=== PATIENT | male | born 1940 | race Caucasian/White ===

== ENCOUNTER → 2023-08-17 14:04 | Outpatient (REF) | payer MEDICARE, SELFPAY | LOC: RAD 14:04 | PROVIDERS: ATTENDING PHYSICIAN Nurse Practitioner Family | DX: R60.0 Localized edema (principal) | CPT/HCPCS: 93971 ==

== ENCOUNTER 2024-07-27 05:15 | Inpatient (IN) | payer MEDICARE, SELFPAY ==
[2024-07-27] VITALS (29 sets, daily range): BP systolic 94–149; BP diastolic 38–102; BMI 34.9; BMI 33.9
--- NOTE | 2024-07-27 02:33 | ED.GENMED ---
History of Present Illness
<LISA Alatorre Jr. Last Filed: 07/27/24 05:01>
General
Chief Complaint: Heart Rate Problem
Source: patient and ambulance crew
Exam Limitations: none
Time Seen by Provider: 07/27/24 02:12
Nursing documentation reviewed up to this point in time: agreed with
History of Present Illness
History of Present Illness:
84-year-old male with past medical history of hypertension and CAD presenting to the emergency department today with concerns of an episode where he felt very warm at home lowered self to the floor for comfort. Unable to get up for roughly 4 hours
family was home but they were unaware of this. Has felt shortness of breath since. Otherwise felt well earlier in the day. Denies chest pain or palpitations. Denies any recent trauma surgery mobilization of blood clots.
Past History
<Good Da Silva Jr., PA-C - Last Filed: 07/27/24 05:01>
Past History
ED Past Medical History: HTN, Hypercholesterolemia and Other (BPH)
ED Past Surgical History: Orthopedic (right knee replacement)
Social History
Tobacco: Non-smoker
Alcohol: None
Drug: None
Personal:
Living: with family
Employment: Retired
Family History
Family History: Other (Noncontributory)
Review of Systems
<LISA Alatorre Jr. Last Filed: 07/27/24 05:01>
Review of Systems
Allergies reviewed?: Yes
All Other Systems: ROS reviewed and negative except as documented in HPI and ROS
Phy Exam
<Good Da Silva Jr., PA-C - Last Filed: 07/27/24 05:01>
Physical Exam
Physical Exam:
GENERAL: Alert , in no apparent distress
EYE: pupils equal and reactive
NECK: Supple, no significant adenopathy.
ENT: o/p clr, mmm.
CARDIAC: Regular rate and rhythm .
LUNGS: Clear breath sounds bilaterally, no acute respiratory distress, no wheezes/rales/rhonchi
ABDOMEN: Soft, without focal tenderness, no r/g, no cvat
NEUROLOGICAL: Alert and oriented, no focal neuro deficits
SKIN: Warm and dry, skin intact.
MUSCULOSKELETAL: No edema, well perfused.
PSYCH: Normal and appropriate interaction.
Course
<Good Da Silva Jr., PA-C - Last Filed: 07/27/24 05:01>
Orders/Labs/Results
Orders:
Orders
07/27/24 02:14
EKG [Electrocardiogram (*1)] Urgent
Reason for Study: Tachycardia
EKG- Treatment ONCE
07/27/24 02:25
CT Chest PE Study Urgent
Comment:
Reason For Exam: sob, tachy, limited physical activity leg swelling
Complete Blood Count/With Diff Urgent
Comprehensive Metabolic Panel Urgent
Creatine [Creatine Phosphokinase] Urgent
Pro-BNP [NT-proBNP] Urgent
Troponin I Urgent
Chest X-ray Portable [CR Chest Portable - 1 View] Urgent
Comment:
Reason For Exam: sob
Reason Study Needs to be Portable: Patient Unstable
07/27/24 04:30
Heparin 8,600 units IV NOW STA
Heparin 03884 Units/250 ml 25,000 units in 250 ml IV PER PROTOCOL
Weight to be used for heparin protocol in kilograms (kg):: 107
Protocol:: DVT/PE
PTT Goal Range to be used:: PTT 73 to 111 seconds
Order type:: Initial
INITIAL Infusion Dose (UNITS/KG/hr) & then follow protocol:: 18 units/kg/hr
Infusion Dose in UNITS/hr & then follow protocol (UNITS/hr):: 1,900
INFUSION RATE in mL/hr & then follow protocol (mL/hr):: 19
For DVT/PE algorithm, re-bolus for low PTT?: Yes
PTT less than or equal to 64 seconds:: Re-bolus 80 units/kg (max 10,000units). Increase by 400 units/hr
(+ 4mL/hr)
PTT 64.1 to 72.9 seconds:: Re-bolus 40 units/kg (max 5,000 units). Increase by 200 units/hr
(+ 2mL/hr)
PTT 73 to 111 seconds:: Target Range. No change in rate.
PTT 111.1 to 130.9 seconds:: Decrease rate by 200 units/hr (- 2 mL/hr)
PTT 131 to 199.9 seconds:: HOLD for 1 hr. Then decrease by 300 units/hr (- 3mL/hr)
PTT greater than or equal to 200 seconds:: HOLD for 2 hrs & Notify Provider. Then decrease by 400 units/hr
(- 4mL/hr)
Lab follow-up:: Each change, PTT q6h until 2 consecutive are therapeutic. Then
PTT daily.
Heparin Protocol- PTT Orders As Directed
PTT per Heparin protocol: -Obtain CBC and baseline PTT - if not already collected.
-Obtain PTT 6 hours from start of infusion. Then, every 6 hours until 2 consecutive
PTT's are therapeutic. Then, PTT Daily.
-With each rate change, obtain PTT every 6 hours until 2 consecutive PTT's are
therapeutic. Then, PTT Daily.
Nursing to Place Non Medication Order As Directed
Physician Order: PTT 6 hours after initial start of Heparin infusion
07/27/24 04:33
COVID-19 Antigen Stat
Source: Nasal Swab
PTT Urgent
Comment: Obtain baseline before beginning heparin infusion if not already collected
07/27/24 04:52
Heparin 8,600 units IV PRN PRN
07/27/24 04:53
Admit/Transfer Patient As Directed
Co-Sign Provider:
Level of Care: Inpatient admission
Assign to:: IMU- Intermediate Care
Physician / Group: hospitalist
Diagnosis: pulmonary embolism, pericardial effusion
Reason for Hospitalization: hypoxia, pulmonary embolism
Expected length of stay greater than two midnights?: Yes
ELOS- Estimated Length of Stay in days: 2
I certify the patient meets the requirements for IP care: Yes
Heparin 4,300 units IV PRN PRN
PRN Pain Medication Management As Directed
May give lesser potent ordered pain med per pt: Yes
preference::
Protocol:: Medication orders for pain may be administered in a
manner that supports deferring to patient preference
when the pt is:
- Requesting an ordered lesser potent pain medication.
Least to most potent pain medications are defined
as: acetaminophen < NSAID < tramadol < opioids
(morphine, oxycodone, hydromorphone).
- Requesting a lesser dose of the same medication IF
ORDERED.
- Requesting a less intrusive route of administration
if both routes are prescribed by the provider (PO <
IV).
07/27/24 04:54
Code Status As Directed
Resuscitation Status: Do not resuscitate
Reached after discussion with pt or family/Healthcare POA: Yes
DNR Bracelet Application ONCE
07/27/24 05:00
Flush (0.9% Sodium Chloride) [Flush (Nss)] See Dose Instructions IV PER PROTOCOL
07/27/24 06:00
Echo 2D MMode Color/Doppler IN AM
Reason for Study: pericardial effusion
07/29/24 06:00
Complete Blood Count/No Diff Q2D
Comment: notify provider: Platelet count < 130,000 or decrease by 50% from baseline
07/31/24 06:00
Complete Blood Count/No Diff Q2D
Comment: notify provider: Platelet count < 130,000 or decrease by 50% from baseline
08/02/24 06:00
Complete Blood Count/No Diff Q2D
Comment: notify provider: Platelet count < 130,000 or decrease by 50% from baseline
08/04/24 06:00
Complete Blood Count/No Diff Q2D
Comment: notify provider: Platelet count < 130,000 or decrease by 50% from baseline
08/06/24 06:00
Complete Blood Count/No Diff Q2D
Comment: notify provider: Platelet count < 130,000 or decrease by 50% from baseline
08/08/24 06:00
Complete Blood Count/No Diff Q2D
Comment: notify provider: Platelet count < 130,000 or decrease by 50% from baseline
08/10/24 06:00
Complete Blood Count/No Diff Q2D
Comment: notify provider: Platelet count < 130,000 or decrease by 50% from baseline
08/12/24 06:00
Complete Blood Count/No Diff Q2D
Comment: notify provider: Platelet count < 130,000 or decrease by 50% from baseline
Abnormal Lab Results
07/27/24
02:25
WBC 28.4 H 10^3/uL
(4.8-10.8)
RBC 4.61 L 10^6/uL
(4.70-6.10)
Plt Count 495 H 10^3/uL
(130-400)
Abs Immat Gran (auto) 0.3 H 10^3/uL
(0-0.05)
Absolute Neuts (auto) 25.5 H 10^3/uL
(1.4-6.5)
Absolute Lymphs (auto) 1.0 L 10^3/uL
(1.2-3.4)
Absolute Monos (auto) 1.6 H 10^3/uL
(0.1-0.6)
Immature Gran % 1.0 H %
(0-0.5)
Neutrophils % 89.9 H %
(42.2-75.2)
Lymphocytes % 3.4 L %
(20.5-51.1)
Carbon Dioxide 18 L mmol/L
(22-30)
BUN 35 H mg/dl
(9-20)
Glucose 257 H mg/dl
(70-99)
Total Bilirubin 2.0 H mg/dl
(0.2-1.3)
AST 117 H U/L
(17-59)
ALT 191 H U/L
(0-50)
Total Protein 5.8 L g/dl
(6.3-8.2)
Albumin 3.0 L g/dl
(3.5-5.0)
07/27/24 02:25
07/27/24 02:25
Vital Signs
Initial and Last Documented VS:
Initial Vital Signs
Temp Pulse Resp BP Pulse Ox
97.6 F 119 26 108/74 92
07/27/24 02:12 07/27/24 02:12 07/27/24 02:12 07/27/24 02:12 07/27/24 02:12
Last Documented Vital Signs
Temp Pulse Resp BP Pulse Ox
97.6 F 113 31 112/48 93
07/27/24 02:12 07/27/24 04:00 07/27/24 04:00 07/27/24 04:00 07/27/24 04:00
<Micah Ramsay, DO - Last Filed: 07/27/24 04:29>
Orders/Labs/Results
Orders:
Orders
07/27/24 02:14
EKG [Electrocardiogram (*1)] Urgent
Reason for Study: Tachycardia
EKG- Treatment ONCE
07/27/24 02:25
CT Chest PE Study Urgent
Comment:
Reason For Exam: sob, tachy, limited physical activity leg swelling
Complete Blood Count/With Diff Urgent
Comprehensive Metabolic Panel Urgent
Creatine [Creatine Phosphokinase] Urgent
Pro-BNP [NT-proBNP] Urgent
Troponin I Urgent
Chest X-ray Portable [CR Chest Portable - 1 View] Urgent
Comment:
Reason For Exam: sob
Reason Study Needs to be Portable: Patient Unstable
07/27/24 04:30
Heparin 8,600 units IV NOW STA
Heparin 61661 Units/250 ml 25,000 units in 250 ml IV PER PROTOCOL
Weight to be used for heparin protocol in kilograms (kg):: 107
Protocol:: DVT/PE
PTT Goal Range to be used:: PTT 73 to 111 seconds
Order type:: Initial
INITIAL Infusion Dose (UNITS/KG/hr) & then follow protocol:: 18 units/kg/hr
Infusion Dose in UNITS/hr & then follow protocol (UNITS/hr):: 1,900
INFUSION RATE in mL/hr & then follow protocol (mL/hr):: 19
For DVT/PE algorithm, re-bolus for low PTT?: Yes
PTT less than or equal to 64 seconds:: Re-bolus 80 units/kg (max 10,000units). Increase by 400 units/hr
(+ 4mL/hr)
PTT 64.1 to 72.9 seconds:: Re-bolus 40 units/kg (max 5,000 units). Increase by 200 units/hr
(+ 2mL/hr)
PTT 73 to 111 seconds:: Target Range. No change in rate.
PTT 111.1 to 130.9 seconds:: Decrease rate by 200 units/hr (- 2 mL/hr)
PTT 131 to 199.9 seconds:: HOLD for 1 hr. Then decrease by 300 units/hr (- 3mL/hr)
PTT greater than or equal to 200 seconds:: HOLD for 2 hrs & Notify Provider. Then decrease by 400 units/hr
(- 4mL/hr)
Lab follow-up:: Each change, PTT q6h until 2 consecutive are therapeutic. Then
PTT daily.
Heparin Protocol- PTT Orders As Directed
PTT per Heparin protocol: -Obtain CBC and baseline PTT - if not already collected.
-Obtain PTT 6 hours from start of infusion. Then, every 6 hours until 2 consecutive
PTT's are therapeutic. Then, PTT Daily.
-With each rate change, obtain PTT every 6 hours until 2 consecutive PTT's are
therapeutic. Then, PTT Daily.
Nursing to Place Non Medication Order As Directed
Physician Order: PTT 6 hours after initial start of Heparin infusion
07/27/24 04:33
COVID-19 Antigen Stat
Source: Nasal Swab
PTT Urgent
Comment: Obtain baseline before beginning heparin infusion if not already collected
07/27/24 04:52
Heparin 8,600 units IV PRN PRN
07/27/24 04:53
Admit/Transfer Patient As Directed
Co-Sign Provider:
Level of Care: Inpatient admission
Assign to:: IMU- Intermediate Care
Physician / Group: hospitalist
Diagnosis: pulmonary embolism, pericardial effusion
Reason for Hospitalization: hypoxia, pulmonary embolism
Expected length of stay greater than two midnights?: Yes
ELOS- Estimated Length of Stay in days: 2
I certify the patient meets the requirements for IP care: Yes
Heparin 4,300 units IV PRN PRN
PRN Pain Medication Management As Directed
May give lesser potent ordered pain med per pt: Yes
preference::
Protocol:: Medication orders for pain may be administered in a
manner that supports deferring to patient preference
when the pt is:
- Requesting an ordered lesser potent pain medication.
Least to most potent pain medications are defined
as: acetaminophen < NSAID < tramadol < opioids
(morphine, oxycodone, hydromorphone).
- Requesting a lesser dose of the same medication IF
ORDERED.
- Requesting a less intrusive route of administration
if both routes are prescribed by the provider (PO <
IV).
07/27/24 04:54
Code Status As Directed
Resuscitation Status: Do not resuscitate
Reached after discussion with pt or family/Healthcare POA: Yes
DNR Bracelet Application ONCE
07/27/24 05:00
Flush (0.9% Sodium Chloride) [Flush (Nss)] See Dose Instructions IV PER PROTOCOL
07/27/24 06:00
Echo 2D MMode Color/Doppler IN AM
Reason for Study: pericardial effusion
07/29/24 06:00
Complete Blood Count/No Diff Q2D
Comment: notify provider: Platelet count < 130,000 or decrease by 50% from baseline
07/31/24 06:00
Complete Blood Count/No Diff Q2D
Comment: notify provider: Platelet count < 130,000 or decrease by 50% from baseline
08/02/24 06:00
Complete Blood Count/No Diff Q2D
Comment: notify provider: Platelet count < 130,000 or decrease by 50% from baseline
08/04/24 06:00
Complete Blood Count/No Diff Q2D
Comment: notify provider: Platelet count < 130,000 or decrease by 50% from baseline
08/06/24 06:00
Complete Blood Count/No Diff Q2D
Comment: notify provider: Platelet count < 130,000 or decrease by 50% from baseline
08/08/24 06:00
Complete Blood Count/No Diff Q2D
Comment: notify provider: Platelet count < 130,000 or decrease by 50% from baseline
08/10/24 06:00
Complete Blood Count/No Diff Q2D
Comment: notify provider: Platelet count < 130,000 or decrease by 50% from baseline
08/12/24 06:00
Complete Blood Count/No Diff Q2D
Comment: notify provider: Platelet count < 130,000 or decrease by 50% from baseline
Abnormal Lab Results
07/27/24
02:25
WBC 28.4 H 10^3/uL
(4.8-10.8)
RBC 4.61 L 10^6/uL
(4.70-6.10)
Plt Count 495 H 10^3/uL
(130-400)
Abs Immat Gran (auto) 0.3 H 10^3/uL
(0-0.05)
Absolute Neuts (auto) 25.5 H 10^3/uL
(1.4-6.5)
Absolute Lymphs (auto) 1.0 L 10^3/uL
(1.2-3.4)
Absolute Monos (auto) 1.6 H 10^3/uL
(0.1-0.6)
Immature Gran % 1.0 H %
(0-0.5)
Neutrophils % 89.9 H %
(42.2-75.2)
Lymphocytes % 3.4 L %
(20.5-51.1)
Carbon Dioxide 18 L mmol/L
(22-30)
BUN 35 H mg/dl
(9-20)
Glucose 257 H mg/dl
(70-99)
Total Bilirubin 2.0 H mg/dl
(0.2-1.3)
AST 117 H U/L
(17-59)
ALT 191 H U/L
(0-50)
Total Protein 5.8 L g/dl
(6.3-8.2)
Albumin 3.0 L g/dl
(3.5-5.0)
07/27/24 02:25
07/27/24 02:25
Vital Signs
Initial and Last Documented VS:
Initial Vital Signs
Temp Pulse Resp BP Pulse Ox
97.6 F 119 26 108/74 92
07/27/24 02:12 07/27/24 02:12 07/27/24 02:12 07/27/24 02:12 07/27/24 02:12
Last Documented Vital Signs
Temp Pulse Resp BP Pulse Ox
97.6 F 113 31 112/48 93
07/27/24 02:12 07/27/24 04:00 07/27/24 04:00 07/27/24 04:00 07/27/24 04:00
<Good Da Silva Jr., PA-C - Last Filed: 07/27/24 05:01>
MDM/Problems Addressed
MDM/Problems Addressed:
84-year-old male presenting to the emergency department today with concerns of shortness of breath. Also unable to get up off the floor after he purposely lowered himself to the floor getting warm. Was on the floor for roughly 4 hours. Adamantly
denies any significant injuries or trauma. He claims that going to the floor was intentional. On arrival he is tachycardic tachypneic and pulse ox is in the 80s on room air improving to 9392 on 3 L nasal cannula. Does not typically use oxygen.
White count 28, elevated bili as well as LFTs. CT scan was ordered concerning the patient's tachycardia hypoxia. This showed segmental PEs as well as pericardial effusion. PERT alert was called heparin started Case discussed with ICU doc.
Additionally cardiology was messaged. Echo was ordered as well for further assessment. Stable while in the ER.
<Good Da Silva Jr., PA-C - Last Filed: 07/27/24 05:01>
*Critical Care Note
Total Time (30-74mins, 75-104mins- exclusive of procedures): Critical care statement:
ED Attending Note
<Good Da Silva Jr., PA-C - Last Filed: 07/27/24 05:01>
-
Portions of this chart may have been created with voice recognition software.� Occasional wrong word or��sound alike� substitutions may have occurred due to the inherent limitations of voice recognition software.
<Micah Ramsay, DO - Last Filed: 07/27/24 04:29>
ED Attending Note
Patient seen and examined by attending physician: Yes
ED Attending Note:
84-year-old male presents with shortness of breath. Patient presented to the emergency department hypoxic. Patient was seen in conjunction with the [facility]. I have reviewed and agree with his history and treatment plan. CT results showed PEs and
mild right heart strain. There is also a pericardial effusion. On my independent physical exam, patient is in mild to moderate distress. He is speaking in 1-2 word sentences. He is working at breathing even with nasal cannula present. Patient
to be admitted to the hospitalist service. At this time pulmonology was consulted. Given the right heart strain and the multiple PEs, PERT alert was called.
Discharge Plan
Departure
Patient Disposition: Admit
Date of Disposition: 07/27/24
Time of Disposition: 05:01
Admit to: ICU
Admit to doctor: Jasmeet
Presentation/result/management discussed w/ accepting MD/DO: Hospitalist
Patient with high blood pressure during this ER visit?: No
Condition: Fair
Covid-19: Not Applicable
Discharge Problem:
Pulmonary embolism, Pericardial effusion
Prescriptions:
No Action
tamsulosin 0.4 MG capsule
0.4 mg PO DAILY
hydrochlorothiazide 12.5 MG tablet
12.5 mg PO DAILY
biotin 5,000 MCG tablet,disintegrating
10,000 mcg PO DAILY
finasteride 5 MG tablet
5 mg PO DAILY
acetaminophen [Tylenol Extra Strength] 500 MG tablet
500 mg PO Q4HPRN PRN (Reason: pain) Qty: 1 0RF
ascorbic acid (vitamin C) 500 MG capsule
500 mg PO DAILY
losartan 50 MG tablet
50 mg PO DAILY 0RF
atorvastatin 40 MG tablet
40 mg PO QPM Qty: 90 3RF
metoprolol succinate 50 MG tablet extended release 24 hr
50 mg PO BID Qty: 180 3RF
Rx Instructions:
Please take twice a day, note lower dose
aspirin 81 MG tablet,chewable
81 mg PO DAILY Qty: 90 3RF
nitroglycerin 0.4 MG tablet, sublingual
0.4 mg sublingual [id number] PRN (Reason: chest pain) Qty: 25 2RF
amlodipine 5 mg Tablet
5 mg PO DAILY
cholecalciferol (vitamin D3) [Vitamin D3] 50 mcg (2,000 unit) Capsule
50 mcg PO DAILY
coQ10 (ubiquinol) 200 mg Capsule
200 mg PO DAILY
Referrals:
Daniel Morgan CRNP [Family Provider] -
Interventions
Interventions:
*Risk Screen - Suicide Last Done: 07/27/24 02:12
*General Assessment Last Done: 07/27/24 02:12
*Neglect/Abuse Screening Last Done: 07/27/24 02:12
*ED- Fall Risk Assessment Last Done: 07/27/24 02:12
*ED COVID-19 Vaccine History Last Done: 07/27/24 02:12
ED- Cardiac Assessment Last Done: 07/27/24 02:18
ED- Pulmonary Assessment Last Done: 07/27/24 02:19
Discharge Date and Time
Print Language: BENGALI
[2024-07-27 02:36] LABS: Hematocrit 40.6 % (39.0-52.0); Hemoglobin 13.7 g/dL (13.0-18.0); Mean Corp Hgb Conc. 33.7 g/dL (33.0-37.0); Mean Corpuscular Hgb 29.7 pg (27.0-31.0); Mean Corpuscular Volume 88.1 fL (80.0-94.0); Mean Platelet Volume 9.3 fL (7.4-10.4); Platelet Count 495 10^3/uL (130-400); Red Blood Cell Count 4.61 10^6/uL (4.70-6.10); Red Cell Dist. Width 13.9 % (11.5-14.5); White Blood Cell Count 28.4 10^3/uL (4.8-10.8)
[2024-07-27 02:56] LABS: AST (SGOT) 117 U/L (17-59); Alkaline Phosphatase 122 U/L (38-126); Blood Urea Nitrogen 35 mg/dl (9-20); Calcium 8.5 mg/dl (8.4-10.2); Carbon Dioxide 18 mmol/L (22-30); Chloride 107 mmol/L (98-107); Creatine Phosphokinase 122 U/L (55-170); Estimated Creatinine Clearance 52 ml/min; Glucose 257 mg/dl (70-99); Potassium 4.4 mmol/L (3.5-5.1); Sodium 141 mmol/L (135-145); Total Protein 5.8 g/dl (6.3-8.2); eGFR 54.51
[2024-07-27 03:05] LABS: ALT (SGPT) 191 U/L (0-50)
[2024-07-27 03:07] LABS: NT-proBNP 1410 pg/ml
[2024-07-27 03:43] LABS: % Basophils 0.2 % (0-2); % Lymphocytes 3.4 % (20.5-51.1); % Monocytes 5.5 % (1.7-9.3); % Neutrophils 89.9 % (42.2-75.2); Absolute Basophils 0.1 10^3/uL (0-0.2); Absolute Immature Granulocytes 0.3 10^3/uL (0-0.05); Absolute Monocytes 1.6 10^3/uL (0.1-0.6); Absolute Neutrophils 25.5 10^3/uL (1.4-6.5); Nucleated Red Blood Cells % 0 % (-)
--- NOTE | 2024-07-27 04:34 | HPS.HSE ---
Family Physician
-
Family Physician: MARK ANTHONY Sinclair
Chief Complaint
-
Weakness
History of Present Illness
This is a 84-year-old with past medical history of CAD status post NSTEMI, status post stenting 3 years ago, hypertension, hyperlipidemia, BPH, presents to the emergency department with sudden weakness at home.
According to daughter who sees him regularly, patient had been in usual state of health up until the day of admission. She frequently has confronted they have was feeling and patient stated that he was doing well although he appeared to be having
increased work of breathing and not his usual self. He had no fevers or chills. She is unsure if he had any sick contacts but believes he has not been isolated. Patient became so weak that he lowered himself to the floor. He was unable to get up
on his own and EMS was called. He denied having any chest pain. He denies any worsening lower extremity swelling. He denies any calf tenderness. Found to have PE in the emergency department. With respect to the PE patient denies any recent
cough cold flulike symptoms. He denies any recent travel. He had surgery in for hip replacement. He has been immobile since then using a walker. He did stop going to PT. He denies any prior history of PEs. He denies history of
congestive heart failure.
In the emergency department the patient was afebrile, he was requiring 2 L of oxygen to maintain a sat of 93, he was tachypneic to the high 30s. Was tachycardic to the 113. Blood pressure was 110/50. ECG shows sinus tachycardia at rate of 118.
No acute ST or T wave changes. Troponin was 0.03. BNP was elevated at 1400. He has mild elevations in AST to 117 ALT to 191. Total bilirubin was also elevated at 2.0. White count of 28.4, hemoglobin and platelets were normal. Electrolytes were
normal. Creatinine was 1.3 with a glucose of 257.
He had a CT PE study which showed despite artifact limited assessment that there was acute pulmonary emboli involving right lower lobe segmental and subsegmental branches, additional emboli within the left upper lobe segmental and subsegmental
branches. There is straightening of the IV septum which could reflect mild degree of right heart strain with a moderate to large pericardial effusion.
Medical History
Past Medical History
Past Medical History: Reports CAD, HTN, Hypercholesterolemia and Other (BPH)
Past Surgical History: Reports Orthopedic (Right knee replacement 2004, hip replacement 2024, Right L2 TFESI 05/04/2022 NDS, RT L3-4 ILESI NO SED DOS 05.25.2022 NDS, RT L4 TFESI NO SED 06/15/22 ) and Tonsilectomy
Social History
Tobacco: Non-smoker
Alcohol: None
Drug: None
Personal:
Living: With Family
Employment: Retired
Family History
Family History: Not pertinent
Allergies / Home Medications
Allergies reflects when Allergies were last updated in [employer].
Home Medications with original date entered in [employer]
Allergy/Medication List:
Allergies
Allergy/AdvReac Type Severity Reaction Status Date / Time
No Known Allergies Allergy Verified 07/19/20 19:43
Home Medications
biotin 5,000 mcg disintegrating tablet 10,000 mcg PO DAILY Supplement 04/06/19
finasteride 5 mg tablet 5 mg PO DAILY Urinary issue 04/06/19
hydrochlorothiazide 12.5 mg tablet 12.5 mg PO DAILY Blood pressure 04/06/19
tamsulosin 0.4 mg capsule 0.4 mg PO DAILY Urinary issue 04/06/19
acetaminophen 500 mg tablet (Tylenol Extra Strength) 500 mg PO Q4HPRN PRN pain #1 tab 04/12/19
ascorbic acid (vitamin C) 500 mg capsule 500 mg PO DAILY Supplement 07/19/20
aspirin 81 mg chewable tablet 81 mg PO DAILY #90 tabs 07/23/20
atorvastatin 40 mg tablet 40 mg PO QPM #90 tabs 07/23/20
losartan 50 mg tablet 50 mg PO DAILY 07/23/20
metoprolol succinate 50 mg tablet,extended release 24 hr 50 mg PO BID #180 tabs 07/23/20
nitroglycerin 0.4 mg sublingual tablet 0.4 mg sublingual [id number] PRN chest pain #25 tabs 07/23/20
amlodipine 5 mg tablet 5 mg PO DAILY 07/27/24
cholecalciferol (vitamin D3) 50 mcg (2,000 unit) capsule (Vitamin D3) 50 mcg PO DAILY 07/27/24
coQ10 (ubiquinol) 200 mg capsule 200 mg PO DAILY 07/27/24
Review of Systems
-
History Source: Patient and Family
Constitutional: Reports No Symptoms; Denies Fever or Chills
EENT: Reports No Symptoms
Respiratory: Reports Trouble Breathing
Cardiac: Reports No Symptoms
Abdomen/GI: Reports No Symptoms
: Reports No Symptoms
Musculoskeletal: Reports No Symptoms
Skin: Reports No Symptoms
Neurological: Reports Weakness
Endocrine: Reports No Symptoms
Hematologic/Lymphatic: Reports No Symptoms
Psych: Reports No Symptoms
Physical Exam
Vital Signs
Vital Signs
Temp Pulse Resp BP Pulse Ox
97.6 F 113 31 112/48 93
07/27/24 02:12 07/27/24 04:00 07/27/24 04:00 07/27/24 04:00 07/27/24 04:00
Physical Exam
General: Respiratory Distress
HEENT: NormoCephalic, Anicteric, Moist mucous membranes, Atraumatic, PERRLA and Oxygen
Respiratory: Clear; No Wheezes, Rales or Rhonchi
Cardiac: S1/S2, Regular Rhythm and Tachycardia
Breast: Deferred by me
GI: Soft, Non Tender, Non Distended and Normal Bowel Sounds
Rectal: Deferred by Provider
Genito-urinary: Deferred by me
Musculoskeletal: No Clubbing, No Cyanosis, Edema, Left Lower Extremity and Edema, Right Lower Extremity
Skin: Warm
Neuro: AO x 3 and Nonfocal/grossly intact
Hematologic/Lymphatic: No Lymphadenopathy
Psych: Calm
Laboratory Results
-
07/27/24 02:25
07/27/24 02:25
Laboratory Results
Total Bilirubin 2.0 mg/dl (0.2-1.3) H 07/27/24 02:25
AST 117 U/L (17-59) H 07/27/24 02:25
ALT 191 U/L (0-50) H 07/27/24 02:25
Alkaline Phosphatase 122 U/L (38-126) 07/27/24 02:25
Troponin I 0.030 ng/ml 07/27/24 02:25
Data Reviewed
-
CT Scan: Report Reviewed by me
Medical Tests (Nuc Med, Echo, EKG etc): Image Personally Visualized and interpreted
Lab Data: Labs Reviewed by me
Old Records: Reviewed
Impression/Plan
-
IMPRESSION:
84 y.o male with h/o CAD s/p NSTEMI, s/p PCI 3 yrs ago, HTN, HLD presenting with weakness and SOB. Has bilateral PE w/o saddle emboli. There is evidence of mild heart strain with septal straining. BNP is elevated at 1400. Troponin is 0.03 and
ECG shows no changes. He is tachycardic, tachypneic and hypoxic. There is pericardial effusion (moderate to large) and moderate amount of peripheral edema. He is normotensive so far. No tamponade.
PLAN:
1. PE - Bilateral PE possible in setting of ongoing pericardial effusion. Surgery in April (hip replacement) but no other known provoking factors.
- admit to IMU for now.
- NPO except meds and sips
- IV heparin gtt
- echo to eval strain further
- check covid 19
- bonita LE u/s
- holding losartan and amlodipine, continue metoprolol
- supportive measures, keep sat > 95% to reduce wob
- pulmonary consultation, PERT alert called, awaiting recs from [facility]
2. Pericardial effusion - Pericardial effusion with some total body volume overload. Possible CHF versus infectious inflammatory process. Moderate to large volume but no alternans on ECG and no tamponade
- no fevers, no cough,no pna, hold off on cultures
- check viral panel
- check inflammatory panel
- echo as above, may need diagnostic tap
- will hold off on diuretics for now
- cardiology consultation
3. Leukocytosis - infectious, inflammatory vs proliferative. Has some prior elevations 4 years ago. Other lineages presered.
- infectious w/u to include u/a
- cultures if spike fever
- abx if febrile otherwise hold off for now
4. CAD - Trop negative
- continue aspirin, statin
- on heparin gtt for PE
Code Status - DNR
[2024-07-27] MEDS: HEPARIN 8600 UNITS IV (05:00)
[2024-07-27] MEDS: HEPARIN 25000 UNITS/250 ML IV (05:01)
[2024-07-27 05:54] LABS: COVID-19 Antigen Negative (Negative)
--- NOTE | 2024-07-27 06:10 | PTCARENOTE ---
Patient arrived from the ED via stretcher accompanied by RN. Patient is [place] but awake, alert and oriented. Afebrile, BP stable. ST 110s on CM. Complete CHG cloth bath given with complete linen change. Oral care. S1S2 tachy. Positive pulses x 4
extremities, BLE edema 2+. Abdomen softly distended and nontender with good bowel sounds. BBS clear, diminished in the bases. Patient denies CP but does have tachypnea. Feels SOB with HOB flat. HOB up 45-60 degrees for patient comfort. Right AC #20
with Heparin gtt infusing at 1900units/hr. Left AC #20 SL. Sats 92% on 3L, increased to 4L/nc per order. Right posterior back with scaly area secondary to skin biopsy for skin cancer, area dry without drainage. CLIFFORD. Bed in low and locked position,
bed alarm on, call negro in reach. Urinal at bedside. Patient daughter Jud at bedside. Oriented to unit.
--- NOTE | 2024-07-27 07:06 | PTCARENOTE ---
Report given verbally to RN assuming careCiro. Questions answered.
--- NOTE | 2024-07-27 07:45 | PTCARENOTE ---
Assumed care of pt. approx 0700.
On heparin gtt.
Bedside US completed w. motorcycle repairer, leandro ordered. cards csx.
--- NOTE | 2024-07-27 07:47 | CON.INTV ---
Addendum entered and electronically signed by Pat Delaney MD 07/27/24 16:59:
-Discussed with Cardiology attending. Bedside POCUS suggestive of early RA/RV collapse. Interventional cardiology service was consulted and patient was taken to [facility] for Pericardiocentesis.
-Patient was examined again after Pericardiocentesis and was noted to be in A fib with RVR. Cardizem was started and maxed quickly. Lopressor 2.5 mg IV push. Depending on clinical response and blood pressure, might need Amiodarone infusion.
-Transfer to ICU
Total 81 min of critical care time spent.
Original Note:
Consultation
Consultation Request
Date/Time Consultation Requested: 07/27/2024
Date/Time Consultation Performed: 07/27/2024
Requesting Provider: Cecilio Alamo
Performing Provider: Pat Delaney
Reason for Consultation: newly detected PE
Medical History
-
Chief Complaint: Shortness of breath
History of Present Illness:
Patient is a very pleasant 84-year-old gentleman with history of coronary artery disease, NSTEMI and status post PCI about 3 years ago, hypertension, hyperlipidemia, prostatic hypertrophy who presented to the emergency room with sudden onset
weakness and shortness of breath. Patient reports that he had been in his usual state of health up until the day of admission except for some increasing pedal edema noted over the last 2 weeks which was initially felt to be related to a side effect
of a certain medication. Patient states that he was sitting in chair where he felt uneasy but denies feeling near syncopal but felt mildly short of breath and he had himself lie down on the floor. Patient says that he felt weak and was not able to
pick himself back up. EMS was called and patient was evaluated. He denied any chest pain and workup in the emergency room showed normal troponin but pulmonary embolism and right lower lobe as well as left upper lobe segmental and subsegmental. A
PERT team was activated and I reviewed patient's CAT scan. Clot burden overall seemed small and central arteries were not involved. Patient however was noted to have moderate pericardial effusion and also with trace pleural effusions. Patient was
not hypotensive and had normal troponin with minimal if any right heart strain on CT scan hence catheter directed therapies were not pursued. Another concern with using thrombolytic was the moderate pleural effusion noted on the imaging. Patient's
BNP was noted to be elevated at 1400. Patient was then started on IV heparin and was admitted to IMU and pulmonary consultation was requested for further input.
No reported recent long travel, no recent hospitalizations or surgeries. Patient reports he had a screening colonoscopy about 20 years ago, does not smoke and no prior known history of malignancy. No family history of blood clots either.
Patient's father of lung cancer, he had a history of smoking.
Past Medical History: Reports CAD, HTN, Hypercholesterolemia and Other (BPH)
Past Surgical History: Reports Orthopedic (Right knee replacement 2004, hip replacement 2024, Right L2 TFESI 05/04/2022 NDS, RT L3-4 ILESI NO SED DOS 05.25.2022 NDS, RT L4 TFESI NO SED 06/15/22 ) and Tonsilectomy
Social History
Tobacco: Non-smoker
Alcohol: None
Drug: None
Personal:
Living: With Family
Employment: Retired
Family History
Family History: Not pertinent
Allergies / Home Medications
Allergies
Allergy/AdvReac Type Severity Reaction Status Date / Time
No Known Allergies Allergy Verified 07/19/20 19:43
Home Medications
�Medication �Instructions �Recorded �Confirmed �Last Taken �Type
biotin 5,000 mcg disintegrating 10,000 mcg PO DAILY Supplement 04/06/19 07/27/24 Unknown History
tablet
finasteride 5 mg tablet 5 mg PO DAILY Urinary issue 04/06/19 07/27/24 Unknown History
hydrochlorothiazide 12.5 mg tablet 12.5 mg PO DAILY Blood pressure 04/06/19 07/27/24 Unknown History
tamsulosin 0.4 mg capsule 0.4 mg PO DAILY Urinary issue 04/06/19 07/27/24 Unknown History
acetaminophen 500 mg tablet 500 mg PO Q4HPRN PRN pain #1 tab 04/12/19 07/27/24 Unknown Rx
(Tylenol Extra Strength)
ascorbic acid (vitamin C) 500 mg 500 mg PO DAILY Supplement 07/19/20 07/27/24 Unknown History
capsule
aspirin 81 mg chewable tablet 81 mg PO DAILY #90 tabs 07/23/20 07/27/24 Unknown Rx
atorvastatin 40 mg tablet 40 mg PO QPM #90 tabs 07/23/20 07/27/24 Unknown Rx
losartan 50 mg tablet 50 mg PO DAILY 07/23/20 07/27/24 Unknown Rx
metoprolol succinate 50 mg 50 mg PO BID #180 tabs 07/23/20 07/27/24 Unknown Rx
tablet,extended release 24 hr
nitroglycerin 0.4 mg sublingual 0.4 mg sublingual [id number] PRN 07/23/20 07/27/24 Unknown Rx
tablet chest pain #25 tabs
amlodipine 5 mg tablet 5 mg PO DAILY 07/27/24 07/27/24 Unknown History
cholecalciferol (vitamin D3) 50 50 mcg PO DAILY 07/27/24 07/27/24 Unknown History
mcg (2,000 unit) capsule (Vitamin
D3)
coQ10 (ubiquinol) 200 mg capsule 200 mg PO DAILY 07/27/24 07/27/24 Unknown History
Review of Systems
-
Respiratory: Trouble Breathing
Musculoskeletal: Edema
Hematologic/Lymphatic: Other (Pertinent positives are shortness of breath, bilateral pedal edema. No reported chest pain or cough. No hemoptysis.)
Vitals / Labs / Diagnostic Testing
Vital Signs
Temp Pulse Resp BP Pulse Ox
98.5 F 112 31 118/71 93
07/27/24 06:10 07/27/24 07:00 07/27/24 07:00 07/27/24 07:00 07/27/24 07:00
Lab Data
07/27/24 02:25
07/27/24 02:25
Laboratory Results
07/27/24
04:33
APTT 34.0
Microbiology
07/27/24 05:12 Nasal Swab Influenza Types A & B (MJ) - Final
Negative for Influenza A & B, NAAT
Negative results must be combined with clinical observations
and patient history.
Nucleic Acid Amplification test (NAAT)performed on the
[employer] platform.
Diagnostic Testing:
Physical Exam
-
HEENT: Normocephalic
Cardiovascular: S1/S2 (Patient is tachycardic) and Peripheral Edema (2+ pitting edema bilaterally)
Respiratory: Clear, Non-Labored Respirations and Other (Patient is somewhat tachypneic breathing in high 20s to low 30s, requiring 4 L supplemental oxygen)
GI: Soft
Neurology: Awake, Alert and AO x 3
General: Comfortable
Assessment
-
#1. Acute pulmonary embolism, suspect unprovoked. CT scan reviewed, patient has right lower lobe and left upper lobe segmental and subsegmental pulmonary embolism. PERT team was activated from emergency room, in view of lack of central PE,
hemodynamic stability, normal troponin and minimal if any right heart strain noted on CT, IV heparin drip was recommended. Patient also noted to have moderate pericardial effusion which was another concern hence decision was made against
thrombolytic therapy.
- Patient's overall clot burden is low however he is dyspneic with increased respiratory rate and heart rate, requiring about 3 to 4 L of supplemental oxygen
- Continue heparin drip
- Transthoracic echocardiogram to evaluate further. Suspect volume overload, CHF and pericardial effusion are contributing to his symptoms.
- No prior history of malignancy. Patient reports screening colonoscopy 20 years ago was unremarkable. Underlying malignancy is certainly a concern with unprovoked pulmonary embolism
#2. Acute on suspect chronic congestive heart failure with bilateral pleural effusions, mild pulmonary edema. Patient noted to have elevated BNP, bilateral pitting edema on exam. Small bilateral pleural effusions noted as well as moderate
pericardial effusion.
- Check echocardiogram to evaluate further
- Hold metoprolol
- Lasix 20 mg IV stat, monitor response before additional diuresis
- Continue O2 support to keep saturation above 90 to 92%
#3. Pericardial effusion. Patient's shortness of breath appears to be out of proportion to clot burden and RV changes noted on CT scan. I suspect congestive heart failure and possibly moderate to large pericardial effusions also contributing to
symptoms. I performed bedside POCUS, RV does not appear to be dilated and's concern for symptomatic pericardial effusion.
- Cardiology consultation
- Echocardiogram to evaluate further
- Hold metoprolol
- Continue to monitor in IMU closely
- Lasix 20 mg IV stat
- Keep NPO in case patient needs pericardiocentesis.
#4. History of coronary artery disease, PCI of RCA in 2020. No chest pain reported. Troponin negative in the emergency room. No acute ST changes noted.
- Hold Metoprolol
- Continue Statins, has been on ASA 81 mg daily.
Total time spent on this consultation/encounter __81__ minutes which includes review of history, physical exam, medications, laboratory data, personal review of imaging, extensive review of outpatient records, discussion with care team and
respiratory therapy.
Updated patient.
Data:
CXR 07/2024: 1. Low inspiratory volumes.
2. Haziness of each hemidiaphragm, which may represent bibasilar airspace disease and/or small bilateral pleural effusions
CT-PE 07/2024: 1. Positive for segmental and subsegmental pulmonary emboli on each side.
2. Moderate pericardial effusion, measuring 2.1 cm in greatest thickness.
3. Small cavity size of both the RV and LV. Consider echocardiogram to evaluate for tamponade relating to pericardial effusion.
4. RV: LV ratio measures greater than 1. This finding, combined with the relatively small overall burden of embolus and peripheral position of emboli argues against significant right heart strain, however evaluation is complicated by moderate
pericardial effusion.
5. Small bilateral pericardial effusions. Bibasilar airspace consolidation, likely representing compressive atelectasis.
Cardiac Cath 07/2020: 1. Hazy, ulcerated 75-80% culprit lesion in the proximal RCA, status post PCI (Xience Chloe 4.0 x 23 GEORGE, postdilated with 5.0 NC balloon) with reduction in stenosis to 0%, maintaining CHUCK 3 flow.
2. Mildly elevated filling pressures.
[2024-07-27] MEDS: LASIX 20 MG IV (07:55)
[2024-07-27] MEDS: MIRALAX 17 GRAMS PO (07:56)
[2024-07-27] MEDS: LOW STRENGTH ASPIRIN 81 MG PO (07:56)
[2024-07-27] MEDS: PROTONIX 40 MG PO (07:56)
[2024-07-27] MEDS: PROSCAR 5 MG PO (07:56)
[2024-07-27] MEDS: FLOMAX 0.4 MG PO (07:57)
--- NOTE | 2024-07-27 08:56 | W.PN.HOSP.TC ---
Today's Communication/Plan
-
Pericardiocentesis
Hold heparin.
Continue ICU monitoring
Total Critical Care Time__45___ minutes. I was immediately available to the patient and staff. I personally examined, reviewed labs, diagnostic images/reports, interpretations, treatment plans, discussed patient care with other providers and
family or caregivers (if patient is unable to make decisions), entered orders as appropriate and documented the medical record.
Assessment / Plan
Assessment / Plan
Impression
Acute hypoxic respiratory failure
Bilateral pulmonary embolism, provoked (immobility, status post right MICAH 04/28)
Bilateral/bibasilar airspace consolidation
Large paracardial effusion on CT imaging.
Leukocytosis.
INDIA (creatinine 1.3)
Increased anion gap metabolic acidosis
Elevated LFT, mixed pattern
Other conditions
CAD with history of STEMI�angioplasty to the right coronary artery 07/23
Nonsustained V. tach post OK.
Essential hypertension.
Dyslipidemia.
BPH
Plan:
CT chest:
1. Positive for segmental and subsegmental pulmonary emboli on each side.
2. Moderate pericardial effusion, measuring 2.1 cm in greatest thickness.
3. Small cavity size of both the RV and LV. Consider echocardiogram to evaluate for tamponade relating to pericardial effusion.
4. RV: LV ratio measures greater than 1. This finding, combined with the relatively small overall burden of embolus and peripheral position of emboli argues against significant right heart strain, however evaluation is complicated by moderate
pericardial effusion.
5. Small bilateral pericardial effusions. Bibasilar airspace consolidation, likely representing compressive atelectasis.
Bilateral pulmonary embolism provoked by fairly recent right total hip arthroplasty 04/28 and ongoing immobility.
No evidence for saddle emboli.
Hypoxic, tachycardic, although hemodynamically stable upon presentation.
CT with concern of RV strain and increased RV to LV ratio
Lower extremity Doppler pending.
Echo preliminary report confirm large pericardial effusion
Initiated on IV heparin drip. Plan is to hold for urgent pericardiocentesis. Depends on further workup in terms of cause for pericardial effusion, may require IVC filter.
Holding antihypertensive medications to avoid hypotension including losartan, amlodipine, HCTZ. Continue metoprolol with caution
Pericardial effusion
Urgent echocardiogram confirms
Differential diagnosis viral, versus inflammatory, versus malignant.
Cardiology input appreciated
Plan is for urgent pericardiocentesis.
Follow WALTER, inflammatory markers
Leukocytosis.
Afebrile with no complaints suggestive of infection.
Blood cultures pending
Urinalysis/urine cultures pending.
Monitor temperature curve.
Will have low threshold for empiric antibiotics if febrile.
INDIA baseline creatinine of 1.3.
Noted mild increased anion gap metabolic acidosis.
Hold diuretics. Off HCTZ. Status post single dose of Lasix 20 mg on 07/27
Monitor for retention.
Follow BMP
Elevated LFTs, mixed pattern.
No gastrointestinal complaints.
Suspect hepatic congestion
Follow trend
Consider additional imaging if uptrending
CAD with history of STEMI and revascularization to RCA 07/23.
Essential hypertension
Dyslipidemia
Updated echocardiogram pending.
ECG sinus tachycardia.
Preadmission regimen including metoprolol, losartan, hydrochlorothiazide, amlodipine, atorvastatin, aspirin
BPH.
Monitor for retention.
Continue tamsulosin
Anticipated Discharge: > 48 hours
Subjective/Interval History
-
Date of Service: July 27, 2024
Objective Data
-
Labs:
Laboratory Results
07/27/24 07/27/24 07/27/24
02: 04:33 11:01
WBC 28.4 H
Hgb 13.7
Hct 40.6
Plt Count 495 H
APTT 34.0 Pending
Sodium 141
Potassium 4.4
Chloride 107
Carbon Dioxide 18 L
BUN 35 H
Creatinine 1.3
Glucose 257 H
Calcium 8.5
Total Bilirubin 2.0 H
AST 117 H
ALT 191 H
Alkaline Phosphatase 122
Vital Signs:
Vital Signs
Temp Pulse Resp BP Pulse Ox
98 F 107 31 118/71 93
07/27/24 08:15 07/27/24 07:55 07/27/24 07:00 07/27/24 07:55 07/27/24 07:46
Physical Exam
-
General: Well Developed and No Apparent Distress
HEENT: Normocephalic, Atraumatic and Moist Mucous Membranes
Respiratory: Clear to Auscultation
Cardiac: Regular Rhythm and S1/S2; Negative Murmur, Rub or Gallop
GI: Soft, Nontender, Nondistended and Normal Bowel Sounds; Negative Organomegaly
Rectal: Deferred by Provider
Musculoskeletal: No Clubbing, No Cyanosis and Other (Bilateral right greater than left lower extremity edema)
Skin: Negative Rash
Neuro: Nonfocal/Grossly Intact
--- NOTE | 2024-07-27 08:57 | PTCARENOTE ---
Heparin on hold due to potential pericardial centesis
--- NOTE | 2024-07-27 09:09 | PTCARENOTE ---
Cardiology bedside, decision made for Pericardicentesis.
--- NOTE | 2024-07-27 09:40 | CON.CAR ---
Consultation
Consultation Request
Date/Time Consultation Requested: July 27, 2024 8 AM
Date/Time Consultation Performed: July 27, 2024 9 AM
Requesting Provider: ICU and hospitalist
Performing Provider: Niko Villanueva
Reason for Consultation: Pericardial effusion.
Medical History
-
Chief Complaint: Shortness of breath
History of Present Illness:
84-year-old male with past medical history of NSTEMI status post RCA stenting, hypertension, hyperlipidemia, mild AI and BPH who is here because of shortness of breath. He tells me that he had been previously doing well up until maybe a day or 2
ago. He has had progressive shortness of breath since then. This was noticed by his daughter at the time he became so short of breath and weak that he had to lower himself to the floor and he was unable to get up. Additionally, he has noticed he
had some mild lower extremity swelling as well over the last few weeks.
He was then sent to the emergency room. In the emergency room he was found to have pulmonary emboli as well as a pericardial effusion on CT. Bedside ultrasound was done and it appears that there is a moderate to large size pericardial effusion
with diastolic collapse of the right ventricle impeding RV filling. Interventional cardiology and myself reviewed the images and it is concerning for tamponade given hx, tachycardia, and images demonstrating RV diastolic restricted filling.
Past Medical History
Past Medical History: Other (NSTEMI status post RCA stenting, hypertension, hyperlipidemia, mild AI and BPH)
Past Surgical History: Other (Orthopedic (Right knee replacement 2004, hip replacement 2024, Right L2 TFESI 05/04/2022 NDS, RT L3-4 ILESI NO SED DOS 05.25.2022 NDS, RT L4 TFESI NO SED 06/15/22 ) and Tonsilectomy)
Social History
Tobacco: Non-Smoker
Alcohol: None
Drug: None
Personal:
Living: With Family
Employment: Retired
Family History
Family History: Reviewed & Not Pertinent
Allergies / Home Medications
Allergy/AdvReac Type Severity Reaction Status Date / Time
No Known Allergies Allergy Verified 07/19/20 19:43
�Medication �Instructions �Recorded �Confirmed �Type
biotin 5,000 mcg disintegrating 10,000 mcg PO DAILY Supplement 04/06/19 07/27/24 History
tablet
finasteride 5 mg tablet 5 mg PO DAILY Urinary issue 04/06/19 07/27/24 History
hydrochlorothiazide 12.5 mg tablet 12.5 mg PO DAILY Blood pressure 04/06/19 07/27/24 History
tamsulosin 0.4 mg capsule 0.4 mg PO DAILY Urinary issue 04/06/19 07/27/24 History
acetaminophen 500 mg tablet 500 mg PO Q4HPRN PRN pain #1 tab 04/12/19 07/27/24 Rx
(Tylenol Extra Strength)
ascorbic acid (vitamin C) 500 mg 500 mg PO DAILY Supplement 07/19/20 07/27/24 History
capsule
aspirin 81 mg chewable tablet 81 mg PO DAILY #90 tabs 07/23/20 07/27/24 Rx
atorvastatin 40 mg tablet 40 mg PO QPM #90 tabs 07/23/20 07/27/24 Rx
losartan 50 mg tablet 50 mg PO DAILY 07/23/20 07/27/24 Rx
metoprolol succinate 50 mg 50 mg PO BID #180 tabs 07/23/20 07/27/24 Rx
tablet,extended release 24 hr
nitroglycerin 0.4 mg sublingual 0.4 mg sublingual [id number] PRN 07/23/20 07/27/24 Rx
tablet chest pain #25 tabs
amlodipine 5 mg tablet 5 mg PO DAILY 07/27/24 07/27/24 History
cholecalciferol (vitamin D3) 50 50 mcg PO DAILY 07/27/24 07/27/24 History
mcg (2,000 unit) capsule (Vitamin
D3)
coQ10 (ubiquinol) 200 mg capsule 200 mg PO DAILY 07/27/24 07/27/24 History
Review of Systems
-
All other systems: Negative unless noted
Physical Exam
Vital Signs
Temp Pulse Resp BP Pulse Ox
98 F 107 31 118/71 93
07/27/24 08:15 07/27/24 07:55 07/27/24 07:00 07/27/24 07:55 07/27/24 07:46
Lab Results
07/27/24 02:25
07/27/24 02:25
Troponin I 0.030 ng/ml 07/27/24 02:25
Ltn-V-Xdtaujkddjy Pept 1410 pg/ml 07/27/24 02:25
Physical Exam
General: Well Developed, Well Nourished and Other (uncomfortable appearing)
HEENT: Normocephalic
Respiratory: Other (mild crackles )
Cardiac: Regular Rhythm
GI: Soft
Musculoskeletal: Edema
Skin: Warm and Dry
Neuro: AO x 3
Psych: Calm
Impression / Plan
-
A/P: 84-year-old male with past medical history of NSTEMI status post RCA stenting, hypertension, hyperlipidemia, mild AI and BPH who is here because of shortness of breath. He appears to have tamponade physiology on echocardiogram with impaired
diastolic filling of the RV.
Pericardial effusion with tamponade
- IC reviewed will go for drain
- echo pending
PE
- hold heparin gtt until after drain
CAD s/p RCA stenting
- aspirin statin
HTN
- hold until pericardial drain placement
HLD
- cont statin
AI
- echo pending
Data Reviewed
-
EKG: Tracing Personally Visualized and interpreted (sinus tach )
CT Scan: Report Reviewed by me
Ultrasound: Image Personally Visualized and interpreted, Discussed with Physician, Discussed with Nurse and Discussed with Patient
Labs: Labs Reviewed by me
[2024-07-27 11:38] LABS: Glucose - Point of Care 203 mg/dl (70-99)
--- NOTE | 2024-07-27 11:41 | PTCARENOTE ---
Pt. taken to labor economist for centesis.
--- NOTE | 2024-07-27 13:08 | PTCARENOTE ---
Addendum entered by Ciro Meadows RN 07/27/24 13:33:
Cardiology notified of rapid afib, orders for dilt gtt starting at 5.
Original Note:
Pt. arrived back from [facility] with pericardial drain.
AFIB RVR on monitor, hospitalist notified. Normotensive.
--- NOTE | 2024-07-27 13:22 | CM ---
CM following re: discharge planning.
Reviewed pt's chart, met with pt and pt's daughter at bedside.
Pt is an 84 year old male, admitted with primary dx of PE - Bilateral PE possible in setting of ongoing pericardial effusion. PMH includes: CAD s/p NSTEMI, s/p PCI 3 yrs ago, HTN, HLD.
Pt reports he lives with spouse in a 2SH townhouse, 2 steps to enter, has 2 supportive children. 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 Per daughter, pt will never accept SNF level of care even
recommended and she is requested VN services. VN choices provided. [facility] is chosen. A referral to [facility] made.
PCP: Willard Morgan
Pharmacy> [facility]
D/C plan: home with [facility] and family support.
CM will follow with discharge plan updaters hospitalization progresses
[2024-07-27 13:35] LABS: Body Fluid Glucose 109 mg/dl; Body Fluid LDH > 1000 U/L
[2024-07-27] MEDS: CARDIZEM 125 IV (13:36)
--- NOTE | 2024-07-27 13:45 | ITS.CL.PN ---
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
Procedure
Procedure Note:
CARDIAC CATHETERIZATION REPORT
Date of Procedure: 07/27/2024
Referring: Dr. Niko Villanueva MD
Indication: cardiac tamponade
PROCEDURE: pericardiocentesis via subxiphoid access
ACCESS: 6F subcostal (sewn in place)
CATHETER: 6F pigtail
MODERATE SEDATION: 30 minutes of moderate sedation was utilized. An independent medical coding auditor was present to assist with and help manage the patient's level of consciousness and physiologic status.
HEMODYNAMIC DATA
starting pericardial pressure: 20 mmHg
PERICARDIOCENTESIS
With ultrasound guidance and using micropuncture needle, access to the pericardial space was obtained and a 0.014 wire demonstrated to cross the midline without ectopy noted on telemetry. The micropuncture sheath was inserted over the wire and
serosanguineous fluid noted. 50 cc was removed and sent for laboratory analysis. An 0.035 wire was used to exchange the micro puncture sheath for a pigtail catheter which was hooked up to a Vacutainer and 350 cc of serosanguineous fluid was
evacuated. A fresh Vacutainer was attached and the catheter secured with Tegaderm. The patient had improved dyspnea at the end of the procedure and tachycardia improved.
CONCLUSION: Successful pericardiocentesis via subxiphoid access with 350 cc of serosanguineous fluid removed
RECOMMENDATION: Monitor output. Once less than 50 cc/day can remove drain. Obtain TTE before discharge.
Signed: Chetan Garcia MD, PhD
[2024-07-27 14:01] LABS: Body Fluid Hematocrit < 1.0 %; Body Fluid WBC 17369 /CUMM
[2024-07-27 14:03] LABS: Body Fluid Lymphocytes 2 %
[2024-07-27 14:05] LABS: Body Fluid Granulocytes 86 %; Body Fluid Macrophages 12 %; Body Fluid Second Tech EF
[2024-07-27] MEDS: NOVOLOG FLEXPEN-LOW RESISTANCE 2 UNITS SC (15:41)
[2024-07-27 16:58] LABS: Glucose - Point of Care 161 mg/dl (70-99)
[2024-07-27] MEDS: LIPITOR 40 MG PO (17:10)
[2024-07-27] MEDS: LOPRESSOR 2.5 MG IV (17:10)
[2024-07-27] MEDS: NOVOLOG FLEXPEN-LOW RESISTANCE 1 UNITS SC (17:11)
--- NOTE | 2024-07-27 17:38 | PTCARENOTE ---
Lopressor broke rapid afib, Dilt gtt titrated down.
--- NOTE | 2024-07-27 18:06 | W.PN.UPDATE ---
Update Note
Progress Note Update
Status post pericardiocentesis with mildly hemorrhagic pericardial effusion. Drain left in place.
Patient back in the room with tachycardia
ECG and telemetry consistent with new onset of atrial fibrillation. Possibly triggered by drain irritation.
Initiated on IV Cardizem and titrated up to 50 mg an hour.
Remains hemodynamically stable otherwise.
To be reinstated back on IV heparin later tonight.
--- NOTE | 2024-07-27 19:30 | PTCARENOTE ---
Patient received lying in bed, awake and alert. He is oriented to self, , year, but he is forgetful of place. Reoriented as needed. Heparin gtt restarted at 1900 per order. Patient is incontinent of moderate amount of urine. CHG cloth bath with
complete linen change. #25 Condom cath donned. Skin color is sallow. Bilateral hands and feet are pale and cool. Positive pulses x 4 extremities, pedal pulses weak. BLE edema 2+ with stasis dermatitis discoloration. S1S2 regular with positive
murmur. Bilateral UL clear and bilateral bases diminished with fine crackles. Abdomen rounded/obese with positive bowel sounds. Patient denies pain when asked. Pericardial drain exits below xyphoid process with guaze and tegaderm dressing CDI. To
hemovac collection system with sanguinous drainage. SR with first degree AVB on CM. Patient noted on nasal cannula at 10L--respiratory therapist notified and midflow oxygen tubing at 10L donned. Bed in low and locked position, call negro within
reach.
--- NOTE | 2024-07-27 23:15 | PTCARENOTE ---
Patient is confused, trying to climb OOB. His conversation is nonsensical. Attempts to reorient difficult. RN at bedside to maintain patient safety. Angelica ORTEGA notified. New orders received. Patient repositioned for comfort. Fell asleep temporarily.
At 0030, patient noted with legs over siderail, again trying to climb OOB. Very dyspneic and tachypneic. Sats 86-87% on 10L midflow. Upper airway wheezes audible. Otherwise BBS unchanged. Again repositioned, HOB up. Patient did not recover his sats,
oxygen increased to 12L/midflow. 2mg Haldol IV given per order for agitation. Rest of physical assessment unchanged.
[2024-07-28] VITALS (28 sets, daily range): BP systolic 111–172; BP diastolic 58–107; PULSE 95; O2SAT 96; BMI 33.6
[2024-07-28] MEDS: HALDOL 2 MG IV (00:29)
[2024-07-28] MEDS: NOVOLOG FLEXPEN-LOW RESISTANCE SC (00:33)
[2024-07-28 00:43] LABS: Glucose - Point of Care 146 mg/dl (70-99)
[2024-07-28 01:41] LABS: APTT 131.4 Sec (23.4-35.0)
--- NOTE | 2024-07-28 01:50 | PTCARENOTE ---
Patient calmed temporarily with Haldol. However, Discovered patient pulling on hemovac cannister that is connected to his pericardial drain twice. He is also removing monitor leads and pulse ox. Unable to reorient. Angelica ORTEGA notified. Bilateral
mitts placed for patient safety.
--- NOTE | 2024-07-28 04:30 | PTCARENOTE ---
Physical assessment essentially unchanged. Patient continues with marked SWANSON as well as upper airway wheezes with exertion. BBS with UL clear and bilateral bases diminished. Confusion continues. Bilateral mitts in place. Sacrum/coccyx reddened but
blanchable. Protective foam donned.
[2024-07-28 04:57] LABS: Erythrocyte Sed Rate 38 mm/hour (0-20)
[2024-07-28 05:14] LABS: ALT (SGPT) 134 U/L (0-50); AST (SGOT) 49 U/L (17-59); Albumin 3.2 g/dl (3.5-5.0); Alkaline Phosphatase 123 U/L (38-126); Blood Urea Nitrogen 36 mg/dl (9-20); Calcium 8.4 mg/dl (8.4-10.2); Carbon Dioxide 26 mmol/L (22-30); Chloride 106 mmol/L (98-107); Estimated Creatinine Clearance 60 ml/min; Glucose 170 mg/dl (70-99); Potassium 4.1 mmol/L (3.5-5.1); Sodium 143 mmol/L (135-145); Total Bilirubin 1.6 mg/dl (0.2-1.3); Total Protein 6.3 g/dl (6.3-8.2); eGFR > 60.00
[2024-07-28 05:18] LABS: % Basophils 0.2 % (0-2); % Eosinophils 0.3 % (0-6); % Lymphocytes 4.5 % (20.5-51.1); % Monocytes 3.9 % (1.7-9.3); % Neutrophils 90.1 % (42.2-75.2); Absolute Basophils 0.1 10^3/uL (0-0.2); Absolute Eosinophils 0.1 10^3/uL (0-0.7); Absolute Immature Granulocytes 0.3 10^3/uL (0-0.05); Absolute Lymphocytes 1.2 10^3/uL (1.2-3.4); Absolute Monocytes 1.1 10^3/uL (0.1-0.6); Absolute Neutrophils 24.4 10^3/uL (1.4-6.5); Hematocrit 45.2 % (39.0-52.0); Hemoglobin 15.2 g/dL (13.0-18.0); Mean Corp Hgb Conc. 33.6 g/dL (33.0-37.0); Mean Corpuscular Hgb 29.4 pg (27.0-31.0); Mean Corpuscular Volume 87.4 fL (80.0-94.0); Mean Platelet Volume 9.3 fL (7.4-10.4); Nucleated Red Blood Cells % 0 % (-); Platelet Count 493 10^3/uL (130-400); Red Blood Cell Count 5.17 10^6/uL (4.70-6.10); Red Cell Dist. Width 14.1 % (11.5-14.5)
[2024-07-28 05:23] LABS: Troponin I 0.036 ng/ml
[2024-07-28 05:27] LABS: C-Reactive Protein > 270.00 mg/L (0.0-10.00)
[2024-07-28] MEDS: NOVOLOG FLEXPEN-LOW RESISTANCE 1 UNITS SC ×2 (05:55→11:57)
--- NOTE | 2024-07-28 06:58 | PTCARENOTE ---
Report given verbally to oncShital vivar RN. Questions answered.
--- NOTE | 2024-07-28 07:12 | W.PN.INTV ---
Today's Communication / Plan
Recommendations
- Start metoprolol 50 mg p.o. twice daily
- Wean Cardizem off
- Start Lasix 40 mg IV twice daily
- Follow-up chest x-ray and labs in a.m.
Assessment
-
Patient is a very pleasant 84-year-old gentleman with history of coronary artery disease, NSTEMI and status post PCI about 3 years ago, hypertension, hyperlipidemia, prostatic hypertrophy who presented to the emergency room with sudden onset
weakness and shortness of breath. Patient reports that he had been in his usual state of health up until the day of admission except for some increasing pedal edema noted over the last 2 weeks which was initially felt to be related to a side effect
of a certain medication. Patient states that he was sitting in chair where he felt uneasy but denies feeling near syncopal but felt mildly short of breath and he had himself lie down on the floor. Patient says that he felt weak and was not able to
pick himself back up. EMS was called and patient was evaluated. He denied any chest pain and workup in the emergency room showed normal troponin but pulmonary embolism and right lower lobe as well as left upper lobe segmental and subsegmental. A
PERT team was activated and I reviewed patient's CAT scan. Clot burden overall seemed small and central arteries were not involved. Patient however was noted to have moderate pericardial effusion and also with trace pleural effusions. Patient was
not hypotensive and had normal troponin with minimal if any right heart strain on CT scan hence catheter directed therapies were not pursued. Another concern with using thrombolytic was the moderate pleural effusion noted on the imaging. Patient's
BNP was noted to be elevated at 1400. Patient was then started on IV heparin and was admitted to IMU and pulmonary consultation was requested for further input.
#1. Acute pulmonary embolism, suspect unprovoked. CT scan reviewed, patient has right lower lobe and left upper lobe segmental and subsegmental pulmonary embolism. PERT team was activated from emergency room, in view of lack of central PE,
hemodynamic stability, normal troponin and minimal if any right heart strain noted on CT, IV heparin drip was recommended. Patient also noted to have moderate pericardial effusion which was another concern hence decision was made against
thrombolytic therapy.
- Continue heparin drip, anticipate transition to Eliquis once pericardial drain has been removed
- No prior history of malignancy. Patient reports screening colonoscopy 20 years ago was unremarkable. Underlying malignancy is certainly a concern with unprovoked pulmonary embolism
#2. Pericardial effusion with early tamponade. Cardiology and interventional cardiology service on the case
-S/p pericardiocentesis with 350 cc serosanguineous fluid removed on 07/27. Additional 50 cc in the drain since initial placement yesterday.
-Pleural fluid WBC 17,369 with 86% granulocytes, LDH elevated at more than 1000. Total fluid protein 5.0. Cultures are pending. Gram stain negative so far.
ESR and CRP both elevated. CRP more than 270
-Postprocedure echocardiogram did not show any residual fluid, drain in place.
#3. Acute on suspect chronic congestive heart failure with bilateral pleural effusions, mild pulmonary edema. EF preserved, 55%. Patient noted to have elevated BNP, bilateral pitting edema on exam. Small bilateral pleural effusions noted as well
as moderate pericardial effusion.
- This could be related to is related to pericardial effusion with early tamponade
- Limited echo showed normal EF, will proceed with follow-up echocardiogram Tuesday
- Start IV Lasix 40 mg, twice daily
#4. History of coronary artery disease, PCI of RCA in 2020. No chest pain reported. Troponin negative in the emergency room. No acute ST changes noted.
- Continue Statins, has been on ASA 81 mg daily.
#5. Paroxysmal atrial fibrillation with rapid ventricular rate. Patient went into A-fib with RVR after pericardiocentesis.
- S/p Cardizem infusion, additional as needed metoprolol with conversion to normal sinus rhythm on 07/27
- Continue heparin drip eventually transition to Eliquis
- Start metoprolol 50 mg p.o. twice daily, taper Cardizem infusion
Total time spent on this consultation/encounter __45__ minutes which includes review of history, physical exam, medications, laboratory data, personal review of imaging, extensive review of outpatient records, discussion with care team and
respiratory therapy.
Updated patient.
Data:
Limited ECHO 07/27: Limited TTE for pericardial effusion.
In limited views. Normal-appearing LV size and function with no regional wall
motion abnormalities.
LVEF approximate 55% by visual estimation. No obvious LVH.
Normal right ventricular size and function.
Valvular interrogation was not obtained.
Moderate pericardial effusion at beginning of study; by end of procedure
effusion was minimal.
No comparison for this study given limited amount of views for review.
CXR 07/2024: 1. Low inspiratory volumes.
2. Haziness of each hemidiaphragm, which may represent bibasilar airspace disease and/or small bilateral pleural effusions
CT-PE 07/2024: 1. Positive for segmental and subsegmental pulmonary emboli on each side.
2. Moderate pericardial effusion, measuring 2.1 cm in greatest thickness.
3. Small cavity size of both the RV and LV. Consider echocardiogram to evaluate for tamponade relating to pericardial effusion.
4. RV: LV ratio measures greater than 1. This finding, combined with the relatively small overall burden of embolus and peripheral position of emboli argues against significant right heart strain, however evaluation is complicated by moderate
pericardial effusion.
5. Small bilateral pericardial effusions. Bibasilar airspace consolidation, likely representing compressive atelectasis.
Cardiac Cath 07/2020: 1. Hazy, ulcerated 75-80% culprit lesion in the proximal RCA, status post PCI (Xience Chloe 4.0 x 23 GEORGE, postdilated with 5.0 NC balloon) with reduction in stenosis to 0%, maintaining CHUCK 3 flow.
2. Mildly elevated filling pressures.
Subjective Dataa
Subjective Data
Date of Service:
Date of Service: July 28, 2024
Subjective:
Patient lying in bed, mildly short of breath, overall improved than yesterday.
Review of Systems
Genitourinary: Other (All 14 systems reviewed and negative except as stated above in the history of present illness.)
Objective Data
Data Reviewed
Vital Signs / I&O / Oxygen:
Vital Signs
Temp Pulse Resp BP Pulse Ox
97.5 F 100 30 156/66 96
07/28/24 03:37 07/28/24 06:00 07/28/24 06:00 07/28/24 06:00 07/28/24 06:00
Intake and Output
07/27/24 07/28/24 07/29/24
06:59 06:59 06:59
Intake Total 367 / 367
Output Total 475 / 475
Balance -108 / -108
SaO2 96
Nasal Cannula flow liters per 10
minute
Physical Exam
HEENT: Normocephalic
Cardiovascular: S1-S2, Irregular Rhythm and Peripheral Edema
Respiratory: Crackles and Non-Labored Respirations
GI: Soft and Non Distended
Neurology: Awake and Alert
Skin: Warm
Labs/Micro/Reports
Lab Data
07/28/24 04:36
07/28/24 04:36
Laboratory Results
07/27/24 07/28/24
11:01 01:19
APTT Cancelled 131.4 H
Microbiology
07/27/24 12:05 Pericardial Fluid Gram Stain - Preliminary
07/27/24 05:12 Nasal Swab Influenza Types A & B (MJ) - Final
Negative for Influenza A & B, NAAT
Negative results must be combined with clinical observations
and patient history.
Nucleic Acid Amplification test (NAAT)performed on the
[employer] platform.
[2024-07-28] MEDS: FLOMAX 0.4 MG PO (08:06)
[2024-07-28] MEDS: LOW STRENGTH ASPIRIN 81 MG PO (08:06)
[2024-07-28] MEDS: PROTONIX 40 MG PO (08:06)
[2024-07-28] MEDS: MIRALAX 17 GRAMS PO (08:07)
[2024-07-28] MEDS: PROSCAR 5 MG PO (08:07)
[2024-07-28 08:41] LABS: Urine Albumin 2+ (Neg - Trace); Urine Bilirubin Negative (Negative); Urine Character Clear (Clear); Urine Color Yellow; Urine Glucose Negative (Negative); Urine Ketone 1+ (Negative); Urine Leukocyte Negative (Negative); Urine Nitrite Negative (Negative); Urine Occult Blood 3+ (Negative); Urine Urobilinogen Negative (Neg - 1+)
[2024-07-28 08:50] LABS: APTT 88.6 Sec (23.4-35.0)
[2024-07-28] MEDS: LOPRESSOR 50 MG PO ×2 (08:50→20:01)
[2024-07-28] MEDS: LASIX 40 MG IV ×2 (08:51→15:46)
[2024-07-28 08:55] LABS: Urine Squamous Cell 0-2 /LPF (Few)
[2024-07-28 08:56] LABS: Urine Bacteria Few (Negative); Urine White Cell 0-2 /HPF (0-5)
--- NOTE | 2024-07-28 09:00 | PTCARENOTE ---
Pt received from night warehouse manager RN. Ox3 and somewhat forgetful. As the day goes on, forgetfulness is improving. Mitts removed. NSR on tele, HR 88, diltiazem gtt tapered to off. Pericardial drain in place put out 50 mls overnight, drainage appears
serous. Tachypneic with SWANSON, currently on midflow 12L with a 95% sat. He complains of R sided pain on deep inspiration. #[address] draining clear yellow urine. IV sites intact, heparin infusing at 1600/hr, next PTT at 1500. Call negro
within reach, pt makes needs known.
--- NOTE | 2024-07-28 10:56 | W.PN.HOSP.TC ---
Today's Communication/Plan
-
Afebrile
If patient has risks of aspiration or spikes a fever low threshold to start antibiotics
Speech therapy evaluation to rule out aspiration
Heparin gtt
Follow trop
Await fluid cytology
Assessment / Plan
Assessment / Plan
84-year-old man with coronary artery disease admitted with sudden onset of shortness of breath he also had a near syncopal event
07/27/24-ECHO- Limited TTE for pericardial effusion. Normal-appearing LV size and function with no regional WMA,LVEF 55% . No obvious LVH. Normal right ventricular size and function.Moderate pericardial effusion at beginning of study; by end of
procedure effusion was minimal.
CVS: S1-S2 irregular
Chest: CTA B/L, pericardial drain
Abdomen: Soft, NT Bowel sounds present
Extremities: No edema
# Acute PE unprovoked
CT right lower lobe and left upper lobe segmental and subsegmental PE
PERT alert was called-conservative management with anticoagulation was recommended secondary to many reasons including pericardial effusion
Continue heparin drip
No DVT per ultrasound
# TME-received a dose of Haldol last night
Check urine analysis rule out infection
Blood cultures ordered
COVID and influenza were negative
With bilateral consolidation start antibiotics-
# Bilateral consolidation on CT chest.
If patient has risks of aspiration or spikes a fever low threshold to start antibiotics
Speech therapy evaluation to rule out aspiration
# Pericardial effusion
Differentials include viral infection, malignancy versus other inflammation
Drained 07/27/24--350 mL of serosanguineous fluid
Fluid appears to be exudate
Status post pericardiocentesis with drain in place
Cytology pending
WALTER screening ordered
CRP over 270
# New onset atrial fibrillation possibly triggered by pericardial drainage
IV Cardizem
Continue Lopressor
Heparin drip resumed
# Leukocytosis-repeat chest x-ray and urinalysis.
Afebrile
If patient has risks of aspiration or spikes a fever low threshold to start antibiotics
Speech therapy evaluation to rule out aspiration
Blood cultures
# Mild elevation in troponin-follow
# Mildly elevated LFTs-likely secondary to CHF-trending down
# Acute on chronic CHF-continue Lasix
# History of coronary disease with RCA PCI in 2020
# Hypertension-hold amlodipine , losartan . Continue Lopressor
# Hyperlipidemia-continue Lipitor
# Enlarged prostate-continue Flomax, finasteride
# DNR
D/W RN
drips renewed, diet ordered
Total Critical Care Time 32 minutes. I was immediately available to the patient and staff. I personally examined, reviewed labs, diagnostic images/reports, interpretations, treatment plans, discussed patient care with other providers entered
orders as appropriate and documented the medical record.
Anticipated Discharge: > 48 hours
Subjective/Interval History
-
Date of Service: July 28, 2024
Objective Data
-
Labs:
Laboratory Results
07/28/24 07/28/24 07/28/24
01:19 04:36 08:25
WBC 27.0 H
Hgb 15.2
Hct 45.2
Plt Count 493 H
APTT 131.4 H 88.6 H
Sodium 143
Potassium 4.1
Chloride 106
Carbon Dioxide 26
BUN 36 H
Creatinine 1.1
Glucose 170 H
Calcium 8.4
Total Bilirubin 1.6 H
AST 49
ALT 134 H
Alkaline Phosphatase 123
07/28/24
15:00
WBC
Hgb
Hct
Plt Count
APTT Pending
Sodium
Potassium
Chloride
Carbon Dioxide
BUN
Creatinine
Glucose
Calcium
Total Bilirubin
AST
ALT
Alkaline Phosphatase
Vital Signs:
Vital Signs
Temp Pulse Resp BP Pulse Ox
97.2 F 103 30 160/66 98
07/28/24 07:24 07/28/24 08:50 07/28/24 06:00 07/28/24 08:50 07/28/24 10:25
I&O
07/27/24 07/28/24 07/29/24
06:59 06:59 06:59
Intake Total 367 / 388 74 / 74
Output Total 475 / 475 550 / 550
Balance -108 / -87 -476 / -476
--- NOTE | 2024-07-28 12:03 | PTCARENOTE ---
Pt reassessed. Pericardial drain removed by cardiology. Tapering O2, currently down to 8L MFNC. Otherwise unchanged. Pt has diet ordered but has no appetite.
[2024-07-28 12:07] LABS: Glucose - Point of Care 162 mg/dl (70-99)
[2024-07-28 12:25] LABS: Troponin I 0.035 ng/ml
--- NOTE | 2024-07-28 13:21 | W.PN.CD ---
Today's Communication / Plan
-
Pericardial drain has been removed
IV diuresis today
Cont metop
HR is SR
Impression / Plan
-
A/P: 84-year-old male with past medical history of NSTEMI status post RCA stenting, hypertension, hyperlipidemia, mild AI and BPH who is here because of shortness of breath. He appears to have tamponade physiology on echocardiogram with impaired
diastolic filling of the RV.
Pericardial effusion with tamponade
- Pericardial drain with ~ 75 cc --> pulled
- F/u echo on Tuesday
PE
- Heparin gtt --> OAC tomorrow to start
- per pulmonary
Paroxysmal AF
- likely 2/2 pericardial drain causing irritation and PE
- will need AC for PE; consider long-term AC vs monitor after
Leukocytosis
- Monitor per primary
CAD s/p RCA stenting
- aspirin statin
HTN
- hold until pericardial drain placement
HLD
- cont statin
AI
- echo pending
Subjective: Feels much improved
Physical Exam
Vital Signs/Labs
Vital Signs
Temp Pulse Resp BP Pulse Ox
98.1 F 103 30 160/66 96
07/28/24 11:50 07/28/24 08:50 07/28/24 06:00 07/28/24 08:50 07/28/24 12:12
07/27/24 07/28/24 07/29/24
06:59 06:59 06:59
Actual Weight 229 lb 8.019 oz 227 lb 4.745 oz
07/28/24 04:36
07/28/24 04:36
APTT 88.6 Sec (23.4-35.0) H 07/28/24 08:25
07/27/24
02:25
Apz-M-Hcgopyhkmdt Pept 1410
LAB Results
07/27/24 07/28/24 07/28/24
02:25 04:36 11:49
Troponin I 0.030 0.036 H* 0.035 H*
Physical Exam
Constitutional: No acute distress and Comfortable
EENT: Anicteric
Cardiovascular: Rhythm & rate is regular and Pedal edema present
Respiratory: Respiratory effort normal and Crackles Present
GI: Soft
Neuro/Psych: AO x 3
Data Reviewed
-
Date of Service: July 28, 2024
EKG: Tracing Personally Visualized and interpreted (sr)
Echo: Tracing Personally Visualized and interpreted and Report Reviewed by me
Labs: Labs Reviewed by me
[2024-07-28 16:20] LABS: APTT 108.5 Sec (23.4-35.0)
--- NOTE | 2024-07-28 16:25 | PTCARENOTE ---
Pt reassessed. Sleeping more with more confusion. Pt assisted oob into the chair and currently eating dinner. Weaning O2 , currently on 2L with 94% sat.
[2024-07-28 16:34] LABS: Troponin I 0.028 ng/ml
[2024-07-28] MEDS: LIPITOR 40 MG PO (17:57)
[2024-07-28] MEDS: HEPARIN 25000 UNITS/250 ML IV (18:00)
--- NOTE | 2024-07-28 20:00 | PTCARENOTE ---
Received pt sitting up in chair. Awake and alert, oriented to self and time, not sure which hospital we are at but knew it was a hospital. Forgetful at times but very pleasant and easily redirectable. Assisted back to bed with rolling walker. Bed
alarm on for safety. SR/ST on tele, HR 90-110. Scheduled lopressor given. BP 172/79. +1 ankle edema. + pulses. AFebrile. Pericardial drain out this AM - dsg c/d/i. On heparin gtt - PTT due in AM. Received on 2L NC, turned up to 3L for some dyspnea
while repositioning in bed. Spo2 94%. + orthopnea. Lungs dim at bases. Round abd. + bowel sounds. Incontinent small amt brown liquid stool x2- cleaned. 2g Na diet. Condom cath in place with yellow UO. Bathed with CHG. Call negro in reach.
[2024-07-29] VITALS (26 sets, daily range): BP systolic 86–183; BP diastolic 50–96; BMI 33.6
--- NOTE | 2024-07-29 00:24 | PTCARENOTE ---
Over past 2 hours, pt. increasingly confused, trying to pull gown and tele leads off. He states he wants to go home for the night and come back to the hospital later. He keeps asking where the closest door and parking lot is. Explained situation to
pt. and that he is safe here. He is more difficult to redirect than prior. Bed alarm on, support given to pt. Monitoring closely.
[2024-07-29 04:31] LABS: Hematocrit 43.1 % (39.0-52.0); Hemoglobin 14.3 g/dL (13.0-18.0); Mean Corp Hgb Conc. 33.2 g/dL (33.0-37.0); Mean Corpuscular Hgb 29.4 pg (27.0-31.0); Mean Corpuscular Volume 88.7 fL (80.0-94.0); Mean Platelet Volume 9.6 fL (7.4-10.4); Platelet Count 536 10^3/uL (130-400); Red Blood Cell Count 4.86 10^6/uL (4.70-6.10); Red Cell Dist. Width 13.9 % (11.5-14.5)
[2024-07-29 04:49] LABS: APTT 124.7 Sec (23.4-35.0)
[2024-07-29 04:57] LABS: ALT (SGPT) 113 U/L (0-50); AST (SGOT) 49 U/L (17-59); Alkaline Phosphatase 119 U/L (38-126); Blood Urea Nitrogen 38 mg/dl (9-20); Calcium 8.5 mg/dl (8.4-10.2); Carbon Dioxide 28 mmol/L (22-30); Chloride 104 mmol/L (98-107); Estimated Creatinine Clearance 60 ml/min; Glucose 171 mg/dl (70-99); Magnesium 2.3 mg/dl (1.6-2.3); Potassium 4.1 mmol/L (3.5-5.1); Sodium 142 mmol/L (135-145); Total Bilirubin 1.7 mg/dl (0.2-1.3); Total Protein 6.1 g/dl (6.3-8.2); eGFR > 60.00
[2024-07-29 05:05] LABS: NT-proBNP 3290 pg/ml
--- NOTE | 2024-07-29 05:25 | PTCARENOTE ---
Pt. has slid down in bed, trying to get OOB, swinging legs over rails multiple times overnight. Redirected and repositioned each time. When he does this, HR increases to 110s, spo2 will drop to 88% but will recover once repositioned. Had audible
wheezing after most recent episode, appeared in mild distress. Increased to 5L NC. ASSOCIATE PROFESSOR OF KINESIOLOGY to bedside. Ordered chest xray for this AM. After a few min, pt seemed to recover. Monitoring.
--- NOTE | 2024-07-29 07:00 | W.PN.INTV ---
Addendum entered and electronically signed by Pat Delaney MD 07/29/24 16:33:
-Patient noted to have levated WBC count. Afebrile, no cough. CT changes are more suggestive of compressive atelectasis rather than consolidation. Procalcitonin checked and elevated. Patient started on Zosyn per hospitalist service.
Original Note:
Today's Communication / Plan
Recommendations
- Increase Lasix to 80 mg IV twice daily
- Echocardiogram in a.m
- Increase metoprolol to 50 mg p.o. 3 times daily
- Add Seroquel 25 mg p.o. nightly for delirium
- Continue to monitor closely in the ICU in view of increasing oxygen requirement and tachypnea
Assessment
-
Patient is a very pleasant 84-year-old gentleman with history of coronary artery disease, NSTEMI and status post PCI about 3 years ago, hypertension, hyperlipidemia, prostatic hypertrophy who presented to the emergency room with sudden onset
weakness and shortness of breath. Patient reports that he had been in his usual state of health up until the day of admission except for some increasing pedal edema noted over the last 2 weeks which was initially felt to be related to a side effect
of a certain medication. Patient states that he was sitting in chair where he felt uneasy but denies feeling near syncopal but felt mildly short of breath and he had himself lie down on the floor. Patient says that he felt weak and was not able to
pick himself back up. EMS was called and patient was evaluated. He denied any chest pain and workup in the emergency room showed normal troponin but pulmonary embolism and right lower lobe as well as left upper lobe segmental and subsegmental. A
PERT team was activated and I reviewed patient's CAT scan. Clot burden overall seemed small and central arteries were not involved. Patient however was noted to have moderate pericardial effusion and also with trace pleural effusions. Patient was
not hypotensive and had normal troponin with minimal if any right heart strain on CT scan hence catheter directed therapies were not pursued. Another concern with using thrombolytic was the moderate pleural effusion noted on the imaging. Patient's
BNP was noted to be elevated at 1400. Patient was then started on IV heparin and was admitted to IMU and pulmonary consultation was requested for further input.
#1. Acute pulmonary embolism, suspect unprovoked. CT scan reviewed, patient has right lower lobe and left upper lobe segmental and subsegmental pulmonary embolism. PERT team was activated from emergency room, in view of lack of central PE,
hemodynamic stability, normal troponin and minimal if any right heart strain noted on CT, IV heparin drip was recommended. Patient also noted to have moderate pericardial effusion which was another concern hence decision was made against
thrombolytic therapy.
- Has been on heparin drip, will continue heparin for now pending repeat echocardiogram on Tuesday. If no additional intervention needed, will transition to Eliquis
- No prior history of malignancy. Patient reports screening colonoscopy 20 years ago was unremarkable. Underlying malignancy is certainly a concern with unprovoked pulmonary embolism
#2. Pericardial effusion with early tamponade. Cardiology and interventional cardiology service on the case
-S/p pericardiocentesis with 350 cc serosanguineous fluid removed on 07/27. Additional 50 cc in the drain since initial placement.
-Pericardial fluid WBC 17,369 with 86% granulocytes, LDH elevated at more than 1000. Total fluid protein 5.0. Cultures are pending. Gram stain negative so far.
-ESR (38) and CRP both elevated. CRP more than 270
-Postprocedure echocardiogram did not show any residual fluid. Drain removed 07/28
-Plan for f/u ECHO Tuesday
#3. Acute on suspect chronic congestive heart failure with bilateral pleural effusions, mild pulmonary edema. EF preserved, 55%. Patient noted to have elevated BNP, bilateral pitting edema on exam. Small bilateral pleural effusions noted as well
as moderate pericardial effusion.
- Patient more tachypneic, oxygen requirement up to 5 L, BNP more than 3000 today
- Increase Lasix to 80 mg IV twice daily
- Limited echo showed normal EF, will proceed with follow-up echocardiogram Tuesday
- Continue to monitor in the ICU
#4. History of coronary artery disease, PCI of RCA in 2020. No chest pain reported. Troponin negative in the emergency room. No acute ST changes noted.
- Continue Statins, has been on ASA 81 mg daily.
#5. Paroxysmal atrial fibrillation with rapid ventricular rate. Patient went into A-fib with RVR after pericardiocentesis.
- S/p Cardizem infusion, additional as needed metoprolol with conversion to normal sinus rhythm on 07/27
- Continue heparin drip eventually transition to Eliquis
- In view of hypertension, increase metoprolol 50 mg 3 times daily
#6. Delirium with intermittent agitation
- Add nightly Seroquel 25 mg nightly.
Total time spent on this consultation/encounter __52__ minutes which includes review of history, physical exam, medications, laboratory data, personal review of imaging, extensive review of outpatient records, discussion with care team and
respiratory therapy.
Updated patient.
Data:
Limited ECHO 07/27: Limited TTE for pericardial effusion.
In limited views. Normal-appearing LV size and function with no regional wall
motion abnormalities.
LVEF approximate 55% by visual estimation. No obvious LVH.
Normal right ventricular size and function.
Valvular interrogation was not obtained.
Moderate pericardial effusion at beginning of study; by end of procedure
effusion was minimal.
No comparison for this study given limited amount of views for review.
CXR 07/2024: 1. Low inspiratory volumes.
2. Haziness of each hemidiaphragm, which may represent bibasilar airspace disease and/or small bilateral pleural effusions
CT-PE 07/2024: 1. Positive for segmental and subsegmental pulmonary emboli on each side.
2. Moderate pericardial effusion, measuring 2.1 cm in greatest thickness.
3. Small cavity size of both the RV and LV. Consider echocardiogram to evaluate for tamponade relating to pericardial effusion.
4. RV: LV ratio measures greater than 1. This finding, combined with the relatively small overall burden of embolus and peripheral position of emboli argues against significant right heart strain, however evaluation is complicated by moderate
pericardial effusion.
5. Small bilateral pericardial effusions. Bibasilar airspace consolidation, likely representing compressive atelectasis.
Cardiac Cath 07/2020: 1. Hazy, ulcerated 75-80% culprit lesion in the proximal RCA, status post PCI (Xience Chloe 4.0 x 23 GEORGE, postdilated with 5.0 NC balloon) with reduction in stenosis to 0%, maintaining CHUCK 3 flow.
2. Mildly elevated filling pressures.
Subjective Dataa
Subjective Data
Date of Service:
Date of Service: July 29, 2024
Subjective:
Patient appears a bit tachypneic and mildly short of breath. Also confused.
Review of Systems
Genitourinary: Other (Denies any chest pain, increased confusion overnight. Not in any respiratory distress.)
Objective Data
Data Reviewed
Vital Signs / I&O / Oxygen:
Vital Signs
Temp Pulse Resp BP Pulse Ox
98.0 F 106 33 156/81 94
07/29/24 04:47 07/29/24 06:00 07/29/24 06:00 07/29/24 06:00 07/29/24 06:00
Intake and Output
07/28/24 07/29/24 07/30/24
06:59 06:59 06:59
Intake Total 367 / 388 870 / 870
Output Total 475 / 475 1850 / 1850
Balance -108 / -87 -980 / -980
SaO2 94
Nasal Cannula flow liters per 5
minute
Physical Exam
HEENT: Normocephalic
Cardiovascular: S1-S2, Irregular Rhythm and Peripheral Edema
Respiratory: Crackles and Non-Labored Respirations
GI: Soft and Non Distended
Neurology: Awake and Alert
Skin: Warm
Labs/Micro/Reports
Lab Data
07/29/24 04:00
07/29/24 04:00
Laboratory Results
07/28/24 07/28/24 07/29/24
15:53 04:00
APTT 88.6 H 108.5 H 124.7 H
Microbiology
07/27/24 15:30 Blood/Venous Blood Culture - Preliminary
No Growth in 24 hours- Final report to follow
07/27/24 15:30 Blood/Venous Blood Culture - Preliminary
No Growth in 24 hours- Final report to follow
07/27/24 12:05 Pericardial Fluid Body Fluid Culture - Preliminary
No Growth After 18-24 Hours
07/27/24 12:05 Pericardial Fluid Gram Stain - Preliminary
07/27/24 05:12 Nasal Swab Influenza Types A & B (MJ) - Final
Negative for Influenza A & B, NAAT
Negative results must be combined with clinical observations
and patient history.
Nucleic Acid Amplification test (NAAT)performed on the
[employer] platform.
[2024-07-29] MEDS: PROTONIX 40 MG PO (07:43)
[2024-07-29] MEDS: MIRALAX 17 GRAMS PO (07:43)
[2024-07-29] MEDS: LASIX 80 MG IV ×2 (07:44→16:01)
[2024-07-29] MEDS: FLOMAX 0.4 MG PO (07:44)
[2024-07-29] MEDS: PROSCAR 5 MG PO (07:44)
[2024-07-29] MEDS: LOPRESSOR 50 MG PO ×3 (07:44→21:21)
[2024-07-29] MEDS: LOW STRENGTH ASPIRIN 81 MG PO (07:44)
[2024-07-29 09:24] LABS: Glucose - Point of Care 172 mg/dl (70-99)
[2024-07-29] MEDS: NOVOLOG FLEXPEN-LOW RESISTANCE 1 UNITS SC ×3 (10:09→17:17)
[2024-07-29] MEDS: HEPARIN 25000 UNITS/250 ML IV (11:15)
--- NOTE | 2024-07-29 11:34 | W.PN.HOSP.TC ---
Today's Communication/Plan
-
CT head
Ct A/P
Procal
Assessment / Plan
Assessment / Plan
84-year-old man with coronary artery disease admitted with sudden onset of shortness of breath he also had a near syncopal event
07/27/24-ECHO- Limited TTE for pericardial effusion. Normal-appearing LV size and function with no regional WMA,LVEF 55% . No obvious LVH. Normal right ventricular size and function.Moderate pericardial effusion at beginning of study; by end of
procedure effusion was minimal.
CVS: S1-S2 irregular
Chest: CTA B/L, pericardial drain
Abdomen: Soft, NT Bowel sounds present
Extremities: No edema
Seated in a chair drowsy answers questions. Daughter states that his speech is not the same , and patient appears to be confused.
# Acute PE unprovoked
CT right lower lobe and left upper lobe segmental and subsegmental PE
PERT alert was called-conservative management with anticoagulation was recommended secondary to many reasons including pericardial effusion
Continue heparin drip
No DVT per ultrasound
# TME-unclear cause
Appears to be drowsy with very low tone of speech
urine analysis rule out infection
Blood cultures ordered
COVID and influenza were negative
Head CT
# Bilateral consolidation on CT chest.
If patient has risks of aspiration or spikes a fever low threshold to start antibiotics
Speech therapy evaluation to rule out aspiration
# Pericardial effusion
Differentials include viral infection, malignancy versus other inflammation
Drained 07/27/24--350 mL of serosanguineous fluid
Fluid appears to be exudate
Status post pericardiocentesis with drain in place
Cytology pending
WALTER screening ordered
CRP over 270
# New onset atrial fibrillation possibly triggered by pericardial drainage
IV Cardizem
Continue Lopressor
Heparin drip
# Leukocytosis-repeat chest x-ray and urinalysis. No clear evidence of infection
Afebrile
If patient has risks of aspiration or spikes a fever low threshold to start antibiotics
Speech therapy evaluation to rule out aspiration
Blood cultures negative
Check CT of the abdomen and pelvis-ordered
# Mild elevation in troponin-follow
# Mildly elevated LFTs-likely secondary to CHF-trending down
# Acute on chronic CHF-continue Lasix
# History of coronary disease with RCA PCI in 2020
# Hypertension-hold amlodipine , losartan . Continue Lopressor
# Hyperlipidemia-continue Lipitor
# Enlarged prostate-continue Flomax, finasteride
# DNR
D/W RN at bedside
Discussed with patient's daughter at bedside
Discussed with cardiology and hydroelectric machinery mechanic
Total Critical Care Time 33 minutes. I was immediately available to the patient and staff. I personally examined, reviewed labs, diagnostic images/reports, interpretations, treatment plans, discussed patient care with other providers entered
orders as appropriate and documented the medical record.
Anticipated Discharge: > 48 hours
Subjective/Interval History
-
Date of Service: July 29, 2024
Objective Data
-
Labs:
Laboratory Results
07/29/24 07/29/24
04:00 11:00
WBC 30.0 H
Hgb 14.3
Hct 43.1
Plt Count 536 H
APTT 124.7 H Pending
Sodium 142
Potassium 4.1
Chloride 104
Carbon Dioxide 28
BUN 38 H
Creatinine 1.1
Glucose 171 H
Calcium 8.5
Total Bilirubin 1.7 H
AST 49
ALT 113 H
Alkaline Phosphatase 119
Vital Signs:
Vital Signs
Temp Pulse Resp BP Pulse Ox
97.4 F 110 20 183/89 96
07/29/24 07:09 07/29/24 07:44 07/29/24 07:00 07/29/24 07:44 07/29/24 08:13
I&O
07/28/24 07/29/24 07/30/24
06:59 06:59 06:59
Intake Total 367 / 388 870 / 884 56 / 56
Output Total 475 / 475 1850 / 1850 850 / 850
Balance -108 / -87 -980 / -966 -794 / -794
[2024-07-29] MEDS: OMNIPAQUE 50 ML PO (11:57)
[2024-07-29 12:04] LABS: APTT 72.6 Sec (23.4-35.0)
--- NOTE | 2024-07-29 12:04 | PTCARENOTE ---
Pt remains confused and forgetful, with some patience he is oriented x3 but upon initial assessment he's unclear of where he is. Per nightshift, pt did not sleep, tonight will try some seroquel before bed. Sinus tach on tele, rate in the 110's,
toprol increased to TID. Ankle swelling looks better. Tachypneic in the 30's, some SWANSON, crackles heard 1/2 up, 80 IV Lasix given. Currently on 2L NC with a sat of 95%. Round, obese ABD. #[address] draining clear, yellow urine. Diuresed
850mls after Lasix. IV sites intact. Heparin gtt continues at 1400units/hr. Pt assisted OOB into the chair, he sat up for a little over 3 hours.
--- NOTE | 2024-07-29 12:06 | W.PN.CD ---
Today's Communication / Plan
-
Bedsidse u/s showed small pericardial effusion
Worsening leukocytosis --> Infection?
Impression / Plan
-
A/P: 84-year-old male with past medical history of NSTEMI status post RCA stenting, hypertension, hyperlipidemia, mild AI and BPH who is here because of shortness of breath. He appears to have tamponade physiology on echocardiogram with impaired
diastolic filling of the RV.
Pericardial effusion with tamponade
- s/p pericardial drain
- F/u echo on Tuesday
PE
- Heparin gtt
- per pulmonary
HFpEF acute
- IV Diuresis agree with increase
Paroxysmal AF
- likely 2/2 pericardial drain causing irritation and PE
- will need AC for PE; consider long-term AC vs monitor after
Leukocytosis worsening
- consider blood cx's
- Monitor per primary
CAD s/p RCA stenting
- aspirin statin
HTN
- agree with metop
HLD
- cont statin
AI
- echo pending
Subjective: tired appearing today confused overnight
Physical Exam
Vital Signs/Labs
Vital Signs
Temp Pulse Resp BP Pulse Ox
97.4 F 110 20 183/89 96
07/29/24 07:09 07/29/24 07:44 07/29/24 07:00 07/29/24 07:44 07/29/24 08:13
07/28/24 07/29/24 07/30/24
06:59 06:59 06:59
Actual Weight 227 lb 4.745 oz 227 lb 1.218 oz
07/29/24 04:00
07/29/24 04:00
APTT 124.7 Sec (23.4-35.0) H 07/29/24 04:00
Magnesium 2.3 mg/dl (1.6-2.3) 07/29/24 04:00
07/27/24 07/29/24
02: 04:00
Ugq-X-Yyukpqarbys Pept 1410 3290
LAB Results
07/27/24 07/28/24 07/28/24
02: 04:36 11:49
Troponin I 0.030 0.036 H* 0.035 H*
07/28/24
15:53
Troponin I 0.028
Physical Exam
Constitutional: Other (tired appearing)
Cardiovascular: Rhythm & rate is regular and Pedal edema present
Respiratory: Other (poor b/s b/l )
GI: Soft
Neuro/Psych: Alert and Oriented
Data Reviewed
-
Date of Service: July 29, 2024
Medical Decision Making: Reviewed Test Results
EKG: Tracing Personally Visualized and interpreted (sinus tach)
Echo: Tracing Personally Visualized and interpreted and Report Reviewed by me
Labs: Labs Reviewed by me
[2024-07-29 12:10] LABS: Glucose - Point of Care 168 mg/dl (70-99)
--- NOTE | 2024-07-29 16:17 | PTOTSP ---
SPEECH THERAPY SWALLOWING EVALUATION:
Patient exhibits clinical signs of oropharyngeal dysphagia, likely acutely related to TME with possible chronic component of unknown etiology. Patient remains at risk for aspiration and related complications given confusion and tenuous
respiratory/pulmonary status. Recommend Videofluoroscopic Swallowing Study to further assess swallow physiology. Recommend diet downgrade to IDDSI Level 6 Soft and bite size diet, thin liquids until VSE. Medications whole in puree. Aspiration
precautions: Upright positioning; Small single sips/bites; Slow rate; 1:1 assistance and 100% supervision; Ensure patient swallows prior to next bite; only feed when awake/alert; Do not eat if SOB. Monitor for signs of aspiration and d/c oral diet
if any decline in mental/respiratory status. ST to follow, assess diet tolerance and modify as appropriate, and provide additional recommendations following VSE results.
RECOMMEND:
1) Videofluoroscopic Swallowing Study
2) IDDSI Level 6 Soft and bite size diet, thin liquids
3) Medications whole in puree
4) Aspiration precautions: Upright positioning; Small single sips/bites; Slow rate; 1:1 assistance and 100% supervision; Ensure patient swallows prior to next bite; only feed when awake/alert; Do not eat if SOB. Monitor for signs of aspiration and
d/c oral diet if any decline in mental/respiratory status
5) Oral care 3x/day
6) ST to follow, provide additional recommendations following VSE results
--- NOTE | 2024-07-29 16:27 | W.PN.UPDATE ---
Update Note
Progress Note Update
Zosyn started. Slightly elevated procalcitonin and also patient is at risk for aspiration per speech evaluation suspect pneumonia
CT head reviewed no acute changes.
CT abdomen and pelvis still pending
--- NOTE | 2024-07-29 16:47 | PTCARENOTE ---
Pt more awake after having speech eval completed. Assisted pt back up to the chair with a one person assist. While sitting up, pulse ox is 97% on 2L, crackles 1/2 up, diminished at bases. Currently NSR with HR 85, BP 124/71. Call negro within reach
but bc pt is somewhat impulsive, bed alarm is in place.
[2024-07-29] MEDS: ZOSYN 50 IV ×2 (17:05→23:52)
[2024-07-29] MEDS: LIPITOR 40 MG PO (17:05)
[2024-07-29 17:27] LABS: Glucose - Point of Care 187 mg/dl (70-99)
[2024-07-29 18:55] LABS: APTT 88.3 Sec (23.4-35.0)
--- NOTE | 2024-07-29 19:00 | PTCARENOTE ---
Received patient sitting up in the chair, dozing intermittently. He is without apparent signs of distress or discomfort but respirations are tachypneic. Sats 89% on RA, placed on 2L/nc humidified oxygen and his sats improved to 96%. Patient is
confused to time and place, oriented to self and event. BUL clear anteriorly, bilateral bases diminished Right base 2/3 way up and left base 1/2 way up, bilateral bases with fine crackles. Abdomen rounded, soft and nontender. Positive bowel sounds,
passing flatus. S1S2 distant. SR on CM with 1st degree AVB and frequent pac's. Positive pulses x 4 extrem, pedal pulses weak. BLE edema 1+. Condom cath in place draining roxana urine. Chair alarm on, air chair cushion in place. Chair locked, feet up,
call negro within reach.
--- NOTE | 2024-07-29 20:00 | PTCARENOTE ---
Assisted back to bed with assist x 2 and walker. Gait very unsteady, BLE weak. Bed in low and locked position. Bed alarm on. Patient dozing intermittently.
--- NOTE | 2024-07-29 21:15 | PTCARENOTE ---
Patient is quite confused. restless. Trying to climb OOB and states he needs to go home. Attempts made to reorient and explained to patient why he is in the hospital. Unable to reason with him and he is not understanding. Repositioned for comfort,
Tylenol given po prn. Bedtime meds given with HOB up and aspiration precautions. Swallows medications without difficulty with sips of water. Refuses oral care. Room quieted for sleep. Lowered lights on. Call negro within reach, patient is in view of
this nurse.
[2024-07-29] MEDS: SEROQUEL 25 MG PO (21:22)
[2024-07-29] MEDS: TYLENOL 650 MG PO (21:22)
--- NOTE | 2024-07-29 22:00 | PTCARENOTE ---
Patient appears to be sleeping comfortably with eyes closed, lying still, respirations tachypneic but nonlabored. SBP 89 but MAP 65.
--- NOTE | 2024-07-29 23:45 | PTCARENOTE ---
Addendum entered by Melonie Ferrari RN 07/30/24 00:17:
Patient more lethargic vs groggy, difficulty staying awake. Bilateral pupils equal 2mm and reactive. Responsive.
Original Note:
Patient continues to appear asleep, resps tachypneic but nonlabored with HOB 30degrees. No apparent distress or discomfort. Afebrile. BP stable with MAP > 65. Repositioned, groggy but cooperative. Otherwise, no change in patient's physical
assessment.
[2024-07-30] VITALS (40 sets, daily range): BP systolic 85–160; BP diastolic 44–79; PULSE 81–95; O2SAT 94–98; BMI 33.3
[2024-07-30 02:12] LABS: APTT 157.3 Sec (23.4-35.0)
--- NOTE | 2024-07-30 04:00 | PTCARENOTE ---
Patient has been sleeping well t/o night. Turned every 2 hours and repositioned prn. VSS. No change on CM. Axillary temp 96.9. Phenix donned and room temperature warmed slightly. Rouses easily but still lethargic. Otherwise no change in physical
assessment. Sats 93% on 2L/nc, patient is mouth breathing. Am labs drawn.
[2024-07-30 04:33] LABS: Hematocrit 39.8 % (39.0-52.0); Mean Corp Hgb Conc. 32.7 g/dL (33.0-37.0); Mean Corpuscular Hgb 29.2 pg (27.0-31.0); Mean Corpuscular Volume 89.4 fL (80.0-94.0); Mean Platelet Volume 9.5 fL (7.4-10.4); Platelet Count 444 10^3/uL (130-400); Red Blood Cell Count 4.45 10^6/uL (4.70-6.10); Red Cell Dist. Width 13.9 % (11.5-14.5); White Blood Cell Count 24.8 10^3/uL (4.8-10.8)
[2024-07-30 04:55] LABS: ALT (SGPT) 96 U/L (0-50); AST (SGOT) 47 U/L (17-59); Albumin 2.5 g/dl (3.5-5.0); Alkaline Phosphatase 115 U/L (38-126); Blood Urea Nitrogen 40 mg/dl (9-20); Calcium 7.8 mg/dl (8.4-10.2); Carbon Dioxide 31 mmol/L (22-30); Chloride 101 mmol/L (98-107); Estimated Creatinine Clearance 51 ml/min; Glucose 149 mg/dl (70-99); Potassium 3.6 mmol/L (3.5-5.1); Sodium 142 mmol/L (135-145); Total Bilirubin 1.6 mg/dl (0.2-1.3); Total Protein 5.5 g/dl (6.3-8.2); eGFR 54.51
[2024-07-30] MEDS: ZOSYN 50 IV ×4 (05:35→23:58)
[2024-07-30] MEDS: HEPARIN 25000 UNITS/250 ML IV (07:12)
--- NOTE | 2024-07-30 07:12 | PTCARENOTE ---
Report given verbally to oncoming Komal pastor RN. Questions answered.
--- NOTE | 2024-07-30 07:32 | W.PN.INTV ---
Today's Communication / Plan
Recommendations
Heparin drip
Echocardiogram
If no reaccumulation of pericardial fluid then consider converting to oral anticoagulant and transferring to telemetry
Assessment
-
Patient is a very pleasant 84-year-old gentleman with history of coronary artery disease, NSTEMI and status post PCI about 3 years ago, hypertension, hyperlipidemia, prostatic hypertrophy who presented to the emergency room with sudden onset
weakness and shortness of breath. Patient reports that he had been in his usual state of health up until the day of admission except for some increasing pedal edema noted over the last 2 weeks which was initially felt to be related to a side effect
of a certain medication. Patient states that he was sitting in chair where he felt uneasy but denies feeling near syncopal but felt mildly short of breath and he had himself lie down on the floor. Patient says that he felt weak and was not able to
pick himself back up. EMS was called and patient was evaluated. He denied any chest pain and workup in the emergency room showed normal troponin but pulmonary embolism and right lower lobe as well as left upper lobe segmental and subsegmental. A
PERT team was activated and I reviewed patient's CAT scan. Clot burden overall seemed small and central arteries were not involved. Patient however was noted to have moderate pericardial effusion and also with trace pleural effusions. Patient was
not hypotensive and had normal troponin with minimal if any right heart strain on CT scan hence catheter directed therapies were not pursued. Another concern with using thrombolytic was the moderate pleural effusion noted on the imaging. Patient's
BNP was noted to be elevated at 1400. Patient was then started on IV heparin and was admitted to IMU and pulmonary consultation was requested for further input.
#1. Acute pulmonary embolism, suspect unprovoked. CT scan reviewed, patient has right lower lobe and left upper lobe segmental and subsegmental pulmonary embolism. PERT team was activated from emergency room, in view of lack of central PE,
hemodynamic stability, normal troponin and minimal if any right heart strain noted on CT, IV heparin drip was recommended. Patient also noted to have moderate pericardial effusion which was another concern hence decision was made against
thrombolytic therapy.
- Has been on heparin drip, will continue heparin for now pending repeat echocardiogram 07/30/24. If no additional intervention needed, will transition to Eliquis
- No prior history of malignancy. Patient reports screening colonoscopy 20 years ago was unremarkable. Underlying malignancy is certainly a concern with unprovoked pulmonary embolism
#2. Pericardial effusion with early tamponade. Cardiology and interventional cardiology service on the case
-S/p pericardiocentesis with 350 cc serosanguineous fluid removed on 07/27/24. Additional 50 cc in the drain since initial placement.
-Pericardial fluid WBC 17,369 with 86% granulocytes, LDH elevated at more than 1000. Total fluid protein 5.0. Cultures are pending. Gram stain negative so far.
-ESR (38) and CRP both elevated. CRP more than 270
-Postprocedure echocardiogram did not show any residual fluid. Drain removed 07/28/24
-Plan for f/u ECHO 07/30/24
#3. Acute on suspect chronic congestive heart failure with bilateral pleural effusions, mild pulmonary edema. EF preserved, 55%. Patient noted to have elevated BNP, bilateral pitting edema on exam. Small bilateral pleural effusions noted as well
as moderate pericardial effusion.
- Patient more tachypneic, oxygen requirement up to 5 L, BNP more than 3000 today
- Increase Lasix to 80 mg IV twice daily
- Limited echo showed normal EF, will proceed with follow-up echocardiogram - Consider downgrading to telemetry
#4. History of coronary artery disease, PCI of RCA in 2020. No chest pain reported. Troponin negative in the emergency room. No acute ST changes noted.
- Continue Statins, has been on ASA 81 mg daily.
#5. Paroxysmal atrial fibrillation with rapid ventricular rate. Patient went into A-fib with RVR after pericardiocentesis.
- S/p Cardizem infusion, additional as needed metoprolol with conversion to normal sinus rhythm on 07/27
- Continue heparin drip eventually transition to Eliquis
- In view of hypertension, increase metoprolol 50 mg 3 times daily
#6. Delirium with intermittent agitation
- Add nightly Seroquel 25 mg nightly.
Eventual outpatient pulmonary [id number], reimaging, anticoagulation, sleep apnea workup
Critical care statement: A total of 40 minutes of critical care time was provided for this patient today. This includes management of unstable vital signs, evaluation of the patient at bedside, reviewing the patient's pertinent medical records
including radiographs, microbiology, laboratory evaluations, and discussion with primary team, consultants, pharmacy, nutrition, physical therapy, case management, charge nurse, critical care nursing, and respiratory therapy.
Data:
Limited ECHO 07/27: Limited TTE for pericardial effusion.
In limited views. Normal-appearing LV size and function with no regional wall
motion abnormalities.
LVEF approximate 55% by visual estimation. No obvious LVH.
Normal right ventricular size and function.
Valvular interrogation was not obtained.
Moderate pericardial effusion at beginning of study; by end of procedure
effusion was minimal.
No comparison for this study given limited amount of views for review.
CXR 07/2024: 1. Low inspiratory volumes.
2. Haziness of each hemidiaphragm, which may represent bibasilar airspace disease and/or small bilateral pleural effusions
CT-PE 07/2024: 1. Positive for segmental and subsegmental pulmonary emboli on each side.
2. Moderate pericardial effusion, measuring 2.1 cm in greatest thickness.
3. Small cavity size of both the RV and LV. Consider echocardiogram to evaluate for tamponade relating to pericardial effusion.
4. RV: LV ratio measures greater than 1. This finding, combined with the relatively small overall burden of embolus and peripheral position of emboli argues against significant right heart strain, however evaluation is complicated by moderate
pericardial effusion.
5. Small bilateral pericardial effusions. Bibasilar airspace consolidation, likely representing compressive atelectasis.
Cardiac Cath 07/2020: 1. Hazy, ulcerated 75-80% culprit lesion in the proximal RCA, status post PCI (Xience Chloe 4.0 x 23 GEORGE, postdilated with 5.0 NC balloon) with reduction in stenosis to 0%, maintaining CHUCK 3 flow.
2. Mildly elevated filling pressures.
Subjective Dataa
Subjective Data
Date of Service:
Date of Service: July 30, 2024
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
Subjective:
Follow chest x-ray
Chest tube with persistent leak
Probable removal of chest tube B today
Follow radiographically closely
Analgesia as needed
Review of Systems
General: Other (Per HPI)
Objective Data
Data Reviewed
Vital Signs / I&O / Oxygen:
Vital Signs
Temp Pulse Resp BP Pulse Ox
97.4 F 85 32 139/66 93
07/30/24 05:33 07/30/24 06:00 07/30/24 06:00 07/30/24 06:00 07/30/24 06:00
Intake and Output
07/29/24 07/30/24 07/31/24
06:59 06:59 06:59
Intake Total 870 / 884 1497.5 / 1509.5
Output Total 1850 / 1850 2400 / 2400
Balance -980 / -966 -902.5 / -890.5
SaO2 93
Nasal Cannula flow liters per 2
minute
Physical Exam
General: Respiratory Distress (n) and Comfortable
HEENT: Normocephalic and Anicteric
Cardiovascular: Irregular Rhythm and Peripheral Edema
Respiratory: Crackles and Non-Labored Respirations
GI: Soft, Non Distended and Non Tender
Neurology: Awake, Alert and No Motor Deficits
Skin: Warm, Good Color (n), Cyanosis (n) and Jaundice (n)
Labs/Micro/Reports
Lab Data
07/30/24 04:17
07/30/24 04:17
Laboratory Results
04/07/29/24 07/30/24
11:45 18:31 01:37
APTT 72.6 H 88.3 H 157.3 H*
Microbiology
07/27/24 12:05 Pericardial Fluid Acid Fast Bacilli Smear - Preliminary
07/27/24 12:05 Pericardial Fluid Acid Fast Bacilli Culture - Preliminary
07/27/24 15:30 Blood/Venous Blood Culture - Preliminary
No Growth in 48 hours- Final report to follow
07/27/24 15:30 Blood/Venous Blood Culture - Preliminary
No Growth in 48 hours- Final report to follow
07/27/24 12:05 Pericardial Fluid Body Fluid Culture - Preliminary
No Growth After 48 Hours
07/27/24 12:05 Pericardial Fluid Gram Stain - Preliminary
07/27/24 05:12 Nasal Swab Influenza Types A & B (MJ) - Final
Negative for Influenza A & B, NAAT
Negative results must be combined with clinical observations
and patient history.
Nucleic Acid Amplification test (NAAT)performed on the
[employer] platform.
[2024-07-30] MEDS: NOVOLOG FLEXPEN-LOW RESISTANCE SC ×2 (08:30→17:05)
[2024-07-30 08:39] LABS: Glucose - Point of Care 135 mg/dl (70-99)
[2024-07-30] MEDS: FLOMAX 0.4 MG PO (08:51)
[2024-07-30] MEDS: SENOKOT 17.2 MG PO (08:51)
[2024-07-30] MEDS: PROTONIX 40 MG PO (08:51)
[2024-07-30] MEDS: MIRALAX 17 GRAMS PO (08:51)
[2024-07-30] MEDS: LASIX 80 MG IV ×2 (08:52→16:06)
[2024-07-30] MEDS: PROSCAR 5 MG PO (08:52)
[2024-07-30] MEDS: LOW STRENGTH ASPIRIN 81 MG PO (08:52)
[2024-07-30] MEDS: LOPRESSOR 50 MG PO ×2 (08:52→16:07)
--- NOTE | 2024-07-30 09:12 | W.PN.HOSP.TC ---
Today's Communication/Plan
-
Echocardiogram
VSE baseline IV heparin
IV diuresis
Attempt to wean off oxygen as tolerates
Empiric antibiotics following temperature curve and WBC trend
Total Critical Care Time__45___ minutes. I was immediately available to the patient and staff. I personally examined, reviewed labs, diagnostic images/reports, interpretations, treatment plans, discussed patient care with other providers and
family or caregivers (if patient is unable to make decisions), entered orders as appropriate and documented the medical record.
Patient's daughter updated over the phone.
Assessment / Plan
Assessment / Plan
Impression
Acute hypoxic respiratory failure
Bilateral pulmonary embolism, provoked (immobility, status post right MICAH 04/28)
Acute CHF preserved EF suspected
Atrial fibrillation with rapid trickle response new following pericardiocentesis
Bilateral/bibasilar airspace consolidation
Large paracardial effusion on CT imaging.
Leukocytosis.
INDIA (creatinine 1.3)
Increased anion gap metabolic acidosis
Elevated LFT, mixed pattern
Toxic metabolic encephalopathy
Other conditions
CAD with history of STEMI�angioplasty to the right coronary artery 07/23
Nonsustained V. tach post NH.
Essential hypertension.
Dyslipidemia.
BPH
Plan:
Bilateral pulmonary embolism possibly provoked by fairly recent right total hip arthroplasty and low mobility state.
No evidence of saddle emboli upon presentation.
Lower extremity Doppler negative for DVT.
Initiated on IV heparin drip
Pericardial effusion with early tamponade upon presentation.
Status post pericardial drain placed on 07/27 and removed on 07/28 with reported sufficient drain.
Initial echocardiogram with LVEF of 55%, moderate pericardial effusion with normal RV function and no significant valvular abnormalities
Follow-up echocardiogram on 07/29 pending
Pericardial fluid pathology pending
Noted with elevated inflammatory markers/nonspecific
Acute CHF preserved EF (hypoxia, peripheral edema)
Repeat echocardiogram pending
Continue IV diuresis, currently Lasix 80 mg IV twice daily. Follow renal function
CAD with history of STEMI and revascularization to RCA 07/23.
Essential hypertension
Dyslipidemia
Updated echocardiogram pending.
ECG sinus tachycardia.
Preadmission regimen including metoprolol, losartan, hydrochlorothiazide, amlodipine, atorvastatin, aspirin
Atrial fibrillation with right ventricular response. New onset following pericardial drain placement.
Required IV diltiazem.
Back to sinus
Continue oral metoprolol.
Long-term anticoagulation to be determined
Bibasilar/bilateral consolidation.
Differential diagnosis atelectasis versus pneumonia (has significant leukocytosis).
Aspiration risk.
Speech and swallow evaluation with recommendation for VSE
Aspiration precautions
Empiric antibiotics/Zosyn initiated on 07/28 covering aspiration pathogens
Acute hypoxic respiratory failure multifactorial due to pulmonary embolism, bibasilar atelectasis/consolidation, CHF
Oxygen requirement remains high currently on 6 L nasal cannula with increased work of breathing
Monitor closely
Toxic metabolic encephalopathy suspect multifactorial due to acute illness, hypoxia.
CT head with no acute abnormalities.
Leukocytosis.
Remains afebrile.
Imaging with bibasilar consolidations and concern for pneumonia, possible aspiration pneumonia.
CT of the abdomen with gallbladder sludge and constipation otherwise unremarkable for acute abnormalities.
Blood culture, urine cultures negative to date.
Monitor temperature curve.
On empiric Zosyn
Follow CBC
Acute kidney injury
Mild increased anion gap metabolic acidosis.
Monitor closely while on IV diuretics.
On HCTZ prior to presentation/hold.
Losartan/hold
Elevated LFTs, mixed pattern.
Fatty liver and gallbladder sludge by imaging
Suspect hepatic congestion.
Follow trend
BPH.
Monitor for retention.
Continue tamsulosin
Anticipated Discharge: > 48 hours
Subjective/Interval History
-
Date of Service: July 30, 2024
Objective Data
-
Labs:
Laboratory Results
07/30/24 07/30/24 07/30/24
01:37 04:17 09:01
WBC 24.8 H
Hgb 13.0
Hct 39.8
Plt Count 444 H
APTT 157.3 H* Pending
Sodium 142
Potassium 3.6
Chloride 101
Carbon Dioxide 31 H
BUN 40 H
Creatinine 1.3
Glucose 149 H
Calcium 7.8 L
Total Bilirubin 1.6 H
AST 47
ALT 96 H
Alkaline Phosphatase 115
Vital Signs:
Vital Signs
Temp Pulse Resp BP Pulse Ox
97.4 F 96 27 160/73 92
07/30/24 05:33 07/30/24 09:00 07/30/24 09:00 07/30/24 09:00 07/30/24 09:00
I&O
07/29/24 07/30/24 07/31/24
06:59 06:59 06:59
Intake Total 870 / 884 1497.5 / 1509.5
Output Total 1850 / 1850 2400 / 2400
Balance -980 / -966 -902.5 / -890.5
Physical Exam
-
General: Well Developed and No Apparent Distress
HEENT: Normocephalic, Atraumatic and Moist Mucous Membranes
Respiratory: Accessory Resp Muscle Use and Decreased Breath Sounds (Bibasilar at the bases)
Cardiac: Regular Rhythm and S1/S2; Negative Murmur, Rub or Gallop
GI: Soft, Nontender, Nondistended and Normal Bowel Sounds; Negative Organomegaly
Rectal: Deferred by Provider
Musculoskeletal: No Clubbing, No Cyanosis and No Edema
Skin: Negative Rash
Neuro: Awake, Alert, Oriented and Nonfocal/Grossly Intact
--- NOTE | 2024-07-30 09:22 | W.PN.CD ---
Today's Communication / Plan
-
IV diuresis today
ON abx for presumed PNA
f/u echo
Impression / Plan
-
A/P: 84-year-old male with past medical history of NSTEMI status post RCA stenting, hypertension, hyperlipidemia, mild AI and BPH who is here because of shortness of breath. He appears to have tamponade physiology on echocardiogram with impaired
diastolic filling of the RV.
Pericardial effusion with tamponade
- s/p pericardial drain
- F/u echo today
- per POCUS small mainly anterior
Large Dense b/l lower lobe and R middle lobe consolidations likely PNA
- hypoxic respiratory failure requiring 02
- On IV zosyn;
- per primary
- consider thora if needed?
PE
- Heparin gtt
- per pulmonary/hospitalist
HFpEF acute
- IV Diuresis continues today
Paroxysmal AF
- likely 2/2 pericardial drain causing irritation and PE
- will need AC for PE; consider long-term AC vs monitor after
Leukocytosis worsening
- improved from 30 07/29 now 24
CAD s/p RCA stenting
- aspirin statin
HTN
- agree with metop
HLD
- cont statin
AI
- echo pending
Subjective: remains confused, slept better but still appears to be tired
CT A/P: IMPRESSION:
1. LARGE DENSE BILATERAL LOWER LOBE and RIGHT MIDDLE LOBE AIRSPACE CONSOLIDATIONS. Diagnostic possibilities are (1) severe pneumonia or (2) compressive atelectasis.
2. Moderate-sized bilateral pleural effusions.
3. Moderate-sized pericardial effusion.
4. Severe calcific atherosclerotic plaque in the coronary arteries.
5. 1.1 cm enlarged lymph node in the right pericardial fat pad.
6. Moderate diffuse hepatic steatosis and mild hepatomegaly.
7. Cholelithiasis and sludge in the gallbladder.
8. Severe diverticulosis in the descending and sigmoid colon.
9. Large amount of fecal material in the rectum (possibly fecal impaction).
10. Severe diffuse urinary bladder wall thickening. Diagnostic possibilities are (1) chronic urinary bladder outlet obstruction or (2) cystitis.
11. Previous TURP.
12. 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
Physical Exam
Vital Signs/Labs
Vital Signs
Temp Pulse Resp BP Pulse Ox
97.4 F 96 27 160/73 92
07/30/24 05:33 07/30/24 09:00 07/30/24 09:00 07/30/24 09:00 07/30/24 09:00
07/29/24 07/30/24 07/31/24
06:59 06:59 06:59
Actual Weight 227 lb 1.218 oz 225 lb 4.999 oz
07/30/24 04:17
07/30/24 04:17
APTT 157.3 Sec (23.4-35.0) H* 07/30/24 01:37
Magnesium 2.3 mg/dl (1.6-2.3) 07/29/24 04:00
07/27/24 07/29/24
02:25 04:00
Vjs-I-Potpjthxfen Pept 1410 3290
LAB Results
07/28/24 07/28/24 07/28/24
04:36 11:49 15:53
Troponin I 0.036 H* 0.035 H* 0.028
Physical Exam
Constitutional: Confusion
EENT: Anicteric
Cardiovascular: Rhythm & rate is regular and Pedal edema present
Respiratory: Crackles Present, Rhonchi Present and Other (diminished b/s b/l)
GI: Soft
Neuro/Psych: Alert and Oriented
Data Reviewed
-
Date of Service: July 30, 2024
Medical Decision Making: Reviewed Test Results
EKG: Tracing Personally Visualized and interpreted (sr)
Echo: Report Reviewed by me
Labs: Labs Reviewed by me
--- NOTE | 2024-07-30 10:45 | W.PN.INTV ---
Documented by User: Maame Levy DO, Resident 07/30/24 11:18
Today's Communication / Plan
Recommendations
- echo today
- wean O2 as able
- heparin drip
- if no reaccumulation of pericardial fluid, consider converting to OAC
Assessment
-
Assessment:
84yo M pmh CAD, NSTEMI s/p PCI, HTN, HLD, BPH who presented to ED with sudden onset weakness and dyspnea. Troponins wnl, CTA chest positive for PE in the RLL and DANIS both segmental and subsegmental. A PERT team was activated. Pt noted to have
moderate pericardial effusion w trace pleural effusions. Pt started on IV heparin. Pt transferred to ICU for cardiac tamponade. S/p pericardiocentesis 07/27.
Plan:
Acute pulmonary embolism, suspect unprovoked
- no prior hx of malignancy, screening colonoscopy 20 yrs ago unremarkable
- CTA chest: RLL and DANIS segmental and subsegmental PE
- IV heparin drip
- repeat echo - if no intervention --> transition from heparin to eliquis
- recommend further hypercoagulability workup in outpt setting
Pericardial effusion w early tamponade
- s/p pericardiocentesis w 350mL serosanguineous fluid removed 07/27, drain removed 07/28
- pericardial fluid leukocytosis w 86% granulocytes and elevated LDH. Cx pending
- ESR and CRP elevated
- f/u echo 07/30
Acute on suspect chronic HFpEF (EF 55%) w b/l pleural effusions, mild pulmonary edema
- elevated BNP and rising
- lasix
- f/u echo
CAD s/p PCI RCA in 2020
- cont home statins, ASA 81mg daily
PAF w RVR
- occurred after pericardiocentesis
- s/p cardizem infusion, as needed metoprolol, converted to SR on 07/27
- cont heparin
- cont metoprolol
Delirium w intermittent agitation
- seroquel nightly
Diet: 2 gram sodium
DVT ppx: heparin
Code status: DNR
Subjective Dataa
Subjective Data
Date of Service:
Date of Service: July 30, 2024
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
Subjective:
Pt confused and restless overnight.
Review of Systems
Cardiopulmonary: Dyspnea
Genitourinary: Millan
Objective Data
Data Reviewed
Vital Signs / I&O / Oxygen:
Vital Signs
Temp Pulse Resp BP Pulse Ox
97.4 F 96 27 160/73 92
07/30/24 05:33 07/30/24 09:00 07/30/24 09:00 07/30/24 09:00 07/30/24 09:00
Intake and Output
07/29/24 07/30/24 07/31/24
06:59 06:59 06:59
Intake Total 870 / 884 1497.5 / 1509.5
Output Total 1850 / 1850 2400 / 2400
Balance -980 / -966 -902.5 / -890.5
SaO2 92
Nasal Cannula flow liters per 2
minute
Physical Exam
General: Respiratory Distress (n) and Comfortable
HEENT: Normocephalic and Anicteric
Cardiovascular: S1-S2, Irregular Rhythm and Peripheral Edema
Respiratory: Crackles and Non-Labored Respirations
GI: Soft, Non Distended, Non Tender and Normal Bowel Sounds
Neurology: Awake, Alert and No Motor Deficits
Skin: Warm, Good Color (n), Cyanosis (n) and Jaundice (n)
Labs/Micro/Reports
Lab Data
07/30/24 04:17
07/30/24 04:17
Laboratory Results
0407/29/24 07/30/24
11:45 18:31 01:37
APTT 72.6 H 88.3 H 157.3 H*
07/30/24
09:01
APTT 61.0 H
Microbiology
07/27/24 12:05 Pericardial Fluid Acid Fast Bacilli Smear - Preliminary
07/27/24 12:05 Pericardial Fluid Acid Fast Bacilli Culture - Preliminary
07/27/24 15:30 Blood/Venous Blood Culture - Preliminary
No Growth in 48 hours- Final report to follow
07/27/24 15:30 Blood/Venous Blood Culture - Preliminary
No Growth in 48 hours- Final report to follow
07/27/24 12:05 Pericardial Fluid Body Fluid Culture - Preliminary
No Growth After 48 Hours
07/27/24 12:05 Pericardial Fluid Gram Stain - Preliminary

Documented by User: Christiano Turner MD 07/30/24 15:33
Assessment
-
Assessment:
84yo M pmh CAD, NSTEMI s/p PCI, HTN, HLD, BPH who presented to ED with sudden onset weakness and dyspnea. Troponins wnl, CTA chest positive for PE in the RLL and DANIS both segmental and subsegmental. A PERT team was activated. Pt noted to have
moderate pericardial effusion w trace pleural effusions. Pt started on IV heparin. Pt transferred to ICU for cardiac tamponade. S/p pericardiocentesis 07/27.
Plan:
Acute pulmonary embolism, suspect unprovoked
- no prior hx of malignancy, screening colonoscopy 20 yrs ago unremarkable
- CTA chest: RLL and DANIS segmental and subsegmental PE
- IV heparin drip
- repeat echo - if no intervention --> transition from heparin to eliquis
- recommend further hypercoagulability workup in outpt setting
Pericardial effusion w early tamponade
- s/p pericardiocentesis w 350mL serosanguineous fluid removed 07/27, drain removed 07/28
- pericardial fluid leukocytosis w 86% granulocytes and elevated LDH. Cx pending
- ESR and CRP elevated
- f/u echo 07/30
Acute on suspect chronic HFpEF (EF 55%) w b/l pleural effusions, mild pulmonary edema
- elevated BNP and rising
- lasix
- f/u echo
CAD s/p PCI RCA in 2020
- cont home statins, ASA 81mg daily
PAF w RVR
- occurred after pericardiocentesis
- s/p cardizem infusion, as needed metoprolol, converted to SR on 07/27
- cont heparin
- cont metoprolol
Delirium w intermittent agitation
- seroquel nightly
Diet: 2 gram sodium
DVT ppx: heparin
Code status: DNR
I reviewed this patients case independently and in conjunction with the resident. I personally examined the patient. Patient's complex medical history, laboratory evaluations, events over the last 24 hours, radiographs, microbiological data were
all personally reviewed.
Agree with documented assessment and plan
Christiano Turner MD, FCCP, DABDARIA
[2024-07-30] MEDS: KCL ELIXIR 40 MEQ PO (10:55)
[2024-07-30] MEDS: HEPARIN 4100 UNITS IV (11:07)
--- NOTE | 2024-07-30 12:00 | PTCARENOTE ---
Pt drowsy. Sleeping on and off.
O2 increased to 6L NC this am. Pt orthopneic and SWANSON. Lungs diminished on left and course throughout.
Sinus rhythm with PACs. Remains on Heparin gtt.
Poor appetite. Multiple soft brown stools this shift.
All other assessments unchanged.
[2024-07-30] MEDS: NOVOLOG FLEXPEN-LOW RESISTANCE 1 UNITS SC (12:30)
[2024-07-30 12:40] LABS: Glucose - Point of Care 153 mg/dl (70-99)
--- NOTE | 2024-07-30 13:40 | PTCARENOTE ---
Received pt back from IR s/p left thoracentesis, 700 ml off per report.
Slightly hypotensive post procedure. at this time.
Weaning O2. 95-96% on 4L
--- NOTE | 2024-07-30 16:00 | PTCARENOTE ---
Assessment unchanged.
Condom cath came off several times this shift. Pt incontinent of large amount of urine therefore documented urine output not accurate.
--- NOTE | 2024-07-30 16:16 | CM ---
Patient seen at bedside with daughter present in ICU. Patient stated that he was feeling better. Patient daughter indicated that they did not understand why patient was needing O2 as he has never needed Oxygen in the past. Patient plan is to go home
with [facility]. CM will continue to follow for discharge planning needs.
Plan; home with [facility]; watch for home O2 needs.
[2024-07-30 17:16] LABS: Glucose - Point of Care 145 mg/dl (70-99)
[2024-07-30 17:47] LABS: APTT 91.4 Sec (23.4-35.0)
[2024-07-30] MEDS: LIPITOR 40 MG PO (17:59)
[2024-07-30] MEDS: SENOKOT PO (19:42)
--- NOTE | 2024-07-30 19:45 | PTCARENOTE ---
Addendum entered by Melonie Ferrari RN 07/30/24 22:09:
Heparin gtt infusing at 1400U/hr. Left FA IV sites x 2 WDL.
Original Note:
Received patient lying in bed. He appears to be sleeping comfortably with eyes closed, lying still, respirations tachypneic but nonlabored. Oxygen saturation is 88% on 2L/nc. Initially increased to 4L and then to 6L to improve sats to 93%. Patient
is lethargic but rouseable. Minimally conversational but he is answering questions. Denies pain when asked. BBS with UL clear. RML and RLL very diminished. Left base diminished with fine crackles. Abdomen obese with hyperactive bowel sounds, soft
and nontender abdomen. S1S2 regular, distant with soft murmur. Pulse palpable x 4 extremities, pedal pulses weak. BLE ankle/pedal/pretib edema 1+. BLE stasis dermatitis discoloration. SR on CM with 1st degree AVB. Condom catheter in place, patent
draining clear yellow urine. Patient turned every 2 hours, repositioned prn. Heels elevated off of bed. HOB up 30 degrees. Bed in low and locked position, call negro within reach. Bed alarm on.
[2024-07-30 21:28] LABS: Glucose - Point of Care 190 mg/dl (70-99)
[2024-07-30] MEDS: LOPRESSOR PO (21:44)
[2024-07-30] MEDS: SEROQUEL PO (21:45)
--- NOTE | 2024-07-30 21:45 | PTCARENOTE ---
Patient is too lethargic to give po medications. He opens eyes and responds briefly to verbal and tactile stimuli but then falls back asleep. Notified Fam ORTEGA, aware. Patient did not sleep , Tuesday and Tuesday nights. He was given po
Seroquel per order last pm and has been sleeping and groggy/lethargic since. VSS. Respirations nonlabored. Pupils 2mm, equal, round and briskly reactive.
[2024-07-31] VITALS (23 sets, daily range): BP systolic 84–149; BP diastolic 50–74; BMI 32.4
--- NOTE | 2024-07-31 | PTCARENOTE ---
Essentially no change in patient's physical assessment. He rouses easily to verbal stimuli but falls asleep easily. PTT drawn. Repositioned. Oral care rendered. VSS.
[2024-07-31] MEDS: HEPARIN 25000 UNITS/250 ML IV ×2 (00:01→16:20)
[2024-07-31 00:40] LABS: APTT 92.9 Sec (23.4-35.0)
--- NOTE | 2024-07-31 00:52 | PTCARENOTE ---
Essentially no change in patient's physical assessment. He rouses easily to verbal stimuli but falls asleep easily. PTT drawn. Repositioned. Oral care rendered. VSS.
[2024-07-31 02:11] LABS: ANA, IgG Reflex to HEp-2 Detected (None Detected)
--- NOTE | 2024-07-31 03:30 | PTCARENOTE ---
Complete cares given, G cloth bath, face shaven, hair brushed, maria alejandra care, sacral foam changed. Complete linen change. Patient is more awake than previous. Cooperative. Forgetful but oriented to place and person. Rest of physical assessment
essentially unchanged. VSS.
[2024-07-31 05:16] LABS: Hematocrit 40.9 % (39.0-52.0); Hemoglobin 13.9 g/dL (13.0-18.0); Mean Corpuscular Hgb 30.1 pg (27.0-31.0); Mean Corpuscular Volume 88.5 fL (80.0-94.0); Mean Platelet Volume 9.7 fL (7.4-10.4); Platelet Count 476 10^3/uL (130-400); Red Blood Cell Count 4.62 10^6/uL (4.70-6.10); Red Cell Dist. Width 14.1 % (11.5-14.5); White Blood Cell Count 17.2 10^3/uL (4.8-10.8)
[2024-07-31 05:34] LABS: Blood Urea Nitrogen 42 mg/dl (9-20); Calcium 7.7 mg/dl (8.4-10.2); Carbon Dioxide 28 mmol/L (22-30); Chloride 106 mmol/L (98-107); Estimated Creatinine Clearance 59 ml/min; Glucose 150 mg/dl (70-99); Potassium 3.7 mmol/L (3.5-5.1); Sodium 145 mmol/L (135-145); eGFR > 60.00
[2024-07-31] MEDS: ZOSYN 50 IV ×4 (06:08→23:25)
--- NOTE | 2024-07-31 07:14 | W.PN.INTV ---
Today's Communication / Plan
Recommendations
convert anticoagulation to oral and treat for minimum of 3-6 months from a pulmonary embolism perspective and possibly indefinitely with atrial fibrillation
Wean FiO2
Right thoracentesis
Empiric antibiotics
If remains stable then transfer out of ICU-pulmonary will continue to follow
Assessment
-
Patient is a very pleasant 84-year-old gentleman with history of coronary artery disease, NSTEMI and status post PCI about 3 years ago, hypertension, hyperlipidemia, prostatic hypertrophy who presented to the emergency room with sudden onset
weakness and shortness of breath. Patient reports that he had been in his usual state of health up until the day of admission except for some increasing pedal edema noted over the last 2 weeks which was initially felt to be related to a side effect
of a certain medication. Patient states that he was sitting in chair where he felt uneasy but denies feeling near syncopal but felt mildly short of breath and he had himself lie down on the floor. Patient says that he felt weak and was not able to
pick himself back up. EMS was called and patient was evaluated. He denied any chest pain and workup in the emergency room showed normal troponin but pulmonary embolism and right lower lobe as well as left upper lobe segmental and subsegmental. A
PERT team was activated and I reviewed patient's CAT scan. Clot burden overall seemed small and central arteries were not involved. Patient however was noted to have moderate pericardial effusion and also with trace pleural effusions. Patient was
not hypotensive and had normal troponin with minimal if any right heart strain on CT scan hence catheter directed therapies were not pursued. Another concern with using thrombolytic was the moderate pleural effusion noted on the imaging. Patient's
BNP was noted to be elevated at 1400. Patient was then started on IV heparin and was admitted to IMU and pulmonary consultation was requested for further input.
Pulmonary embolism-suspect unprovoked
Pericardial effusion with early tamponade
CHF-acute on top of chronic preserved EF
CAD
Rapid atrial fibrillation
Toxic metabolic encephalopathy
Plan
Respiratory status slowly improving especially after thoracentesis
Supplemental oxygen as needed
Nebulizers if needed
Status post left thoracentesis/--700 mL of cloudy exudative pleural fluid-cultures and cytology not performed
Right thoracentesis recommended/-send for pH, cell count with differential, total protein, LDH, glucose, microbiology as well as cytology-reviewed with primary team
Follow chest x-ray
Anticoagulation-heparin drip continues-convert to oral anticoagulant and treat for minimum of 3-6 months
Echocardiogram without evidence for pericardial fluid reaccumulation/tamponade
Cardiology following-correspondence reviewed
Diuresis as tolerated
Monitor renal function, electrolytes, intake/output, lower extremity edema and weight
Replace electrolytes as needed
Atrial fibrillation rate control
Cultures reviewed
Empiric antibiotics-finish finite course-ie 5 days of Zosyn
DVT prophylaxis-on anticoagulation
Nutrition
Early mobilization
If continues to remain stable then transfer out of ICU to telemetry-pulmonary will continue to follow briefly
Outpatient pulmonary follow-up
Critical care statement: A total of 44 minutes of critical care time was provided for this patient today. This includes management of unstable vital signs, evaluation of the patient at bedside, reviewing the patient's pertinent medical records
including radiographs, microbiology, laboratory evaluations, and discussion with primary team, consultants, pharmacy, nutrition, physical therapy, case management, charge nurse, critical care nursing, and respiratory therapy.
Data:
Limited ECHO 07/27: Limited TTE for pericardial effusion.
In limited views. Normal-appearing LV size and function with no regional wall
motion abnormalities.
LVEF approximate 55% by visual estimation. No obvious LVH.
Normal right ventricular size and function.
Valvular interrogation was not obtained.
Moderate pericardial effusion at beginning of study; by end of procedure
effusion was minimal.
No comparison for this study given limited amount of views for review.
CXR 07/2024: 1. Low inspiratory volumes.
2. Haziness of each hemidiaphragm, which may represent bibasilar airspace disease and/or small bilateral pleural effusions
CT-PE 07/2024: 1. Positive for segmental and subsegmental pulmonary emboli on each side.
2. Moderate pericardial effusion, measuring 2.1 cm in greatest thickness.
3. Small cavity size of both the RV and LV. Consider echocardiogram to evaluate for tamponade relating to pericardial effusion.
4. RV: LV ratio measures greater than 1. This finding, combined with the relatively small overall burden of embolus and peripheral position of emboli argues against significant right heart strain, however evaluation is complicated by moderate
pericardial effusion.
5. Small bilateral pericardial effusions. Bibasilar airspace consolidation, likely representing compressive atelectasis.
Cardiac Cath 07/2020: 1. Hazy, ulcerated 75-80% culprit lesion in the proximal RCA, status post PCI (Xience Chloe 4.0 x 23 GEORGE, postdilated with 5.0 NC balloon) with reduction in stenosis to 0%, maintaining CHUCK 3 flow.
2. Mildly elevated filling pressures.
Subjective Dataa
Subjective Data
Date of Service:
Date of Service: July 31, 2024
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
Subjective:
Somewhat improved, less short of breath, FiO2 weaned, no complaints of chest pain or abdominal pain
Review of Systems
General: Other (Per HPI)
Objective Data
Data Reviewed
Vital Signs / I&O / Oxygen:
Vital Signs
Temp Pulse Resp BP Pulse Ox
98.4 F 89 25 144/53 95
07/31/24 03:36 07/31/24 06:00 07/31/24 06:00 07/31/24 06:00 07/31/24 06:00
Intake and Output
07/30/24 07/31/24 08/01/24
06:59 06:59 06:59
Intake Total 1497.5 / 1509.5 946 / 946
Output Total 2400 / 2400 1850 / 1850
Balance -902.5 / -890.5 -904 / -904
SaO2 95
Nasal Cannula flow liters per 4
minute
Physical Exam
General: Respiratory Distress (n) and Comfortable
HEENT: Normocephalic and Anicteric
Cardiovascular: Irregular Rhythm and Peripheral Edema
Respiratory: Crackles and Non-Labored Respirations
GI: Soft, Non Distended, Non Tender and Normal Bowel Sounds
Neurology: Awake, Alert and No Motor Deficits
Skin: Warm, Good Color (n), Cyanosis (n) and Jaundice (n)
Labs/Micro/Reports
Lab Data
07/31/24 04:48
07/31/24 04:48
Laboratory Results
07/30/24 07/30/24 07/31/24
09:01 17:12 00:17
APTT 61.0 H 91.4 H 92.9 H
Microbiology
07/27/24 15:30 Blood/Venous Blood Culture - Preliminary
No Growth in 72 hours- Final report to follow
07/27/24 15:30 Blood/Venous Blood Culture - Preliminary
No Growth in 72 hours- Final report to follow
07/27/24 12:05 Pericardial Fluid Fungal Culture - Preliminary
Culture in progress.
Positive cultures are reported as soon as detected.
Final report to follow in four to five weeks.
07/27/24 12:05 Pericardial Fluid Body Fluid Culture - Final
No Growth After 72 Hours
07/27/24 12:05 Pericardial Fluid Gram Stain - Final
07/27/24 12:05 Pericardial Fluid Acid Fast Bacilli Smear - Preliminary
07/27/24 12:05 Pericardial Fluid Acid Fast Bacilli Culture - Preliminary
--- NOTE | 2024-07-31 07:33 | PTCARENOTE ---
Report given verbally to oncoming Niurka pastor RN. Questions answered.
[2024-07-31] MEDS: LASIX 80 MG IV ×2 (07:58→16:40)
[2024-07-31] MEDS: MIRALAX 17 GRAMS PO (07:58)
[2024-07-31] MEDS: LOPRESSOR 50 MG PO (07:58)
[2024-07-31] MEDS: SENOKOT 17.2 MG PO (07:58)
[2024-07-31] MEDS: PROSCAR 5 MG PO (07:59)
[2024-07-31] MEDS: LOW STRENGTH ASPIRIN 81 MG PO (07:59)
[2024-07-31] MEDS: FLOMAX 0.4 MG PO (07:59)
--- NOTE | 2024-07-31 08:00 | PTCARENOTE ---
Received pt awake and alert.Oriented x 3.Speech is appropriate.Pt is occasionally forgetful of situation.+CLIFFORD.Denies pain.SR noted.Heparin infusing as ordered.O2 2l NS.Bibasilar crackles and decreased breath sounds throughout noted.Pt encouraged to
cough and deep breath.Appetite good.Incontinent of soft brown stool.Incontinent of yellow urine.Open are on sacrum noted r/t MASD.Calzyme applied.Plan of care discussed with pt.Pt's daughter Jud called unit and was updated as requested.
[2024-07-31 08:06] LABS: APTT 105.7 Sec (23.4-35.0)
[2024-07-31 08:07] LABS: Glucose - Point of Care 128 mg/dl (70-99)
--- NOTE | 2024-07-31 08:33 | W.PN.INTV ---
Documented by User: Maame Levy DO, Resident 07/31/24 10:42
Today's Communication / Plan
Recommendations
- R thoracentesis
- cont diuresis
- DVT ppx: heparin, transition to eliquis s/p R thoracentesis
Assessment
-
Assessment:
84yo M pmh CAD, NSTEMI s/p PCI, HTN, HLD, BPH who presented to ED with sudden onset weakness and dyspnea. Troponins wnl, CTA chest positive for PE in the RLL and DANIS both segmental and subsegmental. A PERT team was activated. Pt noted to have
moderate pericardial effusion w trace pleural effusions. Pt started on IV heparin. Pt transferred to ICU for cardiac tamponade. S/p pericardiocentesis 07/27.
Plan:
Acute pulmonary embolism, suspect unprovoked
- no prior hx of malignancy, screening colonoscopy 20 yrs ago unremarkable
- CTA chest: RLL and DANIS segmental and subsegmental PE
- IV heparin drip
- repeat echo: LVEF 55%, pericardial effusion has decreased in size and is now trivial
- recommend further hypercoagulability workup in outpt setting
Pericardial effusion w early tamponade
- s/p pericardiocentesis w 350mL serosanguineous fluid removed 07/27, drain removed 07/28
- pericardial fluid leukocytosis w 86% granulocytes and elevated LDH. Cx pending
- ESR and CRP elevated
- repeat echo: LVEF 55%, pericardial effusion has decreased in size and is now trivial
Acute on suspect chronic HFpEF (EF 55%) w b/l pleural effusions, mild pulmonary edema
- elevated BNP and rising
- lasix
- repeat echo: LVEF 55%, pericardial effusion has decreased in size and is now trivial
- L thoracentesis: 700 cc of cloudy roxana pleural fluid
- R thoracentesis today w cx and cytology
CAD s/p PCI RCA in 2020
- cont home statins, ASA 81mg daily
PAF w RVR
- occurred after pericardiocentesis
- s/p cardizem infusion, as needed metoprolol, converted to SR on 07/27
- cont heparin
- cont metoprolol
Delirium w intermittent agitation
- seroquel nightly
Leukocytosis
- improving
Diet: 2 gram sodium
DVT ppx: heparin, transition to eliquis s/p R thoracentesis
Code status: DNR
Subjective Dataa
Subjective Data
Date of Service:
Date of Service: July 31, 2024
Chief Complaint: [employer]er Follow Up and Pulmonary Follow Up
Subjective:
Pt underwent thoracentesis yesterday, tolerated procedure well.
Review of Systems
Cardiopulmonary: Dyspnea
Objective Data
Data Reviewed
Vital Signs / I&O / Oxygen:
Vital Signs
Temp Pulse Resp BP Pulse Ox
98.3 F 89 25 127/59 95
07/31/24 08:19 07/31/24 06:00 07/31/24 06:00 07/31/24 07:58 07/31/24 06:00
Intake and Output
07/30/24 07/31/24 08/01/24
06:59 06:59 06:59
Intake Total 1497.5 / 1509.5 946 / 946
Output Total 2400 / 2400 1850 / 1850
Balance -902.5 / -890.5 -904 / -904
SaO2 95
Nasal Cannula flow liters per 4
minute
Physical Exam
General: Comfortable
HEENT: Normocephalic and Anicteric
Cardiovascular: S1-S2, Irregular Rhythm and Peripheral Edema
Respiratory: Crackles and Non-Labored Respirations
GI: Soft, Non Distended, Non Tender and Normal Bowel Sounds
Neurology: Awake, Alert and No Motor Deficits
Skin: Warm
Labs/Micro/Reports
Lab Data
07/31/24 04:48
07/31/24 04:48
Laboratory Results
07/30/24 07/30/24 07/31/24
09:01 17:12 00:17
APTT 61.0 H 91.4 H 92.9 H
07/31/24
07:13
APTT 105.7 H
Microbiology
07/27/24 15:30 Blood/Venous Blood Culture - Preliminary
No Growth in 72 hours- Final report to follow
07/27/24 15:30 Blood/Venous Blood Culture - Preliminary
No Growth in 72 hours- Final report to follow
07/27/24 12:05 Pericardial Fluid Fungal Culture - Preliminary
Culture in progress.
Positive cultures are reported as soon as detected.
Final report to follow in four to five weeks.
07/27/24 12:05 Pericardial Fluid Body Fluid Culture - Final
No Growth After 72 Hours
07/27/24 12:05 Pericardial Fluid Gram Stain - Final
07/27/24 12:05 Pericardial Fluid Acid Fast Bacilli Smear - Preliminary
07/27/24 12:05 Pericardial Fluid Acid Fast Bacilli Culture - Preliminary

Documented by User: Christiano Turner MD 07/31/24 11:06
Assessment
-
Assessment:
84yo M pmh CAD, NSTEMI s/p PCI, HTN, HLD, BPH who presented to ED with sudden onset weakness and dyspnea. Troponins wnl, CTA chest positive for PE in the RLL and DANIS both segmental and subsegmental. A PERT team was activated. Pt noted to have
moderate pericardial effusion w trace pleural effusions. Pt started on IV heparin. Pt transferred to ICU for cardiac tamponade. S/p pericardiocentesis 07/27.
Plan:
Acute pulmonary embolism, suspect unprovoked
- no prior hx of malignancy, screening colonoscopy 20 yrs ago unremarkable
- CTA chest: RLL and DANIS segmental and subsegmental PE
- IV heparin drip
- repeat echo: LVEF 55%, pericardial effusion has decreased in size and is now trivial
- recommend further hypercoagulability workup in outpt setting
Pericardial effusion w early tamponade
- s/p pericardiocentesis w 350mL serosanguineous fluid removed 07/27, drain removed 07/28
- pericardial fluid leukocytosis w 86% granulocytes and elevated LDH. Cx pending
- ESR and CRP elevated
- repeat echo: LVEF 55%, pericardial effusion has decreased in size and is now trivial
Acute on suspect chronic HFpEF (EF 55%) w b/l pleural effusions, mild pulmonary edema
- elevated BNP and rising
- lasix
- repeat echo: LVEF 55%, pericardial effusion has decreased in size and is now trivial
- L thoracentesis: 700 cc of cloudy roxana pleural fluid
- R thoracentesis today w cx and cytology
CAD s/p PCI RCA in 2020
- cont home statins, ASA 81mg daily
PAF w RVR
- occurred after pericardiocentesis
- s/p cardizem infusion, as needed metoprolol, converted to SR on 07/27
- cont heparin
- cont metoprolol
Delirium w intermittent agitation
- seroquel nightly
Leukocytosis
- improving
Diet: 2 gram sodium
DVT ppx: heparin, transition to eliquis s/p R thoracentesis
Code status: DNR
I reviewed this patients case independently and in conjunction with the resident. I personally examined the patient. Patient's complex medical history, laboratory evaluations, events over the last 24 hours, radiographs, microbiological data were
all personally reviewed.
Agree with documented assessment and plan
Christiano Turner MD, FCCP, [facility]
[2024-07-31] MEDS: NOVOLOG FLEXPEN-LOW RESISTANCE SC (08:40)
--- NOTE | 2024-07-31 10:16 | W.PN.HOSP.TC ---
Today's Communication/Plan
-
[facility] consultation for right thoracentesis, consult in place.
IV diuresis monitor renal function closely.
IV antibiotics.
IV heparin with plan to transition to oral anticoagulant after thoracentesis.
Wean off O2 as tolerates.
Assessment / Plan
Assessment / Plan
Impression
Acute hypoxic respiratory failure
Bilateral pulmonary embolism, provoked (immobility, status post right MICAH 04/28)
Acute CHF preserved EF suspected
Atrial fibrillation with rapid trickle response new following pericardiocentesis
Bilateral/bibasilar airspace consolidation
Large paracardial effusion on CT imaging.
Bilateral pleural effusions
Leukocytosis.
INDIA (creatinine 1.3)
Increased anion gap metabolic acidosis
Elevated LFT, mixed pattern
Toxic metabolic encephalopathy
Other conditions
CAD with history of STEMI�angioplasty to the right coronary artery 07/23
Nonsustained V. tach post CA.
Essential hypertension.
Dyslipidemia.
BPH
Plan:
Bilateral pulmonary embolism possibly provoked by fairly recent right total hip arthroplasty and low mobility state.
No evidence of saddle emboli upon presentation.
Lower extremity Doppler negative for DVT.
Initiated on IV heparin drip
Pericardial effusion with early tamponade upon presentation.
Status post pericardial drain placed on 07/27 and removed on 07/28 with reported sufficient drain.
Initial echocardiogram with LVEF of 55%, moderate pericardial effusion with normal RV function and no significant valvular abnormalities
Follow-up echocardiogram on 07/29 pending
Pericardial fluid pathology negative for malignant cells
Noted with elevated inflammatory markers/nonspecific
Follow-up echocardiogram 07/30 with minimal pericardial effusion.
Bilateral pleural effusion.
-Status post left thoracentesis on 07/30 700 cc exudate (increased white cell count) pH had not been submitted, cultures had not been submitted
- IR consultation for right diagnostic and therapeutic thoracentesis on 07/31
Leukocytosis.
Remains afebrile.
Imaging with bibasilar consolidations and concern for pneumonia, possible aspiration pneumonia.
CT of the abdomen with gallbladder sludge and constipation otherwise unremarkable for acute abnormalities.
Blood culture, urine cultures negative to date.
Monitor temperature curve.
On empiric Zosyn
Follow CBC
Acute CHF preserved EF (hypoxia, peripheral edema)
Repeat echocardiogram pending
Continue IV diuresis, currently Lasix 80 mg IV twice daily. Follow renal function
CAD with history of STEMI and revascularization to RCA 07/23.
Essential hypertension
Dyslipidemia
Updated echocardiogram pending.
ECG sinus tachycardia.
Preadmission regimen including metoprolol, losartan, hydrochlorothiazide, amlodipine, atorvastatin, aspirin
Atrial fibrillation with right ventricular response. New onset following pericardial drain placement.
Required IV diltiazem.
Back to sinus
Continue oral metoprolol.
Long-term anticoagulation to be determined
Bibasilar/bilateral consolidation.
Differential diagnosis atelectasis versus pneumonia (has significant leukocytosis).
Aspiration risk.
Speech and swallow evaluation with recommendation for VSE
Aspiration precautions
Empiric antibiotics/Zosyn initiated on 07/28 covering aspiration pathogens
Acute hypoxic respiratory failure multifactorial due to pulmonary embolism, bibasilar atelectasis/consolidation, CHF
Oxygen requirement remains high currently on 6 L nasal cannula with increased work of breathing
Monitor closely
Toxic metabolic encephalopathy suspect multifactorial due to acute illness, hypoxia.
CT head with no acute abnormalities.
Acute kidney injury
Mild increased anion gap metabolic acidosis.
Monitor closely while on IV diuretics.
On HCTZ prior to presentation/hold.
Losartan/hold
Elevated LFTs, mixed pattern.
Fatty liver and gallbladder sludge by imaging
Suspect hepatic congestion.
Follow trend
BPH.
Monitor for retention.
Continue tamsulosin
Anticipated Discharge: > 48 hours
Subjective/Interval History
-
Date of Service: July 31, 2024
Objective Data
-
Labs:
Laboratory Results
07/31/24 07/31/24 07/31/24
00:17 04:48 07:13
WBC 17.2 H
Hgb 13.9
Hct 40.9
Plt Count 476 H
APTT 92.9 H 105.7 H
Sodium 145
Potassium 3.7
Chloride 106
Carbon Dioxide 28
BUN 42 H
Creatinine 1.1
Glucose 150 H
Calcium 7.7 L
Vital Signs:
Vital Signs
Temp Pulse Resp BP Pulse Ox
98.3 F 89 25 127/59 95
07/31/24 08:19 07/31/24 06:00 07/31/24 06:00 07/31/24 07:58 07/31/24 06:00
I&O
07/30/24 07/31/24 08/01/24
06:59 06:59 06:59
Intake Total 1497.5 / 1509.5 946 / 946
Output Total 2400 / 2400 1850 / 1850
Balance -902.5 / -890.5 -904 / -904
Physical Exam
-
General: Well Developed and No Apparent Distress
HEENT: Normocephalic, Atraumatic and Moist Mucous Membranes
Respiratory: Accessory Resp Muscle Use and Decreased Breath Sounds (Bibasilar at the bases)
Cardiac: Regular Rhythm and S1/S2; Negative Murmur, Rub or Gallop
GI: Soft, Nontender, Nondistended and Normal Bowel Sounds; Negative Organomegaly
Rectal: Deferred by Provider
Musculoskeletal: No Clubbing, No Cyanosis and No Edema
Skin: Negative Rash
Neuro: Awake, Alert, Oriented and Nonfocal/Grossly Intact
[2024-07-31] MEDS: KCL 40 MEQ PO (10:41)
--- NOTE | 2024-07-31 11:07 | W.PN.CD ---
Today's Communication / Plan
-
IV diuresis
Abx
OAC at some point
Impression / Plan
-
A/P: 84-year-old male with past medical history of NSTEMI status post RCA stenting, hypertension, hyperlipidemia, mild AI and BPH who is here because of shortness of breath. He appears to have tamponade physiology on echocardiogram with impaired
diastolic filling of the RV.
Pericardial effusion with tamponade
- s/p pericardial drain
- Echo below
Large Dense b/l lower lobe and R middle lobe consolidations likely PNA
- hypoxic respiratory failure requiring 02 --> weaning as tolerated
- On IV zosyn;
- per primary
PE
- Heparin gtt
- per pulmonary/hospitalist
HFpEF acute
- IV Diuresis continues today
- SGLT2i pricing
Paroxysmal AF
- likely 2/2 pericardial drain causing irritation and PE
- will need AC for PE; consider long-term AC vs monitor after
Leukocytosis improving
- per primary
CAD s/p RCA stenting
- aspirin statin
HTN
- agree with metop
HLD
- cont statin
AI
Subjective: confused but feeling improved
Echo July 30, 2024: CONCLUSIONS
Normal biventricular size and systolic function. LVEF 55%.
Aortic sclerosis.
Ectatic ascending aorta (3.9 cm).
Trivial pericardial effusion.
Compared to prior echocardiogram on 07/27/2024, pericardial effusion has
decreased in size and is now trivial.
CT A/P: IMPRESSION:
1. LARGE DENSE BILATERAL LOWER LOBE and RIGHT MIDDLE LOBE AIRSPACE CONSOLIDATIONS. Diagnostic possibilities are (1) severe pneumonia or (2) compressive atelectasis.
2. Moderate-sized bilateral pleural effusions.
3. Moderate-sized pericardial effusion.
4. Severe calcific atherosclerotic plaque in the coronary arteries.
5. 1.1 cm enlarged lymph node in the right pericardial fat pad.
6. Moderate diffuse hepatic steatosis and mild hepatomegaly.
7. Cholelithiasis and sludge in the gallbladder.
8. Severe diverticulosis in the descending and sigmoid colon.
9. Large amount of fecal material in the rectum (possibly fecal impaction).
10. Severe diffuse urinary bladder wall thickening. Diagnostic possibilities are (1) chronic urinary bladder outlet obstruction or (2) cystitis.
11. Previous TURP.
12. 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
Physical Exam
Vital Signs/Labs
Vital Signs
Temp Pulse Resp BP Pulse Ox
98.3 F 89 25 127/59 95
07/31/24 08:19 07/31/24 06:00 07/31/24 06:00 07/31/24 07:58 07/31/24 06:00
07/30/24 07/31/24 08/01/24
06:59 06:59 06:59
Actual Weight 225 lb 4.999 oz 219 lb 5.759 oz
07/31/24 04:48
07/31/24 04:48
APTT 105.7 Sec (23.4-35.0) H 07/31/24 07:13
Magnesium 2.3 mg/dl (1.6-2.3) 07/29/24 04:00
07/27/24 07/29/24
02:25 04:00
[id number]-Y-[id number] Pept 1410 3290
LAB Results
07/28/24 07/28/24
11:49 15:53
Troponin I 0.035 H* 0.028
Physical Exam
Constitutional: No acute distress and Confusion
EENT: Anicteric
Cardiovascular: Rhythm & rate is regular and Pedal edema present
Respiratory: Other (poor inspiratory effort with decreased b/s b/l )
GI: Soft
Neuro/Psych: Other (oriented to person place and time but confused on situation)
Data Reviewed
-
Date of Service: July 31, 2024
Medical Decision Making: Reviewed Test Results
EKG: Tracing Personally Visualized and interpreted (sr)
Echo: Tracing Personally Visualized and interpreted and Report Reviewed by me
Labs: Labs Reviewed by me
[2024-07-31 12:03] LABS: LDH 316 U/L (120-246)
[2024-07-31 12:21] LABS: Glucose - Point of Care 263 mg/dl (70-99)
--- NOTE | 2024-07-31 12:36 | PTCARENOTE ---
Pt assessed.No change in assessment noted.Pt transported to IR as ordered and returned to ICU.Pt assisted OOB to chair with 2 person minimal assistance.
[2024-07-31] MEDS: NOVOLOG FLEXPEN-LOW RESISTANCE 3 UNITS SC (13:18)
--- NOTE | 2024-07-31 13:20 | CM ---
Addendum entered by Molly Palomo 07/31/24 13:33:
CM updated patient daughter regarding costs.
Original Note:
Patient seen at bedside in ICU. Patient cost for Jardiance is 300.$ month, and 47$ for the farxiga. CM will update patient and physician. CM requested Physician to update patient daughter. CM will continue to follow for discharge planning needs.
Plan; home with [facility]N and watch for home O2 needs.
--- NOTE | 2024-07-31 16:00 | PTCARENOTE ---
Pt assessed.No change in assessment noted.
[2024-07-31] MEDS: LOPRESSOR PO ×2 (16:42→22:21)
[2024-07-31 16:48] LABS: Glucose - Point of Care 212 mg/dl (70-99)
[2024-07-31] MEDS: NOVOLOG FLEXPEN-LOW RESISTANCE 2 UNITS SC (17:40)
[2024-07-31] MEDS: LIPITOR 40 MG PO (17:41)
--- NOTE | 2024-07-31 19:00 | PTCARENOTE ---
prev shift vitals pulled over into flowsheet, can only verify accuracy of vitals starting at this time for shift.
--- NOTE | 2024-07-31 19:20 | PTCARENOTE ---
supervisor data processing, pt oriented x 3, LA IV x 3 WNL- heparin gtt infusing per work list. Sat 92% on 2LNC. POC discussed, call negro with pt. bed alarm on.
[2024-07-31] MEDS: SENOKOT PO (19:24)
[2024-07-31 22:33] LABS: Glucose - Point of Care 127 mg/dl (70-99)
[2024-07-31] MEDS: SEROQUEL 25 MG PO (23:07)
[2024-08-01] VITALS (12 sets, daily range): BP systolic 101–159; BP diastolic 54–78; PULSE 93; O2SAT 96; BMI 32.3
[2024-08-01] MEDS: ZOSYN 50 IV ×4 (05:11→23:11)
[2024-08-01 05:52] LABS: % Basophils 0.2 % (0-2); % Eosinophils 1.1 % (0-6); % Immature Granulocytes 2.9 % (0-0.5); % Lymphocytes 7.5 % (20.5-51.1); % Monocytes 3.8 % (1.7-9.3); % Neutrophils 84.5 % (42.2-75.2); Absolute Eosinophils 0.2 10^3/uL (0-0.7); Absolute Immature Granulocytes 0.5 10^3/uL (0-0.05); Absolute Lymphocytes 1.3 10^3/uL (1.2-3.4); Absolute Monocytes 0.6 10^3/uL (0.1-0.6); Absolute Neutrophils 14.1 10^3/uL (1.4-6.5); Hematocrit 39.6 % (39.0-52.0); Hemoglobin 12.8 g/dL (13.0-18.0); Mean Corp Hgb Conc. 32.3 g/dL (33.0-37.0); Mean Corpuscular Hgb 29.2 pg (27.0-31.0); Mean Corpuscular Volume 90.2 fL (80.0-94.0); Mean Platelet Volume 9.8 fL (7.4-10.4); Nucleated Red Blood Cells % 0 % (-); Platelet Count 488 10^3/uL (130-400); Red Blood Cell Count 4.39 10^6/uL (4.70-6.10); Red Cell Dist. Width 14.1 % (11.5-14.5); White Blood Cell Count 16.7 10^3/uL (4.8-10.8)
--- NOTE | 2024-08-01 07:19 | W.PN.PUL.V3 ---
Today's Communication / Plan
-
Wean FiO2
Diuresis as tolerated
Not enough fluid for right thoracentesis
Convert heparin to oral anticoagulant
Assessment
-
Patient is a very pleasant 84-year-old gentleman with history of coronary artery disease, NSTEMI and status post PCI about 3 years ago, hypertension, hyperlipidemia, prostatic hypertrophy who presented to the emergency room with sudden onset
weakness and shortness of breath. Patient reports that he had been in his usual state of health up until the day of admission except for some increasing pedal edema noted over the last 2 weeks which was initially felt to be related to a side effect
of a certain medication. Patient states that he was sitting in chair where he felt uneasy but denies feeling near syncopal but felt mildly short of breath and he had himself lie down on the floor. Patient says that he felt weak and was not able to
pick himself back up. EMS was called and patient was evaluated. He denied any chest pain and workup in the emergency room showed normal troponin but pulmonary embolism and right lower lobe as well as left upper lobe segmental and subsegmental. A
PERT team was activated and I reviewed patient's CAT scan. Clot burden overall seemed small and central arteries were not involved. Patient however was noted to have moderate pericardial effusion and also with trace pleural effusions. Patient was
not hypotensive and had normal troponin with minimal if any right heart strain on CT scan hence catheter directed therapies were not pursued. Another concern with using thrombolytic was the moderate pleural effusion noted on the imaging. Patient's
BNP was noted to be elevated at 1400. Patient was then started on IV heparin and was admitted to IMU and pulmonary consultation was requested for further input.
Pulmonary embolism-suspect unprovoked
Pericardial effusion with early tamponade
CHF-acute on top of chronic preserved EF
CAD
Rapid atrial fibrillation
Toxic metabolic encephalopathy
Plan
Respiratory status continues to slowly improve
Supplemental oxygen as needed-currently on
Nebulizers if needed-currently not bronchospastic
Status post left thoracentesis 07/30/24--700 mL of cloudy exudative pleural fluid-cultures and cytology not performed
Right thoracentesis recommended 07/31/24--not enough fluid for tap
Chest -small right pleural effusion-if not sufficient for safe thoracentesis
Monitor chest x-ray
Anticoagulation-heparin drip continues-convert to oral anticoagulant and treat for minimum of 3-6 months
Echocardiogram 07/30/24-EF 55%, aortic sclerosis, trivial pericardial effusion-without evidence for pericardial fluid reaccumulation/tamponade
Cardiology following-correspondence reviewed
Diuresis as tolerated
Monitor renal function, electrolytes, intake/output, lower extremity edema and weight
Replace electrolytes as needed
Atrial fibrillation rate control
Cultures reviewed
Empiric antibiotics-finish finite course-ie 5 days of Zosyn
DVT prophylaxis-on anticoagulation
Nutrition
Physical therapy
Outpatient pulmonary follow-up
Reviewed the patient's pertinent medical records including radiographs, microbiology, laboratory evaluations, and discussion with primary team, consultants, pharmacy, nutrition, physical therapy, case management, charge nurse, critical care
nursing, and respiratory therapy.
Data:
Limited ECHO 07/27: Limited TTE for pericardial effusion.
In limited views. Normal-appearing LV size and function with no regional wall
motion abnormalities.
LVEF approximate 55% by visual estimation. No obvious LVH.
Normal right ventricular size and function.
Valvular interrogation was not obtained.
Moderate pericardial effusion at beginning of study; by end of procedure
effusion was minimal.
No comparison for this study given limited amount of views for review.
CXR 07/2024: 1. Low inspiratory volumes.
2. Haziness of each hemidiaphragm, which may represent bibasilar airspace disease and/or small bilateral pleural effusions
CT-PE 07/2024: 1. Positive for segmental and subsegmental pulmonary emboli on each side.
2. Moderate pericardial effusion, measuring 2.1 cm in greatest thickness.
3. Small cavity size of both the RV and LV. Consider echocardiogram to evaluate for tamponade relating to pericardial effusion.
4. RV: LV ratio measures greater than 1. This finding, combined with the relatively small overall burden of embolus and peripheral position of emboli argues against significant right heart strain, however evaluation is complicated by moderate
pericardial effusion.
5. Small bilateral pericardial effusions. Bibasilar airspace consolidation, likely representing compressive atelectasis.
Cardiac Cath 07/2020: 1. Hazy, ulcerated 75-80% culprit lesion in the proximal RCA, status post PCI (Xience Chloe 4.0 x 23 GEORGE, postdilated with 5.0 NC balloon) with reduction in stenosis to 0%, maintaining CHUCK 3 flow.
2. Mildly elevated filling pressures.
Subjective Data
-
Date of Service:
Date of Service: August 01, 2024
Chief Complaint: Pulmonary Follow Up and Dyspnea Follow Up
Subjective:
feels better, less short of breath, no chest pain or abdominal pain
Review of Systems
General: Other ( Per HPI)
Objective Data
Data Reviewed
Vital Signs / I&O:
Vital Signs
Temp Pulse Resp BP Pulse Ox
97.2 F 86 18 101/65 94
08/01/24 04:00 08/01/24 06:00 08/01/24 06:00 08/01/24 06:00 08/01/24 06:00
Intake and Output
07/31/24 08/01/24 08/02/24
06:59 06:59 06:59
Intake Total 946 / 960 1106 / 1106
Output Total 1850 / 1850 1200 / 1200
Balance -904 / -890 -94 / -94
SaO2: 94
Nasal Cannula flow liters per minute: 2
Physical Exam
General: Respiratory Distress (n) and Comfortable
HEENT: Normocephalic, Anicteric and Moist Mucous Membranes
Cardiovascular: Regular Rhythm and Murmur
Respiratory: Crackles ( basilar), Rhonchi (n), Non-Labored Respirations, Accessory Resp Muscle Use (n) and Stridor (n)
GI: Soft, Non Distended and Non Tender
Neurology: Awake, Alert and No Motor Deficits
Skin: Warm, Good Color, Cyanosis (n), Jaundice (n) and Rash (n)
Labs/Micro/Reports
Lab Data
08/01/24 05:29
Laboratory Results
07/31/24 08/01/24
07:13 05:29
APTT 105.7 H 98.0 H
Microbiology
07/27/24 15:30 Blood/Venous Blood Culture - Preliminary
No Growth in 4 days- Final report to follow
07/27/24 15:30 Blood/Venous Blood Culture - Preliminary
No Growth in 4 days- Final report to follow
07/27/24 12:05 Pericardial Fluid Fungal Culture - Preliminary
Culture in progress.
Positive cultures are reported as soon as detected.
Final report to follow in four to five weeks.
07/27/24 12:05 Pericardial Fluid Body Fluid Culture - Final
No Growth After 72 Hours
07/27/24 12:05 Pericardial Fluid Gram Stain - Final
07/27/24 12:05 Pericardial Fluid Acid Fast Bacilli Smear - Preliminary
07/27/24 12:05 Pericardial Fluid Acid Fast Bacilli Culture - Preliminary
[2024-08-01 07:35] LABS: Blood Urea Nitrogen 40 mg/dl (9-20); Calcium 7.8 mg/dl (8.4-10.2); Carbon Dioxide 33 mmol/L (22-30); Chloride 104 mmol/L (98-107); Estimated Creatinine Clearance 54 ml/min; Glucose 157 mg/dl (70-99); Potassium 3.7 mmol/L (3.5-5.1); Sodium 144 mmol/L (135-145); eGFR > 60.00
[2024-08-01 08:01] LABS: Glucose - Point of Care 164 mg/dl (70-99)
[2024-08-01] MEDS: MIRALAX 17 GRAMS PO (08:19)
[2024-08-01] MEDS: PROSCAR 5 MG PO (08:19)
[2024-08-01] MEDS: LOW STRENGTH ASPIRIN 81 MG PO (08:19)
[2024-08-01] MEDS: FLOMAX 0.4 MG PO (08:22)
[2024-08-01] MEDS: LOPRESSOR PO ×2 (08:22→19:55)
[2024-08-01] MEDS: SENOKOT 17.2 MG PO (08:22)
[2024-08-01] MEDS: LASIX 80 MG IV (08:22)
[2024-08-01] MEDS: NOVOLOG FLEXPEN-LOW RESISTANCE 1 UNITS SC (08:23)
--- NOTE | 2024-08-01 08:49 | W.PN.CD ---
Today's Communication / Plan
-
- Continue antibiotics and respiratory treatments as per primary team for pneumonia.
- Continue heparin gtt; transition to oral anticoagulation prior to discharge.
- Will transition to Lasix 40 mg PO BID.
- Will change metoprolol tartrate to 50 mg BID for standard dosing (from TID).
- Will need lifelong anticoagulation for paroxysmal atrial fibrillation.
- Cardiology will remain available on an as-needed basis.
Impression / Plan
-
A/P: 84-year-old male with past medical history of NSTEMI status post RCA stenting, hypertension, hyperlipidemia, mild AI and BPH who is here because of shortness of breath. He appears to have tamponade physiology on echocardiogram with impaired
diastolic filling of the RV.
Pericardial effusion with tamponade
- s/p pericardial drain
- Echo below; stable/resolved.
Large Dense b/l lower lobe and R middle lobe consolidations likely PNA
- hypoxic respiratory failure requiring 02 --> weaning as tolerated
- Continue antibiotics and respiratory treatments as per primary team for pneumonia.
PE
- Continue heparin gtt; transition to oral anticoagulation prior to discharge.
- per pulmonary/hospitalist
HFpEF acute
- Volume status improved.
- Will transition to Lasix 40 mg PO BID.
- Consider SGLT2i as outpatient once crisis resolves.
Paroxysmal AF
- New diagnosis; transition to NOAC prior to discharge.
- Will change metoprolol tartrate to 50 mg BID for standard dosing (from TID).
- Will need lifelong anticoagulation for paroxysmal atrial fibrillation.
Leukocytosis improving
- per primary
CAD s/p RCA stenting
- aspirin statin
HTN
- Continue metoprolol and Lasix; dosing adjustments as above.
HLD
- cont statin
Subjective: No major events overnight.
Echo July 30, 2024: CONCLUSIONS
Normal biventricular size and systolic function. LVEF 55%.
Aortic sclerosis.
Ectatic ascending aorta (3.9 cm).
Trivial pericardial effusion.
Compared to prior echocardiogram on 07/27/2024, pericardial effusion has
decreased in size and is now trivial.
CT A/P: IMPRESSION:
1. LARGE DENSE BILATERAL LOWER LOBE and RIGHT MIDDLE LOBE AIRSPACE CONSOLIDATIONS. Diagnostic possibilities are (1) severe pneumonia or (2) compressive atelectasis.
2. Moderate-sized bilateral pleural effusions.
3. Moderate-sized pericardial effusion.
4. Severe calcific atherosclerotic plaque in the coronary arteries.
5. 1.1 cm enlarged lymph node in the right pericardial fat pad.
6. Moderate diffuse hepatic steatosis and mild hepatomegaly.
7. Cholelithiasis and sludge in the gallbladder.
8. Severe diverticulosis in the descending and sigmoid colon.
9. Large amount of fecal material in the rectum (possibly fecal impaction).
10. Severe diffuse urinary bladder wall thickening. Diagnostic possibilities are (1) chronic urinary bladder outlet obstruction or (2) cystitis.
11. Previous TURP.
12. 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
Physical Exam
Vital Signs/Labs
Vital Signs
Temp Pulse Resp BP Pulse Ox
97.5 F 86 18 107/60 94
08/01/24 07:33 08/01/24 08:22 08/01/24 06:00 08/01/24 08:22 08/01/24 07:19
07/31/24 08/01/24 08/02/24
06:59 06:59 06:59
Actual Weight 99.5 kg 99.2 kg
08/01/24 05:29
08/01/24 06:36
APTT 98.0 Sec (23.4-35.0) H 08/01/24 05:29
Magnesium 2.3 mg/dl (1.6-2.3) 07/29/24 04:00
07/27/24 07/29/24
02:25 04:00
Igy-K-Ymmnedpwjfs Pept 1410 3290
Physical Exam
Constitutional: No acute distress
EENT: Anicteric
Cardiovascular: Rhythm & rate is regular, Systolic murmur absent, Pedal edema present (Trace) and S1S2 is normal
Respiratory: Respiratory effort normal and Rhonchi Present (Left side)
GI: Soft
Neuro/Psych: Alert and Oriented
Other: Skin (Warm, dry, intact)
Data Reviewed
-
Date of Service: August 01, 2024
EKG: Tracing Personally Visualized and interpreted (Telemetry: Sinus rhythm)
Echo: Report Reviewed by me (Trivial pericardial effusion)
Labs: Labs Reviewed by me
Critical Care Time (in minutes): 38
--- NOTE | 2024-08-01 09:20 | PTCARENOTE ---
pt drowsy , forgetful , NSR on monitor , lungs diminished with sats of 95% on 2L , tolerating diet , incontinent of urine condom cath in use, Metoprolol held for low SBP 106 , medications were readjusted from cardiology
[2024-08-01 09:21] LABS: ANA, HEp-2, IgG <1:80 (<1:80)
--- NOTE | 2024-08-01 10:02 | W.PN.HOSP.TC ---
Today's Communication/Plan
-
Telemetry monitoring.
Adjust cardiovascular regimen with decreased dose of beta-zahra
Transition to oral Lasix
Transition off IV heparin to Eliquis.
Increase activity and wean off O2 as tolerates.
Physical therapy assessment.
Discharge planning
Assessment / Plan
Assessment / Plan
Impression
Acute hypoxic respiratory failure
Bilateral pulmonary embolism, provoked (immobility, status post right MICAH 04/28)
Acute CHF preserved EF suspected
Atrial fibrillation with rapid trickle response new following pericardiocentesis
Bilateral/bibasilar airspace consolidation
Large paracardial effusion on CT imaging.
Bilateral pleural effusions
Leukocytosis.
INDIA (creatinine 1.3)
Increased anion gap metabolic acidosis
Elevated LFT, mixed pattern
Toxic metabolic encephalopathy
Other conditions
CAD with history of STEMI�angioplasty to the right coronary artery 07/23
Nonsustained V. tach post FL.
Essential hypertension.
Dyslipidemia.
BPH
Plan:
Acute hypoxic respiratory failure multifactorial due to pulmonary embolism, bibasilar atelectasis/consolidation, CHF
Oxygen requirements improved. Attempt to wean off to room air today. Increase activity.
Bilateral pulmonary embolism possibly provoked by fairly recent right total hip arthroplasty and low mobility state.
No evidence of saddle emboli upon presentation.
Lower extremity Doppler negative for DVT.
Transition off IV heparin to Eliquis on 08/01
Pericardial effusion with early tamponade upon presentation.
Status post pericardial drain placed on 07/27 and removed on 07/28 with reported sufficient drain.
Initial echocardiogram with LVEF of 55%, moderate pericardial effusion with normal RV function and no significant valvular abnormalities
Follow-up echocardiogram on 07/29 pending
Pericardial fluid pathology negative for malignant cells
Noted with elevated inflammatory markers/nonspecific
Follow-up echocardiogram 07/30 with minimal pericardial effusion.
Left pleural effusion
-Status post left thoracentesis on 07/30 700 cc exudate (increased white cell count) pH had not been submitted, cultures had not been submitted
- Not enough fluid in the right to top
Leukocytosis.
Remains afebrile.
Imaging with bibasilar consolidations and concern for pneumonia, possible aspiration pneumonia.
Suspected bibasilar pneumonia: Aspiration, versus community-acquired
CT of the abdomen with gallbladder sludge and constipation otherwise unremarkable for acute abnormalities.
Blood culture, urine cultures negative to date.
Monitor temperature curve.
On empiric Zosyn. Given bilateral/bibasilar infiltrate would complete 5-7 days of antibiotics.
Follow CBC
Diet has been advanced with aspiration precautions with no overt symptoms of aspiration. Continue clinical indication for VSE.
Acute CHF preserved EF (hypoxia, peripheral edema)
Repeat echocardiogram pending
Responding to IV diuresis. Lasix transition to p.o. on 08/01
CAD with history of STEMI and revascularization to RCA 07/23.
Essential hypertension
Dyslipidemia
Updated echocardiogram pending.
ECG sinus tachycardia.
Preadmission regimen including metoprolol, losartan, hydrochlorothiazide, amlodipine, atorvastatin, aspirin
Atrial fibrillation with right ventricular response. New onset following pericardial drain placement.
Required IV diltiazem.
Back to sinus
Continue oral metoprolol.
Long-term anticoagulation to be determined
Toxic metabolic encephalopathy suspect multifactorial due to acute illness, hypoxia.
CT head with no acute abnormalities.
Mental/cognitive status improved and back to baseline
Acute kidney injury, improved
Mild increased anion gap metabolic acidosis.
Monitor closely while on loop diuretics.
On HCTZ prior to presentation/hold.
Losartan/hold
Elevated LFTs, mixed pattern.
Fatty liver and gallbladder sludge by imaging
Suspect hepatic congestion.
Follow trend
BPH.
Monitor for retention.
Continue tamsulosin
Anticipated Discharge: 24 - 48 hours
Subjective/Interval History
-
Date of Service: August 01, 2024
Objective Data
-
Labs:
Laboratory Results
08/01/24 08/01/24
05:29 06:36
WBC 16.7 H
Hgb 12.8 L
Hct 39.6
Plt Count 488 H
APTT 98.0 H
Sodium Cancelled 144
Potassium Cancelled 3.7
Chloride Cancelled 104
Carbon Dioxide Cancelled 33 H
BUN Cancelled 40 H
Creatinine Cancelled 1.2
Glucose Cancelled 157 H
Calcium Cancelled 7.8 L
Vital Signs:
Vital Signs
Temp Pulse Resp BP Pulse Ox
97.5 F 89 19 107/60 96
08/01/24 07:33 08/01/24 09:00 08/01/24 09:00 08/01/24 08:22 08/01/24 09:00
I&O
07/31/24 08/01/24 08/02/24
06:59 06:59 06:59
Intake Total 946 / 960 1106 / 1120 167 / 167
Output Total 1850 / 1850 1200 / 1200
Balance -904 / -890 -94 / -80 167 / 167
Physical Exam
-
General: Well Developed and No Apparent Distress
HEENT: Normocephalic, Atraumatic and Moist Mucous Membranes
Respiratory: Accessory Resp Muscle Use and Decreased Breath Sounds (Bibasilar at the bases)
Cardiac: Regular Rhythm and S1/S2; Negative Murmur, Rub or Gallop
GI: Soft, Nontender, Nondistended and Normal Bowel Sounds; Negative Organomegaly
Rectal: Deferred by Provider
Musculoskeletal: No Clubbing, No Cyanosis and No Edema
Skin: Negative Rash
Neuro: Awake, Alert, Oriented and Nonfocal/Grossly Intact
--- NOTE | 2024-08-01 10:52 | CM ---
Addendum entered by Molly Palomo 08/01/24 14:16:
Patient moved to [facility] and patient daughter at bedside. Patient daughter stating that she wants patient to go to SNF at this time due to weakness. She and patient have discussed change in plan and now request referrals to [facility]
and [facility] in that order of preference. CM will send referrals to SNF options.
Plan; Change to SNF; Patient will need [facility].
Original Note:
Patient seen at bedside, patient with no concerns at this time. Patient remains on O2. Patient confirmed his plan is home with family and he does not want to go to SNF. [facility] to follow. CM will continue to follow for discharge planning needs.
Plan; home with [facility]; watch for O2 needs.
[2024-08-01 11:30] LABS: Glucose - Point of Care 286 mg/dl (70-99)
[2024-08-01] MEDS: ELIQUIS 10 MG PO ×2 (11:30→23:10)
[2024-08-01] MEDS: NOVOLOG FLEXPEN-LOW RESISTANCE 3 UNITS SC (11:31)
--- NOTE | 2024-08-01 11:58 | PTCARENOTE ---
pt to transfer to room 337-2 , report given to receiving RN
--- NOTE | 2024-08-01 13:43 | VNURNOTE ---
[facility] liaison met with patient and daughter Jud at bedside. They are familiar [facility] and agreeable. Daughter Jud stated she works outside the home daily and is not available to assist. She concerned that patient is not strong
enough to go home. Per therapy recs- they rec'ed SNF but pt refused earlier. Now patient agreeable, 'I'll do whatever.' Daughter requesting that CM speak w/her regarding DC planning, SNFs. She stated they live near [facility] and pt has been to
a SNF before. CM notified.
[2024-08-01 16:42] LABS: Glucose - Point of Care 135 mg/dl (70-99)
[2024-08-01] MEDS: LIPITOR 40 MG PO (17:21)
[2024-08-01] MEDS: NOVOLOG FLEXPEN-LOW RESISTANCE SC (17:21)
[2024-08-01] MEDS: LASIX 40 MG PO (17:21)
[2024-08-01] MEDS: SENOKOT PO (19:56)
[2024-08-01 21:42] LABS: Glucose - Point of Care 164 mg/dl (70-99)
[2024-08-02] VITALS (7 sets, daily range): BP systolic 106–166; BP diastolic 53–78; PULSE 86; O2SAT 94
[2024-08-02] MEDS: ZOSYN 50 IV ×4 (05:10→23:19)
[2024-08-02 07:55] LABS: Glucose - Point of Care 176 mg/dl (70-99)
[2024-08-02 08:06] LABS: % Basophils 0.4 % (0-2); % Immature Granulocytes 2.8 % (0-0.5); % Monocytes 4.3 % (1.7-9.3); % Neutrophils 84.5 % (42.2-75.2); Absolute Basophils 0.1 10^3/uL (0-0.2); Absolute Eosinophils 0.2 10^3/uL (0-0.7); Absolute Immature Granulocytes 0.5 10^3/uL (0-0.05); Absolute Lymphocytes 1.3 10^3/uL (1.2-3.4); Absolute Monocytes 0.8 10^3/uL (0.1-0.6); Absolute Neutrophils 15.9 10^3/uL (1.4-6.5); Hematocrit 43.6 % (39.0-52.0); Hemoglobin 14.3 g/dL (13.0-18.0); Mean Corp Hgb Conc. 32.8 g/dL (33.0-37.0); Mean Corpuscular Hgb 29.9 pg (27.0-31.0); Mean Platelet Volume 9.6 fL (7.4-10.4); Nucleated Red Blood Cells % 0 % (-); Platelet Count 535 10^3/uL (130-400); Red Blood Cell Count 4.79 10^6/uL (4.70-6.10); Red Cell Dist. Width 14.1 % (11.5-14.5); White Blood Cell Count 18.8 10^3/uL (4.8-10.8)
[2024-08-02] MEDS: PROSCAR 5 MG PO (08:23)
[2024-08-02] MEDS: FLOMAX 0.4 MG PO (08:23)
[2024-08-02] MEDS: LOW STRENGTH ASPIRIN 81 MG PO (08:23)
[2024-08-02] MEDS: LOPRESSOR 50 MG PO ×2 (08:24→20:19)
[2024-08-02] MEDS: ELIQUIS 10 MG PO ×2 (08:24→20:18)
[2024-08-02] MEDS: MIRALAX PO (08:24)
[2024-08-02] MEDS: LASIX 40 MG PO ×2 (08:24→16:15)
[2024-08-02] MEDS: SENOKOT PO ×2 (08:25→20:19)
[2024-08-02 08:43] LABS: Blood Urea Nitrogen 33 mg/dl (9-20); Calcium 8.2 mg/dl (8.4-10.2); Carbon Dioxide 35 mmol/L (22-30); Chloride 97 mmol/L (98-107); Estimated Creatinine Clearance 50 ml/min; Glucose 160 mg/dl (70-99); Potassium 3.7 mmol/L (3.5-5.1); Sodium 143 mmol/L (135-145); eGFR 54.51
--- NOTE | 2024-08-02 08:50 | W.PN.PUL3 ---
Today's Communication / Plan
-
Ambulatory pulse oximetry prior to discharge
Up OOB as tolerated
Encourage incentive spirometer use
Repeat CXR tomorrow
PT/OT � recommend skilled rehab
Antibiotics for 7 days total
Eliquis
Check A1c tomorrow
Goal BG >100 and <180; continue with ISS in interim
Outpatient pulmonary follow-up will be arranged
Pulmonary service will continue to follow along
Assessment
-
Patient is a very pleasant 84-year-old gentleman with history of coronary artery disease, NSTEMI and status post PCI about 3 years ago, hypertension, hyperlipidemia, prostatic hypertrophy who presented to the emergency room with sudden onset
weakness and shortness of breath. Patient reports that he had been in his usual state of health up until the day of admission except for some increasing pedal edema noted over the last 2 weeks which was initially felt to be related to a side effect
of a certain medication. Patient states that he was sitting in chair where he felt uneasy but denies feeling near syncopal but felt mildly short of breath and he had himself lie down on the floor. Patient says that he felt weak and was not able to
pick himself back up. EMS was called and patient was evaluated. He denied any chest pain and workup in the emergency room showed normal troponin but pulmonary embolism and right lower lobe as well as left upper lobe segmental and subsegmental. A
PERT team was activated and I reviewed patient's CAT scan. Clot burden overall seemed small and central arteries were not involved. Patient however was noted to have moderate pericardial effusion and also with trace pleural effusions. Patient was
not hypotensive and had normal troponin with minimal if any right heart strain on CT scan hence catheter directed therapies were not pursued. Another concern with using thrombolytic was the moderate pleural effusion noted on the imaging. Patient's
BNP was noted to be elevated at 1400. Patient was then started on IV heparin and was admitted to IMU and pulmonary consultation was requested for further input.
Bilateral submassive pulmonary embolism-suspect unprovoked
Pericardial effusion with early tamponade s/p pericardiocentesis (07/27/2024)
Bilateral pneumonia
Acute on chronic HFpEF s/p left-sided thoracentesis (07/30, removing 700 cc of cloudy/roxana-colored fluid)
CAD/history of NSTEMI s/p stent to RCA
Paroxysmal A-fib currently in NSR
Toxic metabolic encephalopathy
Plan
Respiratory status continues to improve
He has been on room air as of today (08/02), previously was on 2 L/min last few days, and previous was on as much as 10 - 12 L/min on 07/27 - 07/28/2024
He's saturating 95% on room air today � would still check an ambulatory pulse oximetry prior to discharge
Nebulizers if needed-currently not bronchospastic
Status post left thoracentesis 07/30/24--700 mL of cloudy exudative pleural fluid-cultures and cytology not performed
Right thoracentesis recommended 07/31/24--not enough fluid for tap
Chest ultrasound 07/31/24-small right pleural effusion- not sufficient for safe thoracentesis
Monitor chest x-ray as I suspect majority of right lower lobe opacification is due to atelectasis; encourage incentive spirometer use 10 x per hour for least 4 hours a day; PT/OT
Anticoagulation with Eliquis s/p heparin drip - treat for minimum of 3-6 months
Recommend outpatient hematology evaluation for hypercoagulable workup and to assist in AC duration
Echocardiogram 07/30/24-EF 55%, aortic sclerosis, trivial pericardial effusion-without evidence for pericardial fluid reaccumulation/tamponade
Cardiology following-correspondence reviewed
Diuresis as tolerated � currently on 40 mg PO Lasix BID
Monitor renal function, electrolytes, intake/output, lower extremity edema and weight
Replace electrolytes as needed
Heart rate control (in NSR as of 08/02); continue PO lopressor 50mg BID
Cultures reviewed
Empiric antibiotics-finish 7 day course assuming he continues to clinically improve and remains afebrile x 48 hrs prior to stopping antibiotics
DVT prophylaxis-on anticoagulation
Nutrition
PT/OT - rec'd skilled rehab
Outpatient pulmonary follow-up
Reviewed the patient's pertinent medical records including radiographs, microbiology, laboratory evaluations, and discussion with primary team, consultants, pharmacy, nutrition, physical therapy, case management, charge nurse, critical care
nursing, and respiratory therapy.
Pulmonary service will continue to follow along
Data:
Limited ECHO 07/27: Limited TTE for pericardial effusion.
In limited views. Normal-appearing LV size and function with no regional wall
motion abnormalities.
LVEF approximate 55% by visual estimation. No obvious LVH.
Normal right ventricular size and function.
Valvular interrogation was not obtained.
Moderate pericardial effusion at beginning of study; by end of procedure
effusion was minimal.
No comparison for this study given limited amount of views for review.
CXR 07/2024: 1. Low inspiratory volumes.
2. Haziness of each hemidiaphragm, which may represent bibasilar airspace disease and/or small bilateral pleural effusions
CT-PE 07/2024: 1. Positive for segmental and subsegmental pulmonary emboli on each side.
2. Moderate pericardial effusion, measuring 2.1 cm in greatest thickness.
3. Small cavity size of both the RV and LV. Consider echocardiogram to evaluate for tamponade relating to pericardial effusion.
4. RV: LV ratio measures greater than 1. This finding, combined with the relatively small overall burden of embolus and peripheral position of emboli argues against significant right heart strain, however evaluation is complicated by moderate
pericardial effusion.
5. Small bilateral pericardial effusions. Bibasilar airspace consolidation, likely representing compressive atelectasis.
Cardiac Cath 07/2020: 1. Hazy, ulcerated 75-80% culprit lesion in the proximal RCA, status post PCI (Xience Chloe 4.0 x 23 GEORGE, postdilated with 5.0 NC balloon) with reduction in stenosis to 0%, maintaining CHUCK 3 flow.
2. Mildly elevated filling pressures.
Total time spent today was 37 minutes for this encounter. Time includes reviewing laboratory test/imaging results, reviewing pertinent medical records, obtaining and reviewing medical history, performing an appropriate exam, ordering medications,
tests and procedures. Time also includes documentation of this encounter, coordinating patient care and communicating with other healthcare professionals. Total time does not include separately billed tests performed on this date of service.
Subjective Data
-
Date of Service:
Date of Service: August 02, 2024
Chief Complaint: Pulmonary Follow Up and Dyspnea Follow Up
Subjective:
Patient was seen and evaluated today at bedside. Afebrile overnight. Patient's daughter, Jud, present at bedside and all questions were answered. Patient currently sitting in the chair, on room air, breathing comfortably in no acute distress.
He feels tired overall. Otherwise denies SOB, cough, abdominal pain, nausea, diarrhea, fevers or chills.
Review of Systems
General: Other (Negative unless mentioned above)
Objective Data
Data Reviewed
Vital Signs / I&O / Oxygen:
Vital Signs
Temp Pulse Resp BP Pulse Ox
97.6 F 98 16 166/78 96
08/02/24 07:41 08/02/24 08:24 08/02/24 07:41 08/02/24 08:24 08/02/24 07:41
Intake and Output
08/01/24 08/02/24 08/03/24
06:59 06:59 06:59
Intake Total 1106 / 1120 1155 / 1155
Output Total 1200 / 1200 1999 / 1999
Balance -94 / -80 -845 / -845
SaO2 96
Nasal Cannula flow liters per 2
minute
Physical Exam
General: Respiratory Distress (n), Comfortable, Chills (n), Sweats (n) and Other (Obese male in NAD, appears deconditioned)
HEENT: Normocephalic, Anicteric, Moist Mucous Membranes and Other (Thick neck)
Cardiovascular: S1-S2 and Peripheral Edema (Trace lower extremity edema bilaterally)
Respiratory: Wheeze (n), Crackles (Bibasilar), Rhonchi (n), Non-Labored Respirations, Accessory Resp Muscle Use (n), Stridor (n) and Other (Diminished breath sounds in the right base)
GI: Soft, Distended (Abdominal obesity), Non Tender and Normal Bowel Sounds
Neurology: Awake, Alert and Tremors (n)
Skin: Warm, Dry, Cyanosis (n), Jaundice (n), Rash (n) and Other (Bilateral venous stasis dermatitis changes)
Labs/Micro/Reports
Lab Data
08/02/24 07:33
08/02/24 07:33
Microbiology
07/27/24 15:30 Blood/Venous Blood Culture - Final
No Growth - Final Report
07/27/24 15:30 Blood/Venous Blood Culture - Final
No Growth - Final Report
07/27/24 12:05 Pericardial Fluid Fungal Culture - Preliminary
Culture in progress.
Positive cultures are reported as soon as detected.
Final report to follow in four to five weeks.
07/27/24 12:05 Pericardial Fluid Body Fluid Culture - Final
No Growth After 72 Hours
07/27/24 12:05 Pericardial Fluid Gram Stain - Final
[2024-08-02] MEDS: NOVOLOG FLEXPEN-LOW RESISTANCE SC ×2 (10:03→18:39)
[2024-08-02 11:36] LABS: Glucose - Point of Care 238 mg/dl (70-99)
[2024-08-02] MEDS: NOVOLOG FLEXPEN-LOW RESISTANCE 2 UNITS SC (12:59)
--- NOTE | 2024-08-02 14:21 | W.PN.HOSP.TC ---
Today's Communication/Plan
-
Has been weaned off oxygen supplementation.
Continue oral diuretics
Continue Eliquis.
Will be completing 7-day course of antibiotic therapy on 08/03.
Physical therapy.
Discharge planning/SNF
Assessment / Plan
Assessment / Plan
Impression
Acute hypoxic respiratory failure
Bilateral pulmonary embolism, provoked (immobility, status post right MICAH 04/28)
Acute CHF preserved EF suspected
Atrial fibrillation with rapid trickle response new following pericardiocentesis
Bilateral/bibasilar airspace consolidation
Large paracardial effusion on CT imaging.
Bilateral pleural effusions
Leukocytosis.
INDIA (creatinine 1.3)
Increased anion gap metabolic acidosis
Elevated LFT, mixed pattern
Toxic metabolic encephalopathy
Other conditions
CAD with history of STEMI�angioplasty to the right coronary artery 07/23
Nonsustained V. tach post MD.
Essential hypertension.
Dyslipidemia.
BPH
Plan:
Acute hypoxic respiratory failure multifactorial due to pulmonary embolism, bibasilar atelectasis/consolidation, CHF
Oxygen requirements improved. Attempt to wean off to room air today. Increase activity.
Bilateral pulmonary embolism possibly provoked by fairly recent right total hip arthroplasty and low mobility state.
No evidence of saddle emboli upon presentation.
Lower extremity Doppler negative for DVT.
Transitioned off IV heparin to Eliquis on 08/01
Pericardial effusion with early tamponade upon presentation.
Status post pericardial drain placed on 07/27 and removed on 07/28 with reported sufficient drain.
Initial echocardiogram with LVEF of 55%, moderate pericardial effusion with normal RV function and no significant valvular abnormalities
Follow-up echocardiogram on 07/29 pending
Pericardial fluid pathology negative for malignant cells
Noted with elevated inflammatory markers/nonspecific
Follow-up echocardiogram 07/30 with minimal pericardial effusion.
Left pleural effusion
-Status post left thoracentesis on 07/30 700 cc exudate (increased white cell count) pH had not been submitted, cultures had not been submitted
- Not enough fluid in the right to top
Leukocytosis.
Remains afebrile.
Imaging with bibasilar consolidations and concern for pneumonia, possible aspiration pneumonia.
Suspected bibasilar pneumonia: Aspiration, versus community-acquired
CT of the abdomen with gallbladder sludge and constipation otherwise unremarkable for acute abnormalities.
Blood culture, urine cultures negative to date.
Monitor temperature curve.
On empiric Zosyn. Given bilateral/bibasilar infiltrate would complete 5-7 days of antibiotics.
Follow CBC
Diet has been advanced with aspiration precautions with no overt symptoms of aspiration. Continue clinical indication for VSE.
Acute CHF preserved EF (hypoxia, peripheral edema)
Repeat echocardiogram pending
Responding to IV diuresis. Lasix transition to p.o. on 08/01
CAD with history of STEMI and revascularization to RCA 07/23.
Essential hypertension
Dyslipidemia
Updated echocardiogram pending.
ECG sinus tachycardia.
Preadmission regimen including metoprolol, losartan, hydrochlorothiazide, amlodipine, atorvastatin, aspirin
Atrial fibrillation with right ventricular response. New onset following pericardial drain placement.
Required IV diltiazem.
Back to sinus
Continue oral metoprolol.
Long-term anticoagulation to be determined
Toxic metabolic encephalopathy suspect multifactorial due to acute illness, hypoxia.
CT head with no acute abnormalities.
Mental/cognitive status improved and back to baseline
Acute kidney injury, improved
Mild increased anion gap metabolic acidosis.
Monitor closely while on loop diuretics.
On HCTZ prior to presentation/hold.
Losartan/hold
Elevated LFTs, mixed pattern.
Fatty liver and gallbladder sludge by imaging
Suspect hepatic congestion.
Follow trend
BPH.
Monitor for retention.
Continue tamsulosin
Anticipated Discharge: 24 - 48 hours
Subjective/Interval History
-
Date of Service: August 02, 2024
Objective Data
-
Labs:
Laboratory Results
08/02/24
07:33
WBC 18.8 H
Hgb 14.3
Hct 43.6
Plt Count 535 H
Sodium 143
Potassium 3.7
Chloride 97 L
Carbon Dioxide 35 H
BUN 33 H
Creatinine 1.3
Glucose 160 H
Calcium 8.2 L
Vital Signs:
Vital Signs
Temp Pulse Resp BP Pulse Ox
97.6 F 79 14 128/57 95
08/02/24 10:58 08/02/24 10:58 08/02/24 10:58 08/02/24 10:58 08/02/24 10:58
I&O
08/01/24 08/02/24 08/03/24
06:59 06:59 06:59
Intake Total 1106 / 1120 1155 / 1155
Output Total 1200 / 1200 1999 / 1999
Balance -94 / -80 -845 / -845
Physical Exam
-
General: Well Developed and No Apparent Distress
HEENT: Normocephalic, Atraumatic and Moist Mucous Membranes
Respiratory: Accessory Resp Muscle Use and Decreased Breath Sounds (Bibasilar at the bases)
Cardiac: Regular Rhythm and S1/S2; Negative Murmur, Rub or Gallop
GI: Soft, Nontender, Nondistended and Normal Bowel Sounds; Negative Organomegaly
Rectal: Deferred by Provider
Musculoskeletal: No Clubbing, No Cyanosis and No Edema
Skin: Negative Rash
Neuro: Awake, Alert, Oriented and Nonfocal/Grossly Intact
--- NOTE | 2024-08-02 15:49 | CM ---
PT OT eval indicate SNF.
Spoke with Alix at [facility] bed available tomorrow.
Pt need auth .
Spoke with pt and Jud gonzalez explained above they agree with [facility] SNF.
IMM reviewed with dgt . She agrees with dc to SNf and IMM .
Spoke with Ilia Kauffman at [facility] [phone]. Clinical provided . Ref # [id number]. Clinical faxed to [phone].
Duong lafleur
report [phone]
fax [phone]
PLAN To [facility] after auth obtained
[2024-08-02 16:31] LABS: Glucose - Point of Care 171 mg/dl (70-99)
[2024-08-02] MEDS: LIPITOR 40 MG PO (17:30)
[2024-08-02 20:27] LABS: Glucose - Point of Care 117 mg/dl (70-99)
[2024-08-02] MEDS: SEROQUEL 25 MG PO (23:22)
[2024-08-03] VITALS (7 sets, daily range): BP systolic 121–157; BP diastolic 62–82
[2024-08-03 06:42] LABS: Blood Urea Nitrogen 31 mg/dl (9-20); Calcium 8.2 mg/dl (8.4-10.2); Carbon Dioxide 36 mmol/L (22-30); Chloride 97 mmol/L (98-107); Estimated Creatinine Clearance 54 ml/min; Glucose 150 mg/dl (70-99); Potassium 3.4 mmol/L (3.5-5.1); Sodium 143 mmol/L (135-145); eGFR > 60.00
[2024-08-03 08:00] LABS: Glucose - Point of Care 150 mg/dl (70-99)
--- NOTE | 2024-08-03 08:53 | W.PN.PUL3 ---
Today's Communication / Plan
-
More confused/agitated today
Pulled out all of his IVs, refusing PO meds, and removing his oxygen
Will give a dose of Zyprexa and reestablish IV access, and give IV Lasix + IV potassium repletion
Would be worth having a goals of care discussion with the patient's daughter as if he does not take his medications then our care will become more aggressive as we would need to sedate him, possibly restrain him so we can insert an IV, and he may
need a Dobbhoff tube
If he improves, check ambulatory pulse oximetry prior to discharge
Bed rest for now given he is altered
Repeat CXR tomorrow
PT/OT � recommend skilled rehab
Antibiotics for 7 days total
Eliquis - can use therapeutic LMWH if he does not want to take PO meds
Goal BG >100 and <180; continue with ISS in interim
Outpatient pulmonary follow-up will be arranged
Pulmonary service will continue to follow along
Assessment
-
Patient is a very pleasant 84-year-old gentleman with history of coronary artery disease, NSTEMI and status post PCI about 3 years ago, hypertension, hyperlipidemia, prostatic hypertrophy who presented to the emergency room with sudden onset
weakness and shortness of breath. Patient reports that he had been in his usual state of health up until the day of admission except for some increasing pedal edema noted over the last 2 weeks which was initially felt to be related to a side effect
of a certain medication. Patient states that he was sitting in chair where he felt uneasy but denies feeling near syncopal but felt mildly short of breath and he had himself lie down on the floor. Patient says that he felt weak and was not able to
pick himself back up. EMS was called and patient was evaluated. He denied any chest pain and workup in the emergency room showed normal troponin but pulmonary embolism and right lower lobe as well as left upper lobe segmental and subsegmental. A
PERT team was activated and I reviewed patient's CAT scan. Clot burden overall seemed small and central arteries were not involved. Patient however was noted to have moderate pericardial effusion and also with trace pleural effusions. Patient was
not hypotensive and had normal troponin with minimal if any right heart strain on CT scan hence catheter directed therapies were not pursued. Another concern with using thrombolytic was the moderate pleural effusion noted on the imaging. Patient's
BNP was noted to be elevated at 1400. Patient was then started on IV heparin and was admitted to IMU and pulmonary consultation was requested for further input.
Bilateral submassive pulmonary embolism-suspect unprovoked
Pericardial effusion with early tamponade s/p pericardiocentesis (07/27/2024)
Bilateral pneumonia
Acute on chronic HFpEF s/p left-sided thoracentesis (07/30, removing 700 cc of cloudy/roxana-colored fluid)
CAD/history of NSTEMI s/p stent to RCA
Paroxysmal A-fib currently in NSR
Toxic metabolic encephalopathy
Plan
Respiratory status stable, currently on room air saturating 90-91%, but he is more lethargic today s/p seroquel overnight due to agitation, possibly due to ing
Previously was on 2 L/min last few days, and was on as much as 10 - 12 L/min on 07/27 - 07/28/2024
Check an ambulatory pulse oximetry prior to discharge
Nebulizers if needed-currently not bronchospastic
Status post left thoracentesis 07/30/24--700 mL of cloudy exudative pleural fluid-cultures and cytology not performed
Right thoracentesis recommended 07/31/24--not enough fluid for tap
Chest ultrasound 07/31/24-small right pleural effusion- not sufficient for safe thoracentesis
Monitor chest x-ray as I suspect majority of right lower lobe opacification is due to atelectasis; encourage incentive spirometer use 10 x per hour for least 4 hours a day; PT/OT
CXR repeated today (08/03), showing mild pulmonary edema with bilateral pleural effusions --> give IV lasix 40mg and replete K first before administering
Anticoagulation with Eliquis s/p heparin drip - treat for minimum of 3-6 months
Recommend outpatient hematology evaluation for hypercoagulable workup and to assist in AC duration
Echocardiogram 07/30/24-EF 55%, aortic sclerosis, trivial pericardial effusion-without evidence for pericardial fluid reaccumulation/tamponade
Cardiology following-correspondence reviewed
Diuresis as tolerated � currently on 40 mg PO Lasix BID although CXR appears volume overloaded today (08/03), will give IV lasix now and re-check CXR tomorrow
Monitor renal function, electrolytes, intake/output, lower extremity edema and weight
Replace electrolytes as needed
Heart rate control (in NSR as of 08/02); continue PO lopressor 50mg BID
Cultures reviewed
Empiric antibiotics-finish 7 day course assuming he continues to clinically improve and remains afebrile x 48 hrs prior to stopping antibiotics
DVT prophylaxis-on anticoagulation
Nutrition
PT/OT - rec'd skilled rehab
Code status: DNR/DNI
Outpatient pulmonary follow-up
Reviewed the patient's pertinent medical records including radiographs, microbiology, laboratory evaluations, and discussion with primary team, consultants, pharmacy, nutrition, physical therapy, case management, charge nurse, critical care
nursing, and respiratory therapy.
Pulmonary service will continue to follow along
Data:
Limited ECHO 07/27: Limited TTE for pericardial effusion.
In limited views. Normal-appearing LV size and function with no regional wall
motion abnormalities.
LVEF approximate 55% by visual estimation. No obvious LVH.
Normal right ventricular size and function.
Valvular interrogation was not obtained.
Moderate pericardial effusion at beginning of study; by end of procedure
effusion was minimal.
No comparison for this study given limited amount of views for review.
CXR 07/2024: 1. Low inspiratory volumes.
2. Haziness of each hemidiaphragm, which may represent bibasilar airspace disease and/or small bilateral pleural effusions
CT-PE 07/2024: 1. Positive for segmental and subsegmental pulmonary emboli on each side.
2. Moderate pericardial effusion, measuring 2.1 cm in greatest thickness.
3. Small cavity size of both the RV and LV. Consider echocardiogram to evaluate for tamponade relating to pericardial effusion.
4. RV: LV ratio measures greater than 1. This finding, combined with the relatively small overall burden of embolus and peripheral position of emboli argues against significant right heart strain, however evaluation is complicated by moderate
pericardial effusion.
5. Small bilateral pericardial effusions. Bibasilar airspace consolidation, likely representing compressive atelectasis.
Cardiac Cath 07/2020: 1. Hazy, ulcerated 75-80% culprit lesion in the proximal RCA, status post PCI (Xience Chloe 4.0 x 23 GEORGE, postdilated with 5.0 NC balloon) with reduction in stenosis to 0%, maintaining CHUCK 3 flow.
2. Mildly elevated filling pressures.
Total time spent today was 41 minutes for this encounter. Time includes reviewing laboratory test/imaging results, reviewing pertinent medical records, obtaining and reviewing medical history, performing an appropriate exam, ordering medications,
tests and procedures. Time also includes documentation of this encounter, coordinating patient care and communicating with other healthcare professionals. Total time does not include separately billed tests performed on this date of service.
Subjective Data
-
Date of Service:
Date of Service: August 03, 2024
Chief Complaint: Pulmonary Follow Up and Dyspnea Follow Up
Subjective:
Patient was seen and evaluated at bedside. Received Seroquel last night due to agitation, as he was confused. This morning he is refusing to wear his oxygen, he also had previously pulled off his condom Millan catheter, and he appears lethargic
today but he is answering questions but is still confused.
Review of Systems
General: Other (Unobtainable - AMS/lethargy)
Objective Data
Data Reviewed
Vital Signs / I&O / Oxygen:
Vital Signs
Temp Pulse Resp BP Pulse Ox
97.8 F 101 18 157/79 98
08/03/24 07:30 08/03/24 09:37 08/03/24 07:30 08/03/24 09:37 08/03/24 07:30
Intake and Output
08/02/24 08/03/24 08/04/24
06:59 06:59 06:59
Intake Total 1155 / 1155 480 / 480
Output Total 1999 / 1999 900 / 900
Balance -845 / -845 -420 / -420
SaO2 98
Nasal Cannula flow liters per 2
minute
Physical Exam
General: Respiratory Distress (n), Comfortable, Chills (n), Sweats (n) and Other (Obese male in NAD, appears deconditioned)
HEENT: Normocephalic, Anicteric, Moist Mucous Membranes and Other (Thick neck)
Cardiovascular: S1-S2 and Peripheral Edema (negative)
Respiratory: Wheeze (n), Crackles (Bilateral), Rhonchi (n), Non-Labored Respirations, Accessory Resp Muscle Use (n), Stridor (n) and Other (Diminished breath sounds in the right base)
GI: Soft, Distended (Abdominal obesity), Non Tender and Normal Bowel Sounds
Neurology: Tremors (n) and Lethargic (Arousable to voice and tactile stimulation but then quickly falls back asleep)
Skin: Warm, Dry, Cyanosis (n), Jaundice (n), Rash (n) and Other (Bilateral venous stasis dermatitis changes)
Labs/Micro/Reports
Lab Data
08/03/24 09:00
08/03/24 05:27
Microbiology
07/27/24 15:30 Blood/Venous Blood Culture - Final
No Growth - Final Report
07/27/24 15:30 Blood/Venous Blood Culture - Final
No Growth - Final Report
[2024-08-03] MEDS: LOPRESSOR 50 MG PO ×2 (09:37→21:02)
[2024-08-03] MEDS: LOW STRENGTH ASPIRIN 81 MG PO (09:37)
[2024-08-03] MEDS: LASIX 40 MG PO ×2 (09:37→17:23)
[2024-08-03] MEDS: ELIQUIS 10 MG PO ×2 (09:37→21:01)
[2024-08-03] MEDS: FLOMAX 0.4 MG PO (09:37)
[2024-08-03] MEDS: PROSCAR 5 MG PO (09:38)
[2024-08-03] MEDS: MIRALAX PO (09:38)
[2024-08-03] MEDS: ZOSYN IV ×2 (09:39→13:26)
[2024-08-03] MEDS: SENOKOT PO ×2 (09:39→21:04)
[2024-08-03] MEDS: NOVOLOG FLEXPEN-LOW RESISTANCE SC ×4 (09:40→18:28)
[2024-08-03 10:21] LABS: Glycohemoglobin (HgbA1c) 6.6 % (4.0-5.6)
--- NOTE | 2024-08-03 10:48 | RESPNOTE ---
Patient is unable to walk currently, sa02=88% on room air at rest, he increases to 95% on 3 liters at rest
--- NOTE | 2024-08-03 11:32 | CM ---
Addendum entered by Corinne Lr RN 08/03/24 16:06:
cancelled discharge. Pt not ready for discharge today.
Alix at [facility] notified.
Dgt in room and aware.
Original Note:
indicated pt ready for discharge.
[facility] [phone]. Authorization obtained # [id number]. From 08/03/24 to 08/06/24 NRD to [facility]. Clinical faxed to [phone].Information given to Alix lafleur.
Jud mehtat informed of above .She agrees with dc to SNF.
Dgt requested ambulance Medical need completed.
Duong lafleur
report [phone]
fax [phone]
PLAN To [facility]
[2024-08-03 12:24] LABS: Glucose - Point of Care 165 mg/dl (70-99)
[2024-08-03 13:24] LABS: % Basophils 0.4 % (0-2); % Eosinophils 1.4 % (0-6); % Immature Granulocytes 2.6 % (0-0.5); % Lymphocytes 6.4 % (20.5-51.1); % Monocytes 3.7 % (1.7-9.3); % Neutrophils 85.5 % (42.2-75.2); Absolute Basophils 0.1 10^3/uL (0-0.2); Absolute Eosinophils 0.3 10^3/uL (0-0.7); Absolute Immature Granulocytes 0.6 10^3/uL (0-0.05); Absolute Lymphocytes 1.4 10^3/uL (1.2-3.4); Absolute Monocytes 0.8 10^3/uL (0.1-0.6); Absolute Neutrophils 18.5 10^3/uL (1.4-6.5); Hematocrit 44.3 % (39.0-52.0); Hemoglobin 14.1 g/dL (13.0-18.0); Mean Corp Hgb Conc. 31.8 g/dL (33.0-37.0); Mean Corpuscular Hgb 29.2 pg (27.0-31.0); Mean Corpuscular Volume 91.7 fL (80.0-94.0); Mean Platelet Volume 10.2 fL (7.4-10.4); Nucleated Red Blood Cells % 0 % (-); Platelet Count 564 10^3/uL (130-400); Red Blood Cell Count 4.83 10^6/uL (4.70-6.10); White Blood Cell Count 21.6 10^3/uL (4.8-10.8)
[2024-08-03] MEDS: ZYPREXA 5 MG IM (13:38)
[2024-08-03] MEDS: STERILE WATER FOR INJECTION 2.1 ML IM (13:38)
--- NOTE | 2024-08-03 14:12 | W.PN.HOSP.TC ---
Today's Communication/Plan
-
Additional dose of IV Lasix today.
Replete potassium.
Continue antibiotics and follow WBC and temperature curve.
Aspiration precautions.
Delirium management with protective intervention, status post Zyprexa.
Continue Eliquis.
Assessment / Plan
Assessment / Plan
Impression
Acute hypoxic respiratory failure
Bilateral pulmonary embolism, provoked (immobility, status post right MICAH 04/28)
Acute CHF preserved EF suspected
Atrial fibrillation with rapid trickle response new following pericardiocentesis
Pneumonia with bilateral/bibasilar airspace consolidation
Large paracardial effusion on CT imaging.
Bilateral pleural effusions
Leukocytosis.
INDIA (creatinine 1.3)
Increased anion gap metabolic acidosis
Elevated LFT, mixed pattern
Toxic metabolic encephalopathy
Other conditions
CAD with history of STEMI�angioplasty to the right coronary artery 07/23
Nonsustained V. tach post [place].
Essential hypertension.
Dyslipidemia.
BPH
Plan:
Acute hypoxic respiratory failure multifactorial due to pulmonary embolism, bibasilar atelectasis/consolidation, CHF
Oxygen requirements improved. Attempt to wean off to room air today. Increase activity.
Bilateral pulmonary embolism possibly provoked by fairly recent right total hip arthroplasty and low mobility state.
No evidence of saddle emboli upon presentation.
Lower extremity Doppler negative for DVT.
Transitioned off IV heparin to Eliquis on 08/01
Pericardial effusion with early tamponade upon presentation.
Status post pericardial drain placed on 07/27 and removed on 07/28 with reported sufficient drain.
Initial echocardiogram with LVEF of 55%, moderate pericardial effusion with normal RV function and no significant valvular abnormalities
Follow-up echocardiogram on 07/29 pending
Pericardial fluid pathology negative for malignant cells
Noted with elevated inflammatory markers/nonspecific
Follow-up echocardiogram 07/30 with minimal pericardial effusion.
Left pleural effusion
-Status post left thoracentesis on 07/30 700 cc exudate (increased white cell count) pH had not been submitted, cultures had not been submitted
- Not enough fluid in the right to top
Leukocytosis.
WBC up to 21 while on Zosyn
Remains afebrile.
Follow-up chest x-ray on 08/03 with increased interstitial markings, bibasilar consolidations right greater than left
Suspected bibasilar pneumonia: Aspiration, versus community-acquired
Continue aspiration precautions
May need repeat right chest ultrasound to reassess pleural effusion.
Recheck urine and reflex to culture
Maintain Zosyn
Follow CBC and temperature curve
Acute CHF preserved EF (hypoxia, peripheral edema)
Repeat echocardiogram pending
Responding to IV diuresis. Lasix transition to p.o. on 08/01
Follow-up chest x-ray on 08/03 with increased interstitial markings.
Repeat pro CHF BNP
Additional dose of IV Lasix provided on 08/03
Replete potassium.
Acute delirium.
Protective intervention with
Zyprexa provided on 08/03.
CAD with history of STEMI and revascularization to RCA 07/23.
Essential hypertension
Dyslipidemia
Updated echocardiogram pending.
ECG sinus tachycardia.
Preadmission regimen including metoprolol, losartan, hydrochlorothiazide, amlodipine, atorvastatin, aspirin
Atrial fibrillation with right ventricular response. New onset following pericardial drain placement.
Required IV diltiazem.
Back to sinus
Continue oral metoprolol.
Long-term anticoagulation to be determined
Toxic metabolic encephalopathy suspect multifactorial due to acute illness, hypoxia.
CT head with no acute abnormalities.
Mental/cognitive status improved and back to baseline
Acute kidney injury, improved
Mild increased anion gap metabolic acidosis.
Monitor closely while on loop diuretics.
On HCTZ prior to presentation/hold.
Losartan/hold
Elevated LFTs, mixed pattern.
Fatty liver and gallbladder sludge by imaging
Suspect hepatic congestion.
Follow trend
BPH.
Monitor for retention.
Continue tamsulosin
Anticipated Discharge: > 48 hours
Subjective/Interval History
-
Date of Service: August 03, 2024
Objective Data
-
Labs:
Laboratory Results
08/03/24 08/03/24
05:27 09:00
WBC 21.6 H Cancelled
Hgb 14.1 Cancelled
Hct 44.3 Cancelled
Plt Count 564 H Cancelled
Sodium 143
Potassium 3.4 L
Chloride 97 L
Carbon Dioxide 36 H
BUN 31 H
Creatinine 1.2
Glucose 150 H
Calcium 8.2 L
Vital Signs:
Vital Signs
Temp Pulse Resp BP Pulse Ox
98.0 F 97 19 143/74 91
08/03/24 11:56 08/03/24 11:56 08/03/24 11:56 08/03/24 11:56 08/03/24 11:56
I&O
08/02/24 08/03/24 08/04/24
06:59 06:59 06:59
Intake Total 1155 / 1155 480 / 480
Output Total 1999 / 1999 900 / 900
Balance -845 / -845 -420 / -420
Physical Exam
-
General: Well Developed and No Apparent Distress
HEENT: Normocephalic, Atraumatic and Moist Mucous Membranes
Respiratory: Accessory Resp Muscle Use and Decreased Breath Sounds (Bibasilar at the bases)
Cardiac: Regular Rhythm and S1/S2; Negative Murmur, Rub or Gallop
GI: Soft, Nontender, Nondistended and Normal Bowel Sounds; Negative Organomegaly
Rectal: Deferred by Provider
Musculoskeletal: No Clubbing, No Cyanosis and No Edema
Skin: Negative Rash
Neuro: Awake, Alert, Oriented and Nonfocal/Grossly Intact
[2024-08-03] MEDS: KCL 270 MEQ IV (15:04)
[2024-08-03] MEDS: LASIX 40 MG IV (15:12)
[2024-08-03 16:55] LABS: Glucose - Point of Care 193 mg/dl (70-99)
[2024-08-03] MEDS: ZOSYN 50 IV ×2 (17:26→23:38)
[2024-08-03] MEDS: LIPITOR 40 MG PO (17:26)
--- NOTE | 2024-08-03 18:00 | PTCARENOTE ---
Pt agitated, pulling at tubing and removed IV. Pt refusing all oral meds and fighting with staff while turning and repositioning. notified. New orders for IV medications obtained along with restraints to prevent pt from removing new IV. Daughter
updated over the phone about pt status by this RN. She asked questions like 'why is this happening?...' This RN responded by stating 'I don't have the answer to that question, but I can get you in contact with the doctor.' Daughter agitated and came
onto unit stating 'I don't know is not a good enough answer.' MD informed and came to bedside to speak with pt. Pt still has continued need for restriants throughout shift. Will continue to assess pt for continued restraint needs.
[2024-08-03 19:28] LABS: NT-proBNP 1640 pg/ml
[2024-08-03 19:41] LABS: Urine Albumin Negative (Neg - Trace); Urine Bilirubin Negative (Negative); Urine Character Clear (Clear); Urine Color Yellow; Urine Glucose Negative (Negative); Urine Ketone Negative (Negative); Urine Leukocyte Negative (Negative); Urine Nitrite Negative (Negative); Urine Occult Blood Negative (Negative); Urine Urobilinogen Negative (Neg - 1+)
[2024-08-03 23:47] LABS: Glucose - Point of Care 171 mg/dl (70-99)
[2024-08-04 03:11] VITALS: BP 140/70
[2024-08-04] MEDS: ZOSYN 50 IV ×3 (05:50→23:16)
[2024-08-04 06:05] LABS: Hematocrit 42.3 % (39.0-52.0); Hemoglobin 14.3 g/dL (13.0-18.0); Mean Corp Hgb Conc. 33.8 g/dL (33.0-37.0); Mean Corpuscular Hgb 29.4 pg (27.0-31.0); Mean Platelet Volume 9.7 fL (7.4-10.4); Platelet Count 522 10^3/uL (130-400); Red Blood Cell Count 4.86 10^6/uL (4.70-6.10); White Blood Cell Count 27.5 10^3/uL (4.8-10.8)
[2024-08-04 07:30] VITALS: BP 159/62
[2024-08-04 08:11] LABS: Glucose - Point of Care 161 mg/dl (70-99)
[2024-08-04] MEDS: LASIX 40 MG PO ×2 (09:28→18:02)
[2024-08-04] MEDS: SENOKOT 17.2 MG PO ×2 (09:28→23:17)
[2024-08-04] MEDS: PROSCAR 5 MG PO (09:29)
[2024-08-04] MEDS: LOPRESSOR 50 MG PO (09:29)
[2024-08-04] MEDS: ELIQUIS 10 MG PO ×2 (09:29→23:17)
[2024-08-04] MEDS: FLOMAX 0.4 MG PO (09:30)
[2024-08-04] MEDS: LOW STRENGTH ASPIRIN 81 MG PO (09:30)
[2024-08-04] MEDS: MIRALAX 17 GRAMS PO (09:30)
[2024-08-04] MEDS: NOVOLOG FLEXPEN-LOW RESISTANCE 1 UNITS SC ×2 (09:31→14:37)
[2024-08-04 11:30] VITALS: BP 152/75
[2024-08-04 12:23] LABS: Glucose - Point of Care 163 mg/dl (70-99)
--- NOTE | 2024-08-04 12:23 | W.PN.HOSP.TC ---
Today's Communication/Plan
-
Continue IV Lasix
Monitor MSE
Consider increasing PRN quetiapine frequency
Delirium precautions
Consider psych eval
Assessment / Plan
Assessment / Plan
#Acute hypoxic respiratory failure
multifactorial due to pulmonary embolism, bibasilar atelectasis/consolidation, CHF
Oxygen requirements improved. Stable on room oxygen as of 08/04/2024
See below
#Bilateral pulmonary embolism
possibly provoked by fairly recent right total hip arthroplasty and low mobility state.
No evidence of saddle emboli upon presentation.
Lower extremity Doppler negative for DVT.
Transitioned off IV heparin to Eliquis on 08/01
#Pericardial effusion with early tamponade
Status post pericardial drain placed on 07/27 and removed on 07/28 with reported sufficient drain.
Initial echocardiogram with LVEF of 55%, moderate pericardial effusion with normal RV function and no significant valvular abnormalities
Pericardial fluid pathology negative for malignant cells
Noted with elevated inflammatory markers/nonspecific
Follow-up echocardiogram 07/30 with minimal pericardial effusion.
#Left pleural effusion
Status post left thoracentesis on 07/30 700 cc exudate (increased white cell count)
pH had not been submitted, cultures had not been submitted
Not enough fluid in the right to top
Continue to monitor, repeat chest x-ray if hypoxemic
#Leukocytosis.
WBC up to 21 while on Zosyn, Remains afebrile.
Follow-up chest x-ray on 08/03 with increased interstitial markings, bibasilar consolidations right greater than left
Suspected bibasilar pneumonia: Aspiration, versus community-acquired
Repeat urine culture was unremarkable, no other obvious infectious sources
May need repeat right chest ultrasound to reassess pleural effusion.
Maintain Zosyn, Follow CBC and temperature curve
Continue aspiration precautions
#Acute HFpEF
Presented with hypoxia, peripheral edema
Echocardiogram here with LVEF 55%, no high grade diastology
Responded to IV diuresis. Lasix transition to p.o. on 08/01
Follow-up chest x-ray on 08/03 with increased interstitial markings.
Additional dose of IV Lasix provided on 08/03
Remains on IV Lasix twice daily
#Acute delirium
#Toxic metabolic encephalopathy
Protective intervention with restraints
Zyprexa provided on 08/03, remains on as needed nightly Seroquel
Remains in soft upper limb restraints, will trial off restraints when improved
Consider psych consult if worsening
#CAD s/p PCI
#Essential hypertension
#Dyslipidemia
history of STEMI and revascularization to RCA 07/23.
ECG sinus tachycardia. Echocardiogram remains with preserved LVEF
Preadmission regimen including metoprolol, losartan, hydrochlorothiazide, amlodipine, atorvastatin, aspirin
#Atrial fibrillation with right ventricular response.
New onset following pericardial drain placement.
Required IV diltiazem, Back to NSR
Continue oral metoprolol and Eliquis
Eliquis currently planned for 3 to 6 months for PE, may need lifelong
#Acute kidney injury, improved
Mild increased anion gap metabolic acidosis.
Monitor closely while on loop diuretics.
On HCTZ prior to presentation/hold.
Losartan/hold
#Elevated LFTs, mixed pattern.
Fatty liver and gallbladder sludge by imaging
Suspect hepatic congestion.
Follow trend
#BPH.
Monitor for retention.
Continue tamsulosin
DVT prophylaxis: Eliquis
Diet: 2 g sodium restricted
CODE STATUS: DO NOT RESUSCITATE
Anticipated Discharge: 24 - 48 hours
Subjective/Interval History
-
Date of Service: August 04, 2024
Seen and examined at the bedside. Remains in soft upper limb restraints. AFVSS
White cell count 27.5, has been volatile over most recent draws and in the range of 10-30
ROS limited by his mental status/encephalopathy
Objective Data
-
Labs:
Laboratory Results
08/04/24
05:18
WBC 27.5 H
Hgb 14.3
Hct 42.3
Plt Count 522 H
Vital Signs:
Vital Signs
Temp Pulse Resp BP Pulse Ox
97.4 F 105 20 159/62 96
08/04/24 07:30 08/04/24 07:30 08/04/24 07:30 08/04/24 07:30 08/04/24 07:30
I&O
08/03/24 08/04/24 08/05/24
06:59 06:59 06:59
Intake Total 480 / 480
Output Total 900 / 900 1000 / 1000
Balance -420 / -420 -1000 / -1000
Review of Systems
-
History Source: Patient
All other systems: Reviewed and negative
Physical Exam
-
General: Well Developed, No Apparent Distress, Appears Chronically Ill and Obese
HEENT: Normocephalic, Atraumatic, Moist Mucous Membranes, Anicteric and Other (Thick neck circumference)
Respiratory: Rhonchi and Non Labored Respirations; Negative Accessory Resp Muscle Use
Cardiac: Regular Rhythm and S1/S2; Negative Murmur, Rub or Gallop
GI: Soft, Nontender, Nondistended and Normal Bowel Sounds
Musculoskeletal: No Clubbing, No Cyanosis and No Edema
Skin: Warm and Dry; Negative Rash
Neuro: Awake, Alert and Nonfocal/Grossly Intact; Negative Oriented or Tremors
Psych: Calm
Data Reviewed
-
Labs: Labs Reviewed by me
[2024-08-04] MEDS: ZOSYN IV (14:53)
[2024-08-04 15:30] VITALS: BP 118/50
--- NOTE | 2024-08-04 16:40 | W.PN.PUL3 ---
Today's Communication / Plan
-
More confused/agitated since 08/03
Consider imaging brain with CT head although he is nonfocal appearing; consider neuro eval if AMS persists
Recommend goals of care discussion with the patient's daughter
If he improves, check ambulatory pulse oximetry prior to discharge
Bed rest for now given he is confused and is a fall risk
Occasionally repeat CXR (improved today to 08/04 s/p IV Lasix on 08/03)
PT/OT � recommend skilled rehab
Antibiotics restarted (Zosyn)
Eliquis - can use therapeutic LMWH if he does not want to take PO meds
Goal BG >100 and <180; continue with ISS in interim
Outpatient pulmonary follow-up will be arranged
Pulmonary service will continue to follow along
Assessment
-
Patient is a very pleasant 84-year-old gentleman with history of coronary artery disease, NSTEMI and status post PCI about 3 years ago, hypertension, hyperlipidemia, prostatic hypertrophy who presented to the emergency room with sudden onset
weakness and shortness of breath. Patient reports that he had been in his usual state of health up until the day of admission except for some increasing pedal edema noted over the last 2 weeks which was initially felt to be related to a side effect
of a certain medication. Patient states that he was sitting in chair where he felt uneasy but denies feeling near syncopal but felt mildly short of breath and he had himself lie down on the floor. Patient says that he felt weak and was not able to
pick himself back up. EMS was called and patient was evaluated. He denied any chest pain and workup in the emergency room showed normal troponin but pulmonary embolism and right lower lobe as well as left upper lobe segmental and subsegmental. A
PERT team was activated and I reviewed patient's CAT scan. Clot burden overall seemed small and central arteries were not involved. Patient however was noted to have moderate pericardial effusion and also with trace pleural effusions. Patient was
not hypotensive and had normal troponin with minimal if any right heart strain on CT scan hence catheter directed therapies were not pursued. Another concern with using thrombolytic was the moderate pleural effusion noted on the imaging. Patient's
BNP was noted to be elevated at 1400. Patient was then started on IV heparin and was admitted to IMU and pulmonary consultation was requested for further input.
Bilateral submassive pulmonary embolism-suspect unprovoked
Pericardial effusion with early tamponade s/p pericardiocentesis (07/27/2024)
Bilateral pneumonia
Acute on chronic HFpEF s/p left-sided thoracentesis (07/30, removing 700 cc of cloudy/roxana-colored fluid)
CAD/history of NSTEMI s/p stent to RCA
Paroxysmal A-fib currently in NSR
Toxic metabolic encephalopathy
Plan
Respiratory status stable, currently on room air saturating 95%, but he has been much more lethargic since 08/03 , possibly due to sundowning in setting of Seroquel use (given 07/31+08/02)
Previously was on as much as 10 - 12 L/min on 07/27 - 07/28/2024
Check ambulatory pulse oximetry prior to discharge
Nebulizers if needed-currently not bronchospastic
Status post left thoracentesis 07/30/24--700 mL of cloudy exudative pleural fluid-cultures and cytology not performed
Right thoracentesis recommended 07/31/24--not enough fluid for tap
Chest ultrasound 07/31/24-small right pleural effusion- not sufficient for safe thoracentesis
Monitor chest x-ray as I suspect majority of right lower lobe opacification is due to atelectasis with effusion; encourage incentive spirometer use 10 x per hour for least 4 hours a day; PT/OT
CXR repeated on 08/03 showed mild pulmonary edema with bilateral pleural effusions --> gave IV lasix 40mg and CXR today (08/04) looks improved
Anticoagulation with Eliquis s/p heparin drip - treat for minimum of 3-6 months
Recommend outpatient hematology evaluation for hypercoagulable workup and to assist in AC duration
Echocardiogram 07/30/24-EF 55%, aortic sclerosis, trivial pericardial effusion-without evidence for pericardial fluid reaccumulation/tamponade
Cardiology following-correspondence reviewed
Diuresis as tolerated � currently on 40 mg PO Lasix BID although he received IV Lasix on 08/03 due to worsening volume overload seen on CXR (08/03)
Monitor renal function, electrolytes, intake/output, lower extremity edema and weight
Replace electrolytes as needed
Heart rate control (in NSR as of 08/02); continue PO lopressor 50mg BID
Cultures reviewed
Empiric antibiotics-Zosyn resumed/restarted today per hospitalist; previously we were going to administer a 7 day course assuming he continues to clinically improve and remains afebrile x 48 hrs prior to stopping antibiotics -with increasing WBC
count and worsening confusion, I agree with continuing/prolonging antibiotics until he improves further
DVT prophylaxis-on Eliquis
Nutrition
PT/OT - rec'd skilled rehab
Code status: DNR/DNI
Outpatient pulmonary follow-up
Reviewed the patient's pertinent medical records including radiographs, microbiology, laboratory evaluations, and discussion with primary team, consultants, pharmacy, nutrition, physical therapy, case management, charge nurse, critical care
nursing, and respiratory therapy.
Pulmonary service will continue to follow along
Data:
Limited ECHO 07/27: Limited TTE for pericardial effusion.
In limited views. Normal-appearing LV size and function with no regional wall
motion abnormalities.
LVEF approximate 55% by visual estimation. No obvious LVH.
Normal right ventricular size and function.
Valvular interrogation was not obtained.
Moderate pericardial effusion at beginning of study; by end of procedure
effusion was minimal.
No comparison for this study given limited amount of views for review.
CXR 07/2024: 1. Low inspiratory volumes.
2. Haziness of each hemidiaphragm, which may represent bibasilar airspace disease and/or small bilateral pleural effusions
CT-PE 07/2024: 1. Positive for segmental and subsegmental pulmonary emboli on each side.
2. Moderate pericardial effusion, measuring 2.1 cm in greatest thickness.
3. Small cavity size of both the RV and LV. Consider echocardiogram to evaluate for tamponade relating to pericardial effusion.
4. RV: LV ratio measures greater than 1. This finding, combined with the relatively small overall burden of embolus and peripheral position of emboli argues against significant right heart strain, however evaluation is complicated by moderate
pericardial effusion.
5. Small bilateral pericardial effusions. Bibasilar airspace consolidation, likely representing compressive atelectasis.
Cardiac Cath 07/2020: 1. Hazy, ulcerated 75-80% culprit lesion in the proximal RCA, status post PCI (Xience Chloe 4.0 x 23 GEORGE, postdilated with 5.0 NC balloon) with reduction in stenosis to 0%, maintaining CHUCK 3 flow.
2. Mildly elevated filling pressures.
Total time spent today was 38 minutes for this encounter. Time includes reviewing laboratory test/imaging results, reviewing pertinent medical records, obtaining and reviewing medical history, performing an appropriate exam, ordering medications,
tests and procedures. Time also includes documentation of this encounter, coordinating patient care and communicating with other healthcare professionals. Total time does not include separately billed tests performed on this date of service.
Subjective Data
-
Date of Service:
Date of Service: August 04, 2024
Chief Complaint: Pulmonary Follow Up and Dyspnea Follow Up
Subjective:
Patient seen and evaluated earlier today (late note entry). He remains confused although he is much more awake today in the afternoon. Afebrile overnight. Leukocytosis is worsening. CXR today shows improved aeration of left base as well as
improved volume status overall.
Review of Systems
General: Other (Unobtainable due to altered mental status)
Objective Data
Data Reviewed
Vital Signs / I&O / Oxygen:
Vital Signs
Temp Pulse Resp BP Pulse Ox
97.4 F 105 20 159/62 96
08/04/24 07:30 08/04/24 07:30 08/04/24 07:30 08/04/24 07:30 08/04/24 07:30
Intake and Output
08/03/24 08/04/24 08/05/24
06:59 06:59 06:59
Intake Total 480 / 480
Output Total 900 / 900 1000 / 1000
Balance -420 / -420 -1000 / -1000
SaO2 96
Nasal Cannula flow liters per 2
minute
Physical Exam
General: Respiratory Distress (n), Comfortable, Chills (n), Sweats (n) and Other (Obese male in NAD, appears deconditioned and confused)
HEENT: Normocephalic, Anicteric, Moist Mucous Membranes and Other (Thick neck)
Cardiovascular: S1-S2 and Peripheral Edema (negative)
Respiratory: Wheeze (n), Crackles (Bilateral), Rhonchi (n), Non-Labored Respirations, Accessory Resp Muscle Use (n), Stridor (n) and Other (Diminished breath sounds in the right base)
GI: Soft, Distended (Abdominal obesity), Non Tender and Normal Bowel Sounds
Neurology: Awake, Tremors (n) and Other (Drowsy)
Skin: Warm, Dry, Cyanosis (n), Jaundice (n), Rash (n) and Other (Bilateral venous stasis dermatitis changes)
Labs/Micro/Reports
Lab Data
08/04/24 05:18
08/03/24 05:27
Microbiology
07/27/24 12:05 Pericardial Fluid Fungal Smear - Final
No yeast or fungal elements seen.
07/27/24 15:30 Blood/Venous Blood Culture - Final
No Growth - Final Report
07/27/24 15:30 Blood/Venous Blood Culture - Final
No Growth - Final Report
[2024-08-04 17:01] LABS: Glucose - Point of Care 201 mg/dl (70-99)
[2024-08-04] MEDS: LIPITOR 40 MG PO (18:02)
[2024-08-04] MEDS: NOVOLOG FLEXPEN-LOW RESISTANCE 2 UNITS SC (18:03)
[2024-08-04 21:53] LABS: Glucose - Point of Care 191 mg/dl (70-99)
[2024-08-04 23:00] VITALS: BP 108/60
[2024-08-05] VITALS (7 sets, daily range): BP systolic 101–128; BP diastolic 44–65
[2024-08-05] MEDS: LOPRESSOR PO (00:09)
[2024-08-05] MEDS: ZOSYN 50 IV ×4 (01:50→21:40)
--- NOTE | 2024-08-05 05:39 | PTCARENOTE ---
Patient still has continued need for restraints throughout shift. [employer]LE [employer]IVER ENGINEER Carolina Caraballo notified and renewed order. Will continue to assess patient for continued restraint needs.
[2024-08-05 06:41] LABS: Hematocrit 43.1 % (39.0-52.0); Hemoglobin 14.4 g/dL (13.0-18.0); Mean Corp Hgb Conc. 33.4 g/dL (33.0-37.0); Mean Corpuscular Hgb 29.4 pg (27.0-31.0); Mean Corpuscular Volume 88.1 fL (80.0-94.0); Mean Platelet Volume 9.7 fL (7.4-10.4); Platelet Count 439 10^3/uL (130-400); Red Blood Cell Count 4.89 10^6/uL (4.70-6.10); Red Cell Dist. Width 14.2 % (11.5-14.5); White Blood Cell Count 32.7 10^3/uL (4.8-10.8)
[2024-08-05 07:05] LABS: Blood Urea Nitrogen 29 mg/dl (9-20); Calcium 8.2 mg/dl (8.4-10.2); Carbon Dioxide 32 mmol/L (22-30); Chloride 102 mmol/L (98-107); Estimated Creatinine Clearance 43 ml/min; Glucose 179 mg/dl (70-99); Potassium 3.6 mmol/L (3.5-5.1); Sodium 146 mmol/L (135-145); eGFR 45.91
[2024-08-05] MEDS: ELIQUIS 10 MG PO ×2 (08:11→21:39)
[2024-08-05] MEDS: PROSCAR 5 MG PO (08:11)
[2024-08-05] MEDS: LASIX 40 MG PO (08:11)
[2024-08-05] MEDS: SENOKOT 17.2 MG PO ×2 (08:11→21:40)
[2024-08-05] MEDS: FLOMAX 0.4 MG PO (08:12)
[2024-08-05] MEDS: LOW STRENGTH ASPIRIN 81 MG PO (08:12)
[2024-08-05] MEDS: MIRALAX 17 GRAMS PO (08:12)
[2024-08-05] MEDS: LOPRESSOR 50 MG PO ×2 (08:23→21:40)
[2024-08-05 08:24] LABS: Glucose - Point of Care 164 mg/dl (70-99)
[2024-08-05] MEDS: NOVOLOG FLEXPEN-LOW RESISTANCE 1 UNITS SC ×2 (08:25→18:15)
[2024-08-05 11:54] LABS: Glucose - Point of Care 242 mg/dl (70-99)
[2024-08-05 12:42] LABS: % Basophils 0.1 % (0-2); % Immature Granulocytes 1.7 % (0-0.5); % Lymphocytes 3.3 % (20.5-51.1); % Monocytes 3.4 % (1.7-9.3); % Neutrophils 91.5 % (42.2-75.2); Absolute Immature Granulocytes 0.5 10^3/uL (0-0.05); Absolute Lymphocytes 1.1 10^3/uL (1.2-3.4); Absolute Monocytes 1.1 10^3/uL (0.1-0.6); Absolute Neutrophils 29.9 10^3/uL (1.4-6.5); Nucleated Red Blood Cells % 0 % (-)
[2024-08-05] MEDS: NOVOLOG FLEXPEN-LOW RESISTANCE 2 UNITS SC (12:57)
--- NOTE | 2024-08-05 13:38 | W.PN.HOSP.TC ---
Today's Communication/Plan
-
Continue Eliquis
Continue IV Zosyn
Hold Lasix/ARB
Repeat chest x-ray morning 08/06
OOB if mental status permits
Assessment / Plan
Assessment / Plan
#Acute hypoxic respiratory failure
multifactorial due to pulmonary embolism, bibasilar atelectasis/consolidation, CHF
Oxygen requirements improved. Stable on room oxygen as of 08/04/2024
SpO2 goal > 90%
See below
#Bilateral pulmonary embolism
possibly provoked by fairly recent right total hip arthroplasty and low mobility state.
No evidence of saddle emboli upon presentation.
Lower extremity Doppler negative for DVT.
Transitioned off IV heparin to Eliquis on 08/01
Continue Eliquis for at least 3 to 6 months, likely indefinitely with AF
#Moderate to large right pleural effusion
Status post left thoracentesis on 07/30 700 cc exudate (increased white cell count)
pH had not been submitted, cultures had not been submitted
Not enough fluid in the right to top
Continue to monitor, repeat chest x-ray if hypoxemic
Repeat CXR morning 08/06, consider IR for Thora
#Leukocytosis.
WBC up to 21 while on Zosyn, Remains afebrile.
Follow-up chest x-ray on 08/03 with increased interstitial markings, bibasilar consolidations right greater than left
Suspected bibasilar pneumonia: Aspiration, versus community-acquired
Repeat urine culture was unremarkable, no other obvious infectious sources
May need repeat right chest ultrasound to reassess pleural effusion.
Maintain Zosyn, Follow CBC and temperature curve
Continue aspiration precautions
#Acute HFpEF
Presented with hypoxia, peripheral edema
Echocardiogram here with LVEF 55%, no high grade diastology
Responded to IV diuresis. Lasix transition to p.o. on 08/01
Follow-up chest x-ray on 08/03 with increased interstitial markings.
Additional dose of IV Lasix provided on 08/03
Holding Lasix as of 08/05 for INDIA
#Prerenal INDIA
Secondary to IV diuresis, creatinine up to 1.5 from 1.1
Had mild INDIA previously as well, HCTZ and ARB remain held from that time
Remains with good urine output and no signs of obstructive uropathy
On exam does not appear grossly hypervolemic at this point
Holding Lasix/HCTZ/ARB, continue to trend BMP, avoid nephrotoxin
#Acute delirium
#Toxic metabolic encephalopathy
Protective intervention with restraints
Zyprexa provided on 08/03, remains on as needed nightly Seroquel
Remains in soft upper limb restraints, will trial off restraints when improved
Consider psych consult if worsening
#Pericardial effusion with early tamponade
Status post pericardial drain placed on 07/27 and removed on 07/28 with reported sufficient drain.
Initial echocardiogram with LVEF of 55%, moderate pericardial effusion with normal RV function and no significant valvular abnormalities
Pericardial fluid pathology negative for malignant cells
Noted with elevated inflammatory markers/nonspecific
Follow-up echocardiogram 07/30 with minimal pericardial effusion.
#CAD s/p PCI
#Essential hypertension
#Dyslipidemia
history of STEMI and revascularization to RCA 07/23.
ECG sinus tachycardia. Echocardiogram remains with preserved LVEF
Preadmission regimen including metoprolol, losartan, hydrochlorothiazide, amlodipine, atorvastatin, aspirin
#Atrial fibrillation with right ventricular response.
New onset following pericardial drain placement.
Required IV diltiazem, Back to NSR
Continue oral metoprolol and Eliquis
Eliquis currently planned for 3 to 6 months for PE, may need lifelong
#Elevated LFTs, mixed pattern.
Fatty liver and gallbladder sludge by imaging
Suspect hepatic congestion.
Follow trend
#BPH
Monitor for retention.
Continue tamsulosin
DVT prophylaxis: Eliquis
Diet: 2 g sodium restricted
CODE STATUS: DNR
Anticipated Discharge: 24 - 48 hours
Subjective/Interval History
-
Date of Service: August 05, 2024
Seen and examined at the bedside. No acute events reported overnight. AFVSS on room air at time of my eval
White cell count continues to uptrend though no fevers. Sodium 146 today with creatinine 1.5.
Patient states he feels like he is breathing okay. Denies any new complaint
Objective Data
-
Labs:
Laboratory Results
08/05/24
05:34
WBC 32.7 H
Hgb 14.4
Hct 43.1
Plt Count 439 H
Sodium 146 H
Potassium 3.6
Chloride 102
Carbon Dioxide 32 H
BUN 29 H
Creatinine 1.5 H
Glucose 179 H
Calcium 8.2 L
Vital Signs:
Vital Signs
Temp Pulse Resp BP Pulse Ox
98.2 F 90 18 101/44 90
08/05/24 11:20 08/05/24 11:20 08/05/24 11:20 08/05/24 11:20 08/05/24 11:20
I&O
08/04/24 08/05/24 08/06/24
06:59 06:59 06:59
Output Total 1000 / 1000 1150 / 1150
Balance -1000 / -1000 -1150 / -1150
Review of Systems
-
History Source: Patient
All other systems: Reviewed and negative
Physical Exam
-
General: Well Developed, No Apparent Distress, Appears Chronically Ill and Obese
HEENT: Normocephalic, Atraumatic, Moist Mucous Membranes and Anicteric
Respiratory: Clear to Auscultation and Non Labored Respirations; Negative Accessory Resp Muscle Use
Cardiac: Regular Rhythm and S1/S2; Negative Murmur, Rub or Gallop
GI: Soft, Nontender, Nondistended and Normal Bowel Sounds
Musculoskeletal: No Clubbing, No Cyanosis and No Edema
Skin: Warm, Dry and Normal Turgor; Negative Rash
Neuro: Awake, Alert, Oriented, Nonfocal/Grossly Intact and Central Nerve's Intact
Psych: Calm
Data Reviewed
-
Labs: Labs Reviewed by me, Discussed with Patient and Discussed with Family
--- NOTE | 2024-08-05 14:20 | W.PN.PUL3 ---
Today's Communication / Plan
-
More confused/agitated since 08/03
Lasix now on hold due to INDIA - ideally we would get a RHC as this could be cardiorenal syndrome - this will be an ongoing discussion
Consider imaging brain with CT head although he is nonfocal appearing; consider neuro eval as his AMS is persisting
Recommend goals of care discussion with the patient's daughter
If he improves, check ambulatory pulse oximetry prior to discharge
Bed rest for now given he is confused and is a fall risk
Occasionally repeat CXR (CXR appears worse today on 08/05 with worsening volume overload)
PT/OT � recommend skilled rehab
Antibiotics restarted (Zosyn)
Eliquis - can use therapeutic LMWH if he does not want to take PO meds
Goal BG >100 and <180; continue with ISS in interim
Outpatient pulmonary follow-up will be arranged
Pulmonary service will continue to follow along
Assessment
-
Patient is a very pleasant 84-year-old gentleman with history of coronary artery disease, NSTEMI and status post PCI about 3 years ago, hypertension, hyperlipidemia, prostatic hypertrophy who presented to the emergency room with sudden onset
weakness and shortness of breath. Patient reports that he had been in his usual state of health up until the day of admission except for some increasing pedal edema noted over the last 2 weeks which was initially felt to be related to a side effect
of a certain medication. Patient states that he was sitting in chair where he felt uneasy but denies feeling near syncopal but felt mildly short of breath and he had himself lie down on the floor. Patient says that he felt weak and was not able to
pick himself back up. EMS was called and patient was evaluated. He denied any chest pain and workup in the emergency room showed normal troponin but pulmonary embolism and right lower lobe as well as left upper lobe segmental and subsegmental. A
PERT team was activated and I reviewed patient's CAT scan. Clot burden overall seemed small and central arteries were not involved. Patient however was noted to have moderate pericardial effusion and also with trace pleural effusions. Patient was
not hypotensive and had normal troponin with minimal if any right heart strain on CT scan hence catheter directed therapies were not pursued. Another concern with using thrombolytic was the moderate pleural effusion noted on the imaging. Patient's
BNP was noted to be elevated at 1400. Patient was then started on IV heparin and was admitted to IMU and pulmonary consultation was requested for further input.
Bilateral submassive pulmonary embolism-suspect unprovoked
Pericardial effusion with early tamponade s/p pericardiocentesis (07/27/2024)
Bilateral pneumonia
Acute on chronic HFpEF s/p left-sided thoracentesis (07/30, removing 700 cc of cloudy/roxana-colored fluid)
INDIA (as of 08/05)
CAD/history of NSTEMI s/p stent to RCA
Paroxysmal A-fib currently in NSR
Toxic metabolic encephalopathy
Plan
Respiratory status stable, currently on room air saturating 92-93%, but he has been much more lethargic since 08/03 , possibly due to sundowning in setting of Seroquel use (given 07/31+08/02)
Try to avoid [employer] depressing medications in this period of time where he is very lethargic
Previously was on as much as 10 - 12 L/min on 07/27 - 07/28/2024
Check ambulatory pulse oximetry prior to discharge
Nebulizers if needed-currently not bronchospastic
Status post left thoracentesis 07/30/24--700 mL of cloudy exudative pleural fluid-cultures and cytology not performed
Right thoracentesis recommended 07/31/24--not enough fluid for tap
Chest ultrasound 07/31/24-small right pleural effusion- not sufficient for safe thoracentesis
Monitor chest x-ray as I suspect majority of right lower lobe opacification is due to atelectasis with effusion; encourage incentive spirometer use 10 x per hour for least 4 hours a day; PT/OT
CXR repeated on 08/03 showed mild pulmonary edema with bilateral pleural effusions --> gave IV lasix 40mg and CXR on 08/04 looks improved; CXR today (08/05) shows increasing volume overload with worsening opacification of the right upper lobe and left
perihilar region --> unfortunately cannot give Lasix given worsening INDIA although cardiorenal syndrome is certainly a possibility -ideally we should obtain a right heart cath - this will be an ongoing discussion as he does have a poor prognosis as
of now
Anticoagulation with Eliquis s/p heparin drip - treat for minimum of 3-6 months
Recommend outpatient hematology evaluation for hypercoagulable workup and to assist in AC duration
Echocardiogram 07/30/24-EF 55%, aortic sclerosis, trivial pericardial effusion-without evidence for pericardial fluid reaccumulation/tamponade
Cardiology following-correspondence reviewed
Diuresis as tolerated � previously on 40 mg PO Lasix BID although he received IV Lasix on 08/03 due to worsening volume overload seen on CXR (08/03) - lasix now on hold due to INDIA
Monitor renal function, electrolytes, intake/output, lower extremity edema and weight
Replace electrolytes as needed
Heart rate control (in NSR as of 08/02); continue PO lopressor 50mg BID
Cultures reviewed
Empiric antibiotics-Zosyn resumed/restarted 08/04 per hospitalist; previously we were going to administer a 7 day course, but with increasing WBC count and worsening confusion, I agree with continuing/prolonging antibiotics to see if this helps him
clinically improve
DVT prophylaxis-Eliquis
Nutrition
PT/OT - rec'd skilled rehab
Code status: DNR/DNI
Outpatient pulmonary follow-up
Reviewed the patient's pertinent medical records including radiographs, microbiology, laboratory evaluations, and discussion with primary team, consultants, pharmacy, nutrition, physical therapy, case management, charge nurse, critical care
nursing, and respiratory therapy.
Pulmonary service will continue to follow along
Data:
Limited ECHO 07/27: Limited TTE for pericardial effusion.
In limited views. Normal-appearing LV size and function with no regional wall
motion abnormalities.
LVEF approximate 55% by visual estimation. No obvious LVH.
Normal right ventricular size and function.
Valvular interrogation was not obtained.
Moderate pericardial effusion at beginning of study; by end of procedure
effusion was minimal.
No comparison for this study given limited amount of views for review.
CXR 07/2024: 1. Low inspiratory volumes.
2. Haziness of each hemidiaphragm, which may represent bibasilar airspace disease and/or small bilateral pleural effusions
CT-PE 07/2024: 1. Positive for segmental and subsegmental pulmonary emboli on each side.
2. Moderate pericardial effusion, measuring 2.1 cm in greatest thickness.
3. Small cavity size of both the RV and LV. Consider echocardiogram to evaluate for tamponade relating to pericardial effusion.
4. RV: LV ratio measures greater than 1. This finding, combined with the relatively small overall burden of embolus and peripheral position of emboli argues against significant right heart strain, however evaluation is complicated by moderate
pericardial effusion.
5. Small bilateral pericardial effusions. Bibasilar airspace consolidation, likely representing compressive atelectasis.
Cardiac Cath 07/2020: 1. Hazy, ulcerated 75-80% culprit lesion in the proximal RCA, status post PCI (Xience Chloe 4.0 x 23 GEORGE, postdilated with 5.0 NC balloon) with reduction in stenosis to 0%, maintaining CHUCK 3 flow.
2. Mildly elevated filling pressures.
Total time spent today was 41 minutes for this encounter. Time includes reviewing laboratory test/imaging results, reviewing pertinent medical records, obtaining and reviewing medical history, performing an appropriate exam, ordering medications,
tests and procedures. Time also includes documentation of this encounter, coordinating patient care and communicating with other healthcare professionals. Total time does not include separately billed tests performed on this date of service.
Subjective Data
-
Date of Service:
Date of Service: August 05, 2024
Chief Complaint: Pulmonary Follow Up and Dyspnea Follow Up
Subjective:
Patient seen today at bedside. Currently on room air breathing comfortably although still confused and very drowsy. Currently saturating 92%. Afebrile overnight although he has had a low-grade fever to 100.3 �F this morning.
Review of Systems
General: Other (Unobtainable due to AMS)
Objective Data
Data Reviewed
Vital Signs / I&O / Oxygen:
Vital Signs
Temp Pulse Resp BP Pulse Ox
100.3 F 109 18 126/60 91
08/05/24 07:35 08/05/24 07:35 08/05/24 07:35 08/05/24 07:35 08/05/24 07:35
Intake and Output
08/04/24 08/05/24 08/06/24
06:59 06:59 06:59
Output Total 1000 / 1000 1150 / 1150
Balance -1000 / -1000 -1150 / -1150
SaO2 91
Nasal Cannula flow liters per 1
minute
Physical Exam
General: Respiratory Distress (n), Comfortable, Chills (n), Sweats (n) and Other (Obese male in NAD; deconditioned and confused)
HEENT: Normocephalic, Anicteric, Moist Mucous Membranes and Other (Thick neck)
Cardiovascular: S1-S2 and Peripheral Edema (negative)
Respiratory: Wheeze (n), Crackles (Bilateral), Rhonchi (n), Non-Labored Respirations, Accessory Resp Muscle Use (n), Stridor (n) and Other (Diminished breath sounds in the right base)
GI: Soft, Distended (Abdominal obesity), Non Tender and Normal Bowel Sounds
Neurology: Tremors (n) and Lethargic
Skin: Warm, Dry, Cyanosis (n), Jaundice (n), Rash (n) and Other (Bilateral venous stasis dermatitis changes)
Labs/Micro/Reports
Lab Data
08/05/24 05:34
08/05/24 05:34
Microbiology
07/27/24 12:05 Pericardial Fluid Fungal Smear - Final
No yeast or fungal elements seen.
[2024-08-05 16:38] LABS: Glucose - Point of Care 155 mg/dl (70-99)
[2024-08-05] MEDS: LIPITOR 40 MG PO (18:11)
[2024-08-05 22:23] LABS: Glucose - Point of Care 188 mg/dl (70-99)
[2024-08-06] VITALS (7 sets, daily range): BP systolic 110–135; BP diastolic 44–63
[2024-08-06] MEDS: ZOSYN 50 IV ×4 (01:28→20:23)
[2024-08-06 06:19] LABS: Hematocrit 41.9 % (39.0-52.0); Hemoglobin 13.6 g/dL (13.0-18.0); Mean Corp Hgb Conc. 32.5 g/dL (33.0-37.0); Mean Corpuscular Hgb 29.8 pg (27.0-31.0); Mean Corpuscular Volume 91.7 fL (80.0-94.0); Mean Platelet Volume 10.3 fL (7.4-10.4); Platelet Count 395 10^3/uL (130-400); Red Blood Cell Count 4.57 10^6/uL (4.70-6.10); Red Cell Dist. Width 14.2 % (11.5-14.5); White Blood Cell Count 26.2 10^3/uL (4.8-10.8)
[2024-08-06 06:51] LABS: Blood Urea Nitrogen 40 mg/dl (9-20); Calcium 7.9 mg/dl (8.4-10.2); Carbon Dioxide 33 mmol/L (22-30); Chloride 103 mmol/L (98-107); Estimated Creatinine Clearance 46 ml/min; Glucose 155 mg/dl (70-99); Potassium 3.3 mmol/L (3.5-5.1); Sodium 145 mmol/L (135-145); eGFR 49.87
[2024-08-06 07:25] LABS: Glucose - Point of Care 150 mg/dl (70-99)
[2024-08-06] MEDS: PROSCAR 5 MG PO (09:57)
[2024-08-06] MEDS: ELIQUIS 10 MG PO ×2 (09:57→23:17)
[2024-08-06] MEDS: LOW STRENGTH ASPIRIN 81 MG PO (09:58)
[2024-08-06] MEDS: FLOMAX 0.4 MG PO (09:58)
[2024-08-06] MEDS: MIRALAX PO (09:58)
[2024-08-06] MEDS: SENOKOT PO ×2 (09:58→20:50)
[2024-08-06] MEDS: LOPRESSOR 50 MG PO (09:58)
[2024-08-06] MEDS: NOVOLOG FLEXPEN-LOW RESISTANCE 1 UNITS SC (09:59)
[2024-08-06 11:34] LABS: Glucose - Point of Care 224 mg/dl (70-99)
--- NOTE | 2024-08-06 11:35 | PTCARENOTE ---
Pt. resting comfortably in bed, bilateral soft limb restraints removed for pt. to eat breakfast and were able to remain off. Will continue to assess pt. need for restraints and will obtain a new order if needed.
[2024-08-06] MEDS: NOVOLOG FLEXPEN-LOW RESISTANCE 2 UNITS SC (12:28)
--- NOTE | 2024-08-06 15:51 | PTCARENOTE ---
Pt. AAO X1 only to self. PT at bedside and said pt. was originally AAO X3 when they first evaluated him. Pt. has been charted on as AAO X1 since 08/02, previously charted that pt. was AAO X3. Pt. able to remain off restraints and is lethargic today.
updated on PT eval and pt's current mentation status. Pt now on 3L nasal cannula for O2 sat of 86% on RA, now 93% on 3L.
[2024-08-06 16:19] LABS: Glucose - Point of Care 152 mg/dl (70-99)
--- NOTE | 2024-08-06 17:07 | CON.NEURO ---
Consultation
Order
Date of Consultation: 08/06/24
Reason for Consult: Stroke alert
Called in at: 16:45.
Neurology Consultation Note.
HPI: This is an 84-year-old man who presented to [facility] on July 27, 2024 with dyspnea. He was diagnosed with bilateral submassive pulmonary embolism and pericardial effusion with early tamponade and started on systemic
anticoagulation.
Stroke alert was activated due to dysarthria and encephalopathy.
According to nursing personal Mr. Lorenzo was noted to be more confused, hypoxic and have dysarthria. Last time seen able to articulate well around 9 AM today.
The patient has had fluctuating mental status since August 02 requiring 5 mg of Zyprexa on 08/03/24 at 13:38. According to patient's daughter her father has had slurred speech at least over the last several days.
vs: 111/63, 96, 85% on room air at 15:00 and 98 % on 3 L of oxygen at 16:21.
MAR: Apixaban 10 mg given on 08/06/24 at 09:57 a.m, aspirin 81 mg, Zosyn
PDMP: no recently prescribed medications
Labs: WBCs 32.7�26.2, normal platelets, PTT�98.0, normal sodium, glucose�155, creatinine�1.4, hemoglobin A1c�6.6, CK (07/28/2024) >270.
CT head wo contrast-moderate bifrontal atrophy and periventricular white matter leukoaraiosis.
CXR(08/06/2024) moderate to large right pleural effusion.
Pericardial infusion cytology (07/27/2024)�negative for malignant cells
PMH: PE/pericardial effusion, CAD, L4-L5 stenosis, HTN, DLP, IGT, OA, vitamin D deficiency, BMI 32.3, BPH
PSH: R MICAH(03/2024), thoracocentesis (07/31/2024), R TKA, tonsillectomy,
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
FH: Not contributory to current presentation
All:NKDA
ROS: Negative for headache, positive for dyspnea
General: In no acute distress.
Cardio: Regular rate and rhythm without murmur. Extremities are without cyanosis or edema.
Neuro:
Mental Status: Alert, oriented to self, person, location. Impaired attention and preserved comprehension. Follows complex requests. Nonfluent.
Cranial Nerves: Pupils are equally round and reactive to light. EOMs full. Blink to threat bilaterally. No nystagmus. Hearing is preserved. Mild to moderate dysarthria
Motor: No PT or leg drift.
Coordination: No dysmetria
Gait: deferred
Assessment and Plan:
I. Subacute dysarthria/encephalopathy. Not a candidate for IV TNK due to systemic anticoagulation
II. Multifactorial encephalopathy (hypoxic, vascular, infectious?)
III. Bl pulmonary embolism
-Avoid cerebral hypoperfusion and hypoxia
-N.p.o.
-Dysphagia evaluation
-Please check CK, ESR, CRP, WALTER, TFTs, AChR ab(binding, blocking, modulating), MUSK ab, paraneoplastic panel
-Brain MRI without janie
-The case was discussed with patient's daughter.
I personally reviewed all radiology and labs along with past medical records pertinent to current medical problems. Total time spent in patient care is 60 minutes.
Thank you for allowing us to participate in the care of this patient. We will continue to follow. Please do not hesitate to contact us with any questions or concerns.
Subjective/Objective
Subjective Data
Date of Service: August 06, 2024
Objective Data
Vital Signs
Temp Pulse Resp BP Pulse Ox
36.6 C 96 18 111/63 98
08/06/24 15:23 08/06/24 16:21 08/06/24 15:23 08/06/24 16:21 08/06/24 16:21
Lab Results
08/06/24 05:19
08/06/24 05:19
APTT 98.0 Sec (23.4-35.0) H 08/01/24 05:29
Sodium 145 mmol/L (135-145) 08/06/24 05:19
Potassium 3.3 mmol/L (3.5-5.1) L 08/06/24 05:19
BUN 40 mg/dl (9-20) H 08/06/24 05:19
Glucose 155 mg/dl (70-99) H 08/06/24 05:19
Calcium 7.9 mg/dl (8.4-10.2) L 08/06/24 05:19
Zzv-Z-Iquqorxgolv Pept 1640 pg/ml 08/03/24 05:27
Patient Allergies
No Known Allergies Allergy (Verified 07/19/20 19:43)
Medications
-
Active Medications
Generic Name Dose Route Start Last Admin
Trade Name Freq PRN Reason Stop Dose Admin
Acetaminophen 650 mg 07/27/24 06:26 07/29/24 21:22
Acetaminophen 325 Mg Tablet PO 08/24/24 06:25 650 mg
Q4HPRN PRN Administration
mild pain/temp > 100.4 F
Apixaban 10 mg 08/01/24 10:15 08/06/24 09:57
Apixaban (Eliquis) 5 Mg Tablet PO 08/07/24 20:01 10 mg
BID TARIK Administration
Aspirin 81 mg 07/27/24 08:00 08/06/24 09:58
Aspirin 81 Mg Chewable Tablet PO 08/24/24 07:59 81 mg
DAILY TARIK Administration
Atorvastatin Calcium 40 mg 07/27/24 18:00 08/05/24 18:11
Atorvastatin (Lipitor) 40 Mg Tablet PO 08/24/24 17:59 40 mg
QPM TARIK Administration
Dextrose 12.5 grams 07/27/24 11:00
Dextrose 50% (0.5 Grams/Ml) 50 Ml Syringe IV 08/24/24 10:59
[id number] PRN
hypoglycemia
Protocol
Finasteride 5 mg 07/27/24 08:00 08/06/24 09:57
Finasteride 5 Mg Tablet PO 08/24/24 07:59 5 mg
DAILY TARIK Administration
Furosemide 40 mg 08/01/24 16:00 08/05/24 08:11
Furosemide 40 Mg Tablet PO 08/29/24 15:59 40 mg
BID AT 0800,1600 TARIK Administration
Glucagon 1 mg 07/27/24 11:00
Glucagon 1 Mg Vial IM 08/24/24 10:59
PRN PRN
hypoglycemia - no IV access
Protocol
Piperacillin Sod/Tazobactam Sod 3.375 gram in 50 mls @ 100 mls/hr 08/06/24 14:00 08/06/24 15:36
Zosyn IV 50 mls
Q6H TARIK Administration
Insulin Aspart 0 units 07/29/24 10:00 08/06/24 12:28
Insulin Aspart Low Resistance 300 Units/3 Ml Pen.Injctr SC 08/26/24 09:59 2 units
AC TARIK Administration
Protocol
Metoprolol Tartrate 2.5 mg 07/27/24 17:43
Metoprolol 5 Mg/5 Ml Vial IV 08/24/24 17:42
Q4HPRN PRN
Heart rate above 110 per min
Metoprolol Tartrate 50 mg 08/01/24 20:00 08/06/24 09:58
Metoprolol 50 Mg Regular Release Tablet PO 08/29/24 19:59 50 mg
BID TARIK Administration
Polyethylene Glycol 17 grams 07/27/24 08:00 08/06/24 09:58
Polyethylene Glycol Powder 17 Grams Packet PO 08/24/24 07:59 Not Given
DAILY TARIK
Quetiapine Fumarate 25 mg 07/31/24 12:29 08/02/24 23:22
Quetiapine 25 Mg Tablet PO 08/28/24 12:28 25 mg
HSPRN PRN Administration
SLEEP/AGITATION
Sennosides 17.2 mg 07/30/24 08:00 08/06/24 09:58
Sennosides (Senokot) 8.6 Mg Tablet PO 08/27/24 07:59 Not Given
BID TARIK
Sodium Chloride 0 flush 07/27/24 05:00
Sodium Chloride 0.9% (Flush) Syringe IV 08/24/24 04:59
PER PROTOCOL TARIK
Tamsulosin HCl 0.4 mg 07/27/24 08:00 08/06/24 09:58
Tamsulosin 0.4 Mg Capsule PO 08/24/24 07:59 0.4 mg
DAILY TARIK Administration
Home Medications
�Medication �Instructions �Recorded
biotin 5,000 mcg disintegrating 10,000 mcg PO DAILY Supplement 04/06/19
tablet
finasteride 5 mg tablet 5 mg PO DAILY Urinary issue 04/06/19
hydrochlorothiazide 12.5 mg tablet 12.5 mg PO DAILY Blood pressure 04/06/19
tamsulosin 0.4 mg capsule 0.4 mg PO DAILY Urinary issue 04/06/19
acetaminophen 500 mg tablet 500 mg PO Q4HPRN PRN pain #1 tab 04/12/19
(Tylenol Extra Strength)
ascorbic acid (vitamin C) 500 mg 500 mg PO DAILY Supplement 07/19/20
capsule
aspirin 81 mg chewable tablet 81 mg PO DAILY #90 tabs 07/23/20
atorvastatin 40 mg tablet 40 mg PO QPM #90 tabs 07/23/20
losartan 50 mg tablet 50 mg PO DAILY 07/23/20
metoprolol succinate 50 mg 50 mg PO BID #180 tabs 07/23/20
tablet,extended release 24 hr
nitroglycerin 0.4 mg sublingual 0.4 mg sublingual [id number] PRN 07/23/20
tablet chest pain #25 tabs
amlodipine 5 mg tablet 5 mg PO DAILY Blood Pressure 07/27/24
cholecalciferol (vitamin D3) 50 50 mcg PO DAILY Supplement 07/27/24
mcg (2,000 unit) capsule (Vitamin
D3)
coQ10 (ubiquinol) 200 mg capsule 200 mg PO DAILY Supplement 07/27/24
Vital Signs and Labs
-
Vital Signs and Labs:
Vital Signs
Temp Pulse Resp BP Pulse Ox
36.6 C 96 18 111/63 98
08/06/24 15:23 08/06/24 16:21 08/06/24 15:23 08/06/24 16:21 08/06/24 16:21
Lab Results
08/06/24 05:19
08/06/24 05:19
APTT 98.0 Sec (23.4-35.0) H 08/01/24 05:29
Sodium 145 mmol/L (135-145) 08/06/24 05:19
Potassium 3.3 mmol/L (3.5-5.1) L 08/06/24 05:19
BUN 40 mg/dl (9-20) H 08/06/24 05:19
Glucose 155 mg/dl (70-99) H 08/06/24 05:19
Calcium 7.9 mg/dl (8.4-10.2) L 08/06/24 05:19
Cke-C-Twjikgododz Pept 1640 pg/ml 08/03/24 05:27
Medications
-
Medications:
Generic Name Dose Route Start Last Admin
Trade Name Freq PRN Reason Stop Dose Admin
Acetaminophen 650 mg 07/27/24 06:26 07/29/24 21:22
Acetaminophen 325 Mg Tablet PO 08/24/24 06:25 650 mg
Q4HPRN PRN Administration
mild pain/temp > 100.4 F
Apixaban 10 mg 08/01/24 10:15 08/06/24 09:57
Apixaban (Eliquis) 5 Mg Tablet PO 08/07/24 20:01 10 mg
BID TARIK Administration
Aspirin 81 mg 07/27/24 08:00 08/06/24 09:58
Aspirin 81 Mg Chewable Tablet PO 08/24/24 07:59 81 mg
DAILY TARIK Administration
Atorvastatin Calcium 40 mg 07/27/24 18:00 08/05/24 18:11
Atorvastatin (Lipitor) 40 Mg Tablet PO 08/24/24 17:59 40 mg
QPM TARIK Administration
Dextrose 12.5 grams 07/27/24 11:00
Dextrose 50% (0.5 Grams/Ml) 50 Ml Syringe IV 08/24/24 10:59
[id number] PRN
hypoglycemia
Protocol
Finasteride 5 mg 07/27/24 08:00 08/06/24 09:57
Finasteride 5 Mg Tablet PO 08/24/24 07:59 5 mg
DAILY TARIK Administration
Furosemide 40 mg 08/01/24 16:00 08/05/24 08:11
Furosemide 40 Mg Tablet PO 08/29/24 15:59 40 mg
BID AT 0800,1600 TARIK Administration
Glucagon 1 mg 07/27/24 11:00
Glucagon 1 Mg Vial IM 08/24/24 10:59
PRN PRN
hypoglycemia - no IV access
Protocol
Piperacillin Sod/Tazobactam Sod 3.375 gram in 50 mls @ 100 mls/hr 08/06/24 14:00 08/06/24 15:36
Zosyn IV 50 mls
Q6H TARIK Administration
Insulin Aspart 0 units 07/29/24 10:00 08/06/24 12:28
Insulin Aspart Low Resistance 300 Units/3 Ml Pen.Injctr SC 08/26/24 09:59 2 units
AC TARIK Administration
Protocol
Metoprolol Tartrate 2.5 mg 07/27/24 17:43
Metoprolol 5 Mg/5 Ml Vial IV 08/24/24 17:42
Q4HPRN PRN
Heart rate above 110 per min
Metoprolol Tartrate 50 mg 08/01/24 20:00 08/06/24 09:58
Metoprolol 50 Mg Regular Release Tablet PO 08/29/24 19:59 50 mg
BID TARIK Administration
Polyethylene Glycol 17 grams 07/27/24 08:00 08/06/24 09:58
Polyethylene Glycol Powder 17 Grams Packet PO 08/24/24 07:59 Not Given
DAILY TARIK
Quetiapine Fumarate 25 mg 07/31/24 12:29 08/02/24 23:22
Quetiapine 25 Mg Tablet PO 08/28/24 12:28 25 mg
HSPRN PRN Administration
SLEEP/AGITATION
Sennosides 17.2 mg 07/30/24 08:00 08/06/24 09:58
Sennosides (Senokot) 8.6 Mg Tablet PO 08/27/24 07:59 Not Given
BID TARIK
Sodium Chloride 0 flush 07/27/24 05:00
Sodium Chloride 0.9% (Flush) Syringe IV 08/24/24 04:59
PER PROTOCOL TARIK
Tamsulosin HCl 0.4 mg 07/27/24 08:00 08/06/24 09:58
Tamsulosin 0.4 Mg Capsule PO 08/24/24 07:59 0.4 mg
DAILY TARIK Administration
Home Medications
-
Home Medications
biotin 5,000 mcg disintegrating tablet 10,000 mcg PO DAILY Supplement 04/06/19
finasteride 5 mg tablet 5 mg PO DAILY Urinary issue 04/06/19
hydrochlorothiazide 12.5 mg tablet 12.5 mg PO DAILY Blood pressure 04/06/19
tamsulosin 0.4 mg capsule 0.4 mg PO DAILY Urinary issue 04/06/19
acetaminophen 500 mg tablet (Tylenol Extra Strength) 500 mg PO Q4HPRN PRN pain #1 tab 04/12/19
ascorbic acid (vitamin C) 500 mg capsule 500 mg PO DAILY Supplement 07/19/20
aspirin 81 mg chewable tablet 81 mg PO DAILY #90 tabs 07/23/20
atorvastatin 40 mg tablet 40 mg PO QPM #90 tabs 07/23/20
losartan 50 mg tablet 50 mg PO DAILY 07/23/20
metoprolol succinate 50 mg tablet,extended release 24 hr 50 mg PO BID #180 tabs 07/23/20
nitroglycerin 0.4 mg sublingual tablet 0.4 mg sublingual [id number] PRN chest pain #25 tabs 07/23/20
amlodipine 5 mg tablet 5 mg PO DAILY Blood Pressure 07/27/24
cholecalciferol (vitamin D3) 50 mcg (2,000 unit) capsule (Vitamin D3) 50 mcg PO DAILY Supplement 07/27/24
coQ10 (ubiquinol) 200 mg capsule 200 mg PO DAILY Supplement 07/27/24
[2024-08-06 17:15] LABS: B.E. 12.6 mmol/L; HCO3 36.8 mmol/L (21-28); PCO2 44 mmHg (35-48); PO2 67 mmHg (83-108); pH 7.53 (7.35-7.45)
[2024-08-06] MEDS: LIPITOR PO (17:30)
--- NOTE | 2024-08-06 17:40 | RR ---
A Rapid Response was called on this patient, please see Rapid Response form.
--- NOTE | 2024-08-06 17:41 | PTCARENOTE ---
Rapid response called due to pt. RR being in 30s, pt. AAO X1 and very lethargic. Pt. on assessment had right facial droop and trouble opening his R eye all the way. This RN asked pt. if he felt different on one side or felt like his speech sounded
different, pt. said yes and that he 'felt funny'. This RN called rapid response and stroke alert. Pt. went down for head CT and returned to room. This RN reached out to attending and reiterated concern for work of breathing. Pt. daughter at bedside
and stated pt. normally does not sound like this, his speech is different, and he is unable to stay awake for longer than a few seconds. Pt. daughter expressed continued concern after attending was at bedside again. Optics Technical Officer notified.
--- NOTE | 2024-08-06 17:41 | W.PN.PUL3 ---
Today's Communication / Plan
-
Continue anticoagulation
Agree with holding diuresis
Agree with rehydration
Encourage incentive spirometry
Continue antibiotics for now-I doubt pulmonary source based on most current chest x-ray. Suspect most of the right sided opacification is due to atelectasis and right hemidiaphragm elevation
Workup for change in mental status ongoing per neurology- For MRI later today
Daughters updated at the bedside
Assessment
-
Patient is a very pleasant 84-year-old gentleman with history of coronary artery disease, NSTEMI and status post PCI about 3 years ago, hypertension, hyperlipidemia, prostatic hypertrophy who presented to the emergency room with sudden onset
weakness and shortness of breath. Patient reports that he had been in his usual state of health up until the day of admission except for some increasing pedal edema noted over the last 2 weeks which was initially felt to be related to a side effect
of a certain medication. Patient states that he was sitting in chair where he felt uneasy but denies feeling near syncopal but felt mildly short of breath and he had himself lie down on the floor. Patient says that he felt weak and was not able to
pick himself back up. EMS was called and patient was evaluated. He denied any chest pain and workup in the emergency room showed normal troponin but pulmonary embolism and right lower lobe as well as left upper lobe segmental and subsegmental. A
PERT team was activated and I reviewed patient's CAT scan. Clot burden overall seemed small and central arteries were not involved. Patient however was noted to have moderate pericardial effusion and also with trace pleural effusions. Patient was
not hypotensive and had normal troponin with minimal if any right heart strain on CT scan hence catheter directed therapies were not pursued. Another concern with using thrombolytic was the moderate pleural effusion noted on the imaging. Patient's
BNP was noted to be elevated at 1400. Patient was then started on IV heparin and was admitted to IMU and pulmonary consultation was requested for further input.
Bilateral submassive pulmonary embolism-suspect unprovoked
Pericardial effusion with early tamponade s/p pericardiocentesis (07/27/2024)
Bilateral pneumonia
Acute on chronic HFpEF s/p left-sided thoracentesis (07/30, removing 700 cc of cloudy/roxana-colored fluid)
INDIA (as of 08/05)
CAD/history of NSTEMI s/p stent to RCA
Paroxysmal A-fib currently in NSR
Toxic metabolic encephalopathy
Plan
Respiratory status relatively stable currently on 3 L nasal cannula, but he has been much more lethargic since 08/03 , possibly due to sundowning in setting of Seroquel use (given 07/31+08/02)
?Toxic metabolic encephalopathy
Neurology has evaluated the patient: Recommended MRI, laboratory testing to rule out other etiologies
Try to avoid X RAY PHYSICIAN depressing medications in this period of time where he is very lethargic
-
Most recent chest x-ray 08/06/2024: Showed persistent right lower lobe opacity partly atelectasis partly right hemidiaphragm elevation.
Previously was on as much as 10 - 12 L/min on 07/27 - 07/28/2024
Currently on 3 L-wean down as able.
Nebulizers if needed-currently not bronchospastic
-
Status post left thoracentesis 07/30/24--700 mL of cloudy exudative pleural fluid-cultures and cytology not performed
Right thoracentesis recommended 07/31/24--not enough fluid for tap
Encourage incentive spirometer use 10 x per hour for least 4 hours a day; PT/OT
-
Anticoagulation with Eliquis s/p heparin drip - treat for minimum of 3-6 months
Not tachycardic
Currently on 3 L nasal cannula
Echocardiogram without significant RV dysfunction.
-
Echocardiogram 07/30/24-EF 55%, aortic sclerosis, trivial pericardial effusion-without evidence for pericardial fluid reaccumulation/tamponade
Cardiology has signed off
Diuresis as tolerated � previously on 40 mg PO Lasix BID although he received IV Lasix on 08/03 due to worsening volume overload seen on CXR (08/03) - lasix now on hold due to INDIA
Heart rate control (in NSR as of 08/02); continue PO lopressor 50mg BID
Persistent leukocytosis:No afebrile
Cultures reviewed
Negative urinalysis
Doubt pulmonary source
Empiric antibiotics-Zosyn resumed/restarted 08/04 per hospitalist; previously we were going to administer a 7 day course, but with increasing WBC count and worsening confusion, I agree with continuing/prolonging antibiotics to see if this helps him
clinically improve
Hematology has been consulted for persistent leukocytosis. Normal hemoglobin and platelet count.
DVT prophylaxis-Eliquis
Nutrition
PT/OT - rec'd skilled rehab
Code status: DNR/DNI
Pulmonary service will continue to follow along

Data:
Limited ECHO 07/27: Limited TTE for pericardial effusion.
In limited views. Normal-appearing LV size and function with no regional wall
motion abnormalities.
LVEF approximate 55% by visual estimation. No obvious LVH.
Normal right ventricular size and function.
Valvular interrogation was not obtained.
Moderate pericardial effusion at beginning of study; by end of procedure
effusion was minimal.
No comparison for this study given limited amount of views for review.
CXR 07/2024: 1. Low inspiratory volumes.
2. Haziness of each hemidiaphragm, which may represent bibasilar airspace disease and/or small bilateral pleural effusions
CT-PE 07/2024: 1. Positive for segmental and subsegmental pulmonary emboli on each side.
2. Moderate pericardial effusion, measuring 2.1 cm in greatest thickness.
3. Small cavity size of both the RV and LV. Consider echocardiogram to evaluate for tamponade relating to pericardial effusion.
4. RV: LV ratio measures greater than 1. This finding, combined with the relatively small overall burden of embolus and peripheral position of emboli argues against significant right heart strain, however evaluation is complicated by moderate
pericardial effusion.
5. Small bilateral pericardial effusions. Bibasilar airspace consolidation, likely representing compressive atelectasis.
Cardiac Cath 07/2020: 1. Hazy, ulcerated 75-80% culprit lesion in the proximal RCA, status post PCI (Xience Chloe 4.0 x 23 GEORGE, postdilated with 5.0 NC balloon) with reduction in stenosis to 0%, maintaining CHUCK 3 flow.
2. Mildly elevated filling pressures.
Subjective Data
-
Date of Service:
Date of Service: August 06, 2024
Chief Complaint: Pulmonary Follow Up (Pleural effusion/) and Dyspnea Follow Up
Objective Data
Data Reviewed
Vital Signs / I&O / Oxygen:
Vital Signs
Temp Pulse Resp BP Pulse Ox
97.8 F 96 30 111/63 98
08/06/24 15:23 08/06/24 16:21 08/06/24 17:40 08/06/24 16:21 08/06/24 16:21
Intake and Output
08/05/24 08/06/24 08/07/24
06:59 06:59 06:59
Intake Total 300 / 300 120 / 120
Output Total 1150 / 1150 650 / 650 350 / 350
Balance -1150 / -1150 -350 / -350 -230 / -230
SaO2 98
Nasal Cannula flow liters per 4
minute
Physical Exam
General: Respiratory Distress (n), Comfortable, Chills (n), Sweats (n) and Other (Obese male in NAD; deconditioned and confused)
HEENT: Normocephalic, Anicteric, Moist Mucous Membranes and Other (Thick neck)
Cardiovascular: S1-S2 and Peripheral Edema (negative)
Respiratory: Wheeze (n), Crackles (Bilateral), Rhonchi (n), Non-Labored Respirations, Accessory Resp Muscle Use (n), Stridor (n) and Other (Diminished breath sounds in the right base)
GI: Soft, Distended (Abdominal obesity), Non Tender and Normal Bowel Sounds
Neurology: Tremors (n) and Lethargic
Skin: Warm, Dry, Cyanosis (n), Jaundice (n), Rash (n) and Other (Bilateral venous stasis dermatitis changes)
Labs/Micro/Reports
Lab Data
08/06/24 05:19
08/06/24 05:19
Laboratory Results
08/06/24
17:03
pH 7.53 H
pCO2 44
pO2 67 L
HCO3 36.8 H
O2 Delivery Level
Microbiology
07/27/24 12:05 Pericardial Fluid Fungal Culture - Preliminary
Culture in progress.
Positive cultures are reported as soon as detected.
Final report to follow in four to five weeks.
07/27/24 12:05 Pericardial Fluid Fungal Smear - Final
No yeast or fungal elements seen.
--- NOTE | 2024-08-06 17:43 | W.PN.HOSP.TC ---
Today's Communication/Plan
-
Ongoing delirium likely multifactorial due to acute illness, INDIA
Avoid sedation
Protective intervention.
Hold Lasix
IV fluids monitor volume status,
Replete potassium.
Continue antibiotics and follow WBC.
Repeat right chest ultrasound and consider thoracentesis if enough fluid to tap.
Heme-onc evaluation for persistent leukocytosis.
Assessment / Plan
Assessment / Plan
Impression
Acute hypoxic respiratory failure
Bilateral pulmonary embolism, provoked (immobility, status post right MICAH 04/28)
Acute CHF preserved EF suspected
Atrial fibrillation with rapid trickle response new following pericardiocentesis
Pneumonia with bilateral/bibasilar airspace consolidation
Large paracardial effusion on CT imaging.
Bilateral pleural effusions
Leukocytosis.
INDIA (creatinine 1.3)
Increased anion gap metabolic acidosis
Elevated LFT, mixed pattern
Toxic metabolic encephalopathy/delirium
Other conditions
CAD with history of STEMI�angioplasty to the right coronary artery 07/23
Nonsustained V. tach post MT.
Essential hypertension.
Dyslipidemia.
BPH
Plan:
Acute hypoxic respiratory failure multifactorial due to pulmonary embolism, bibasilar atelectasis/consolidation, CHF, pleural effusion
Bilateral pulmonary embolism possibly provoked by fairly recent right total hip arthroplasty and low mobility state.
No evidence of saddle emboli upon presentation.
Lower extremity Doppler negative for DVT.
Transitioned off IV heparin to Eliquis on 08/01
Pericardial effusion with early tamponade upon presentation.
Status post pericardial drain placed on 07/27 and removed on 07/28 with reported sufficient drain.
Initial echocardiogram with LVEF of 55%, moderate pericardial effusion with normal RV function and no significant valvular abnormalities
Follow-up echocardiogram on 07/30 with preserved LVEF and trivial pericardial effusion
Pericardial fluid pathology negative for malignant cells
Noted with elevated inflammatory markers/nonspecific
Left pleural effusion
-Status post left thoracentesis on 07/30 700 cc exudate (increased white cell count) pH had not been submitted, cultures had not been submitted
Persistent right lower lobe process consolidation versus pleural effusion. Attempt of thoracentesis by [facility] with not enough pleural effusion to tap.
Repeat ultrasound of the chest
Leukocytosis persisting with left shift.
Has been on Zosyn covering bilateral pneumonia.
Blood cultures multiple negative to date.
Remains afebrile.
Pending pulmonary workup, will obtain heme-onc opinion
Acute CHF preserved EF (hypoxia, peripheral edema)
Repeat echocardiogram pending
Responding to IV diuresis. Lasix transition to p.o. on 08/01
Follow-up chest x-ray on 08/03 with increased interstitial markings.
Repeat pro CHF BNP improved
Has been diuresed with now INDIA.
Hold further Lasix and monitor closely.
INDIA. Creatinine at 1.5
Mild hypernatremia
Hypokalemia.
Bladder scan for retention.
Hold Lasix.
Gentle hydration with hypotonic solution
Replete potassium
Follow BMP
On HCTZ/losartan [employer] has been held.
Acute delirium.
Likely multifactorial
No focal findings on neurologic exam
Repeated CT scan on 08/06 negative for acute abnormalities
Protective interventions
Frequent reorientation
Zyprexa provided on 08/03.
Avoid oversedation
Neurology evaluation
CAD with history of STEMI and revascularization to RCA 07/23.
Essential hypertension
Dyslipidemia
ECG sinus tachycardia.
Preadmission regimen including metoprolol, losartan, hydrochlorothiazide, amlodipine, atorvastatin, aspirin
Atrial fibrillation with right ventricular response. New onset following pericardial drain placement.
Required IV diltiazem.
Back to sinus
Continue oral metoprolol.
Long-term anticoagulation to be determined
Elevated LFTs, mixed pattern.
Fatty liver and gallbladder sludge by imaging
Suspect hepatic congestion.
Follow trend
BPH.
Monitor for retention.
Continue tamsulosin
Anticipated Discharge: > 48 hours
Subjective/Interval History
-
Date of Service: August 06, 2024
Objective Data
-
Labs:
Laboratory Results
08/06/24 08/06/24
05:19 17:03
WBC 26.2 H
Hgb 13.6
Hct 41.9
Plt Count 395
HCO3 36.8 H
Sodium 145
Potassium 3.3 L
Chloride 103
Carbon Dioxide 33 H
BUN 40 H
Creatinine 1.4 H
Glucose 155 H
Calcium 7.9 L
Vital Signs:
Vital Signs
Temp Pulse Resp BP Pulse Ox
97.8 F 96 30 111/63 98
08/06/24 15:23 08/06/24 16:21 08/06/24 17:40 08/06/24 16:21 08/06/24 16:21
I&O
08/05/24 08/06/24 08/07/24
06:59 06:59 06:59
Intake Total 300 / 300 120 / 120
Output Total 1150 / 1150 650 / 650 350 / 350
Balance -1150 / -1150 -350 / -350 -230 / -230
Physical Exam
-
General: Well Developed, No Apparent Distress, Appears Chronically Ill and Obese
HEENT: Normocephalic, Atraumatic, Moist Mucous Membranes and Anicteric
Respiratory: Clear to Auscultation and Non Labored Respirations; Negative Accessory Resp Muscle Use
Cardiac: Regular Rhythm and S1/S2; Negative Murmur, Rub or Gallop
GI: Soft, Nontender, Nondistended and Normal Bowel Sounds
Musculoskeletal: No Clubbing, No Cyanosis and No Edema
Skin: Warm, Dry and Normal Turgor; Negative Rash
Neuro: Awake, Alert, Oriented, Nonfocal/Grossly Intact and Central Nerve's Intact
Psych: Calm
--- NOTE | 2024-08-06 18:35 | CON.ONC ---
Consultation
-
Date Consultation Requested: 08/06/24
Date Consultation Performed: 08/06/24
Requesting Provider: Peter Bennett MD
Performing Provider: Alaina Sol MD
Reason for Consultation: Leukocytosis
Impression
Impression
PE provoked by total hip replacement
Pericardial effusion
Small pleural effusions
CHF
Leukocytosis with neutrophilic predominance
Elevated platelets
Borderline splenomegaly
Plan
Plan
Elevation in WBC and Plt could be consistent with p. vera.
Hgb not elevated but would it expect it to possibly be lower in hospitalized pt in his 80's.
Iron studies now, eval platelet elevation.
Outpt Jak2.
Infectious workup as per primary service.
Patient History
History of Present Illness
84 yo man with complicated past medical history including CAD with WI s/p RCA stent placement, HTN, hyperlipidemia. He presented 07/27/24 with progressive shortness of breath and weakness following two weeks of progressive lower extremity swelling.
CT chest showed mild clot burden PE, moderate pericardial effusions, small pleural effusions with compressive atelectasis. BNP was elevated at that time. He underwent pericardial drain placement which was able to be discontinued after about 24
hours, cytology showed dense acute inflammation and no malignant cells. L pleural effusion was tapped on 07/30 for 700 cc exudative fluid with increased WBC's. PE was felt to be small volume and possibly provoked by total hip arthroplasty in 04/2024.
Hospital course has otherwise been complicated by atrial fibrillation, acute hypoxic respiratory failure, fluctuatin mental status. Pt is doing better with respect to hypoxic respiratory failure, being weaned off O2. He was transitioned from
unfrac heparin to Eliquis as of 08/01.
On 07/29 he was noted to have an elevated WBC with neutrophilic predominance, no fever or cough. CXR showed consolidation, atelectasis vs infiltrates. He was started on Zosyn, initially with improvement in WBC, but then WBC increased again. He had
low-grade fever to 100.3 on 5/AM but has been afebrile since then. Current WBC 26.2. Last blood cultures were 07/27, negative. Pericardial fluid cultures have been negative so far. Nasal swab 07/27 negative for flu. CXR this morning showed stabe
moderate to large right pleural effusion, low lung volumes with hazy L basilar opacity c/w atelectasis. CT A/P from 07/29 showed 1.1 cm node in R pericardial fat pad, spleen top-normal at 11.8 cm, 7-mm liver hypodensity, thickened bladder wall, no
other masses or adenopathy. U/A negative 07/28 and 08/03.
Review of historical labs shows WBC to have been elevated in 2020 as well, labs available between then and 2024. Platelets elevated tis admission to max 564 but normal today at 395. Hgb has been mostly 13's - 15's. Denies pruritus, admits to
early satiety, LUQ fullness.
Past-Medical/Surgical History
Past Medical History
CAD, HTN, Hypercholesterolemia, CHF
Past Surgical History
Right knee replacement 2004, hip replacement April,
Social History
Tobacco: Non-smoker
Alcohol: None
Drug: None
Personal:
Living: With Family
Employment: Retired
Family History
Family History: Not pertinent
Patient Medication
�Medication �Instructions �Recorded �Confirmed �Last Taken �Type
biotin 5,000 mcg disintegrating 10,000 mcg PO DAILY Supplement 04/06/19 07/27/24 Unknown History
tablet
finasteride 5 mg tablet 5 mg PO DAILY Urinary issue 04/06/19 07/27/24 Unknown History
hydrochlorothiazide 12.5 mg tablet 12.5 mg PO DAILY Blood pressure 04/06/19 07/27/24 Unknown History
tamsulosin 0.4 mg capsule 0.4 mg PO DAILY Urinary issue 04/06/19 07/27/24 Unknown History
acetaminophen 500 mg tablet 500 mg PO Q4HPRN PRN pain #1 tab 04/12/19 07/27/24 Unknown Rx
(Tylenol Extra Strength)
ascorbic acid (vitamin C) 500 mg 500 mg PO DAILY Supplement 07/19/20 07/27/24 Unknown History
capsule
aspirin 81 mg chewable tablet 81 mg PO DAILY #90 tabs 07/23/20 07/27/24 Unknown Rx
atorvastatin 40 mg tablet 40 mg PO QPM #90 tabs 07/23/20 07/27/24 Unknown Rx
losartan 50 mg tablet 50 mg PO DAILY 07/23/20 07/27/24 Unknown Rx
metoprolol succinate 50 mg 50 mg PO BID #180 tabs 07/23/20 07/27/24 Unknown Rx
tablet,extended release 24 hr
nitroglycerin 0.4 mg sublingual 0.4 mg sublingual [id number] PRN 07/23/20 07/27/24 Unknown Rx
tablet chest pain #25 tabs
amlodipine 5 mg tablet 5 mg PO DAILY Blood Pressure 07/27/24 07/27/24 Unknown History
cholecalciferol (vitamin D3) 50 50 mcg PO DAILY Supplement 07/27/24 07/27/24 Unknown History
mcg (2,000 unit) capsule (Vitamin
D3)
coQ10 (ubiquinol) 200 mg capsule 200 mg PO DAILY Supplement 07/27/24 07/27/24 Unknown History
Active Medications
Generic Name Dose Route Start Last Admin
Trade Name Freq PRN Reason Stop Dose Admin
Acetaminophen 650 mg 07/27/24 06:26 07/29/24 21:22
Acetaminophen 325 Mg Tablet PO 08/24/24 06:25 650 mg
Q4HPRN PRN Administration
mild pain/temp > 100.4 F
Apixaban 10 mg 08/01/24 10:15 08/06/24 09:57
Apixaban (Eliquis) 5 Mg Tablet PO 08/07/24 20:01 10 mg
BID TARIK Administration
Aspirin 81 mg 07/27/24 08:00 08/06/24 09:58
Aspirin 81 Mg Chewable Tablet PO 08/24/24 07:59 81 mg
DAILY TARIK Administration
Atorvastatin Calcium 40 mg 07/27/24 18:00 08/06/24 17:30
Atorvastatin (Lipitor) 40 Mg Tablet PO 08/24/24 17:59 Not Given
QPM TARIK
Dextrose 12.5 grams 07/27/24 11:00
Dextrose 50% (0.5 Grams/Ml) 50 Ml Syringe IV 08/24/24 10:59
[id number] PRN
hypoglycemia
Protocol
Finasteride 5 mg 07/27/24 08:00 08/06/24 09:57
Finasteride 5 Mg Tablet PO 08/24/24 07:59 5 mg
DAILY TARIK Administration
Furosemide 40 mg 08/01/24 16:00 08/05/24 08:11
Furosemide 40 Mg Tablet PO 08/29/24 15:59 40 mg
BID AT 0800,1600 TARIK Administration
Glucagon 1 mg 07/27/24 11:00
Glucagon 1 Mg Vial IM 08/24/24 10:59
PRN PRN
hypoglycemia - no IV access
Protocol
Piperacillin Sod/Tazobactam Sod 3.375 gram in 50 mls @ 100 mls/hr 08/06/24 14:00 08/06/24 15:36
Zosyn IV 50 mls
Q6H TARIK Administration
Potassium Chloride/Sodium Chloride 1,000 meq in 50,000 mls @ 75 mls/hr 08/06/24 18:00
0.45% Nacl With Kcl 20 Meq IV 09/03/24 12:39
.Q24H TARIK
Insulin Aspart 0 units 07/29/24 10:00 08/06/24 12:28
Insulin Aspart Low Resistance 300 Units/3 Ml Pen.Injctr SC 08/26/24 09:59 2 units
AC TARIK Administration
Protocol
Metoprolol Tartrate 2.5 mg 07/27/24 17:43
Metoprolol 5 Mg/5 Ml Vial IV 08/24/24 17:42
Q4HPRN PRN
Heart rate above 110 per min
Metoprolol Tartrate 50 mg 08/01/24 20:00 08/06/24 09:58
Metoprolol 50 Mg Regular Release Tablet PO 08/29/24 19:59 50 mg
BID TARIK Administration
Polyethylene Glycol 17 grams 07/27/24 08:00 08/06/24 09:58
Polyethylene Glycol Powder 17 Grams Packet PO 08/24/24 07:59 Not Given
DAILY TARIK
Quetiapine Fumarate 25 mg 07/31/24 12:29 08/02/24 23:22
Quetiapine 25 Mg Tablet PO 08/28/24 12:28 25 mg
HSPRN PRN Administration
SLEEP/AGITATION
Sennosides 17.2 mg 07/30/24 08:00 08/06/24 09:58
Sennosides (Senokot) 8.6 Mg Tablet PO 08/27/24 07:59 Not Given
BID TARIK
Sodium Chloride 0 flush 07/27/24 05:00
Sodium Chloride 0.9% (Flush) Syringe IV 08/24/24 04:59
PER PROTOCOL TARIK
Tamsulosin HCl 0.4 mg 07/27/24 08:00 08/06/24 09:58
Tamsulosin 0.4 Mg Capsule PO 08/24/24 07:59 0.4 mg
DAILY TARIK Administration
Physical Exam
Labs
Lab Results
WBC 26.2 10^3/uL (4.8-10.8) H 08/06/24 05:19
RBC 4.57 10^6/uL (4.70-6.10) L 08/06/24 05:19
Hgb 13.6 g/dL (13.0-18.0) 08/06/24 05:19
Hct 41.9 % (39.0-52.0) 08/06/24 05:19
MCV 91.7 fL (80.0-94.0) 08/06/24 05:19
MCH 29.8 pg (27.0-31.0) 08/06/24 05:19
MCHC 32.5 g/dL (33.0-37.0) L 08/06/24 05:19
RDW 14.2 % (11.5-14.5) 08/06/24 05:19
Plt Count 395 10^3/uL (130-400) 08/06/24 05:19
MPV 10.3 fL (7.4-10.4) 08/06/24 05:19
Abs Immat Gran (auto) Cancelled 08/06/24 06:00
Absolute Neuts (auto) Cancelled 08/06/24 06:00
Absolute Lymphs (auto) Cancelled 08/06/24 06:00
Absolute Monos (auto) Cancelled 08/06/24 06:00
Absolute Eos (auto) Cancelled 08/06/24 06:00
Absolute Basos (auto) Cancelled 08/06/24 06:00
Immature Gran % Cancelled 08/06/24 06:00
Neutrophils % Cancelled 08/06/24 06:00
Lymphocytes % Cancelled 08/06/24 06:00
Monocytes % Cancelled 08/06/24 06:00
Eosinophils % Cancelled 08/06/24 06:00
Basophils % Cancelled 08/06/24 06:00
Creatinine 1.4 mg/dL (0.7-1.3) H 08/06/24 05:19
Vital Signs
Vital Signs
Temp Pulse Resp BP Pulse Ox
97.8 F 96 30 111/63 98
08/06/24 15:23 08/06/24 16:21 08/06/24 17:40 08/06/24 16:21 08/06/24 16:21
[2024-08-06] MEDS: NOVOLOG FLEXPEN-LOW RESISTANCE SC (18:36)
[2024-08-06] MEDS: 0.45% NACL with KCL 20 MEQ 1000 IV (18:43)
[2024-08-06] MEDS: LOPRESSOR PO (20:48)
[2024-08-06] MEDS: ELIQUIS PO (20:48)
[2024-08-06 21:09] LABS: Creatine Phosphokinase 35 U/L (55-170)
[2024-08-06 21:11] LABS: Erythrocyte Sed Rate 85 mm/hour (0-20)
[2024-08-06 21:42] LABS: Glucose - Point of Care 182 mg/dl (70-99)
[2024-08-06 21:44] LABS: TSH Reflex To Free T4 0.56 uIU/ml (0.47-4.68)
[2024-08-07] MEDS: ZOSYN 50 IV ×3 (02:17→13:16)
[2024-08-07 03:45] VITALS: BP 131/63
--- NOTE | 2024-08-07 04:35 | PTCARENOTE ---
Reached out to HEALTH AND SAFETY MANAGER about Pt's fluids. Also reached out to HEALTH AND SAFETY MANAGER about Pt's Eliquis. Verbal order was received to lower Pt's fluids to 60 mL/hr. HEALTH AND SAFETY MANAGER ordered a hold on Pt's Eliquis until Pt able to tolerate PO medication. Plan of care ongoing.
--- NOTE | 2024-08-07 07:16 | W.PN.NEURO.1 ---
Today's Communication / Plan
-
.
Subjective/Objective
Subjective Data
Date of Service: August 07, 2024
Neurology follow-up note.
Normotensive, afebrile, 96% on 4 L
Labs: WBCs�21.7, ESR�85, CRP�225.4, normal CK, normal TSH.
Mr. Lorenzo reports no complaints.
Brain MRI�mo acute infarct. Mild chronic microvascular white matter ischemic disease. Atrophy.
PMH: PE/pericardial effusion, CAD, L4-L5 stenosis, HTN, DLP, IGT, OA, vitamin D deficiency, BMI 32.3, BPH
PSH: R MICAH(03/2024), thoracocentesis (07/31/2024), R TKA, tonsillectomy,
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
FH: Not contributory to current presentation
All:NKDA
ROS: Negative for headache, positive for dyspnea
General: In no acute distress.
Cardio: Regular rate and rhythm without murmur. Extremities are without cyanosis or edema.
Neuro:
Mental Status: Alert, oriented to name, not to age, month. Knew current year. Increased processing time. Impaired attention and comprehension. Follows simple requests
Cranial Nerves: Pupils are equally round and reactive to light. EOMs full. Blink to threat bilaterally. No nystagmus. Hearing is preserved. Mild lingual dysarthria.
Motor: No PT or leg drift.
Coordination: No dysmetria, mild action hand tremor.
Gait: deferred
Assessment and Plan:
I. Subacute dysarthria, improved.
II. Multifactorial encephalopathy (hypoxic, vascular, infectious?)
III. Bl pulmonary embolism
-Aspiration precautions
-Dysphagia evaluation
-Please follow-up requested serologies
-Outpatient neurology follow-up
-Please contact neurology service with any questions or concerns
I personally reviewed all radiology and labs along with past medical records pertinent to current medical problems. Total time spent in patient care is 35 minutes.
Thank you for allowing us to participate in the care of this patient. Please do not hesitate to contact us with any questions or concerns.
Objective Data
Vital Signs
Temp Pulse Resp BP Pulse Ox
37.1 C 94 18 131/63 97
08/07/24 03:45 08/07/24 03:45 08/07/24 03:45 08/07/24 03:45 08/07/24 03:45
APTT 98.0 Sec (23.4-35.0) H 08/01/24 05:29
Sodium 145 mmol/L (135-145) 08/06/24 05:19
Potassium 3.3 mmol/L (3.5-5.1) L 08/06/24 05:19
BUN 40 mg/dl (9-20) H 08/06/24 05:19
Glucose 155 mg/dl (70-99) H 08/06/24 05:19
Calcium 7.9 mg/dl (8.4-10.2) L 08/06/24 05:19
Rrr-N-Uzuvzoritbr Pept 1640 pg/ml 08/03/24 05:27
Patient Allergies
No Known Allergies Allergy (Verified 07/19/20 19:43)
Vital Signs and Labs
-
Vital Signs and Labs:
Vital Signs
Temp Pulse Resp BP Pulse Ox
36.7 C 94 20 134/69 94
08/07/24 07:30 08/07/24 07:30 08/07/24 07:30 08/07/24 07:30 08/07/24 07:30
Lab Results
08/07/24 06:36
APTT 98.0 Sec (23.4-35.0) H 08/01/24 05:29
Sodium 145 mmol/L (135-145) 08/06/24 05:19
Potassium 3.3 mmol/L (3.5-5.1) L 08/06/24 05:19
BUN 40 mg/dl (9-20) H 08/06/24 05:19
Glucose 155 mg/dl (70-99) H 08/06/24 05:19
Calcium 7.9 mg/dl (8.4-10.2) L 08/06/24 05:19
Fav-M-Lvgahrikxnt Pept 1640 pg/ml 08/03/24 05:27
Medications
-
Medications:
Generic Name Dose Route Start Last Admin
Trade Name Freq PRN Reason Stop Dose Admin
Acetaminophen 650 mg 07/27/24 06:26 07/29/24 21:22
Acetaminophen 325 Mg Tablet PO 08/24/24 06:25 650 mg
Q4HPRN PRN Administration
mild pain/temp > 100.4 F
Albuterol/Ipratropium 3 ml 08/06/24 21:32
Ipratropium 0.5/Albuterol 3 Mg (3 Ml Ampul) INH
R Q4HPRN PRN
SOB/ wheezing
Protocol
Apixaban 10 mg 08/01/24 10:15 08/06/24 23:17
Apixaban (Eliquis) 5 Mg Tablet PO 08/07/24 20:01 10 mg
BID TARIK Administration
Aspirin 81 mg 07/27/24 08:00 08/06/24 09:58
Aspirin 81 Mg Chewable Tablet PO 08/24/24 07:59 81 mg
DAILY TARIK Administration
Atorvastatin Calcium 40 mg 07/27/24 18:00 08/06/24 17:30
Atorvastatin (Lipitor) 40 Mg Tablet PO 08/24/24 17:59 Not Given
QPM TARIK
Dextrose 12.5 grams 07/27/24 11:00
Dextrose 50% (0.5 Grams/Ml) 50 Ml Syringe IV 08/24/24 10:59
[id number] PRN
hypoglycemia
Protocol
Finasteride 5 mg 07/27/24 08:00 08/06/24 09:57
Finasteride 5 Mg Tablet PO 08/24/24 07:59 5 mg
DAILY TARIK Administration
Furosemide 40 mg 08/01/24 16:00 08/05/24 08:11
Furosemide 40 Mg Tablet PO 08/29/24 15:59 40 mg
BID AT 0800,1600 TARIK Administration
Glucagon 1 mg 07/27/24 11:00
Glucagon 1 Mg Vial IM 08/24/24 10:59
PRN PRN
hypoglycemia - no IV access
Protocol
Piperacillin Sod/Tazobactam Sod 3.375 gram in 50 mls @ 100 mls/hr 08/06/24 14:00 08/07/24 02:17
Zosyn IV 50 mls
Q6H TARIK Administration
Insulin Aspart 0 units 07/29/24 10:00 08/06/24 18:36
Insulin Aspart Low Resistance 300 Units/3 Ml Pen.Injctr SC 08/26/24 09:59 Not Given
AC TARIK
Protocol
Metoprolol Tartrate 2.5 mg 07/27/24 17:43
Metoprolol 5 Mg/5 Ml Vial IV 08/24/24 17:42
Q4HPRN PRN
Heart rate above 110 per min
Metoprolol Tartrate 50 mg 08/01/24 20:00 08/06/24 20:48
Metoprolol 50 Mg Regular Release Tablet PO 08/29/24 19:59 Not Given
BID TARIK
Polyethylene Glycol 17 grams 07/27/24 08:00 08/06/24 09:58
Polyethylene Glycol Powder 17 Grams Packet PO 08/24/24 07:59 Not Given
DAILY TARIK
Quetiapine Fumarate 25 mg 07/31/24 12:29 08/02/24 23:22
Quetiapine 25 Mg Tablet PO 08/28/24 12:28 25 mg
HSPRN PRN Administration
SLEEP/AGITATION
Sennosides 17.2 mg 07/30/24 08:00 08/06/24 20:50
Sennosides (Senokot) 8.6 Mg Tablet PO 08/27/24 07:59 Not Given
BID TARIK
Sodium Chloride 0 flush 07/27/24 05:00
Sodium Chloride 0.9% (Flush) Syringe IV 08/24/24 04:59
PER PROTOCOL TARIK
Tamsulosin HCl 0.4 mg 07/27/24 08:00 08/06/24 09:58
Tamsulosin 0.4 Mg Capsule PO 08/24/24 07:59 0.4 mg
DAILY TARIK Administration
Home Medications
-
Home Medications
biotin 5,000 mcg disintegrating tablet 10,000 mcg PO DAILY Supplement 04/06/19
finasteride 5 mg tablet 5 mg PO DAILY Urinary issue 04/06/19
hydrochlorothiazide 12.5 mg tablet 12.5 mg PO DAILY Blood pressure 04/06/19
tamsulosin 0.4 mg capsule 0.4 mg PO DAILY Urinary issue 04/06/19
acetaminophen 500 mg tablet (Tylenol Extra Strength) 500 mg PO Q4HPRN PRN pain #1 tab 04/12/19
ascorbic acid (vitamin C) 500 mg capsule 500 mg PO DAILY Supplement 07/19/20
aspirin 81 mg chewable tablet 81 mg PO DAILY #90 tabs 07/23/20
atorvastatin 40 mg tablet 40 mg PO QPM #90 tabs 07/23/20
losartan 50 mg tablet 50 mg PO DAILY 07/23/20
metoprolol succinate 50 mg tablet,extended release 24 hr 50 mg PO BID #180 tabs 07/23/20
nitroglycerin 0.4 mg sublingual tablet 0.4 mg sublingual [id number] PRN chest pain #25 tabs 07/23/20
amlodipine 5 mg tablet 5 mg PO DAILY Blood Pressure 07/27/24
cholecalciferol (vitamin D3) 50 mcg (2,000 unit) capsule (Vitamin D3) 50 mcg PO DAILY Supplement 07/27/24
coQ10 (ubiquinol) 200 mg capsule 200 mg PO DAILY Supplement 07/27/24
[2024-08-07 07:19] LABS: % Basophils 0.2 % (0-2); % Eosinophils 0.5 % (0-6); % Immature Granulocytes 0.9 % (0-0.5); % Lymphocytes 4.7 % (20.5-51.1); % Monocytes 3.9 % (1.7-9.3); % Neutrophils 89.8 % (42.2-75.2); Absolute Eosinophils 0.1 10^3/uL (0-0.7); Absolute Immature Granulocytes 0.2 10^3/uL (0-0.05); Absolute Monocytes 0.8 10^3/uL (0.1-0.6); Absolute Neutrophils 19.5 10^3/uL (1.4-6.5); Hematocrit 36.7 % (39.0-52.0); Hemoglobin 12.3 g/dL (13.0-18.0); Mean Corp Hgb Conc. 33.5 g/dL (33.0-37.0); Mean Corpuscular Hgb 29.5 pg (27.0-31.0); Mean Platelet Volume 10.1 fL (7.4-10.4); Nucleated Red Blood Cells % 0 % (-); Platelet Count 385 10^3/uL (130-400); Red Blood Cell Count 4.17 10^6/uL (4.70-6.10); White Blood Cell Count 21.7 10^3/uL (4.8-10.8)
[2024-08-07 07:30] VITALS: BP 134/69
[2024-08-07 07:39] LABS: Glucose - Point of Care 150 mg/dl (70-99)
[2024-08-07 07:43] LABS: Blood Urea Nitrogen 40 mg/dl (9-20); Calcium 7.6 mg/dl (8.4-10.2); Carbon Dioxide 34 mmol/L (22-30); Chloride 102 mmol/L (98-107); Estimated Creatinine Clearance 50 ml/min; Glucose 153 mg/dl (70-99); Potassium 3.2 mmol/L (3.5-5.1); Sodium 143 mmol/L (135-145); eGFR 54.51
[2024-08-07] MEDS: ELIQUIS 10 MG PO ×2 (08:37→21:07)
[2024-08-07] MEDS: SENOKOT PO (08:38)
[2024-08-07] MEDS: PROSCAR 5 MG PO (08:38)
[2024-08-07] MEDS: FLOMAX 0.4 MG PO (08:38)
[2024-08-07] MEDS: LOW STRENGTH ASPIRIN 81 MG PO (08:38)
[2024-08-07] MEDS: MIRALAX PO (08:38)
[2024-08-07] MEDS: LOPRESSOR 50 MG PO ×2 (08:41→21:08)
[2024-08-07] MEDS: NOVOLOG FLEXPEN-LOW RESISTANCE 1 UNITS SC (08:42)
[2024-08-07] MEDS: KCL 40 MEQ PO (12:07)
[2024-08-07 12:25] LABS: Glucose - Point of Care 232 mg/dl (70-99)
[2024-08-07] MEDS: NOVOLOG FLEXPEN-LOW RESISTANCE 2 UNITS SC (12:40)
--- NOTE | 2024-08-07 12:50 | W.PN.ONC ---
Today's Communication / Plan
-
His platelet count has normalized. However, leukocytosis persists. While microbiology and cell studies were sent on his pericardial fluid, I can find no evidence of those studies having been sent on the pleural fluid. He continues with pleural
effusions. I am concerned about possible empyema as a cause of his elevated platelet and white count.
Impression
Impression
PE provoked by total hip replacement
Pericardial effusion
Small pleural effusions
CHF
Leukocytosis with neutrophilic predominance
Elevated platelets
Borderline splenomegaly
Plan
Plan
Elevation in WBC and Plt could be consistent with p. vera.
Hgb not elevated but would it expect it to possibly be lower in hospitalized pt in his 80's.
Iron studies now, eval platelet elevation.
Outpt Jak2.
Infectious workup as per primary service.
Subjective/Objective
Subjective/Objective
He is feeling reasonably well. He reports no new symptoms. He denies any pain. Examination is unchanged.
Vital Signs:
Vital Signs
Temp Pulse Resp BP Pulse Ox
98.0 F 94 20 134/69 94
08/07/24 07:30 08/07/24 07:30 08/07/24 07:30 08/07/24 07:30 08/07/24 07:30
Lab Results:
Laboratory Data
WBC 21.7 10^3/uL (4.8-10.8) H 08/07/24 06:36
Hgb 12.3 g/dL (13.0-18.0) L 08/07/24 06:36
Plt Count 385 10^3/uL (130-400) 08/07/24 06:36
APTT 98.0 Sec (23.4-35.0) H 08/01/24 05:29
eGFR 54.51 08/07/24 06:36
--- NOTE | 2024-08-07 14:10 | W.PN.PUL3 ---
Today's Communication / Plan
-
Complete 2 more weeks of antibiotics for possible complicated parapneumonic effusion/pneumonia.
Mental status improved after hydration
Hold diuretics
Wean down FiO2 as able
Aspiration precautions
Incentive spirometer
Increase mobility as able
MRI brain pending
Follow CBC and fever curve
Will follow
Assessment
-
Patient is a very pleasant 84-year-old gentleman with history of coronary artery disease, NSTEMI and status post PCI about 3 years ago, hypertension, hyperlipidemia, prostatic hypertrophy who presented to the emergency room with sudden onset
weakness and shortness of breath. Patient reports that he had been in his usual state of health up until the day of admission except for some increasing pedal edema noted over the last 2 weeks which was initially felt to be related to a side effect
of a certain medication. Patient states that he was sitting in chair where he felt uneasy but denies feeling near syncopal but felt mildly short of breath and he had himself lie down on the floor. Patient says that he felt weak and was not able to
pick himself back up. EMS was called and patient was evaluated. He denied any chest pain and workup in the emergency room showed normal troponin but pulmonary embolism and right lower lobe as well as left upper lobe segmental and subsegmental. A
PERT team was activated and I reviewed patient's CAT scan. Clot burden overall seemed small and central arteries were not involved. Patient however was noted to have moderate pericardial effusion and also with trace pleural effusions. Patient was
not hypotensive and had normal troponin with minimal if any right heart strain on CT scan hence catheter directed therapies were not pursued. Another concern with using thrombolytic was the moderate pleural effusion noted on the imaging. Patient's
BNP was noted to be elevated at 1400. Patient was then started on IV heparin and was admitted to IMU and pulmonary consultation was requested for further input.
Bilateral submassive pulmonary embolism-suspect unprovoked
Pericardial effusion with early tamponade s/p pericardiocentesis (07/27/2024)
Bilateral pneumonia
Acute on chronic HFpEF s/p left-sided thoracentesis (07/30, removing 700 cc of cloudy/roxana-colored fluid)
INDIA (as of 08/05)
CAD/history of NSTEMI s/p stent to RCA
Paroxysmal A-fib currently in NSR
Toxic metabolic encephalopathy
Plan
Respiratory status relatively stable currently on 3 L nasal cannula, but he has been much more lethargic since 08/03 , possibly due to sundowning in setting of Seroquel use (given 07/31+08/02)
?Toxic metabolic encephalopathy
Neurology has evaluated the patient:
CT head negative
MRI pending
Avoid CAR DROPPER depressant.
Mental status improved after hydration but not back to baseline still intermittently confused, moving 4 EXTR, creatinine has improved.
Continue to monitor.
-
Most recent chest x-ray 08/06/2024: Showed persistent right lower lobe opacity partly atelectasis partly right hemidiaphragm elevation.
Previously was on as much as 10 - 12 L/min on 07/27 - 07/28/2024
Currently on 3 L-wean down as able.
Nebulizers if needed-currently not bronchospastic
-
Status post left thoracentesis 07/30/24--700 mL of cloudy exudative pleural fluid-cultures and cytology not performed
Right thoracentesis recommended 07/31/24--not enough fluid for tap
Encourage incentive spirometer use 10 x per hour for least 4 hours a day; PT/OT
-
Anticoagulation with Eliquis s/p heparin drip - treat for minimum of 3-6 months
Not tachycardic
Currently on 3 L nasal cannula
Echocardiogram without significant RV dysfunction.
-
Echocardiogram 07/30/24-EF 55%, aortic sclerosis, trivial pericardial effusion-without evidence for pericardial fluid reaccumulation/tamponade
Cardiology has signed off
Diuresis as tolerated � previously on 40 mg PO Lasix BID although he received IV Lasix on 08/03 due to worsening volume overload seen on CXR (08/03) - lasix now on hold due to INDIA
Heart rate control (in NSR as of 08/02); continue PO lopressor 50mg BID
Persistent leukocytosis:No afebrile
Cultures reviewed
Negative urinalysis
Doubt pulmonary source
Empiric antibiotics-Zosyn resumed/restarted 08/04 per hospitalist; previously we were going to administer a 7 day course, but with increasing WBC count and worsening confusion, I agree with continuing/prolonging antibiotics to see if this helps him
clinically improve.
-
Pericardial fluid 07/27/2024: Significant inflammation with increased white blood cells 17,000. 86% granulocytes. LDH greater than 8000.
Left --fluid was cloudy. Thoracentesis no analysis was sent.
In discussion with Dr. Bennett and hematology-concerns for partially treated either complicated parapneumonic pleural effusion versus empyema. Noted no fluid has recurred on follow-up x-rays.
Not unreasonable to treat with additional 2 weeks of antibiotics with Augmentin.
Continue to monitor CBC and fever curve.
-
Hematology has been consulted for persistent leukocytosis. Normal hemoglobin and platelet count.
No concern for lymphoproliferative disorder.
DVT prophylaxis-Eliquis
Nutrition
PT/OT - rec'd skilled rehab
Code status: DNR/DNI
Pulmonary service will continue to follow along

Data:
Limited ECHO 07/27: Limited TTE for pericardial effusion.
In limited views. Normal-appearing LV size and function with no regional wall
motion abnormalities.
LVEF approximate 55% by visual estimation. No obvious LVH.
Normal right ventricular size and function.
Valvular interrogation was not obtained.
Moderate pericardial effusion at beginning of study; by end of procedure
effusion was minimal.
No comparison for this study given limited amount of views for review.
CXR 07/2024: 1. Low inspiratory volumes.
2. Haziness of each hemidiaphragm, which may represent bibasilar airspace disease and/or small bilateral pleural effusions
CT-PE 07/2024: 1. Positive for segmental and subsegmental pulmonary emboli on each side.
2. Moderate pericardial effusion, measuring 2.1 cm in greatest thickness.
3. Small cavity size of both the RV and LV. Consider echocardiogram to evaluate for tamponade relating to pericardial effusion.
4. RV: LV ratio measures greater than 1. This finding, combined with the relatively small overall burden of embolus and peripheral position of emboli argues against significant right heart strain, however evaluation is complicated by moderate
pericardial effusion.
5. Small bilateral pericardial effusions. Bibasilar airspace consolidation, likely representing compressive atelectasis.
Cardiac Cath 07/2020: 1. Hazy, ulcerated 75-80% culprit lesion in the proximal RCA, status post PCI (Xience Chloe 4.0 x 23 GEORGE, postdilated with 5.0 NC balloon) with reduction in stenosis to 0%, maintaining CHUCK 3 flow.
2. Mildly elevated filling pressures.
Subjective Data
-
Date of Service:
Date of Service: August 07, 2024
Chief Complaint: Pulmonary Follow Up (Pleural effusion/) and Dyspnea Follow Up
Objective Data
Data Reviewed
Vital Signs / I&O / Oxygen:
Vital Signs
Temp Pulse Resp BP Pulse Ox
98.0 F 94 20 134/69 94
08/07/24 07:30 08/07/24 07:30 08/07/24 07:30 08/07/24 07:30 08/07/24 07:30
Intake and Output
08/06/24 08/07/24 08/08/24
06:59 06:59 06:59
Intake Total 300 / 300 120 / 120
Output Total 650 / 650 350 / 350
Balance -350 / -350 -230 / -230
SaO2 94
Nasal Cannula flow liters per 4
minute
Physical Exam
General: Respiratory Distress (n), Comfortable, Chills (n), Sweats (n) and Other (Obese male in NAD; deconditioned and confused)
HEENT: Normocephalic, Anicteric, Moist Mucous Membranes and Other (Thick neck)
Cardiovascular: S1-S2 and Peripheral Edema (negative)
Respiratory: Wheeze (n), Crackles (Bilateral), Rhonchi (n), Non-Labored Respirations, Accessory Resp Muscle Use (n), Stridor (n) and Other (Diminished breath sounds in the right base)
GI: Soft, Distended (Abdominal obesity), Non Tender and Normal Bowel Sounds
Neurology: Awake, Alert, No Motor Deficits, Tremors (n) and Other (Confused, following commands.)
Skin: Warm, Dry, Cyanosis (n), Jaundice (n), Rash (n) and Other (Bilateral venous stasis dermatitis changes)
Labs/Micro/Reports
Lab Data
08/07/24 06:36
08/07/24 06:36
Laboratory Results
08/06/24
17:03
pH 7.53 H
pCO2 44
pO2 67 L
HCO3 36.8 H
O2 Delivery Level
Microbiology
07/27/24 12:05 Pericardial Fluid Fungal Culture - Preliminary
Culture in progress.
Positive cultures are reported as soon as detected.
Final report to follow in four to five weeks.
[2024-08-07 14:25] VITALS: BMI 32.3
--- NOTE | 2024-08-07 14:29 | PTCARENOTE ---
Pt. much more awake today, able to tell this RN the current year but disoriented to place and situation. Pt. unable to recall why he is here in the hospital and continues to have confused conversation with this RN. Pt. continues to remove O2, but
currently 90-93% on RA. Plan of care ongoing.
[2024-08-07] MEDS: 0.45% NACL with KCL 20 MEQ 1000 IV (14:53)
[2024-08-07 15:16] LABS: Iron 43 ug/dl (49-181)
[2024-08-07 15:25] LABS: Percent Saturation 26 % (20-50); Total Iron Binding Capacity 161 ug/dl (261-462)
[2024-08-07 15:29] VITALS: BP 107/48
--- NOTE | 2024-08-07 16:14 | W.PN.HOSP.TC ---
Today's Communication/Plan
-
Transition of Zosyn to Augmentin for additional 2 weeks of therapy.
Continue IV hydration
Physical therapy
Assessment / Plan
Assessment / Plan
Impression
Acute hypoxic respiratory failure
Bilateral pulmonary embolism, provoked (immobility, status post right MICAH 04/28)
Acute CHF preserved EF suspected
Atrial fibrillation with rapid trickle response new following pericardiocentesis
Pneumonia with bilateral/bibasilar airspace consolidation
Large paracardial effusion on CT imaging.
Bilateral pleural effusions
Leukocytosis.
INDIA (creatinine 1.3)
Increased anion gap metabolic acidosis
Elevated LFT, mixed pattern
Toxic metabolic encephalopathy/delirium
Other conditions
CAD with history of STEMI�angioplasty to the right coronary artery 07/23
Nonsustained V. tach post NC.
Essential hypertension.
Dyslipidemia.
BPH
Plan:
Acute hypoxic respiratory failure multifactorial due to pulmonary embolism, bibasilar atelectasis/consolidation, CHF, pleural effusion
Bilateral pulmonary embolism possibly provoked by fairly recent right total hip arthroplasty and low mobility state.
No evidence of saddle emboli upon presentation.
Lower extremity Doppler negative for DVT.
Transitioned off IV heparin to Eliquis on 08/01
Pericardial effusion with early tamponade upon presentation.
Status post pericardial drain placed on 07/27 and removed on 07/28 with reported sufficient drain.
Initial echocardiogram with LVEF of 55%, moderate pericardial effusion with normal RV function and no significant valvular abnormalities
Follow-up echocardiogram on 07/30 with preserved LVEF and trivial pericardial effusion
Pericardial fluid pathology negative for malignant cells
Noted with elevated inflammatory markers/nonspecific
Left pleural effusion
-Status post left thoracentesis on 07/30 700 cc exudate (increased white cell count) pH had not been submitted, cultures had not been submitted
Persistent right lower lobe process consolidation versus pleural effusion. Attempt of thoracentesis by [facility] with not enough pleural effusion to tap.
Repeat ultrasound of the chest with minimal right pleural effusion
Leukocytosis persisting with left shift.
Has been on Zosyn covering bilateral pneumonia.
Blood cultures multiple negative to date.
Remains afebrile.
Heme-onc input appreciated.
There is a reasonable concern for complicated left pulmonary effusion which was tapped with no culture sent.
At this point plan is to complete additional 2 weeks of antibiotics. Will be transition from Zosyn to Augmentin. Through 08/21
On multiple imaging there is a significant elevation of right hemidiaphragm. Follow-up imaging as required
Acute CHF preserved EF (hypoxia, peripheral edema)
Repeat echocardiogram pending
Responding to IV diuresis. Lasix transition to p.o. on 08/01
Follow-up chest x-ray on 08/03 with increased interstitial markings.
Repeat pro CHF BNP improved
Has been diuresed with now INDIA.
Hold further Lasix and monitor closely.
INDIA. Creatinine at 1.5
Mild hypernatremia
Hypokalemia.
Bladder scan for retention.
Hold Lasix.
Gentle hydration with hypotonic solution
Replete potassium
Follow BMP
On HCTZ/losartan ACCOUNTING MANAGER has been held.
Acute delirium.
Likely multifactorial and not limited to dehydration
No focal findings on neurologic exam
Repeated CT scan on 08/06 negative for acute abnormalities
MRI of the brain with no acute abnormalities
Neurology input appreciated
Mental status improved with hydration.
Avoid sedatives
CAD with history of STEMI and revascularization to RCA 07/23.
Essential hypertension
Dyslipidemia
ECG sinus tachycardia.
Preadmission regimen including metoprolol, losartan, hydrochlorothiazide, amlodipine, atorvastatin, aspirin
Atrial fibrillation with right ventricular response. New onset following pericardial drain placement.
Required IV diltiazem.
Back to sinus
Continue oral metoprolol.
Long-term anticoagulation to be determined
Elevated LFTs, mixed pattern.
Fatty liver and gallbladder sludge by imaging
Suspect hepatic congestion.
Follow trend
BPH.
Monitor for retention.
Continue tamsulosin
Anticipated Discharge: 24 - 48 hours
Subjective/Interval History
-
Date of Service: August 07, 2024
Objective Data
-
Labs:
Laboratory Results
08/07/24
06:36
WBC 21.7 H
Hgb 12.3 L
Hct 36.7 L
Plt Count 385
Sodium 143
Potassium 3.2 L
Chloride 102
Carbon Dioxide 34 H
BUN 40 H
Creatinine 1.3
Glucose 153 H
Calcium 7.6 L
Vital Signs:
Vital Signs
Temp Pulse Resp BP Pulse Ox
98.7 F 86 20 107/48 91
08/07/24 15:29 08/07/24 15:29 08/07/24 15:29 08/07/24 15:29 08/07/24 15:29
I&O
08/06/24 08/07/24 08/08/24
06:59 06:59 06:59
Intake Total 300 / 300 120 / 120
Output Total 650 / 650 350 / 350
Balance -350 / -350 -230 / -230
Physical Exam
-
General: Well Developed, No Apparent Distress, Appears Chronically Ill and Obese
HEENT: Normocephalic, Atraumatic, Moist Mucous Membranes and Anicteric
Respiratory: Clear to Auscultation and Non Labored Respirations; Negative Accessory Resp Muscle Use
Cardiac: Regular Rhythm and S1/S2; Negative Murmur, Rub or Gallop
GI: Soft, Nontender, Nondistended and Normal Bowel Sounds
Musculoskeletal: No Clubbing, No Cyanosis and No Edema
Skin: Warm, Dry and Normal Turgor; Negative Rash
Neuro: Awake, Alert, Oriented, Nonfocal/Grossly Intact and Central Nerve's Intact
Psych: Calm
[2024-08-07 16:44] LABS: Glucose - Point of Care 133 mg/dl (70-99)
[2024-08-07] MEDS: NOVOLOG FLEXPEN-LOW RESISTANCE SC (16:49)
--- NOTE | 2024-08-07 17:04 | CM ---
Pt not ready for dc as per .
Pt remains confused.
PT OT indicates SNF need at dc.
Will need auth .
Spoke with Jud gonzalez . Referral sent to [facility] as per dgt request.
Dgt wants pt to go to rehab. spoke with her and explained pt not medically ready.
Oxygen 4 liters Pox 94%.
Continue IV antibiotics.
PLAN To [facility] after auth
[2024-08-07] MEDS: LIPITOR 40 MG PO (17:19)
--- NOTE | 2024-08-07 17:52 | PTCARENOTE ---
Met with daughter Jud and her sister. She is upset and concerned about her dads change in condition and is requesting a conference meeting/call with providers tomorrow so that she can talk to all the providers together about his condition and
plan. Explained to her that tomorrow I would help facilitate communication with her and the providers so she can get an update and have questions answered.
[2024-08-07 19:41] VITALS: BP 133/54
[2024-08-07] MEDS: SENOKOT 17.2 MG PO (21:07)
[2024-08-07] MEDS: AUGMENTIN 875 MG/125 MG 1 TABLET PO (21:07)
[2024-08-07 21:42] LABS: Glucose - Point of Care 177 mg/dl (70-99)
[2024-08-07 23:40] VITALS: BP 125/62
[2024-08-08 04:00] VITALS: BP 127/60
[2024-08-08 05:53] VITALS: BMI 33.0
[2024-08-08 06:01] LABS: % Basophils 0.1 % (0-2); % Immature Granulocytes 0.8 % (0-0.5); % Lymphocytes 5.2 % (20.5-51.1); % Monocytes 3.4 % (1.7-9.3); % Neutrophils 89.5 % (42.2-75.2); Absolute Eosinophils 0.2 10^3/uL (0-0.7); Absolute Immature Granulocytes 0.2 10^3/uL (0-0.05); Absolute Lymphocytes 1.1 10^3/uL (1.2-3.4); Absolute Monocytes 0.7 10^3/uL (0.1-0.6); Hematocrit 35.4 % (39.0-52.0); Hemoglobin 11.2 g/dL (13.0-18.0); Mean Corp Hgb Conc. 31.6 g/dL (33.0-37.0); Mean Corpuscular Volume 91.7 fL (80.0-94.0); Mean Platelet Volume 9.9 fL (7.4-10.4); Nucleated Red Blood Cells % 0 % (-); Platelet Count 366 10^3/uL (130-400); Red Blood Cell Count 3.86 10^6/uL (4.70-6.10); White Blood Cell Count 21.3 10^3/uL (4.8-10.8)
[2024-08-08 06:27] LABS: Blood Urea Nitrogen 35 mg/dl (9-20); Calcium 7.3 mg/dl (8.4-10.2); Carbon Dioxide 32 mmol/L (22-30); Chloride 103 mmol/L (98-107); Estimated Creatinine Clearance 60 ml/min; Glucose 146 mg/dl (70-99); Potassium 3.7 mmol/L (3.5-5.1); Sodium 142 mmol/L (135-145); eGFR > 60.00
[2024-08-08 07:44] VITALS: BP 149/61
[2024-08-08 08:03] LABS: Glucose - Point of Care 130 mg/dl (70-99)
[2024-08-08] MEDS: NOVOLOG FLEXPEN-LOW RESISTANCE SC (08:54)
[2024-08-08] MEDS: LOPRESSOR 50 MG PO ×2 (08:55→22:21)
[2024-08-08] MEDS: SENOKOT 17.2 MG PO ×2 (08:55→22:21)
[2024-08-08] MEDS: LOW STRENGTH ASPIRIN 81 MG PO (08:56)
[2024-08-08] MEDS: PROSCAR 5 MG PO (08:56)
[2024-08-08] MEDS: AUGMENTIN 875 MG/125 MG 1 TABLET PO ×2 (08:56→22:20)
[2024-08-08] MEDS: ELIQUIS 5 MG PO ×2 (08:57→22:20)
[2024-08-08] MEDS: FLOMAX 0.4 MG PO (08:57)
[2024-08-08] MEDS: MIRALAX 17 GRAMS PO (08:58)
--- NOTE | 2024-08-08 10:45 | PTCARENOTE ---
patient's daughter is requesting meeting with all disciplines regarding her dad. Tea Almodovar did inform her that this may not be able to be accomplished. I ganesh texted Dr. Richards, Dr. Aguilar, Dr. Guerrier and Dr. Bennett and asked if they could
update dauthter on her dad's case via phone or in person at some point today. Tea Almodovar did update daughter, will continue to monitor.
[2024-08-08 11:02] VITALS: BP 120/56
--- NOTE | 2024-08-08 11:29 | W.PN.UPDATE ---
Update Note
Progress Note Update
Spoke to patient's daughter Ms. Bj Renner. Reviewed and discussed current exam findings, differential diagnosis, completed and anticipated tests. All questions were answered
Jyothi Guerrier M.D.
Time spent: 19 min 14 sec.
[2024-08-08 11:32] LABS: Glucose - Point of Care 231 mg/dl (70-99)
[2024-08-08] MEDS: NOVOLOG FLEXPEN-LOW RESISTANCE 2 UNITS SC (11:58)
--- NOTE | 2024-08-08 12:52 | W.PN.HOSP.TC ---
Today's Communication/Plan
-
Continue antibiotics and follow respiratory status closely
Attempt to wean off oxygen as tolerates.
INDIA improved with creatinine at normal level.
Hold diuretics and hold IV fluids.
Follow BMP.
Continue anticoagulation.
Physical therapy assessment
Assessment / Plan
Assessment / Plan
Impression
Acute hypoxic respiratory failure
Bilateral pulmonary embolism, provoked (immobility, status post right MICAH 04/28)
Acute CHF preserved EF suspected
Atrial fibrillation with rapid trickle response new following pericardiocentesis
Pneumonia with bilateral/bibasilar airspace consolidation
Large paracardial effusion on CT imaging.
Bilateral pleural effusions
Leukocytosis.
INDIA (creatinine 1.3)
Increased anion gap metabolic acidosis
Elevated LFT, mixed pattern
Toxic metabolic encephalopathy/delirium
Other conditions
CAD with history of STEMI�angioplasty to the right coronary artery 07/23
Nonsustained V. tach post [place].
Essential hypertension.
Dyslipidemia.
BPH
Plan:
Acute hypoxic respiratory failure multifactorial due to pulmonary embolism, bibasilar atelectasis/consolidation, CHF, pleural effusion
Bilateral pulmonary embolism possibly provoked by fairly recent right total hip arthroplasty and low mobility state.
No evidence of saddle emboli upon presentation.
Lower extremity Doppler negative for DVT.
Transitioned off IV heparin to Eliquis on 08/01
Pericardial effusion with early tamponade upon presentation.
Status post pericardial drain placed on 07/27 and removed on 07/28 with reported sufficient drain.
Initial echocardiogram with LVEF of 55%, moderate pericardial effusion with normal RV function and no significant valvular abnormalities
Follow-up echocardiogram on 07/30 with preserved LVEF and trivial pericardial effusion
Pericardial fluid pathology negative for malignant cells
Noted with elevated inflammatory markers/nonspecific
Left pleural effusion
-Status post left thoracentesis on 07/30 700 cc exudate (increased white cell count) pH had not been submitted, cultures had not been submitted
Persistent right lower lobe process consolidation versus pleural effusion. Attempt of thoracentesis by [facility] with not enough pleural effusion to tap.
Repeat ultrasound of the chest with minimal right pleural effusion
Leukocytosis persisting with left shift.
Has been on Zosyn covering bilateral pneumonia.
Blood cultures multiple negative to date.
Remains afebrile.
Heme-onc input appreciated.
There is a reasonable concern for complicated left pulmonary effusion which was tapped with no culture sent.
At this point plan is to complete additional 2 weeks of antibiotics. Will be transition from Zosyn to Augmentin. Through 08/21
On multiple imaging there is a significant elevation of right hemidiaphragm. Follow-up imaging as required
Acute CHF preserved EF (hypoxia, peripheral edema)
Repeat echocardiogram pending
Responding to IV diuresis. Lasix transition to p.o. on 08/01
Follow-up chest x-ray on 08/03 with increased interstitial markings.
Repeat pro CHF BNP improved
Has been diuresed with now INDIA.
Hold further Lasix and monitor closely.
INDIA. Creatinine at 1.5
Mild hypernatremia
Hypokalemia.
Bladder scan for retention.
Hold Lasix.
Gentle hydration with hypotonic solution
Replete potassium
Follow BMP
On HCTZ/losartan MANAGER PRIVATE has been held.
Acute delirium.
Likely multifactorial and not limited to dehydration
No focal findings on neurologic exam
Repeated CT scan on 08/06 negative for acute abnormalities
MRI of the brain with no acute abnormalities
Neurology input appreciated
Mental status improved with hydration.
Avoid sedatives
CAD with history of STEMI and revascularization to RCA 07/23.
Essential hypertension
Dyslipidemia
ECG sinus tachycardia.
Preadmission regimen including metoprolol, losartan, hydrochlorothiazide, amlodipine, atorvastatin, aspirin
Atrial fibrillation with right ventricular response. New onset following pericardial drain placement.
Required IV diltiazem.
Back to sinus
Continue oral metoprolol.
Long-term anticoagulation to be determined
Elevated LFTs, mixed pattern.
Fatty liver and gallbladder sludge by imaging
Suspect hepatic congestion.
Follow trend
BPH.
Monitor for retention.
Continue tamsulosin
Anticipated Discharge: 24 - 48 hours
Subjective/Interval History
-
Date of Service: August 08, 2024
Objective Data
-
Labs:
Laboratory Results
08/08/24
05:29
WBC 21.3 H
Hgb 11.2 L
Hct 35.4 L
Plt Count 366
Sodium 142
Potassium 3.7
Chloride 103
Carbon Dioxide 32 H
BUN 35 H
Creatinine 1.1
Glucose 146 H
Calcium 7.3 L
Vital Signs:
Vital Signs
Temp Pulse Resp BP Pulse Ox
97.8 F 96 14 120/56 95
08/08/24 11:02 08/08/24 11:02 08/08/24 11:02 08/08/24 11:02 08/08/24 11:02
I&O
08/07/24 08/08/24 08/09/24
06:59 06:59 06:59
Intake Total 120 / 120 1155 / 1155
Output Total 350 / 350
Balance -230 / -230 1155 / 1155
Physical Exam
-
General: Well Developed, No Apparent Distress, Appears Chronically Ill and Obese
HEENT: Normocephalic, Atraumatic, Moist Mucous Membranes and Anicteric
Respiratory: Clear to Auscultation and Non Labored Respirations; Negative Accessory Resp Muscle Use
Cardiac: Regular Rhythm and S1/S2; Negative Murmur, Rub or Gallop
GI: Soft, Nontender, Nondistended and Normal Bowel Sounds
Musculoskeletal: No Clubbing, No Cyanosis and No Edema
Skin: Warm, Dry and Normal Turgor; Negative Rash
Neuro: Awake, Alert, Oriented, Nonfocal/Grossly Intact and Central Nerve's Intact
Psych: Calm
--- NOTE | 2024-08-08 14:29 | PTCARENOTE ---
Addendum entered by Xin Merino RN 08/08/24 18:24:
patient confused and forgetful, appears comfortable, tolerating diet, but intake less at lunch compared to breakfast, turns with max assist x2, vss, will continue to monitor.
Original Note:
patient confused to time and place, forgetful, appears comfortable, tolerating diet, but intake less at lunch compared to breakfast, turns with max assist x2, vss, will continue to monitor.
--- NOTE | 2024-08-08 14:57 | W.PN.PUL3 ---
Today's Communication / Plan
-
Continue antibiotics
Wean down FiO2-suspect mostly due to right hemidiaphragm elevation and hypoventilation/obesity in mobility.
Incentive spirometry encouraged
Avoid sedatives
Follow mental status.
No additional pulmonary recommendations.
Assessment
-
Patient is a very pleasant 84-year-old gentleman with history of coronary artery disease, NSTEMI and status post PCI about 3 years ago, hypertension, hyperlipidemia, prostatic hypertrophy who presented to the emergency room with sudden onset
weakness and shortness of breath. Patient reports that he had been in his usual state of health up until the day of admission except for some increasing pedal edema noted over the last 2 weeks which was initially felt to be related to a side effect
of a certain medication. Patient states that he was sitting in chair where he felt uneasy but denies feeling near syncopal but felt mildly short of breath and he had himself lie down on the floor. Patient says that he felt weak and was not able to
pick himself back up. EMS was called and patient was evaluated. He denied any chest pain and workup in the emergency room showed normal troponin but pulmonary embolism and right lower lobe as well as left upper lobe segmental and subsegmental. A
PERT team was activated and I reviewed patient's CAT scan. Clot burden overall seemed small and central arteries were not involved. Patient however was noted to have moderate pericardial effusion and also with trace pleural effusions. Patient was
not hypotensive and had normal troponin with minimal if any right heart strain on CT scan hence catheter directed therapies were not pursued. Another concern with using thrombolytic was the moderate pleural effusion noted on the imaging. Patient's
BNP was noted to be elevated at 1400. Patient was then started on IV heparin and was admitted to IMU and pulmonary consultation was requested for further input.
Bilateral submassive pulmonary embolism-suspect unprovoked
Pericardial effusion with early tamponade s/p pericardiocentesis (07/27/2024)
Bilateral pneumonia
Acute on chronic HFpEF s/p left-sided thoracentesis (07/30, removing 700 cc of cloudy/roxana-colored fluid)
INDIA (as of 08/05)
CAD/history of NSTEMI s/p stent to RCA
Paroxysmal A-fib currently in NSR
Toxic metabolic encephalopathy
Plan:
Pulmonary following for mild hypoxemia and possible pneumonia.
Pulse ox adequate off oxygen during my evaluation.
-
Most recent chest x-ray 08/06/2024: Showed persistent right lower lobe opacity partly atelectasis partly right hemidiaphragm elevation.
Previously was on as much as 10 - 12 L/min on 07/27 - 07/28/2024
Currently on 2 L-wean down as able. Oxygen requirements likely due to atelectasis/right hemidiaphragm elevation and obesity. Immobility.
Nebulizers if needed-currently not bronchospastic
-
Status post left thoracentesis 07/30/24--700 mL of cloudy exudative pleural fluid-cultures and cytology not performed
Right thoracentesis recommended 07/31/24--not enough fluid for tap
right ultrasound 08/07/2024 -no reaccumulation. No significant pleural effusion
encourage incentive spirometer use 10 x per hour for least 4 hours a day; PT/OT
-
Pulmonary embolism:
Anticoagulation with Eliquis s/p heparin drip - treat for minimum of 3-6 months
Not tachycardic
Echocardiogram without significant RV dysfunction.
-
Echocardiogram 07/30/24-EF 55%, aortic sclerosis, trivial pericardial effusion-without evidence for pericardial fluid reaccumulation/tamponade
Cardiology has signed off
Diuretics on hold. Patient was dehydrated.
Status post IV fluids.
Discussion with primary team-will treat for pneumonia with complicated parapneumonic effusion. Pericardial fluid with significant inflammation. Cultures negative.
Cultures of pleural fluid were not sent.
Persistent leukocytosis:No afebrile-leukocytosis slowly trending lower.
Cultures reviewed- Negative so far.
Negative urinalysis
Empiric antibiotics-Zosyn resumed/restarted 5/3 per hospitalist; previously we were going to administer a 7 day course, but with increasing WBC count and worsening confusion, I agree with continuing/prolonging antibiotics to see if this helps him
clinically improve.
Complete 2 additional weeks of Augmentin for possible pneumonia with complicated parapneumonic effusion.
-
Pericardial fluid 07/27/2024: Significant inflammation with increased white blood cells 17,000. 86% granulocytes. LDH greater than 8000.
Left --fluid was cloudy. Thoracentesis no analysis was sent.
In discussion with Dr. Bennett and hematology-concerns for partially treated either complicated parapneumonic pleural effusion versus empyema. Noted no fluid has recurred on follow-up x-rays.
Not unreasonable to treat with additional 2 weeks of antibiotics with Augmentin.
Continue to monitor CBC and fever curve.
-
?Toxic metabolic encephalopathy
Neurology has evaluated the patient:
CT head negative
Not hypercapnic.
MRI negative for acute abnormalities.
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
Mental status improved after hydration but not back to baseline still intermittently confused, moving 4 EXTR, creatinine has improved.
Continue to monitor.
Defer to primary team and neurology
-
Hematology has been consulted for persistent leukocytosis. Normal hemoglobin and platelet count.
No concern for lymphoproliferative disorder.
DVT prophylaxis-Eliquis
Nutrition
PT/OT - rec'd skilled rehab
Code status: DNR/DNI
Pulmonary service will continue to follow along

Data:
Limited ECHO 07/27: Limited TTE for pericardial effusion.
In limited views. Normal-appearing LV size and function with no regional wall
motion abnormalities.
LVEF approximate 55% by visual estimation. No obvious LVH.
Normal right ventricular size and function.
Valvular interrogation was not obtained.
Moderate pericardial effusion at beginning of study; by end of procedure
effusion was minimal.
No comparison for this study given limited amount of views for review.
CXR 07/2024: 1. Low inspiratory volumes.
2. Haziness of each hemidiaphragm, which may represent bibasilar airspace disease and/or small bilateral pleural effusions
CT-PE 07/2024: 1. Positive for segmental and subsegmental pulmonary emboli on each side.
2. Moderate pericardial effusion, measuring 2.1 cm in greatest thickness.
3. Small cavity size of both the RV and LV. Consider echocardiogram to evaluate for tamponade relating to pericardial effusion.
4. RV: LV ratio measures greater than 1. This finding, combined with the relatively small overall burden of embolus and peripheral position of emboli argues against significant right heart strain, however evaluation is complicated by moderate
pericardial effusion.
5. Small bilateral pericardial effusions. Bibasilar airspace consolidation, likely representing compressive atelectasis.
Cardiac Cath 07/2020: 1. Hazy, ulcerated 75-80% culprit lesion in the proximal RCA, status post PCI (Xience Chloe 4.0 x 23 GEORGE, postdilated with 5.0 NC balloon) with reduction in stenosis to 0%, maintaining CHUCK 3 flow.
2. Mildly elevated filling pressures.
Subjective Data
-
Date of Service:
Date of Service: August 08, 2024
Chief Complaint: Pulmonary Follow Up (Pleural effusion/) and Dyspnea Follow Up
Objective Data
Data Reviewed
Vital Signs / I&O / Oxygen:
Vital Signs
Temp Pulse Resp BP Pulse Ox
97.8 F 96 14 120/56 95
08/08/24 11:02 08/08/24 11:02 08/08/24 11:02 08/08/24 11:02 08/08/24 11:02
Intake and Output
05/06/25 05/07/25 05/08/25
06:59 06:59 06:59
Intake Total 120 / 120 1155 / 1155
Output Total 350 / 350
Balance -230 / -230 1155 / 1155
SaO2 95
Nasal Cannula flow liters per 2
minute
Physical Exam
General: Respiratory Distress (n), Comfortable, Chills (n), Sweats (n) and Other (Obese male in NAD; deconditioned and confused)
HEENT: Normocephalic, Anicteric, Moist Mucous Membranes and Other (Thick neck)
Cardiovascular: S1-S2 and Peripheral Edema (negative)
Respiratory: Wheeze (n), Crackles (Bilateral), Rhonchi (n), Non-Labored Respirations, Accessory Resp Muscle Use (n), Stridor (n) and Other (Diminished breath sounds in the right base)
GI: Soft, Distended (Abdominal obesity), Non Tender and Normal Bowel Sounds
Neurology: Awake, Alert, No Motor Deficits, Tremors (n) and Other (Confused, following commands.)
Skin: Warm, Dry, Cyanosis (n), Jaundice (n), Rash (n) and Other (Bilateral venous stasis dermatitis changes)
Labs/Micro/Reports
Lab Data
08/08/24 05:29
08/08/24 05:29
Microbiology
07/27/24 12:05 Pericardial Fluid Fungal Culture - Preliminary
Culture in progress.
Positive cultures are reported as soon as detected.
Final report to follow in four to five weeks.
[2024-08-08 15:47] VITALS: BP 128/59
--- NOTE | 2024-08-08 15:47 | PTCARENOTE ---
patient weaned to room air to 97%, will continue to monitor.
--- NOTE | 2024-08-08 16:17 | CM ---
PT OT indicates SNF need at [place].
Call from [facility] [phone] fax [phone] notified her that pt never was dc and will need an auth for SNF at [place].
Jud dgt requested referral sent to [facility] .
Dgt wants pt to go to rehab.
Oxygen 2 liters Pox 95%.
Continue IV antibiotics.
PLAN To [facility] after accepted and auth obtained
--- NOTE | 2024-08-08 16:18 | PTOTSP ---
Speech Language Pathology
Pt seen for dysphagia tx. Confusion noted. P.O. trials of regular solids and thin liquids provided. Slightly prolonged mastication noted, but this was functional given additional time. Brief cough with 4 consecutive sips of thin liquids. No
other coughing noted. VSE had been ordered earlier in admission, but held multiple days secondary to 02 needs. Then cancelled by hospitalist for low suspicion for aspiration. Discussed with current hospitalist with no need for VSE at this time.
Recommend:
(1) Regular solids/thin liquids
(2) General aspiration precautions
(3) Meds as tolerated
(4) Can order VSE if any concern for aspiration
(5) POWER BALLAST MACHINE OPERATOR to sign off. Please reconsult as indicated
[2024-08-08 16:44] LABS: Glucose - Point of Care 175 mg/dl (70-99)
[2024-08-08] MEDS: NOVOLOG FLEXPEN-LOW RESISTANCE 1 UNITS SC (18:08)
[2024-08-08] MEDS: LIPITOR 40 MG PO (18:08)
[2024-08-08 19:38] VITALS: BP 140/61
[2024-08-08 21:43] LABS: Glucose - Point of Care 182 mg/dl (70-99)
[2024-08-08 23:30] VITALS: BP 142/55
[2024-08-09 03:35] VITALS: BP 140/70
[2024-08-09 06:00] VITALS: BMI 33.3
[2024-08-09 07:40] VITALS: BP 162/80
[2024-08-09] MEDS: NOVOLOG FLEXPEN-LOW RESISTANCE 1 UNITS SC (08:51)
[2024-08-09 08:52] LABS: Glucose - Point of Care 186 mg/dl (70-99)
[2024-08-09] MEDS: AUGMENTIN 875 MG/125 MG 1 TABLET PO ×2 (08:53→20:40)
[2024-08-09] MEDS: ELIQUIS 5 MG PO ×2 (08:53→20:40)
[2024-08-09] MEDS: MIRALAX 17 GRAMS PO (08:54)
[2024-08-09] MEDS: PROSCAR 5 MG PO (08:54)
[2024-08-09] MEDS: LOPRESSOR 50 MG PO ×2 (08:54→20:40)
[2024-08-09] MEDS: LOW STRENGTH ASPIRIN 81 MG PO (08:54)
[2024-08-09] MEDS: FLOMAX 0.4 MG PO (08:54)
[2024-08-09] MEDS: SENOKOT 17.2 MG PO ×2 (08:55→20:40)
[2024-08-09 11:27] VITALS: BP 128/63
[2024-08-09 11:40] LABS: Glucose - Point of Care 241 mg/dl (70-99)
[2024-08-09] MEDS: NOVOLOG FLEXPEN-LOW RESISTANCE 2 UNITS SC (11:51)
[2024-08-09 12:49] LABS: Hematocrit 37.3 % (39.0-52.0); Hemoglobin 12.3 g/dL (13.0-18.0); Mean Corpuscular Hgb 29.4 pg (27.0-31.0); Mean Corpuscular Volume 89.2 fL (80.0-94.0); Mean Platelet Volume 9.8 fL (7.4-10.4); Platelet Count 431 10^3/uL (130-400); Red Blood Cell Count 4.18 10^6/uL (4.70-6.10); Red Cell Dist. Width 13.7 % (11.5-14.5); White Blood Cell Count 28.8 10^3/uL (4.8-10.8)
[2024-08-09 13:11] LABS: % Basophils 0.1 % (0-2); % Eosinophils 0.3 % (0-6); % Immature Granulocytes 1.1 % (0-0.5); % Lymphocytes 3.9 % (20.5-51.1); % Monocytes 2.4 % (1.7-9.3); % Neutrophils 92.2 % (42.2-75.2); Absolute Eosinophils 0.1 10^3/uL (0-0.7); Absolute Immature Granulocytes 0.3 10^3/uL (0-0.05); Absolute Lymphocytes 1.1 10^3/uL (1.2-3.4); Absolute Monocytes 0.7 10^3/uL (0.1-0.6); Absolute Neutrophils 26.5 10^3/uL (1.4-6.5); Nucleated Red Blood Cells % 0 % (-)
--- NOTE | 2024-08-09 13:27 | W.PN.PUL3 ---
Today's Communication / Plan
-
No additional pulmonary recommendations
If there is worsening oxygenation will obtain CT of the chest to reevaluate lung parenchyma as well as recurrent effusions.
Complete antibiotic therapy
Avoid sedatives
Incentive spirometry as tolerated
-
Will defer further management to primary team-patient significantly weak. 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
Please call with questions.
Assessment
-
Patient is a very pleasant 84-year-old gentleman with history of coronary artery disease, NSTEMI and status post PCI about 3 years ago, hypertension, hyperlipidemia, prostatic hypertrophy who presented to the emergency room with sudden onset
weakness and shortness of breath. Patient reports that he had been in his usual state of health up until the day of admission except for some increasing pedal edema noted over the last 2 weeks which was initially felt to be related to a side effect
of a certain medication. Patient states that he was sitting in chair where he felt uneasy but denies feeling near syncopal but felt mildly short of breath and he had himself lie down on the floor. Patient says that he felt weak and was not able to
pick himself back up. EMS was called and patient was evaluated. He denied any chest pain and workup in the emergency room showed normal troponin but pulmonary embolism and right lower lobe as well as left upper lobe segmental and subsegmental. A
PERT team was activated and I reviewed patient's CAT scan. Clot burden overall seemed small and central arteries were not involved. Patient however was noted to have moderate pericardial effusion and also with trace pleural effusions. Patient was
not hypotensive and had normal troponin with minimal if any right heart strain on CT scan hence catheter directed therapies were not pursued. Another concern with using thrombolytic was the moderate pleural effusion noted on the imaging. Patient's
BNP was noted to be elevated at 1400. Patient was then started on IV heparin and was admitted to IMU and pulmonary consultation was requested for further input.
Bilateral submassive pulmonary embolism-suspect unprovoked
Pericardial effusion with early tamponade s/p pericardiocentesis (07/27/2024)
Bilateral pneumonia
Acute on chronic HFpEF s/p left-sided thoracentesis (07/30, removing 700 cc of cloudy/roxana-colored fluid)
INDIA (as of 08/05)
CAD/history of NSTEMI s/p stent to RCA
Paroxysmal A-fib currently in NSR
Toxic metabolic encephalopathy
Plan:
Pulmonary following for mild hypoxemia and possible pneumonia.
Pulse ox adequate off oxygen during my evaluation-pulse ox 92% on room air 08/09/2024.
Remains somnolent but arousable.
Strong cough on demand.
Following commands.
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
No appreciable focal motor changes on evaluation.
-
Chest x-ray 08/06/2024: Showed persistent right lower lobe opacity partly atelectasis partly right hemidiaphragm elevation.
Previously was on as much as 10 - 12 L/min on 07/27 - 07/28/2024
PRN Ox 2 L-Oxygen requirements likely due to atelectasis/right hemidiaphragm elevation and obesity. Immobility.
Nebulizers if needed-currently not bronchospastic
-
Status post left thoracentesis 07/30/24--700 mL of cloudy exudative pleural fluid-cultures and cytology not performed
Right thoracentesis recommended 07/31/24--not enough fluid for tap
right ultrasound 08/07/2024 -no reaccumulation. No significant pleural effusion
encourage incentive spirometer use 10 x per hour for least 4 hours a day; PT/OT
-
Pulmonary embolism:
Anticoagulation with Eliquis s/p heparin drip - treat for minimum of 3-6 months
Not tachycardic
Echocardiogram without significant RV dysfunction.
-
Echocardiogram 07/30/24-EF 55%, aortic sclerosis, trivial pericardial effusion-without evidence for pericardial fluid reaccumulation/tamponade
Cardiology has signed off
Diuretics on hold. Patient was dehydrated.
Status post IV fluids.
Discussion with primary team-will treat for pneumonia with complicated parapneumonic effusion. Pericardial fluid with significant inflammation. Cultures negative.
Cultures of pleural fluid were not sent.
-
Persistent leukocytosis:No afebrile-leukocytosis.
Hematology expected reactive. Continue to follow.
Not tachycardic. Not hypotensive.
Cultures reviewed- Negative so far.
Negative urinalysis
Empiric antibiotics-Zosyn resumed/restarted 08/04 per hospitalist; previously we were going to administer a 7 day course, but with increasing WBC count and worsening confusion, I agree with continuing/prolonging antibiotics to see if this helps him
clinically improve.
Complete 2 additional weeks of Augmentin for possible Left pneumonia with complicated parapneumonic effusion.
-
Pericardial fluid 07/27/2024: Significant inflammation with increased white blood cells 17,000. 86% granulocytes. LDH greater than 8000.
Left --fluid was cloudy. Thoracentesis no analysis was sent.
In discussion with Dr. Bennett and hematology-concerns for partially treated either complicated parapneumonic pleural effusion versus empyema. Noted no fluid has recurred on follow-up x-rays.
Not unreasonable to treat with additional 2 weeks of antibiotics with Augmentin.
Continue to monitor CBC and fever curve.
-
?Toxic metabolic encephalopathy
Neurology has evaluated the patient:
CT head negative
Not hypercapnic.
MRI negative for acute abnormalities.
Avoid VAULT WORKER depressant.
Mental status improved after hydration but not back to baseline still intermittently confused, moving 4 EXTR, creatinine has improved.
Continue to monitor.
Defer to primary team and neurology
-
Hematology has been consulted for persistent leukocytosis. Normal hemoglobin and platelet count.
No concern for lymphoproliferative disorder.
DVT prophylaxis-Eliquis
Aspiration precautions.
PT/OT - rec'd skilled rehab
Code status: DNR/DNI
-
No additional pulmonary recommendations

Data:
Limited ECHO 07/27: Limited TTE for pericardial effusion.
In limited views. Normal-appearing LV size and function with no regional wall
motion abnormalities.
LVEF approximate 55% by visual estimation. No obvious LVH.
Normal right ventricular size and function.
Valvular interrogation was not obtained.
Moderate pericardial effusion at beginning of study; by end of procedure
effusion was minimal.
No comparison for this study given limited amount of views for review.
CXR 07/2024: 1. Low inspiratory volumes.
2. Haziness of each hemidiaphragm, which may represent bibasilar airspace disease and/or small bilateral pleural effusions
CT-PE 07/2024: 1. Positive for segmental and subsegmental pulmonary emboli on each side.
2. Moderate pericardial effusion, measuring 2.1 cm in greatest thickness.
3. Small cavity size of both the RV and LV. Consider echocardiogram to evaluate for tamponade relating to pericardial effusion.
4. RV: LV ratio measures greater than 1. This finding, combined with the relatively small overall burden of embolus and peripheral position of emboli argues against significant right heart strain, however evaluation is complicated by moderate
pericardial effusion.
5. Small bilateral pericardial effusions. Bibasilar airspace consolidation, likely representing compressive atelectasis.
Cardiac Cath 07/2020: 1. Hazy, ulcerated 75-80% culprit lesion in the proximal RCA, status post PCI (Xience Chloe 4.0 x 23 GEORGE, postdilated with 5.0 NC balloon) with reduction in stenosis to 0%, maintaining CHUCK 3 flow.
2. Mildly elevated filling pressures.
Subjective Data
-
Date of Service:
Date of Service: August 09, 2024
Chief Complaint: Pulmonary Follow Up (Pleural effusion/) and Dyspnea Follow Up
Subjective:
No new events from the pulmonary perspective
Remains on room air
Review of Systems
General: Fever (n)
GI: Abdominal Pain (n) and Nausea (n)
Objective Data
Data Reviewed
Vital Signs / I&O / Oxygen:
Vital Signs
Temp Pulse Resp BP Pulse Ox
97.3 F 89 14 128/63 91
08/09/24 11:27 08/09/24 11:27 08/09/24 11:27 08/09/24 11:27 08/09/24 11:27
Intake and Output
08/08/24 08/09/24 08/10/24
06:59 06:59 06:59
Intake Total 1155 / 1155 840 / 840
Balance 1155 / 1155 840 / 840
SaO2 91
Nasal Cannula flow liters per 2
minute
Physical Exam
General: Respiratory Distress (n), Comfortable and Other (Obese male in NAD.)
HEENT: Normocephalic, Anicteric, Moist Mucous Membranes and Other (Thick neck)
Cardiovascular: S1-S2 and Peripheral Edema (negative)
Respiratory: Wheeze (n), Crackles (Bilateral), Rhonchi (n), Non-Labored Respirations, Accessory Resp Muscle Use (n), Stridor (n) and Other (Diminished breath sounds in the right base)
GI: Soft, Distended (Abdominal obesity), Non Tender and Normal Bowel Sounds
Neurology: Awake, Alert, No Motor Deficits, Tremors (n) and Other (Confused, following commands.)
Skin: Warm, Dry, Cyanosis (n), Jaundice (n), Rash (n) and Other (Bilateral venous stasis dermatitis changes)
Labs/Micro/Reports
Lab Data
08/09/24 12:14
Microbiology
07/27/24 12:05 Pericardial Fluid Fungal Culture - Preliminary
Culture in progress.
Positive cultures are reported as soon as detected.
Final report to follow in four to five weeks.
[2024-08-09 13:36] LABS: Blood Urea Nitrogen 24 mg/dl (9-20); Calcium 7.9 mg/dl (8.4-10.2); Carbon Dioxide 32 mmol/L (22-30); Chloride 103 mmol/L (98-107); Estimated Creatinine Clearance 73 ml/min; Glucose 191 mg/dl (70-99); Potassium 3.7 mmol/L (3.5-5.1); Sodium 141 mmol/L (135-145); eGFR > 60.00
[2024-08-09 13:40] VITALS: BP 121/62; BP 136/62; PULSE 91; O2SAT 94
[2024-08-09 14:34] VITALS: BP 121/62; O2SAT 94
--- NOTE | 2024-08-09 15:03 | W.PN.HOSP.TC ---
Today's Communication/Plan
-
Antibiotics
Anticoagulation
Monitor respiratory status closely. If any worsening, would be low threshold for reimage.
Mobilize out of the bed with physical therapy assessment and discharge planning
Assessment / Plan
Assessment / Plan
Impression
Acute hypoxic respiratory failure
Bilateral pulmonary embolism, provoked (immobility, status post right MICAH 04/28)
Acute CHF preserved EF suspected
Atrial fibrillation with rapid trickle response new following pericardiocentesis
Pneumonia with bilateral/bibasilar airspace consolidation
Large paracardial effusion on CT imaging.
Bilateral pleural effusions
Leukocytosis.
INDIA (creatinine 1.3)
Increased anion gap metabolic acidosis
Elevated LFT, mixed pattern
Toxic metabolic encephalopathy/delirium
Other conditions
CAD with history of STEMI�angioplasty to the right coronary artery 07/23
Nonsustained V. tach post [place].
Essential hypertension.
Dyslipidemia.
BPH
Plan:
Acute hypoxic respiratory failure multifactorial due to pulmonary embolism, bibasilar atelectasis/consolidation, CHF, pleural effusion
Bilateral pulmonary embolism possibly provoked by fairly recent right total hip arthroplasty and low mobility state.
No evidence of saddle emboli upon presentation.
Lower extremity Doppler negative for DVT.
Transitioned off IV heparin to Eliquis on 08/01
Pericardial effusion with early tamponade upon presentation.
Status post pericardial drain placed on 07/27 and removed on 07/28 with reported sufficient drain.
Initial echocardiogram with LVEF of 55%, moderate pericardial effusion with normal RV function and no significant valvular abnormalities
Follow-up echocardiogram on 07/30 with preserved LVEF and trivial pericardial effusion
Pericardial fluid pathology negative for malignant cells
Noted with elevated inflammatory markers/nonspecific
Left pleural effusion
-Status post left thoracentesis on 07/30 700 cc exudate (increased white cell count) pH had not been submitted, cultures had not been submitted
Persistent right lower lobe process consolidation versus pleural effusion. Attempt of thoracentesis by [facility] with not enough pleural effusion to tap.
Repeat ultrasound of the chest with minimal right pleural effusion
Leukocytosis persisting with left shift.
Has been on Zosyn covering bilateral pneumonia.
Blood cultures multiple negative to date.
Remains afebrile.
Heme-onc input appreciated.
There is a reasonable concern for complicated left pulmonary effusion which was tapped with no culture sent.
At this point plan is to complete additional 2 weeks of antibiotics. Will be transition from Zosyn to Augmentin. Through 08/21
On multiple imaging there is a significant elevation of right hemidiaphragm. Follow-up imaging as required
Acute CHF preserved EF (hypoxia, peripheral edema)
Repeat echocardiogram pending
Responding to IV diuresis. Lasix transition to p.o. on 08/01
Follow-up chest x-ray on 08/03 with increased interstitial markings.
Repeat pro CHF BNP improved
Has been diuresed with now INDIA.
Hold further Lasix and monitor closely.
INDIA. Creatinine at 1.5
Mild hypernatremia
Hypokalemia.
Bladder scan for retention.
Hold Lasix.
Gentle hydration with hypotonic solution
Replete potassium
Follow BMP
On HCTZ/losartan [employer] has been held.
Acute delirium.
Likely multifactorial and not limited to dehydration
No focal findings on neurologic exam
Repeated CT scan on 08/06 negative for acute abnormalities
MRI of the brain with no acute abnormalities
Neurology input appreciated
Mental status improved with hydration.
Avoid sedatives
CAD with history of STEMI and revascularization to RCA 07/23.
Essential hypertension
Dyslipidemia
ECG sinus tachycardia.
Preadmission regimen including metoprolol, losartan, hydrochlorothiazide, amlodipine, atorvastatin, aspirin
Atrial fibrillation with right ventricular response. New onset following pericardial drain placement.
Required IV diltiazem.
Back to sinus
Continue oral metoprolol.
Long-term anticoagulation to be determined
Elevated LFTs, mixed pattern.
Fatty liver and gallbladder sludge by imaging
Suspect hepatic congestion.
Follow trend
BPH.
Monitor for retention.
Continue tamsulosin
Anticipated Discharge: 24 - 48 hours
Subjective/Interval History
-
Date of Service: August 09, 2024
Objective Data
-
Labs:
Laboratory Results
08/09/24
12:14
WBC 28.8 H
Hgb 12.3 L
Hct 37.3 L
Plt Count 431 H
Sodium 141
Potassium 3.7
Chloride 103
Carbon Dioxide 32 H
BUN 24 H
Creatinine 0.9
Glucose 191 H
Calcium 7.9 L
Vital Signs:
Vital Signs
Temp Pulse Resp BP Pulse Ox
97.3 F 89 14 128/63 91
08/09/24 11:27 08/09/24 11:27 08/09/24 11:27 08/09/24 11:27 08/09/24 11:27
I&O
08/08/24 08/09/24 08/10/24
06:59 06:59 06:59
Intake Total 1155 / 1155 840 / 840
Balance 1155 / 1155 840 / 840
Physical Exam
-
General: Well Developed, No Apparent Distress, Appears Chronically Ill and Obese
HEENT: Normocephalic, Atraumatic, Moist Mucous Membranes and Anicteric
Respiratory: Clear to Auscultation and Non Labored Respirations; Negative Accessory Resp Muscle Use
Cardiac: Regular Rhythm and S1/S2; Negative Murmur, Rub or Gallop
GI: Soft, Nontender, Nondistended and Normal Bowel Sounds
Musculoskeletal: No Clubbing, No Cyanosis and No Edema
Skin: Warm, Dry and Normal Turgor; Negative Rash
Neuro: Awake, Alert, Oriented, Nonfocal/Grossly Intact and Central Nerve's Intact
Psych: Calm
[2024-08-09 15:28] VITALS: BP 122/56
[2024-08-09 16:39] LABS: Glucose - Point of Care 140 mg/dl (70-99)
[2024-08-09 17:47] LABS: Purkinje Cell/Neuronal Nuc IgG None Detected (None Detected)
[2024-08-09] MEDS: NOVOLOG FLEXPEN-LOW RESISTANCE SC (17:57)
[2024-08-09] MEDS: LIPITOR PO (17:57)
[2024-08-09 21:33] LABS: Glucose - Point of Care 208 mg/dl (70-99)
[2024-08-10 00:46] VITALS: BP 125/71
[2024-08-10 04:15] VITALS: BP 137/58
[2024-08-10 05:58] LABS: Hematocrit 38.5 % (39.0-52.0); Hemoglobin 12.5 g/dL (13.0-18.0); Mean Corp Hgb Conc. 32.5 g/dL (33.0-37.0); Mean Corpuscular Volume 89.3 fL (80.0-94.0); Mean Platelet Volume 9.7 fL (7.4-10.4); Platelet Count 451 10^3/uL (130-400); Red Blood Cell Count 4.31 10^6/uL (4.70-6.10); Red Cell Dist. Width 13.8 % (11.5-14.5); White Blood Cell Count 25.5 10^3/uL (4.8-10.8)
[2024-08-10 06:00] VITALS: BMI 33.6
[2024-08-10 07:45] VITALS: BP 131/71
[2024-08-10] MEDS: FLOMAX 0.4 MG PO (08:58)
[2024-08-10] MEDS: PROSCAR 5 MG PO (08:58)
[2024-08-10] MEDS: LOW STRENGTH ASPIRIN 81 MG PO (08:58)
[2024-08-10] MEDS: AUGMENTIN 875 MG/125 MG 1 TABLET PO ×2 (08:58→20:47)
[2024-08-10] MEDS: SENOKOT 17.2 MG PO ×2 (08:58→20:47)
[2024-08-10] MEDS: LOPRESSOR 50 MG PO ×2 (08:58→20:48)
[2024-08-10] MEDS: ELIQUIS 5 MG PO ×2 (08:59→20:53)
[2024-08-10] MEDS: MIRALAX 17 GRAMS PO (08:59)
[2024-08-10] MEDS: NOVOLOG FLEXPEN-LOW RESISTANCE 2 UNITS SC (09:00)
[2024-08-10 10:30] LABS: ALT (SGPT) 62 U/L (0-50); AST (SGOT) 57 U/L (17-59); Albumin 2.4 g/dl (3.5-5.0); Alkaline Phosphatase 148 U/L (38-126); Direct Bilirubin 0.4 mg/dl (0.0-0.4); Total Protein 5.6 g/dl (6.3-8.2)
[2024-08-10 11:16] VITALS: BP 120/64
[2024-08-10 11:28] LABS: NT-proBNP 3910 pg/ml
[2024-08-10 11:49] LABS: Glucose - Point of Care 134 mg/dl (70-99)
[2024-08-10] MEDS: NOVOLOG FLEXPEN-LOW RESISTANCE SC (11:54)
--- NOTE | 2024-08-10 11:58 | CM ---
Spoke with Jud dgt requested to speak with MD regarding goals of care.
MD texted dgt number.
Dgt wants pt to go to [facility].
Oxygen 2 liters Pox 94%.
Continue IV antibiotics.
Pulmonary involved.
PLAN To [facility] after accepted
--- NOTE | 2024-08-10 13:11 | W.PN.PUL3 ---
Today's Communication / Plan
-
Obtain right sided ultrasound-if there is significant effusion then we will perform thoracentesis. As of a few days ago ultrasound showed no significant fluid.
CT chest right effusion appears large.
Thoracentesis will be performed for symptomatic relief.
Incentive spirometer
Aspiration precaution
Continue antibiotics for pneumonia
Mental status not significantly improved-delirium.
Moving towards hospice if there is no significant improvement in mental status.
Assessment
-
Patient is a very pleasant 84-year-old gentleman with history of coronary artery disease, NSTEMI and status post PCI about 3 years ago, hypertension, hyperlipidemia, prostatic hypertrophy who presented to the emergency room with sudden onset
weakness and shortness of breath. Patient reports that he had been in his usual state of health up until the day of admission except for some increasing pedal edema noted over the last 2 weeks which was initially felt to be related to a side effect
of a certain medication. Patient states that he was sitting in chair where he felt uneasy but denies feeling near syncopal but felt mildly short of breath and he had himself lie down on the floor. Patient says that he felt weak and was not able to
pick himself back up. EMS was called and patient was evaluated. He denied any chest pain and workup in the emergency room showed normal troponin but pulmonary embolism and right lower lobe as well as left upper lobe segmental and subsegmental. A
PERT team was activated and I reviewed patient's CAT scan. Clot burden overall seemed small and central arteries were not involved. Patient however was noted to have moderate pericardial effusion and also with trace pleural effusions. Patient was
not hypotensive and had normal troponin with minimal if any right heart strain on CT scan hence catheter directed therapies were not pursued. Another concern with using thrombolytic was the moderate pleural effusion noted on the imaging. Patient's
BNP was noted to be elevated at 1400. Patient was then started on IV heparin and was admitted to IMU and pulmonary consultation was requested for further input.
Bilateral submassive pulmonary embolism-suspect unprovoked
Pericardial effusion with early tamponade s/p pericardiocentesis (07/27/2024)
Bilateral pneumonia
Acute on chronic HFpEF s/p left-sided thoracentesis (07/30, removing 700 cc of cloudy/roxana-colored fluid)
INDIA (as of 08/05)
CAD/history of NSTEMI s/p stent to RCA
Paroxysmal A-fib currently in NSR
Toxic metabolic encephalopathy
Plan:
Pulmonary following for mild hypoxemia and possible pneumonia.
Pulse ox adequate off oxygen during my evaluation-pulse ox 92% on room air 08/09/2024.
Back on low rate supplemental oxygen 08/10/2024
CT chest ordered by me overnight: Reviewed showed bilateral subsegmental atelectasis right greater than left. Right large pleural effusion. Small left pleural effusion.
proBNP elevated-at this point doubt that he will tolerate further diuresis.
Bilateral effusions likely due to low albumin level
To help with symptomatic relief and wean off oxygen: Repeat right sided ultrasound and if there is significant effusion then we will perform thoracentesis for symptomatic relief.
-
Mental status has not improved significantly, protracted hypoactive delirium.
Remains somnolent but arousable.
Strong cough on demand.
Following commands.
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
No appreciable focal motor changes on evaluation.
-
Chest x-ray 08/06/2024: Showed persistent right lower lobe opacity partly atelectasis partly right hemidiaphragm elevation.
Previously was on as much as 10 - 12 L/min on 07/27 - 07/28/2024
Back on supplemental oxygen as of 08/10/2024 overnight-see above.
Cannot rule out intermittent microaspiration. He continues to eat.
Nebulizers if needed-currently not bronchospastic
-
Status post left thoracentesis 07/30/24--700 mL of cloudy exudative pleural fluid-cultures and cytology not performed
Right thoracentesis recommended 07/31/24--not enough fluid for tap
right ultrasound 08/07/2024 -no reaccumulation. No significant pleural effusion
encourage incentive spirometer use 10 x per hour for least 4 hours a day; PT/OT
See above on reaccumulation of pleural effusion.
-
Pulmonary embolism:
Anticoagulation with Eliquis s/p heparin drip - treat for minimum of 3-6 months
Not tachycardic
Echocardiogram without significant RV dysfunction.
-
Echocardiogram 07/30/24-EF 55%, aortic sclerosis, trivial pericardial effusion-without evidence for pericardial fluid reaccumulation/tamponade
Cardiology has signed off
Diuretics on hold. Patient was dehydrated.
Status post IV fluids.
Discussion with primary team-will treat for pneumonia with complicated parapneumonic effusion. Pericardial fluid with significant inflammation. Cultures negative.
Cultures of pleural fluid were not sent.
If thoracentesis repeated will be sent for analysis.
-
Persistent leukocytosis:No afebrile-leukocytosis.
Hematology expected reactive. Continue to follow.
Not tachycardic. Not hypotensive.
Cultures reviewed- Negative so far.
Negative urinalysis
Empiric antibiotics-Zosyn resumed/restarted 5/ per hospitalist; previously we were going to administer a 7 day course, but with increasing WBC count and worsening confusion, I agree with continuing/prolonging antibiotics to see if this helps him
clinically improve.
Complete 2 additional weeks of Augmentin for possible Left pneumonia with complicated parapneumonic effusion.
-
Pericardial fluid 07/27/2024: Significant inflammation with increased white blood cells 17,000. 86% granulocytes. LDH greater than 8000.
Left --fluid was cloudy. Thoracentesis no analysis was sent.
In discussion with Dr. Bennett and hematology-concerns for partially treated either complicated parapneumonic pleural effusion versus empyema. Noted no fluid has recurred on follow-up x-rays.
Not unreasonable to treat with additional 2 weeks of antibiotics with Augmentin.
Continue to monitor CBC and fever curve.
-
?Toxic metabolic encephalopathy-hypoactive delirium.
Neurology has evaluated the patient:
CT head negative
Not hypercapnic.
MRI negative for acute abnormalities.
Avoid [employer] depressant.
Mental status improved after hydration but not back to baseline still intermittently confused, moving 4 EXTR, creatinine has improved.
Continue to monitor.
Defer to primary team and neurology
-
Hematology has been consulted for persistent leukocytosis. Normal hemoglobin and platelet count.
No concern for lymphoproliferative disorder.
DVT prophylaxis-Eliquis
Aspiration precautions.
PT/OT - rec'd skilled rehab
Code status: DNR/DNI
-
Dr. Richards discussed with daughter last time over the phone 08/09/2024-from the pulmonary perspective doubt any acute issues. He will continue to reaccumulate pleural effusion likely due to hypoalbuminemia.
More concerning is his mental status that is not improving.
Discussed with Dr. Bennett. Hospice has been discussed. If there is no significant improvement over the weekend then he will move towards hospice care.
-
Will see intermittently throughout the weekend.

Data:
Limited ECHO 07/27: Limited TTE for pericardial effusion.
In limited views. Normal-appearing LV size and function with no regional wall
motion abnormalities.
LVEF approximate 55% by visual estimation. No obvious LVH.
Normal right ventricular size and function.
Valvular interrogation was not obtained.
Moderate pericardial effusion at beginning of study; by end of procedure
effusion was minimal.
No comparison for this study given limited amount of views for review.
CXR 07/2024: 1. Low inspiratory volumes.
2. Haziness of each hemidiaphragm, which may represent bibasilar airspace disease and/or small bilateral pleural effusions
CT-PE 07/2024: 1. Positive for segmental and subsegmental pulmonary emboli on each side.
2. Moderate pericardial effusion, measuring 2.1 cm in greatest thickness.
3. Small cavity size of both the RV and LV. Consider echocardiogram to evaluate for tamponade relating to pericardial effusion.
4. RV: LV ratio measures greater than 1. This finding, combined with the relatively small overall burden of embolus and peripheral position of emboli argues against significant right heart strain, however evaluation is complicated by moderate
pericardial effusion.
5. Small bilateral pericardial effusions. Bibasilar airspace consolidation, likely representing compressive atelectasis.
Cardiac Cath 07/2020: 1. Hazy, ulcerated 75-80% culprit lesion in the proximal RCA, status post PCI (Xience Chloe 4.0 x 23 GEORGE, postdilated with 5.0 NC balloon) with reduction in stenosis to 0%, maintaining CHUCK 3 flow.
2. Mildly elevated filling pressures.
Subjective Data
-
Date of Service:
Date of Service: August 10, 2024
Chief Complaint: Pulmonary Follow Up (Pleural effusion/) and Dyspnea Follow Up
Subjective:
Mental status not improved
Now on low rate supplemental oxygen
Continues to be extremely weak
Review of Systems
General: Other (Difficult to obtain due to delirium)
Objective Data
Data Reviewed
Vital Signs / I&O / Oxygen:
Vital Signs
Temp Pulse Resp BP Pulse Ox
98.5 F 95 16 120/64 94
08/10/24 11:16 08/10/24 11:16 08/10/24 11:16 08/10/24 11:16 08/10/24 11:16
Intake and Output
08/09/24 08/10/24 08/11/24
06:59 06:59 06:59
Intake Total 840 / 840 960 / 960
Balance 840 / 840 960 / 960
SaO2 94
Nasal Cannula flow liters per 2
minute
Physical Exam
General: Respiratory Distress (n), Comfortable and Other (Obese male in NAD.)
HEENT: Normocephalic, Anicteric, Moist Mucous Membranes and Other (Thick neck)
Cardiovascular: S1-S2 and Peripheral Edema (negative)
Respiratory: Wheeze (Not significant this morning.), Crackles (Bilateral), Rhonchi (n), Non-Labored Respirations (At rest), Stridor (n) and Other (Decreased breath sounds bilaterally)
GI: Soft, Distended (Abdominal obesity), Non Tender and Normal Bowel Sounds
Neurology: Awake, Other (Drowsy but arousable.) and Other (Confused, following commands.)
Skin: Warm, Dry, Cyanosis (n), Jaundice (n), Rash (n) and Other (Bilateral venous stasis dermatitis changes)
Labs/Micro/Reports
Lab Data
08/10/24 05:32
08/09/24 12:14
--- NOTE | 2024-08-10 13:24 | HOSPNOTE ---
Referral received. Spoke to attending- plan is to monitor patient over the weekend. If condition worsens, will make comfort/inpatient hospice. If stabilizes will look to facility placement which daughter's first choice would be [facility]. Spoke
to daughter at length, she is in agreement with plan and knows we will reach out if condition worsens over the weekend and comfort/inpatient hospice is warranted. CM updated as well.
[2024-08-10 15:57] VITALS: BP 98/67
--- NOTE | 2024-08-10 16:03 | CM ---
Hospice referral received from Dr. Bennett; plan is to monitor patient over the weekend and if his condition worsens, plan is for comfort care/inpatient hospice. If Tony stabilizes, SNF placement would need to be pursued. Daughter's first choice
would be [facility].
Plan: CM to follow for SNF placement if indicated.
--- NOTE | 2024-08-10 16:03 | W.PN.HOSP.TC ---
Today's Communication/Plan
-
Goals of care discussion with patient's daughter.
Patient is 84 years old male with multiple comorbidities who presented with acute pulmonary embolism, acute pericardial effusion. Hospital course complicated with bilateral pneumonia. Patient with protracted encephalopathy and delirium. Remains
bedbound with limited ability to participate with physical therapy. Unfortunately cognitive status not improving with aggressive medical treatment. Given patient's wishes not to pursue any aggressive measures plan is to consult hospice. Observe
clinical development over the next 24 to 48 hours. If no improvement will pursue hospice transition either inpatient versus facility early next week
Repeated CT of the chest and right chest ultrasound today consistent with small to moderate right pleural effusion. Currently with relatively stable respiratory status. On antibiotics.
Monitor closely, may require additional attempt of thoracentesis (failed previously due to small tappable amount of fluid).
Assessment / Plan
Assessment / Plan
Impression
Acute hypoxic respiratory failure
Bilateral pulmonary embolism, provoked (immobility, status post right MICAH 04/28)
Acute CHF preserved EF suspected
Atrial fibrillation with rapid trickle response new following pericardiocentesis
Pneumonia with bilateral/bibasilar airspace consolidation
Large paracardial effusion on CT imaging.
Bilateral pleural effusions
Leukocytosis.
INDIA (creatinine 1.3)
Increased anion gap metabolic acidosis
Elevated LFT, mixed pattern
Toxic metabolic encephalopathy/delirium
Other conditions
CAD with history of STEMI�angioplasty to the right coronary artery 07/23
Nonsustained V. tach post [place].
Essential hypertension.
Dyslipidemia.
BPH
Plan:
Acute hypoxic respiratory failure multifactorial due to pulmonary embolism, bibasilar atelectasis/consolidation, CHF, pleural effusion
Bilateral pulmonary embolism possibly provoked by fairly recent right total hip arthroplasty and low mobility state.
No evidence of saddle emboli upon presentation.
Lower extremity Doppler negative for DVT.
Transitioned off IV heparin to Eliquis on 08/01
Pericardial effusion with early tamponade upon presentation.
Status post pericardial drain placed on 07/27 and removed on 07/28 with reported sufficient drain.
Initial echocardiogram with LVEF of 55%, moderate pericardial effusion with normal RV function and no significant valvular abnormalities
Follow-up echocardiogram on 07/30 with preserved LVEF and trivial pericardial effusion
Pericardial fluid pathology negative for malignant cells
Noted with elevated inflammatory markers/nonspecific
Leukocytosis persisting with left shift.
Concern for bilateral pneumonia, possibly secondary to aspiration
Has been on Zosyn and transition to Augmentin
Blood cultures multiple negative to date.
Remains afebrile.
Heme-onc input appreciated.
There is a reasonable concern for complicated left pulmonary effusion which was tapped with no culture sent.
At this point plan is to complete additional 2 weeks of antibiotics. Will be transition from Zosyn to Augmentin. Through 08/21
On multiple imaging there is a significant elevation of right hemidiaphragm. Follow-up imaging as required
Left pleural effusion
-Status post left thoracentesis on 07/30 700 cc exudate (increased white cell count) pH had not been submitted, cultures had not been submitted
Persistent right lower lobe process consolidation versus pleural effusion. Attempt of thoracentesis by [facility] with not enough pleural effusion to tap.
Repeat chest ultrasound with small to moderate right pleural effusion. Current respiratory status is stable. Monitor closely. Consider therapeutic and diagnostic thoracentesis if worsens.
Acute CHF preserved EF (hypoxia, peripheral edema)
Repeat echocardiogram pending
Responding to IV diuresis. Lasix transition to p.o. on 08/01
Follow-up chest x-ray on 08/03 with increased interstitial markings.
Repeat pro CHF BNP improved
Has been on IV diuresis with developing INDIA
Hold further Lasix and monitor closely. Oral intake remains minimal.
INDIA. Creatinine at 1.5
Mild hypernatremia
Hypokalemia.
Bladder scan for retention.
No function improved while off loop diuretics and with IV fluids
On HCTZ/losartan [employer] has been held.
Acute delirium. Protracted
Likely multifactorial and not limited to dehydration
No focal findings on neurologic exam
Repeated CT scan on 08/06 negative for acute abnormalities
MRI of the brain with no acute abnormalities
Neurology input appreciated
Mental status improved with hydration.
Avoid sedatives
CAD with history of STEMI and revascularization to RCA 07/23.
Essential hypertension
Dyslipidemia
ECG sinus tachycardia.
Preadmission regimen including metoprolol, losartan, hydrochlorothiazide, amlodipine, atorvastatin, aspirin
Atrial fibrillation with right ventricular response. New onset following pericardial drain placement.
Required IV diltiazem.
Back to sinus
Continue oral metoprolol.
Long-term anticoagulation to be determined
Elevated LFTs, mixed pattern.
Fatty liver and gallbladder sludge by imaging
Suspect hepatic congestion.
Follow trend
BPH.
Monitor for retention.
Continue tamsulosin
Goals of care discussion with patient's daughter.
Patient is 84 years old male with multiple comorbidities who presented with acute pulmonary embolism, acute pericardial effusion. Hospital course complicated with bilateral pneumonia. Patient with protracted encephalopathy and delirium. Remains
bedbound with limited ability to participate with physical therapy. Unfortunately cognitive status not improving with aggressive medical treatment. Given patient's wishes not to pursue any aggressive measures plan is to consult hospice. Observe
clinical development over the next 24 to 48 hours. If no improvement will pursue hospice transition either inpatient versus facility early next week
Anticipated Discharge: > 48 hours
Subjective/Interval History
-
Date of Service: August 10, 2024
Objective Data
-
Labs:
Laboratory Results
08/10/24
05:32
WBC 25.5 H
Hgb 12.5 L
Hct 38.5 L
Plt Count 451 H
Total Bilirubin 1.0
AST 57
ALT 62 H
Alkaline Phosphatase 148 H
Vital Signs:
Vital Signs
Temp Pulse Resp BP Pulse Ox
98.5 F 92 20 98/67 91
08/10/24 15:57 08/10/24 15:57 08/10/24 15:57 08/10/24 15:57 08/10/24 15:57
I&O
08/09/24 08/10/24 08/11/24
06:59 06:59 06:59
Intake Total 840 / 840 960 / 960
Balance 840 / 840 960 / 960
Physical Exam
-
General: Well Developed, No Apparent Distress, Appears Chronically Ill and Obese
HEENT: Normocephalic, Atraumatic, Moist Mucous Membranes and Anicteric
Respiratory: Clear to Auscultation and Non Labored Respirations; Negative Accessory Resp Muscle Use
Cardiac: Regular Rhythm and S1/S2; Negative Murmur, Rub or Gallop
GI: Soft, Nontender, Nondistended and Normal Bowel Sounds
Musculoskeletal: No Clubbing, No Cyanosis and No Edema
Skin: Warm, Dry and Normal Turgor; Negative Rash
Neuro: Awake, Alert, Oriented, Nonfocal/Grossly Intact and Central Nerve's Intact
Psych: Calm
[2024-08-10 17:07] LABS: Glucose - Point of Care 178 mg/dl (70-99)
[2024-08-10] MEDS: LIPITOR 40 MG PO (17:19)
[2024-08-10] MEDS: NOVOLOG FLEXPEN-LOW RESISTANCE 1 UNITS SC (17:20)
[2024-08-10 20:58] VITALS: BP 122/68
[2024-08-10 23:05] LABS: Glucose - Point of Care 185 mg/dl (70-99)
[2024-08-11] VITALS (7 sets, daily range): BP systolic 118–142; BP diastolic 59–79; BMI 33.0
[2024-08-11 07:53] LABS: Glucose - Point of Care 142 mg/dl (70-99)
[2024-08-11] MEDS: AUGMENTIN 875 MG/125 MG 1 TABLET PO ×2 (08:40→21:07)
[2024-08-11] MEDS: LOW STRENGTH ASPIRIN 81 MG PO (08:40)
[2024-08-11] MEDS: PROSCAR 5 MG PO (08:40)
[2024-08-11] MEDS: FLOMAX 0.4 MG PO (08:40)
[2024-08-11] MEDS: NOVOLOG FLEXPEN-LOW RESISTANCE SC (08:40)
[2024-08-11] MEDS: SENOKOT 17.2 MG PO ×2 (08:40→21:17)
[2024-08-11] MEDS: LOPRESSOR 50 MG PO ×2 (08:41→21:07)
[2024-08-11] MEDS: ELIQUIS 5 MG PO ×2 (08:41→21:17)
[2024-08-11] MEDS: MIRALAX 17 GRAMS PO (08:42)
[2024-08-11 09:42] LABS: % Basophils 0.2 % (0-2); % Eosinophils 1.8 % (0-6); % Immature Granulocytes 0.8 % (0-0.5); % Lymphocytes 5.9 % (20.5-51.1); % Monocytes 3.1 % (1.7-9.3); % Neutrophils 88.2 % (42.2-75.2); Absolute Eosinophils 0.3 10^3/uL (0-0.7); Absolute Immature Granulocytes 0.1 10^3/uL (0-0.05); Absolute Monocytes 0.5 10^3/uL (0.1-0.6); Absolute Neutrophils 15.5 10^3/uL (1.4-6.5); Hematocrit 36.7 % (39.0-52.0); Hemoglobin 11.8 g/dL (13.0-18.0); Mean Corp Hgb Conc. 32.2 g/dL (33.0-37.0); Mean Corpuscular Hgb 29.2 pg (27.0-31.0); Mean Corpuscular Volume 90.8 fL (80.0-94.0); Mean Platelet Volume 10.3 fL (7.4-10.4); Nucleated Red Blood Cells % 0 % (-); Platelet Count 411 10^3/uL (130-400); Red Blood Cell Count 4.04 10^6/uL (4.70-6.10); Red Cell Dist. Width 13.8 % (11.5-14.5); White Blood Cell Count 17.6 10^3/uL (4.8-10.8)
[2024-08-11 12:13] LABS: Glucose - Point of Care 186 mg/dl (70-99)
--- NOTE | 2024-08-11 12:55 | W.PN.PUL3 ---
Today's Communication / Plan
-
- Continue Diuresis
- Anticipate Thoracentesis Tuesday for symptom relief
Assessment
-
Patient is a very pleasant 84-year-old gentleman with history of coronary artery disease, NSTEMI and status post PCI about 3 years ago, hypertension, hyperlipidemia, prostatic hypertrophy who presented to the emergency room with sudden onset
weakness and shortness of breath. Patient reports that he had been in his usual state of health up until the day of admission except for some increasing pedal edema noted over the last 2 weeks which was initially felt to be related to a side effect
of a certain medication. Patient states that he was sitting in chair where he felt uneasy but denies feeling near syncopal but felt mildly short of breath and he had himself lie down on the floor. Patient says that he felt weak and was not able to
pick himself back up. EMS was called and patient was evaluated. He denied any chest pain and workup in the emergency room showed normal troponin but pulmonary embolism and right lower lobe as well as left upper lobe segmental and subsegmental. A
PERT team was activated and I reviewed patient's CAT scan. Clot burden overall seemed small and central arteries were not involved. Patient however was noted to have moderate pericardial effusion and also with trace pleural effusions. Patient was
not hypotensive and had normal troponin with minimal if any right heart strain on CT scan hence catheter directed therapies were not pursued. Another concern with using thrombolytic was the moderate pleural effusion noted on the imaging. Patient's
BNP was noted to be elevated at 1400. Patient was then started on IV heparin and was admitted to IMU and pulmonary consultation was requested for further input.
Bilateral submassive pulmonary embolism-suspect unprovoked
Pericardial effusion with early tamponade s/p pericardiocentesis (07/27/2024)
Bilateral pneumonia
Acute on chronic HFpEF s/p left-sided thoracentesis (07/30, removing 700 cc of cloudy/roxana-colored fluid)
INDIA (as of 08/05)
CAD/history of NSTEMI s/p stent to RCA
Paroxysmal A-fib currently in NSR
Toxic metabolic encephalopathy
Plan:
#1. Acute pulmonary embolism, suspect unprovoked. CT scan reviewed, patient has right lower lobe and left upper lobe segmental and subsegmental pulmonary embolism. PERT team was activated from emergency room, in view of lack of central PE,
hemodynamic stability, normal troponin and minimal if any right heart strain noted on CT, IV heparin drip was recommended. Patient also noted to have moderate pericardial effusion which was another concern hence decision was made against
thrombolytic therapy.
- Continue Eliquis
#2. Pericardial effusion with early tamponade.
-S/p pericardiocentesis with 350 cc serosanguineous fluid removed on 07/27. Additional 50 cc in the drain since initial placement. Drain removed since
-Pericardial fluid WBC 17,369 with 86% granulocytes, LDH elevated at more than 1000. Total fluid protein 5.0. Cultures are negative. Gram stain negative so far.
#3. Acute on suspect chronic congestive heart failure with bilateral pleural effusions, mild pulmonary edema. EF preserved, 55%. Patient noted to have elevated BNP, bilateral pitting edema on exam. Small bilateral pleural effusions noted as well
as moderate pericardial effusion.
- s/p Left sided thoracentesis (07/30), fluid studies were not done. Unclear if transudate or exudate
- Residual Right sided moderate effusion on CT an US.
- Considering b/l effusions, elevated ProBNP and low Albumin. More likely hydrostatic/transudate rather than parapneumonic effusion. Has been on Augmentin for empiric treatment for Pneumonia with Parapneumonic effusion
- Right sided tap was cancelled as there was not enough fluid earlier, but appears to have grown in size since.
#4. History of coronary artery disease, PCI of RCA in 2020.
- Continue Statins, has been on ASA 81 mg daily.
#5. Paroxysmal atrial fibrillation with rapid ventricular rate.
- On Metoprolol and Eliquis
#6. Delirium, suspect hypoactive
Code status: DNR/DNI
-
Dr. Richards discussed with daughter last time over the phone 08/09/2024-from the pulmonary perspective doubt any acute issues. He will continue to reaccumulate pleural effusion likely due to hypoalbuminemia.
More concerning is his mental status that is not improving.
Will see intermittently throughout the weekend.

Data:
Limited ECHO 07/27: Limited TTE for pericardial effusion.
In limited views. Normal-appearing LV size and function with no regional wall
motion abnormalities.
LVEF approximate 55% by visual estimation. No obvious LVH.
Normal right ventricular size and function.
Valvular interrogation was not obtained.
Moderate pericardial effusion at beginning of study; by end of procedure
effusion was minimal.
No comparison for this study given limited amount of views for review.
CXR 07/2024: 1. Low inspiratory volumes.
2. Haziness of each hemidiaphragm, which may represent bibasilar airspace disease and/or small bilateral pleural effusions
CT-PE 07/2024: 1. Positive for segmental and subsegmental pulmonary emboli on each side.
2. Moderate pericardial effusion, measuring 2.1 cm in greatest thickness.
3. Small cavity size of both the RV and LV. Consider echocardiogram to evaluate for tamponade relating to pericardial effusion.
4. RV: LV ratio measures greater than 1. This finding, combined with the relatively small overall burden of embolus and peripheral position of emboli argues against significant right heart strain, however evaluation is complicated by moderate
pericardial effusion.
5. Small bilateral pericardial effusions. Bibasilar airspace consolidation, likely representing compressive atelectasis.
Cardiac Cath 07/2020: 1. Hazy, ulcerated 75-80% culprit lesion in the proximal RCA, status post PCI (Xience Chloe 4.0 x 23 GEORGE, postdilated with 5.0 NC balloon) with reduction in stenosis to 0%, maintaining CHUCK 3 flow.
2. Mildly elevated filling pressures.
Subjective Data
-
Date of Service:
Date of Service: August 11, 2024
Chief Complaint: Pulmonary Follow Up (Pleural effusion/) and Dyspnea Follow Up
Subjective:
Lying in bed in no acute distress. Work of breathing is normal
Review of Systems
Genitourinary: Other (No new symptoms reported)
Objective Data
Data Reviewed
Vital Signs / I&O / Oxygen:
Vital Signs
Temp Pulse Resp BP Pulse Ox
97.9 F 96 20 118/66 96
08/11/24 12:51 08/11/24 12:51 08/11/24 12:51 08/11/24 12:51 08/11/24 12:51
Intake and Output
08/10/24 08/11/24 08/12/24
06:59 06:59 06:59
Intake Total 960 / 960
Balance 960 / 960
SaO2 96
Nasal Cannula flow liters per 2
minute
Physical Exam
General: Comfortable
HEENT: Normocephalic, Anicteric and Moist Mucous Membranes
Cardiovascular: S1-S2 and Peripheral Edema (negative)
Respiratory: Non-Labored Respirations (At rest) and Other (Decreased breath sounds bilaterally)
GI: Soft, Distended (Abdominal obesity), Non Tender and Normal Bowel Sounds
Neurology: Awake
Skin: Warm and Dry
Labs/Micro/Reports
Lab Data
08/11/24 08:29
--- NOTE | 2024-08-11 12:57 | W.PN.HOSP.TC ---
Today's Communication/Plan
-
Monitor vital signs
see plan
Monitor volume status
Pulmonary following
Monitor leukocytosis
Continue antibiotic
Assessment / Plan
Assessment / Plan
Impression
Acute hypoxic respiratory failure
Bilateral pulmonary embolism, provoked (immobility, status post right MICAH 04/28)
Acute CHF preserved EF suspected
Atrial fibrillation with rapid trickle response new following pericardiocentesis
Pneumonia with bilateral/bibasilar airspace consolidation
Large paracardial effusion on CT imaging.
Bilateral pleural effusions
Leukocytosis.
INDIA (creatinine 1.3)
Increased anion gap metabolic acidosis
Elevated LFT, mixed pattern
Toxic metabolic encephalopathy/delirium
Other conditions
CAD with history of STEMI�angioplasty to the right coronary artery 07/23
Nonsustained V. tach post [place].
Essential hypertension.
Dyslipidemia.
BPH
Plan:
Acute hypoxic respiratory failure multifactorial due to pulmonary embolism, bibasilar atelectasis/consolidation, CHF, pleural effusion
Bilateral pulmonary embolism possibly provoked by fairly recent right total hip arthroplasty and low mobility state.
No evidence of saddle emboli upon presentation.
Lower extremity Doppler negative for DVT.
Transitioned off IV heparin to Eliquis on 08/01
Pericardial effusion with early tamponade upon presentation.
Status post pericardial drain placed on 07/27 and removed on 07/28 with reported sufficient drain.
Initial echocardiogram with LVEF of 55%, moderate pericardial effusion with normal RV function and no significant valvular abnormalities
Follow-up echocardiogram on 07/30 with preserved LVEF and trivial pericardial effusion
Pericardial fluid pathology negative for malignant cells
Noted with elevated inflammatory markers/nonspecific
Leukocytosis persisting with left shift.
Concern for bilateral pneumonia, possibly secondary to aspiration
Has been on Zosyn and transition to Augmentin
Blood cultures multiple negative to date.
Remains afebrile.
Heme-onc input appreciated.
There is a reasonable concern for complicated left pulmonary effusion which was tapped with no culture sent.
At this point plan is to complete additional 2 weeks of antibiotics. Will be transition from Zosyn to Augmentin. Through 08/21
On multiple imaging there is a significant elevation of right hemidiaphragm. Follow-up imaging as required
Left pleural effusion
-Status post left thoracentesis on 07/30 700 cc exudate (increased white cell count) pH had not been submitted, cultures had not been submitted
Persistent right lower lobe process consolidation versus pleural effusion. Attempt of thoracentesis by [facility] with not enough pleural effusion to tap.
Repeat chest ultrasound with small to moderate right pleural effusion. Current respiratory status is stable. Monitor closely. Consider therapeutic and diagnostic thoracentesis if worsens.
Pulmonary following
Acute CHF preserved EF (hypoxia, peripheral edema)
Repeat echocardiogram pending
Responding to IV diuresis. Lasix transition to p.o. on 08/01
Follow-up chest x-ray on 08/03 with increased interstitial markings.
Repeat pro CHF BNP improved
Has been on IV diuresis with developing INDIA
Hold further Lasix and monitor closely. Oral intake remains minimal.
INDIA. Creatinine at 1.5
Mild hypernatremia
Hypokalemia.
Bladder scan for retention.
No function improved while off loop diuretics and with IV fluids
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
Acute delirium. Protracted
Likely multifactorial and not limited to dehydration
No focal findings on neurologic exam
Repeated CT scan on 08/06 negative for acute abnormalities
MRI of the brain with no acute abnormalities
Neurology input appreciated
Mental status improved with hydration.
Avoid sedatives
CAD with history of STEMI and revascularization to RCA 07/23.
Essential hypertension
Dyslipidemia
ECG sinus tachycardia.
Preadmission regimen including metoprolol, losartan, hydrochlorothiazide, amlodipine, atorvastatin, aspirin
Atrial fibrillation with right ventricular response. New onset following pericardial drain placement.
Required IV diltiazem.
Back to sinus
Continue oral metoprolol.
Long-term anticoagulation to be determined
Elevated LFTs, mixed pattern.
Fatty liver and gallbladder sludge by imaging
Suspect hepatic congestion.
Follow trend
BPH.
Monitor for retention.
Continue tamsulosin
Goals of care discussion with patient's daughter by Dr Bennett
Patient is 84 years old male with multiple comorbidities who presented with acute pulmonary embolism, acute pericardial effusion. Hospital course complicated with bilateral pneumonia. Patient with protracted encephalopathy and delirium. Remains
bedbound with limited ability to participate with physical therapy. Unfortunately cognitive status not improving with aggressive medical treatment. Given patient's wishes not to pursue any aggressive measures plan is to consult hospice. Observe
clinical development over the next 24 to 48 hours. If no improvement will pursue hospice transition either inpatient versus facility early next week
General: Well Developed, No Apparent Distress, Appears Chronically Ill and Obese
HEENT: Normocephalic, Atraumatic, Moist Mucous Membranes and Anicteric
Respiratory: Clear to Auscultation and Non Labored Respirations; b/l crackles
Cardiac: Regular Rhythm and S1/S2; Negative Murmur, Rub or Gallop
GI: Soft, Nontender, Nondistended and Normal Bowel Sounds
Musculoskeletal: No Edema
Neuro:confused
Psych: Calm
Anticipated Discharge: > 48 hours
Subjective/Interval History
-
Date of Service: August 11, 2024
denies chest pain
Objective Data
-
Labs:
Laboratory Results
08/11/24 08/11/24
08:29 10:25
WBC 17.6 H
Hgb 11.8 L
Hct 36.7 L
Plt Count 411 H
Sodium Cancelled Pending
Potassium Cancelled Pending
Chloride Cancelled Pending
Carbon Dioxide Cancelled Pending
BUN Cancelled Pending
Creatinine Cancelled Pending
Glucose Cancelled Pending
Calcium Cancelled Pending
Vital Signs:
Vital Signs
Temp Pulse Resp BP Pulse Ox
97.9 F 96 20 118/66 96
08/11/24 12:51 08/11/24 12:51 08/11/24 12:51 08/11/24 12:51 08/11/24 12:51
I&O
08/10/24 08/11/24 08/12/24
06:59 06:59 06:59
Intake Total 960 / 960
Balance 960 / 960
[2024-08-11] MEDS: NOVOLOG FLEXPEN-LOW RESISTANCE 1 UNITS SC ×2 (13:20→17:02)
[2024-08-11 13:45] LABS: Blood Urea Nitrogen 22 mg/dl (9-20); Calcium 7.9 mg/dl (8.4-10.2); Carbon Dioxide 34 mmol/L (22-30); Chloride 104 mmol/L (98-107); Estimated Creatinine Clearance 73 ml/min; Glucose 194 mg/dl (70-99); Potassium 3.9 mmol/L (3.5-5.1); Sodium 144 mmol/L (135-145); eGFR > 60.00
[2024-08-11 16:44] LABS: Glucose - Point of Care 198 mg/dl (70-99)
[2024-08-11] MEDS: LIPITOR 40 MG PO (17:02)
[2024-08-11 18:16] LABS: Coxsackie B2 <1:10 (<1:10); Coxsackie B4 1:40 (<1:10); Coxsackie B5 <1:10 (<1:10); Coxsackie B6 <1:10 (<1:10)
[2024-08-11 22:19] LABS: Glucose - Point of Care 165 mg/dl (70-99)
[2024-08-12 03:55] VITALS: BP 124/62
[2024-08-12 06:00] VITALS: BMI 33.2
[2024-08-12 07:18] LABS: Glucose - Point of Care 162 mg/dl (70-99)
[2024-08-12 07:34] LABS: % Basophils 0.2 % (0-2); % Eosinophils 1.4 % (0-6); % Immature Granulocytes 0.8 % (0-0.5); % Lymphocytes 6.7 % (20.5-51.1); % Monocytes 3.4 % (1.7-9.3); % Neutrophils 87.5 % (42.2-75.2); Absolute Eosinophils 0.2 10^3/uL (0-0.7); Absolute Immature Granulocytes 0.1 10^3/uL (0-0.05); Absolute Lymphocytes 1.1 10^3/uL (1.2-3.4); Absolute Monocytes 0.5 10^3/uL (0.1-0.6); Hematocrit 36.7 % (39.0-52.0); Hemoglobin 11.8 g/dL (13.0-18.0); Mean Corp Hgb Conc. 32.2 g/dL (33.0-37.0); Mean Corpuscular Hgb 28.9 pg (27.0-31.0); Nucleated Red Blood Cells % 0 % (-); Platelet Count 453 10^3/uL (130-400); Red Blood Cell Count 4.08 10^6/uL (4.70-6.10); Red Cell Dist. Width 13.8 % (11.5-14.5)
[2024-08-12 08:02] LABS: Blood Urea Nitrogen 23 mg/dl (9-20); Carbon Dioxide 33 mmol/L (22-30); Chloride 105 mmol/L (98-107); Estimated Creatinine Clearance 82 ml/min; Glucose 164 mg/dl (70-99); Sodium 143 mmol/L (135-145); eGFR > 60.00
--- NOTE | 2024-08-12 08:11 | HOSPNOTE ---
Hospice continues to follow. Plan is to monitor patient over the weekend. From review of records, patient remains stable and does not appear to be inpatient hospice eligible. If patient remains stable, plan is to seek placement and then sign onto
hospice. The daughters first preference is [facility]. Hospice will continue to follow, assess and be available.
[2024-08-12 08:12] VITALS: BP 119/56
[2024-08-12] MEDS: MIRALAX 17 GRAMS PO (10:24)
[2024-08-12] MEDS: PROSCAR 5 MG PO (10:25)
[2024-08-12] MEDS: AUGMENTIN 875 MG/125 MG 1 TABLET PO ×2 (10:25→20:54)
[2024-08-12] MEDS: LOPRESSOR 50 MG PO (10:25)
[2024-08-12] MEDS: SENOKOT 17.2 MG PO ×2 (10:29→20:54)
[2024-08-12] MEDS: FLOMAX 0.4 MG PO (10:29)
[2024-08-12] MEDS: LOW STRENGTH ASPIRIN 81 MG PO (10:29)
[2024-08-12] MEDS: ELIQUIS 5 MG PO ×2 (10:29→20:54)
[2024-08-12] MEDS: NOVOLOG FLEXPEN-LOW RESISTANCE 1 UNITS SC (10:30)
[2024-08-12 11:33] VITALS: BP 126/63
[2024-08-12 11:48] LABS: Glucose - Point of Care 239 mg/dl (70-99)
--- NOTE | 2024-08-12 12:26 | W.PN.HOSP.TC ---
Today's Communication/Plan
-
Monitor vital signs see plan
Monitor mental status
Wean oxygen as tolerated
Does not look overtly volume overloaded, continue to monitor volume status closely
Monitor leukocytosis
thora prn if needed for symptom relief
Assessment / Plan
Assessment / Plan
Impression
Acute hypoxic respiratory failure
Bilateral pulmonary embolism, provoked (immobility, status post right MICAH 04/28)
Acute CHF preserved EF suspected
Atrial fibrillation with rapid trickle response new following pericardiocentesis
Pneumonia with bilateral/bibasilar airspace consolidation
Large paracardial effusion on CT imaging.
Bilateral pleural effusions
Leukocytosis.
INDIA (creatinine 1.3)
Increased anion gap metabolic acidosis
Elevated LFT, mixed pattern
Toxic metabolic encephalopathy/delirium
Other conditions
CAD with history of STEMI�angioplasty to the right coronary artery 07/23
Nonsustained V. tach post [place].
Essential hypertension.
Dyslipidemia.
BPH
Plan:
Acute hypoxic respiratory failure multifactorial due to pulmonary embolism, bibasilar atelectasis/consolidation, CHF, pleural effusion
Bilateral pulmonary embolism possibly provoked by fairly recent right total hip arthroplasty and low mobility state.
No evidence of saddle emboli upon presentation.
Lower extremity Doppler negative for DVT.
Transitioned off IV heparin to Eliquis on 08/01
Pericardial effusion with early tamponade upon presentation.
Status post pericardial drain placed on 07/27 and removed on 07/28 with reported sufficient drain.
Initial echocardiogram with LVEF of 55%, moderate pericardial effusion with normal RV function and no significant valvular abnormalities
Follow-up echocardiogram on 07/30 with preserved LVEF and trivial pericardial effusion
Pericardial fluid pathology negative for malignant cells
Noted with elevated inflammatory markers/nonspecific
Leukocytosis persisting with left shift.
Concern for bilateral pneumonia, possibly secondary to aspiration
Has been on Zosyn and transition to Augmentin
Blood cultures multiple negative to date.
Remains afebrile.
Heme-onc input appreciated.
There is a reasonable concern for complicated left pulmonary effusion which was tapped with no culture sent.
At this point plan is to complete additional 2 weeks of antibiotics. Will be transition from Zosyn to Augmentin. Through 08/21
On multiple imaging there is a significant elevation of right hemidiaphragm. Follow-up imaging as required
Left pleural effusion
-Status post left thoracentesis on 07/30 700 cc exudate (increased white cell count) pH had not been submitted, cultures had not been submitted
Persistent right lower lobe process consolidation versus pleural effusion. Attempt of thoracentesis by [facility] with not enough pleural effusion to tap.
Repeat chest ultrasound with small to moderate right pleural effusion. Current respiratory status is stable. Monitor closely. Consider therapeutic and diagnostic thoracentesis if worsens.
Pulmonary following
Acute CHF preserved EF (hypoxia, peripheral edema)
Repeat echocardiogram pending
Responding to IV diuresis. Lasix transition to p.o. on 08/01
Follow-up chest x-ray on 08/03 with increased interstitial markings.
Repeat pro CHF BNP improved
Has been on IV diuresis with developing INDIA
Hold further Lasix and monitor closely. Oral intake remains minimal.
INDIA. Creatinine at 1.5
Mild hypernatremia
Hypokalemia.
Bladder scan for retention.
No function improved while off loop diuretics and with IV fluids
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
Acute delirium. Protracted
Likely multifactorial and not limited to dehydration
No focal findings on neurologic exam
Repeated CT scan on 08/06 negative for acute abnormalities
MRI of the brain with no acute abnormalities
Neurology input appreciated
Mental status improved with hydration.
Avoid sedatives
CAD with history of STEMI and revascularization to RCA 07/23.
Essential hypertension
Dyslipidemia
ECG sinus tachycardia.
Preadmission regimen including metoprolol, losartan, hydrochlorothiazide, amlodipine, atorvastatin, aspirin
Atrial fibrillation with right ventricular response. New onset following pericardial drain placement.
Required IV diltiazem.
Back to sinus
Continue oral metoprolol.
Long-term anticoagulation to be determined
Elevated LFTs, mixed pattern.
Fatty liver and gallbladder sludge by imaging
Suspect hepatic congestion.
Follow trend
BPH.
Monitor for retention.
Continue tamsulosin
Goals of care discussion with patient's daughter by Dr Bennett
Patient is 84 years old male with multiple comorbidities who presented with acute pulmonary embolism, acute pericardial effusion. Hospital course complicated with bilateral pneumonia. Patient with protracted encephalopathy and delirium. Remains
bedbound with limited ability to participate with physical therapy. Unfortunately cognitive status not improving with aggressive medical treatment. Given patient's wishes not to pursue any aggressive measures plan is to consult hospice. Observe
clinical development over the next 24 to 48 hours. If no improvement will pursue hospice transition either inpatient versus facility early next week
General: Well Developed, No Apparent Distress, Appears Chronically Ill and Obese
HEENT: Normocephalic, Atraumatic, Moist Mucous Membranes and Anicteric
Respiratory: Clear to Auscultation and Non Labored Respirations; b/l crackles
Cardiac: Regular Rhythm and S1/S2; Negative Murmur, Rub or Gallop
GI: Soft, Nontender, Nondistended and Normal Bowel Sounds
Musculoskeletal: No Edema
Neuro:confused
Psych: Calm
Anticipated Discharge: 24 - 48 hours
Subjective/Interval History
-
Date of Service: August 12, 2024
Pleasant this morning
Objective Data
-
Labs:
Laboratory Results
08/12/24
06:35
WBC 16.0 H
Hgb 11.8 L
Hct 36.7 L
Plt Count 453 H
Sodium 143
Potassium 4.0
Chloride 105
Carbon Dioxide 33 H
BUN 23 H
Creatinine 0.8
Glucose 164 H
Calcium 8.0 L
Vital Signs:
Vital Signs
Temp Pulse Resp BP Pulse Ox
98.3 F 98 20 126/63 91
08/12/24 11:33 08/12/24 11:33 08/12/24 11:33 08/12/24 11:33 08/12/24 11:33
I&O
08/11/24 08/12/24 08/13/24
06:59 06:59 06:59
Intake Total 1320 / 1320
Balance 1320 / 1320
[2024-08-12] MEDS: NOVOLOG FLEXPEN-LOW RESISTANCE 2 UNITS SC (13:40)
--- NOTE | 2024-08-12 15:29 | W.PN.PUL3 ---
Today's Communication / Plan
-
- Continue Lasix and Augmentin
- Follow-up chest x-ray, 2 view in AM.
- Thoracentesis as needed.
Assessment
-
Patient is a very pleasant 84-year-old gentleman with history of coronary artery disease, NSTEMI and status post PCI about 3 years ago, hypertension, hyperlipidemia, prostatic hypertrophy who presented to the emergency room with sudden onset
weakness and shortness of breath. Patient reports that he had been in his usual state of health up until the day of admission except for some increasing pedal edema noted over the last 2 weeks which was initially felt to be related to a side effect
of a certain medication. Patient states that he was sitting in chair where he felt uneasy but denies feeling near syncopal but felt mildly short of breath and he had himself lie down on the floor. Patient says that he felt weak and was not able to
pick himself back up. EMS was called and patient was evaluated. He denied any chest pain and workup in the emergency room showed normal troponin but pulmonary embolism and right lower lobe as well as left upper lobe segmental and subsegmental. A
PERT team was activated and I reviewed patient's CAT scan. Clot burden overall seemed small and central arteries were not involved. Patient however was noted to have moderate pericardial effusion and also with trace pleural effusions. Patient was
not hypotensive and had normal troponin with minimal if any right heart strain on CT scan hence catheter directed therapies were not pursued. Another concern with using thrombolytic was the moderate pleural effusion noted on the imaging. Patient's
BNP was noted to be elevated at 1400. Patient was then started on IV heparin and was admitted to IMU and pulmonary consultation was requested for further input.
Bilateral submassive pulmonary embolism-suspect unprovoked
Pericardial effusion with early tamponade s/p pericardiocentesis (07/27/2024)
Bilateral pneumonia
Acute on chronic HFpEF s/p left-sided thoracentesis (07/30, removing 700 cc of cloudy/roxana-colored fluid)
INDIA (as of 08/05)
CAD/history of NSTEMI s/p stent to RCA
Paroxysmal A-fib currently in NSR
Toxic metabolic encephalopathy
Plan:
#1. Acute pulmonary embolism, suspect unprovoked. CT scan reviewed, patient has right lower lobe and left upper lobe segmental and subsegmental pulmonary embolism. PERT team was activated from emergency room, in view of lack of central PE,
hemodynamic stability, normal troponin and minimal if any right heart strain noted on CT, IV heparin drip was recommended. Patient also noted to have moderate pericardial effusion which was another concern hence decision was made against
thrombolytic therapy.
- Continue Eliquis
#2. Pericardial effusion with early tamponade.
-S/p pericardiocentesis with 350 cc serosanguineous fluid removed on 07/27. Additional 50 cc in the drain since initial placement. Drain removed since
-Pericardial fluid WBC 17,369 with 86% granulocytes, LDH elevated at more than 1000. Total fluid protein 5.0. Cultures are negative. Gram stain negative so far.
#3. Acute on suspect chronic congestive heart failure with bilateral pleural effusions, mild pulmonary edema. EF preserved, 55%. Patient noted to have elevated BNP, bilateral pitting edema on exam. Small bilateral pleural effusions noted as well
as moderate pericardial effusion.
- s/p Left sided thoracentesis (07/30), fluid studies were not done. Unclear if transudate or exudate
- Residual Right sided moderate effusion on CT an US.
- Considering b/l effusions, elevated ProBNP and low Albumin. More likely hydrostatic/transudate rather than parapneumonic effusion. Has been on Augmentin (scheduled thru 08/[address] Richards) for empiric treatment for Pneumonia with Parapneumonic
effusion
- Right sided tap was cancelled as there was not enough fluid earlier, but appears to have grown in size since.
- F/u CXR in AM.
#4. History of coronary artery disease, PCI of RCA in 2020.
- Continue Statins, has been on ASA 81 mg daily.
#5. Paroxysmal atrial fibrillation with rapid ventricular rate.
- On Metoprolol and Eliquis
#6. Delirium, suspect hypoactive
Code status: DNR/DNI
-
Dr. Richards discussed with daughter last time over the phone 08/09/2024-from the pulmonary perspective doubt any acute issues. He will continue to reaccumulate pleural effusion likely due to hypoalbuminemia.
More concerning is his mental status that is not improving.
Will see intermittently throughout the weekend.

Data:
Limited ECHO 07/27: Limited TTE for pericardial effusion.
In limited views. Normal-appearing LV size and function with no regional wall
motion abnormalities.
LVEF approximate 55% by visual estimation. No obvious LVH.
Normal right ventricular size and function.
Valvular interrogation was not obtained.
Moderate pericardial effusion at beginning of study; by end of procedure
effusion was minimal.
No comparison for this study given limited amount of views for review.
CXR 07/2024: 1. Low inspiratory volumes.
2. Haziness of each hemidiaphragm, which may represent bibasilar airspace disease and/or small bilateral pleural effusions
CT-PE 07/2024: 1. Positive for segmental and subsegmental pulmonary emboli on each side.
2. Moderate pericardial effusion, measuring 2.1 cm in greatest thickness.
3. Small cavity size of both the RV and LV. Consider echocardiogram to evaluate for tamponade relating to pericardial effusion.
4. RV: LV ratio measures greater than 1. This finding, combined with the relatively small overall burden of embolus and peripheral position of emboli argues against significant right heart strain, however evaluation is complicated by moderate
pericardial effusion.
5. Small bilateral pericardial effusions. Bibasilar airspace consolidation, likely representing compressive atelectasis.
Cardiac Cath 07/2020: 1. Hazy, ulcerated 75-80% culprit lesion in the proximal RCA, status post PCI (Xience Chloe 4.0 x 23 GEORGE, postdilated with 5.0 NC balloon) with reduction in stenosis to 0%, maintaining CHUCK 3 flow.
2. Mildly elevated filling pressures.
Subjective Data
-
Date of Service:
Date of Service: August 12, 2024
Chief Complaint: Pulmonary Follow Up (Pleural effusion/) and Dyspnea Follow Up
Subjective:
Patient comfortably lying in bed, not in any acute distress. Saturating around 91% on room air.
Review of Systems
Genitourinary: Other (No new symptoms reported.)
Objective Data
Data Reviewed
Vital Signs / I&O / Oxygen:
Vital Signs
Temp Pulse Resp BP Pulse Ox
98.3 F 98 20 126/63 91
08/12/24 11:33 08/12/24 11:33 08/12/24 11:33 08/12/24 11:33 08/12/24 11:33
Intake and Output
08/11/24 08/12/24 08/13/24
06:59 06:59 06:59
Intake Total 1320 / 1320
Balance 1320 / 1320
SaO2 91
Nasal Cannula flow liters per 2
minute
Physical Exam
General: Comfortable
HEENT: Normocephalic, Anicteric and Moist Mucous Membranes
Cardiovascular: S1-S2 and Peripheral Edema (trace)
Respiratory: Non-Labored Respirations (At rest) and Other (Decreased breath sounds bilaterally)
GI: Soft, Distended (Abdominal obesity), Non Tender and Normal Bowel Sounds
Neurology: Awake
Skin: Warm and Dry
Labs/Micro/Reports
Lab Data
08/12/24 06:35
08/12/24 06:35
[2024-08-12 15:50] VITALS: BP 123/56
[2024-08-12 17:27] LABS: Glucose - Point of Care 148 mg/dl (70-99)
[2024-08-12] MEDS: NOVOLOG FLEXPEN-LOW RESISTANCE SC (17:45)
[2024-08-12] MEDS: LIPITOR 40 MG PO (17:46)
[2024-08-12 19:00] VITALS: BP 119/60
[2024-08-12] MEDS: LOPRESSOR PO (20:54)
[2024-08-12 22:24] LABS: Glucose - Point of Care 247 mg/dl (70-99)
[2024-08-12 23:00] VITALS: BP 128/53
[2024-08-13 03:00] VITALS: BP 126/68
[2024-08-13 05:59] LABS: % Basophils 0.2 % (0-2); % Eosinophils 0.5 % (0-6); % Lymphocytes 6.1 % (20.5-51.1); % Monocytes 3.1 % (1.7-9.3); % Neutrophils 89.1 % (42.2-75.2); Absolute Eosinophils 0.1 10^3/uL (0-0.7); Absolute Immature Granulocytes 0.2 10^3/uL (0-0.05); Absolute Monocytes 0.5 10^3/uL (0.1-0.6); Hemoglobin 11.8 g/dL (13.0-18.0); Mean Corp Hgb Conc. 31.9 g/dL (33.0-37.0); Mean Corpuscular Hgb 28.6 pg (27.0-31.0); Mean Corpuscular Volume 89.8 fL (80.0-94.0); Mean Platelet Volume 9.7 fL (7.4-10.4); Nucleated Red Blood Cells % 0 % (-); Platelet Count 430 10^3/uL (130-400); Red Blood Cell Count 4.12 10^6/uL (4.70-6.10); Red Cell Dist. Width 13.6 % (11.5-14.5); White Blood Cell Count 15.7 10^3/uL (4.8-10.8)
[2024-08-13 06:00] VITALS: BMI 33.0
[2024-08-13 06:12] LABS: Blood Urea Nitrogen 25 mg/dl (9-20); Calcium 8.1 mg/dl (8.4-10.2); Carbon Dioxide 31 mmol/L (22-30); Chloride 103 mmol/L (98-107); Estimated Creatinine Clearance 82 ml/min; Glucose 198 mg/dl (70-99); Sodium 141 mmol/L (135-145); eGFR > 60.00
[2024-08-13 07:15] VITALS: BP 112/60
[2024-08-13 09:41] LABS: Glucose - Point of Care 147 mg/dl (70-99)
[2024-08-13] MEDS: NOVOLOG FLEXPEN-LOW RESISTANCE SC ×2 (09:41→13:39)
[2024-08-13] MEDS: AUGMENTIN 875 MG/125 MG 1 TABLET PO (09:42)
[2024-08-13] MEDS: ELIQUIS 5 MG PO (09:43)
[2024-08-13] MEDS: PROSCAR 5 MG PO (09:43)
[2024-08-13] MEDS: LOPRESSOR 50 MG PO (09:43)
[2024-08-13] MEDS: FLOMAX 0.4 MG PO (09:43)
[2024-08-13] MEDS: MIRALAX PO (09:43)
[2024-08-13] MEDS: LOW STRENGTH ASPIRIN 81 MG PO (09:43)
[2024-08-13] MEDS: SENOKOT PO ×2 (09:44→20:19)
--- NOTE | 2024-08-13 10:04 | CM ---
Addendum entered by Corinne Lr RN 08/13/24 10:16:
Spoke with dgt Jud reviewed above note she is waiting for MD/ hospice.
Original Note:
TT MD and hospice to check on plan.
Spoke with Alix at [facility] She does not have a bed for pt at this time.
Update sent to [facility].
PLAN Discharge planning ongoing
[2024-08-13 10:55] VITALS: BP 124/54
--- NOTE | 2024-08-13 11:51 | HOSPNOTE ---
Spoke with daughter, patient is extremely lethargic unable to communicate to me, the daughter would like patient placed on comfort no more x-rays and no more blood work and see how the patient does in the next 24-48 hours. If the patient does not
meet inpatient hospice criteria then placement will be needed with hospice services. Admissions was called for a private bed. I will continue to follow.
--- NOTE | 2024-08-13 12:09 | PTOTSP ---
Reviewed chart and noted pt is lethargic and unable to participate in PT and family wants comfort measures. PT will sign off.
[2024-08-13 12:28] LABS: Glucose - Point of Care 175 mg/dl (70-99)
[2024-08-13 15:10] VITALS: BP 131/64
--- NOTE | 2024-08-13 15:33 | W.PN.ONC2 ---
Today's Communication / Plan
-
.
Impression
Impression
PE provoked by total hip replacement
Pericardial effusion
Small pleural effusions
CHF
AF, RVR
CAD with history of STEMI�angioplasty to the right coronary artery 07/23
Leukocytosis with neutrophilic predominance
thrombocytosis, no ROSEY
Borderline splenomegaly
Plan
Plan
leukocytosis improvement to ~15k, platelets stable <450
MPN evaluation will be arranged upon discharge if leukocytosis and thrombocytosis persist if pt would like to pursue further work up
on apixaban
Infectious workup as per primary service.
CM notes indicate considering hospice
Subjective/Objective
Subjective
poor historian, appears comfortable
Vital Signs:
Vital Signs
Temp Pulse Resp BP Pulse Ox
97.4 F 89 18 124/54 94
08/13/24 10:55 08/13/24 10:55 08/13/24 10:55 08/13/24 10:55 08/13/24 10:55
Lab Results:
Laboratory Data
WBC 15.7 10^3/uL (4.8-10.8) H 08/13/24 05:13
Hgb 11.8 g/dL (13.0-18.0) L 08/13/24 05:13
Plt Count 430 10^3/uL (130-400) H 08/13/24 05:13
APTT 98.0 Sec (23.4-35.0) H 08/01/24 05:29
eGFR > 60.00 08/13/24 05:13
Physical Exam
HEENT: Moist Mucous Membranes; No Jaundice
Cardiology: Normal Sinus Rhythm
Pulmonary: Clear
GI: Soft
Extremities: Pulses Present
--- NOTE | 2024-08-13 16:29 | W.PN.HOSP.TC ---
Today's Communication/Plan
-
Transition to comfort care
Assessment / Plan
Assessment / Plan
Impression
Acute hypoxic respiratory failure
Bilateral pulmonary embolism, provoked (immobility, status post right MICAH 04/28)
Acute CHF preserved EF suspected
Atrial fibrillation with rapid trickle response new following pericardiocentesis
Pneumonia with bilateral/bibasilar airspace consolidation
Large paracardial effusion on CT imaging.
Bilateral pleural effusions
Leukocytosis.
INDIA (creatinine 1.3)
Increased anion gap metabolic acidosis
Elevated LFT, mixed pattern
Toxic metabolic encephalopathy/delirium
Other conditions
CAD with history of STEMI�angioplasty to the right coronary artery 07/23
Nonsustained V. tach post [place].
Essential hypertension.
Dyslipidemia.
BPH
Plan:
84 years old male with complicated hospital course including the above and unfortunately and despite of aggressive approach including anticoagulation, broad-spectrum antibiotics, management of CHF and pericardial effusion remains with protracted
encephalopathy with so far no recovery of cognitive status
According to patient wishes send with conversation with patient's daughters plan is to transition to comfort care. Over the next 24 to 48 hours we will determine complexity and requirement for symptomatic management with plan for hospice inpatient
versus facility.
Anticipated Discharge: > 48 hours
Subjective/Interval History
-
Date of Service: August 13, 2024
Objective Data
-
Labs:
Laboratory Results
08/13/24
05:13
WBC 15.7 H
Hgb 11.8 L
Hct 37.0 L
Plt Count 430 H
Sodium 141
Potassium 4.0
Chloride 103
Carbon Dioxide 31 H
BUN 25 H
Creatinine 0.8
Glucose 198 H
Calcium 8.1 L
Vital Signs:
Vital Signs
Temp Pulse Resp BP Pulse Ox
98.5 F 88 18 131/64 95
08/13/24 15:10 08/13/24 15:10 08/13/24 15:10 08/13/24 15:10 08/13/24 15:10
I&O
08/12/24 08/13/24 08/14/24
06:59 06:59 06:59
Intake Total 1320 / 1320 1709 / 1710
Balance 1320 / 1320 171 / 171
Physical Exam
-
General: Well Developed, No Apparent Distress, Appears Chronically Ill and Obese
HEENT: Normocephalic, Atraumatic, Moist Mucous Membranes and Anicteric
Respiratory: Clear to Auscultation and Non Labored Respirations; Negative Accessory Resp Muscle Use
Cardiac: Regular Rhythm and S1/S2; Negative Murmur, Rub or Gallop
GI: Soft, Nontender, Nondistended and Normal Bowel Sounds
Musculoskeletal: No Clubbing, No Cyanosis and No Edema
Skin: Warm, Dry and Normal Turgor; Negative Rash
Neuro: Awake, Alert and Nonfocal/Grossly Intact; Negative Oriented (Disoriented)
Psych: Calm
[2024-08-13 16:49] LABS: Glucose - Point of Care 127 mg/dl (70-99)
[2024-08-13 23:52] VITALS: BP 140/67
[2024-08-14] MEDS: SENOKOT PO (07:36)
[2024-08-14] MEDS: MIRALAX PO (07:36)
[2024-08-14 08:05] VITALS: BP 119/70
--- NOTE | 2024-08-14 15:15 | W.PN.HOSP.TC ---
Today's Communication/Plan
-
Continue comfort care.
Discussed with counter caser and electronic gluer.
Patient may be appropriate for provision of hospice at the nursing facility
Assessment / Plan
Assessment / Plan
Impression
Acute hypoxic respiratory failure
Bilateral pulmonary embolism, provoked (immobility, status post right MICAH 04/28)
Acute CHF preserved EF suspected
Atrial fibrillation with rapid trickle response new following pericardiocentesis
Pneumonia with bilateral/bibasilar airspace consolidation
Large paracardial effusion on CT imaging.
Bilateral pleural effusions
Leukocytosis.
INDIA (creatinine 1.3)
Increased anion gap metabolic acidosis
Elevated LFT, mixed pattern
Toxic metabolic encephalopathy/delirium
Other conditions
CAD with history of STEMI�angioplasty to the right coronary artery 07/23
Nonsustained V. tach post [place].
Essential hypertension.
Dyslipidemia.
BPH
Plan:
84 years old male with complicated hospital course including the above and unfortunately and despite of aggressive approach including anticoagulation, broad-spectrum antibiotics, management of CHF and pericardial effusion remains with protracted
encephalopathy with so far no recovery of cognitive status
According to patient wishes send with conversation with patient's daughters plan is to transition to comfort care. Over the next 24 to 48 hours we will determine complexity and requirement for symptomatic management with plan for hospice inpatient
versus facility.
Anticipated Discharge: 24 - 48 hours
Subjective/Interval History
-
Date of Service: August 14, 2024
Objective Data
-
Vital Signs:
Vital Signs
Temp Pulse Resp BP Pulse Ox
98.4 F 95 17 119/70 96
08/14/24 08:05 08/14/24 08:05 08/14/24 08:05 08/14/24 08:05 08/14/24 08:05
I&O
08/13/24 08/14/24 08/15/24
06:59 06:59 06:59
Intake Total 1709 360 / 360
Balance 1709 360 / 360
Physical Exam
-
General: Well Developed, No Apparent Distress, Appears Chronically Ill and Obese
HEENT: Normocephalic, Atraumatic, Moist Mucous Membranes and Anicteric
Respiratory: Clear to Auscultation and Non Labored Respirations; Negative Accessory Resp Muscle Use
Cardiac: Regular Rhythm and S1/S2; Negative Murmur, Rub or Gallop
GI: Soft, Nontender, Nondistended and Normal Bowel Sounds
Musculoskeletal: No Clubbing, No Cyanosis and No Edema
Skin: Warm, Dry and Normal Turgor; Negative Rash
Neuro: Awake, Alert and Nonfocal/Grossly Intact; Negative Oriented (Disoriented)
Psych: Calm
[2024-08-14] MEDS: SENOKOT 17.2 MG PO (21:45)
[2024-08-15 00:18] VITALS: BP 119/57
[2024-08-15 07:00] VITALS: BMI 33.0
[2024-08-15 08:00] VITALS: BP 131/68
[2024-08-15] MEDS: SENOKOT 17.2 MG PO (08:24)
[2024-08-15] MEDS: MIRALAX 17 GRAMS PO (08:24)
--- NOTE | 2024-08-15 09:09 | CM ---
Addendum entered by Heide Khan 08/15/24 13:00:
[facility] has accepted pt for transfer to Hospice Care with bed available tomorrow, 08/16/2024.
CM called pt's daughter to discuss and she adamantly refuses to consider [facility]. Dr. Bennett notified of same.
Referral sent to [facility] per daughter's request, however no availability at this time.
Call received from pt's daughter requesting transfer to [facility].
PLAN: CM to contact [facility] admissions to determine ability to transfer for hospice care.
Original Note:
CM following for hospice services. Daughter would like transfer to [facility]. VM left for [facility] to follow up regarding transfer with hospice services. Awaiting response.
Plan: CM to coordinate hospice services at SNF pending bed availability; await response from [facility] regarding bed availability.
--- NOTE | 2024-08-15 16:06 | W.PN.HOSP.TC ---
Today's Communication/Plan
-
Remains comfortable, although unfortunately with not recovering cognitively.
Ongoing comfort care with plan for transition to SNF facility under hospice
Assessment / Plan
Assessment / Plan
Impression
Acute hypoxic respiratory failure
Bilateral pulmonary embolism, provoked (immobility, status post right MICAH 04/28)
Acute CHF preserved EF suspected
Atrial fibrillation with rapid trickle response new following pericardiocentesis
Pneumonia with bilateral/bibasilar airspace consolidation
Large paracardial effusion on CT imaging.
Bilateral pleural effusions
Leukocytosis.
INDIA (creatinine 1.3)
Increased anion gap metabolic acidosis
Elevated LFT, mixed pattern
Toxic metabolic encephalopathy/delirium
Other conditions
CAD with history of STEMI�angioplasty to the right coronary artery 07/23
Nonsustained V. tach post [place].
Essential hypertension.
Dyslipidemia.
BPH
Plan:
84 years old male with complicated hospital course including the above and unfortunately and despite of aggressive approach including anticoagulation, broad-spectrum antibiotics, management of CHF and pericardial effusion remains with protracted
encephalopathy with so far no recovery of cognitive status
According to patient wishes send with conversation with patient's daughters plan is to transition to comfort care. Over the next 24 to 48 hours we will determine complexity and requirement for symptomatic management with plan for hospice inpatient
versus facility.
Anticipated Discharge: Within 24 hours
Subjective/Interval History
-
Date of Service: August 15, 2024
Objective Data
-
Vital Signs:
Vital Signs
Temp Pulse Resp BP Pulse Ox
97.7 F 94 16 131/68 99
08/15/24 08:00 08/15/24 08:00 08/15/24 08:00 08/15/24 08:00 08/15/24 08:00
I&O
08/14/24 08/15/24 08/16/24
06:59 06:59 06:59
Intake Total 360 / 360 720 / 720
Balance 360 / 360 720 / 720
Physical Exam
-
General: Well Developed, No Apparent Distress, Appears Chronically Ill and Obese
HEENT: Normocephalic, Atraumatic, Moist Mucous Membranes and Anicteric
Respiratory: Clear to Auscultation and Non Labored Respirations; Negative Accessory Resp Muscle Use
Cardiac: Regular Rhythm and S1/S2; Negative Murmur, Rub or Gallop
GI: Soft, Nontender, Nondistended and Normal Bowel Sounds
Musculoskeletal: No Clubbing, No Cyanosis and No Edema
Skin: Warm, Dry and Normal Turgor; Negative Rash
Neuro: Awake, Alert and Nonfocal/Grossly Intact; Negative Oriented (Disoriented)
Psych: Calm
--- NOTE | 2024-08-15 16:11 | PTCARENOTE ---
patient remains confused to time and place, forgetful, appears comfortable, appetite poor, incontinent of large soft brown BM, sat oob in chair for about 2 hours, vss, will continue to monitor.
[2024-08-15] MEDS: SENOKOT PO (19:36)
[2024-08-15 23:53] VITALS: BP 142/68
[2024-08-16 07:30] VITALS: BP 131/57
[2024-08-16] MEDS: SENOKOT 17.2 MG PO (08:17)
[2024-08-16] MEDS: MIRALAX 17 GRAMS PO (08:17)
--- NOTE | 2024-08-16 10:14 | CM ---
CM continues to follow for transfer to SNF with hospice care.
[facility] is not able to offer a bed for hospice care. Pt's daughter advised of same; [facility] offered a bed for today, however pt's daughter refuses to consider [facility]. CM asked if she would be more comfortable taking her dad home and hire
private assistance to augment the hospice care at home. This was an unacceptable option per daughter.
Pt has been at [facility] in the past, however the facility does not have an available bed for pt to be transferred there for hospice care.
[facility] was requested by pt's daughter, however no beds available.
Plan: Pt is ready for discharge to hospice care. CM to contact pt's daughter to further discuss discharge and review IMM and appeal rights.
--- NOTE | 2024-08-16 10:52 | W.PN.HOSP.TC ---
Today's Communication/Plan
-
await placement
comfort measures in interim
CM aware
Assessment / Plan
Assessment / Plan
Impression
Acute hypoxic respiratory failure
Bilateral pulmonary embolism, provoked (immobility, status post right MICAH 04/28)
Acute CHF preserved EF suspected
Atrial fibrillation with rapid trickle response new following pericardiocentesis
Pneumonia with bilateral/bibasilar airspace consolidation
Large paracardial effusion on CT imaging.
Bilateral pleural effusions
Leukocytosis.
INDIA (creatinine 1.3)
Increased anion gap metabolic acidosis
Elevated LFT, mixed pattern
Toxic metabolic encephalopathy/delirium
Other conditions
CAD with history of STEMI�angioplasty to the right coronary artery 07/23
Nonsustained V. tach post [place].
Essential hypertension.
Dyslipidemia.
BPH
Plan:
84 years old male with complicated hospital course including the above and unfortunately and despite of aggressive approach including anticoagulation, broad-spectrum antibiotics, management of CHF and pericardial effusion remains with protracted
encephalopathy with so far no recovery of cognitive status
According to patient wishes send with conversation with patient's daughters plan is to transition to comfort care. Over the next 24 to 48 hours we will determine complexity and requirement for symptomatic management with plan for hospice inpatient
versus facility.
Anticipated Discharge: Today
Subjective/Interval History
-
Date of Service: August 16, 2024
resting in bed comfortably
Objective Data
-
Vital Signs:
Vital Signs
Temp Pulse Resp BP Pulse Ox
97.8 F 96 20 131/57 93
08/16/24 07:30 08/16/24 07:30 08/16/24 07:30 08/16/24 07:30 08/16/24 07:30
I&O
08/15/24 08/16/24 08/17/24
06:59 06:59 06:59
Intake Total 720 / 720 360 / 360
Balance 720 / 720 360 / 360
Physical Exam
-
General: Well Developed, No Apparent Distress, Appears Chronically Ill and Obese
HEENT: Normocephalic, Atraumatic, Moist Mucous Membranes and Anicteric
Respiratory: Clear to Auscultation and Non Labored Respirations; Negative Accessory Resp Muscle Use
Cardiac: S1/S2; Negative Murmur, Rub or Gallop
GI: Soft, Nontender, Nondistended and Normal Bowel Sounds
Musculoskeletal: No Clubbing, No Cyanosis and No Edema
Skin: Warm, Dry and Normal Turgor; Negative Rash
Neuro: Awake
Psych: Confused
--- NOTE | 2024-08-16 15:17 | HOSPNOTE ---
Called and left a message for daughter to call me so we could arrange meeting at SNF to sign consents for hospice services. OOH DNR will be needed on chart for transport. CM updated.
--- NOTE | 2024-08-16 16:59 | CM ---
CM continues to follow for transfer to SNF with inpatient Hospice. Pt's daughter is familiar with [facility] and requested transfer there. [facility] has a bed available for transfer tomorrow. 11am transport requested via ambulance. Forms
completed to be sent at time of transport.
Pt's daughter had questions about financial implications at SNF. Alix Ivan is going to review with daughter via telephone this evening.
Plan: Transfer to [facility] for hospice care via ambulance. OOH DNR and ambulance PMNC form on the desk reporter of [facility].
[facility] Report:[phone]
[facility]
[2024-08-16] MEDS: SENOKOT PO (20:44)
[2024-08-16 23:00] VITALS: BP 113/58
[2024-08-17 07:30] VITALS: BP 136/70
[2024-08-17] MEDS: MIRALAX PO (09:11)
--- NOTE | 2024-08-17 09:15 | W.PN.HOSP.TC ---
Today's Communication/Plan
-
DC TO SNF ON HOSPICE
Assessment / Plan
Assessment / Plan
Impression
Acute hypoxic respiratory failure
Bilateral pulmonary embolism, provoked (immobility, status post right MICAH 04/28)
Acute CHF preserved EF suspected
Atrial fibrillation with rapid trickle response new following pericardiocentesis
Pneumonia with bilateral/bibasilar airspace consolidation
Large paracardial effusion on CT imaging.
Bilateral pleural effusions
Leukocytosis.
INDIA (creatinine 1.3)
Increased anion gap metabolic acidosis
Elevated LFT, mixed pattern
Toxic metabolic encephalopathy/delirium
Other conditions
CAD with history of STEMI�angioplasty to the right coronary artery 07/23
Nonsustained V. tach post ND.
Essential hypertension.
Dyslipidemia.
BPH
Plan:
84 years old male with complicated hospital course including the above and unfortunately and despite of aggressive approach including anticoagulation, broad-spectrum antibiotics, management of CHF and pericardial effusion remains with protracted
encephalopathy with so far no recovery of cognitive status
According to patient wishes send with conversation with patient's daughters plan is to transition to comfort care. Over the next 24 to 48 hours we will determine complexity and requirement for symptomatic management with plan for hospice inpatient
versus facility
More than 30 minutes spent in discharge including
Final examination of the patient
Summarizing hospital stay
Instructions for continuing care to all relevant caregivers
Preparation of discharge records, prescriptions, and referral forms
Total time spent (in minutes): 52
.
Anticipated Discharge: Today
Subjective/Interval History
-
Date of Service: August 17, 2024
remains comfortable
Objective Data
-
Vital Signs:
Vital Signs
Temp Pulse Resp BP Pulse Ox
98.9 F 97 20 136/70 93
08/17/24 07:30 08/17/24 07:30 08/17/24 07:30 08/17/24 07:30 08/17/24 07:30
I&O
08/16/24 08/17/24 08/18/24
06:59 06:59 06:59
Intake Total 360 / 360
Balance 360 / 360
Physical Exam
-
General: No Apparent Distress, Appears Chronically Ill and Obese
HEENT: Moist Mucous Membranes and Anicteric
Respiratory: Clear to Auscultation and Non Labored Respirations; Negative Accessory Resp Muscle Use
Cardiac: S1/S2; Negative Murmur, Rub or Gallop
GI: Soft, Nontender, Nondistended and Normal Bowel Sounds
Musculoskeletal: No Clubbing, No Cyanosis and No Edema
Skin: Warm, Dry and Normal Turgor; Negative Rash
Neuro: Awake
Psych: Confused
[2024-08-17] MEDS: SENOKOT PO (09:17)
--- NOTE | 2024-08-17 09:46 | W.DCSUMMARY ---
Discharge Summary
Discharge Data
Date of Admission: 07/27/24
Date of Discharge: 08/17/24
-
Pending Results: No
Hospital Course
84 years old male with past medical history of CAD status post STEMI s/p angioplasty, nonsustained V. tach, hypertension, hyperlipidemia, BPH who was presented with shortness of breath. Patient was found to have bilateral pulmonary embolism which
was deemed to be provoked. Also found to be in acute heart failure exacerbation and with mild rapid atrial fibrillation. Patient hospital course was complicated by pericardial effusion status post pericardiocentesis. Also with pleural effusion
status post thoracentesis. Patient with persistent encephalopathy. Patient was eval by pulmonary, oncology, neurology and cardiology. Complicated hospital course including the above and unfortunately and despite of aggressive approach including
anticoagulation, broad-spectrum antibiotics, management of CHF and pericardial effusion remains with protracted encephalopathy with so far no recovery of cognitive status. According to patient wishes and and in discussion by Dr. Bennett patient's
daughters respected this and patient was transitioned to comfort care. Plan is to transition to comfort care and was monitored in the hospital.. Patient was started on comfort measures and patient to be transferred to shelter facility on
hospice.
Discharge Plan
-
Patient Disposition: Shelter/SNF
Discharge Diagnosis/Procedures: Acute hypoxic respiratory failure
Bilateral pulmonary embolism, provoked (immobility, status post right MICAH 04/28)
Acute CHF preserved EF suspected
Atrial fibrillation with rapid trickle response new following pericardiocentesis
Pneumonia with bilateral/bibasilar airspace consolidation
Large paracardial effusion on CT imaging.
Bilateral pleural effusions
Leukocytosis.
INDIA (creatinine 1.3)
Increased anion gap metabolic acidosis
Elevated LFT, mixed pattern
Toxic metabolic encephalopathy/delirium
Condition: Serious
Diet: As tolerated
Activity: As tolerated
Driving Restrictions: No driving
Other Services: Hospice
Referrals:
Paradise Rodriguez CRNP [Specified Professional Personl] - 05/22/25 10:40 am (Your cardiology appointment was moved up from 08/30/24 and is now 08/23/24 as noted.)
Pat Delaney MD [Active] -
(PE, pericardial effusion
Eventual PFTs and consider sleep apnea workup)
Daniel Morgan CRNP [Family Provider] -
Prescriptions:
New
polyethylene glycol 3350 17 gram Powder In Packet
17 g PO DAILY Qty: 14 0RF
morphine concentrate 100 mg/5 mL (20 mg/mL) Solution
5 mg PO Q3HPRN PRN (Reason: moderate pain and/or dyspnea) Qty: 5 0RF
Rx Instructions:
5mg or 0.25mL every 3 hours as needed
lorazepam 0.5 mg Tablet
0.5 mg PO Q4HPRN PRN (Reason: anxiety or restlessness) Qty: 10 0RF
Rx Instructions:
0.5mg every 4 hours as needed
hyoscyamine sulfate [Levsin/SL] 0.125 mg Tablet, Sublingual
0.125 mg PO Q4HPRN PRN (Reason: secretions) Qty: 24 0RF
Continued
acetaminophen [Tylenol Extra Strength] 500 MG tablet
500 mg PO Q4HPRN PRN (Reason: pain) Qty: 1 0RF
Discontinued
tamsulosin 0.4 MG capsule
0.4 mg PO DAILY
hydrochlorothiazide 12.5 MG tablet
12.5 mg PO DAILY
biotin 5,000 MCG tablet,disintegrating
10,000 mcg PO DAILY
finasteride 5 MG tablet
5 mg PO DAILY
ascorbic acid (vitamin C) 500 MG capsule
500 mg PO DAILY
losartan 50 MG tablet
50 mg PO DAILY 0RF
atorvastatin 40 MG tablet
40 mg PO QPM Qty: 90 3RF
metoprolol succinate 50 MG tablet extended release 24 hr
50 mg PO BID Qty: 180 3RF
Rx Instructions:
Please take twice a day, note lower dose
aspirin 81 MG tablet,chewable
81 mg PO DAILY Qty: 90 3RF
nitroglycerin 0.4 MG tablet, sublingual
0.4 mg sublingual [id number] PRN (Reason: chest pain) Qty: 25 2RF
amlodipine 5 mg Tablet
5 mg PO DAILY
cholecalciferol (vitamin D3) [Vitamin D3] 50 mcg (2,000 unit) Capsule
50 mcg PO DAILY
coQ10 (ubiquinol) 200 mg Capsule
200 mg PO DAILY
Discharge Orders:
Discharge Patient (As Directed); Ordered 08/17/24
Ordered By: Isac Calderon
Discharge Date and Time
Discharge Date/Time: 08/17/24 12:02
Print Language: SWEDISH
--- NOTE | 2024-08-17 10:44 | CM ---
Patient seen at bedside on . Patient daughter Jud spoke with CM and confirmed plan for transfer to SNF with hospice. ambulance transfer at 11:30 patient daughter made aware. IMM completed and signed form on chart.
Plan: Transfer to [facility] for hospice care via ambulance. OOH DNR and ambulance PMNC form on the front desk host of .
[facility] [place] Report:[phone]
[facility] [place]
[2024-08-17 11:56] VITALS: BP 119/58
== END 2024-08-17 12:02 | DRG 175 ==
LOC: 3 WEST ACU 05:15
PROVIDERS: Hospitalist; Internal Medicine; Internal Medicine Critical Care Medicine; Nurse Practitioner Family; Nurse Practitioner Primary Care; Physician Assistant; Radiology Diagnostic Radiology; Student in an Organized Health Care Education/Training Program; ADMITTING PHYSICIAN Internal Medicine; ATTENDING PHYSICIAN Hospitalist; CONSULT PHYSICIAN Internal Medicine; EMERGENCY PHYSICIAN Student in an Organized Health Care Education/Training Program; FAMILY PHYSICIAN Nurse Practitioner Family; OTHER PHYSICIAN Internal Medicine Cardiovascular Disease; OTHER PHYSICIAN Internal Medicine Hematology & Oncology; OTHER PHYSICIAN Psychiatry & Neurology Neurology
PROC: 0W9D3ZZ Drainage of Pericardial Cavity, Percutaneous Approach (ICD-10-PCS; 2024-07-27)
PROC: 0W9B3ZZ Drainage of Left Pleural Cavity, Percutaneous Approach (ICD-10-PCS; 2024-07-30)
DX: I26.94 Multiple subsegmental thrombotic pulmonary emboli without acute cor pulmonale (principal); G92.8 Other toxic encephalopathy; J96.01 Acute respiratory failure with hypoxia; I50.33 Acute on chronic diastolic (congestive) heart failure; J18.9 Pneumonia, unspecified organism; I31.39 Other pericardial effusion (noninflammatory); N17.9 Acute kidney failure, unspecified; E87.20 Acidosis, unspecified; I31.4 Cardiac tamponade; J98.11 Atelectasis; J90 Pleural effusion, not elsewhere classified; F05 Delirium due to known physiological condition; E87.0 Hyperosmolality and hypernatremia; Z51.5 Encounter for palliative care; I48.0 Paroxysmal atrial fibrillation; R47.1 Dysarthria and anarthria; I11.0 Hypertensive heart disease with heart failure; D72.829 Elevated white blood cell count, unspecified; I25.10 Atherosclerotic heart disease of native coronary artery without angina pectoris; E78.00 Pure hypercholesterolemia, unspecified; K76.0 Fatty (change of) liver, not elsewhere classified; K76.1 Chronic passive congestion of liver; E87.6 Hypokalemia; R45.1 Restlessness and agitation; I70.0 Atherosclerosis of aorta; N40.0 Benign prostatic hyperplasia without lower urinary tract symptoms; E66.9 Obesity, unspecified; M48.061 Spinal stenosis, lumbar region without neurogenic claudication; R73.02 Impaired glucose tolerance (oral); E55.9 Vitamin D deficiency, unspecified; R16.1 Splenomegaly, not elsewhere classified; M19.90 Unspecified osteoarthritis, unspecified site; Z66 Do not resuscitate; Z96.651 Presence of right artificial knee joint; Z96.641 Presence of right artificial hip joint; Z79.82 Long term (current) use of aspirin; I25.2 Old myocardial infarction; Z80.1 Family history of malignant neoplasm of trachea, bronchus and lung; Z11.52 Encounter for screening for COVID-19; Z68.32 Body mass index [BMI] 32.0-32.9, adult
CPT/HCPCS: 88305; 93308; 32555; 33016; 36600; 70450; 70551; 71045; 71046; 71250; 71275; 74177; 76604; 80048; 80053; 80076; 81003; 81015; 82550; 82728; 82805; 82945; 82962; 83036; 83540; 83550; 83615; 83735; 83880; 84145; 84157; 84443; 84484; 85014; 85025; 85027; 85652; 85730; 86038; 86039; 86041; 86140; 86255; 86658; 87015; 87040; 87070; 87102; 87116; 87205; 87206; 87502; 87811; 88112; 89051; 92526; 92610; 93005; 93306; 93970; 96365; 97112; 97116; 97163; 97167; 97530; 97535; 99152; 99153; 99285; J2358; J3480; Q9967